=== PATIENT | female | born 1950 | race Caucasian/White ===

== ENCOUNTER 2024-04-27 11:01 | Outpatient (REF) | payer MEDICARE, SELFPAY | END 2024-04-27 11:02 | disposition home or self-care (01) | LOC: HO.HMGCLNP 11:01 | PROVIDERS: Visit Provider Registered Nurse | DX: Z13.89 Encounter for screening for other disorder (principal) ==

== ENCOUNTER 2024-04-27 11:01 | Outpatient (AMB) | payer MEDICARE, SELFPAY ==
--- NOTE | 2024-04-27 11:04 | AM.OFFWIN_ITS ---
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 While every effort has been made to ensure accuracy, inker errors may have been included. The patient is a 74 year old female who presents to the clinic today with one- week history of nausea, vomiting, dehydration, generalized body aches and decreased ability to walk. She has been absent from healthcare for the past 20 years, and notes that over time her legs have had some increased pain in the joints bilaterally. She denies fall, however her family is concerned that she may have a fall due to her above complaints. She denies fever, but reports chills. She denies shortness of breath. She has been advised by her family to drink additional fluids, however she has been declining fluids, as well as declining food. Review of Systems Const All systems reviewed & are unremarkable except as noted in HPI and below Physical Exam Vital Signs: Last Vital Signs Temp 97.6 F 04/27/24 11:12 Pulse 79 04/27/24 11:12 BP 90/54 L 04/27/24 11:12 Pulse Ox 96 04/27/24 11:12 Oxygen Delivery Method Room Air 04/27/24 11:12 Const General: cooperative, comfortable, no acute distress and alert Orientation/consciousness: patient oriented x3 HEENT Head: Yes normal to inspection and Yes normocephalic Ears: hearing grossly normal bilaterally General nose exam: Normal external nose present Face and sinus: Yes normal facial exam and Yes sinuses nontender Mouth: tongue normal and Abnormal oral and palatal mucosa present (Dry) Teeth and gingiva: dentition normal Eyes General: appearance normal, both eyes and all related structures Neck Neck: Yes normal visual inspection, Yes full ROM and Yes no lymphadenopathy Resp Effort & Inspection: normal respiratory effort and able to speak in complete sentences Auscultation: clear to auscultation bilaterally Cardio Jugular venous distension: no JVD Palpation: normal PMI Rate: regular rate Heart sounds: S1 normal heart sound present, S2 normal heart sound present, no click, no gallops, no murmurs and no rubs GI Inspection: Yes normal to inspection Palpation (GI): Soft to palpation and nontender Percussion: Yes normal to percussion Auscultation: normal bowel sounds Skin Other: Pale, warm, dry. Tenting present General skin exam: no rashes or lesions noted Neuro General: patient oriented x3 Extrem Other: Technically difficult exam due to patient being currently in a wheelchair. Strength 4/5, equal bilaterally, no obvious deformity, intact distal neurovascular exam. General: Yes capillary refill normal and Yes normal exam except as noted Psych Appearance: grossly normal Mental Status: mental status grossly normal Speech and movement: Normal speech and movement present Affect: normal affect Assessment & Plan Assessment & Plan (1) URI (upper respiratory infection): Code(s): J06.9 - Acute upper respiratory infection, unspecified Qualifiers: URI type: unspecified URI Qualified Code(s): J06.9 - Acute upper respiratory infection, unspecified Plan: Viral swab obtained to rule out Covid based on symptoms. Advised mask wearing while symptomatic and quarantine per current CDC guidelines. Reviewed at home support methods including hydration, humidification, vix vapor rub, sinus rinse. Discussed treatment with antiviral therapy for covid with paxlovid including appropriate use and side effects, and need to start medication within 5 day of symptom onset, preferably within 48 hours of symptom onset. Patient is outside of window for treatment with paxlovid. Advised follow up with worsening symptoms such as dyspnea at rest, which would require emergent evaluation. (2) Dehydration: Code(s): E86.0 - Dehydration Plan: Advised to increase fluids, and electrolytes, which patient has been declining. Given this and the physical examination, consider emergency room for rehydration efforts. Patient and family agree with plan. Family to drive patient to the emergency room. Plan See above for full details and plan. Advised connection with a primary care provider for investigation of chronic complaints, as well as primary preventative medicine. Orders: Orders SARS-CoV2/FLU/RSV Today J06.9 - Acute upper respiratory infection, unspecified Medications: New ondansetron 4 mg PO Q8H 3 days PRN 9 tabs 0RF nausea and vomiting Coding Level of Care Code Est Pt Level 4 (03875) Diagnoses Upper respiratory tract infection, unspecified type J06.9 URI type: unspecified URI Dehydration E86.0
[2024-04-27 11:12] VITALS: BP 90/54; PULSE 79; TEMP 36.4; O2SAT 96
== END 2024-04-27 12:45 | disposition home or self-care (01) ==
PROVIDERS: Visit Provider Registered Nurse
DX: J06.9 Acute upper respiratory infection, unspecified (principal); E86.0 Dehydration

== ENCOUNTER 2024-04-27 12:05 | Inpatient (IN) | payer MEDICARE, SELFPAY ==
--- NOTE | ~2024-04-27 | US_ITS ---
EXAMINATION: US TRIPLEX LOWER EXTREMITY, BILATERAL CLINICAL INFORMATION: Pain, swelling COMPARISON: None available. TECHNIQUE: Color-flow triplex imaging with spectral analysis and compression Doppler were performed on the bilateral lower extremities. FINDINGS: Respiratory variation, normal compression and augmented flow are noted throughout the bilateral lower extremities. The visualized common femoral vein, superficial femoral vein, profunda femoral vein, popliteal vein and midcalf peroneal and posterior tibial venous segments show no evidence of deep venous thrombosis bilaterally. There is no Simms's cyst. Bilateral calf edema. US/US venous duplex LE BI IMPRESSION: No evidence of deep venous thrombosis involving the bilateral lower extremities. Electronically signed by: Sherri Rossi MD 04/27/2024 01:41 PM EDT
--- NOTE | ~2024-04-27 | XR_ITS ---
EXAMINATION: XR CHEST CLINICAL INFORMATION: Cough. COMPARISON: None available. TECHNIQUE: Frontal view of the chest was obtained. FINDINGS: Mild increased central and bibasilar interstitial markings. No consolidation. Possible trace amount of bilateral pleural fluid. No pneumothorax. Mildly prominent cardiomediastinal silhouette. No acute osseous findings. XR/XR chest 1V IMPRESSION: Findings could indicate mild interstitial edema or small airways disease. Suspect mild cardiomegaly. Recommend clinical correlation. Electronically signed by: Francesca Corrales MD 04/27/2024 02:56 PM EDT RP
--- NOTE | ~2024-04-27 | CT_ITS ---
EXAMINATION: CT ABDOMEN AND PELVIS WITH CONTRAST CLINICAL INFORMATION: Jaundice. COMPARISON: None available. TECHNIQUE: Multidetector volumetric images were obtained from the superior aspect of the liver through the pubic symphysis following administration 85 mL of Omnipaque 350 intravenous contrast. Sagittal and coronal reformatted images were obtained on the technologist's workstation. Oral contrast: No. This CT examination was performed using dose optimization techniques as appropriate, variously including the following: *Automated exposure control *Adjustment of mA and/or kV according to patient size (this includes techniques or standardized protocols for targeted exams where dose is matched to indication/reason for exam; i.e. extremities or head) *Use of iterative reconstruction technique DLP: 978 mGy-cm FINDINGS: LUNG BASES: The visualized lung bases are unremarkable. LIVER, GALLBLADDER, AND BILIARY TREE: The liver is normal in size, shape, and attenuation. No focal hepatic lesion or biliary ductal dilatation is present. Distended gallbladder without significant wall thickening or inflammatory change. There are calcified gallstones dependently. No evidence of acute cholecystitis. PANCREAS: Small pancreatic body calcifications which could represent sequela of chronic pancreatitis or be vascular in nature. No inflammatory change or pancreatic ductal dilatation. No discrete parenchymal lesion. SPLEEN: Unremarkable. ADRENAL GLANDS: Bilateral adrenal thickening and heterogeneity without a discrete nodule. KIDNEYS AND URETERS: Proximal right ureteral stone measuring up to 2.0 x 0.8 x 1.4 cm and approximately 810 Hounsfield units. This is located at the level of the L3-L4 intervertebral disc. There is [id number] proximal hydroureter nephrosis with adjacent perinephric stranding and hypoenhancement of the right kidney, consistent with obstructive uropathy. There are multiple additional right renal pelvic stones. Findings have the appearance of a fragmented staghorn calculus. There is an additional right ureterovesicular junction stone measuring up to 0.9 cm with mild diffuse hydroureter and minimal adjacent stranding. No left-sided renal or ureteral stone. No discrete parenchymal lesion or enhancing parenchymal lesion. BLADDER: Nondistended. Mild wall thickening with peripheral enhancement which may be related to underdistention or represent a mild infectious or inflammatory process. GASTROINTESTINAL TRACT: Moderate sliding hiatal hernia with circumferential wall thickening of the distal esophagus. An underlying distal esophageal lesion cannot be excluded and direct visualization could help further evaluate if clinically indicated. No small or large bowel obstruction. Colonic diverticulosis without evidence of acute diverticulitis. Unremarkable appendix. PERITONEAL CAVITY: Trace pelvic free fluid. No organized fluid collection. No soft tissue mass. ABDOMINAL WALL: No significant hernia is appreciated. LYMPH NODES: No significant lymphadenopathy. VASCULAR: No abdominal aortic dilatation or dissection. Prominent atherosclerotic calcifications. PELVIC VISCERA: Probable calcified fibroid. OSSEOUS STRUCTURES: Unremarkable. CT/CT abdomen pelvis w IV con IMPRESSION: 1. Proximal right ureteral stone measuring up to 2.0 cm at the level of the L3-L4 intervertebral disc. [id number] proximal hydroureteronephrosis with adjacent perinephric stranding and hypoenhancement of the right kidney, consistent with obstructive uropathy. Multiple additional right renal pelvic stones. Findings have the appearance of a fragmented staghorn calculus. Additional right ureterovesicular junction stone measuring up to 0.9 cm with mild diffuse hydroureter and minimal adjacent stranding. 2. No left-sided renal or ureteral stone. No left-sided hydronephrosis or hydroureter. 3. Moderate sliding hiatal hernia with circumferential wall thickening of the distal esophagus. An underlying distal esophageal lesion cannot be excluded and direct visualization could help further evaluate 4. Colonic diverticulosis without evidence of acute diverticulitis. Unremarkable appendix. 5. Trace pelvic free fluid. No organized fluid collection or soft tissue mass. 6. Dilatation of the gallbladder with cholelithiasis. No evidence of acute cholecystitis. No intra or extrahepatic biliary ductal dilatation. Fleischner guidelines were followed. Electronically signed by: Moses Gutierrez MD 04/27/2024 04:01 PM EDT
--- NOTE | 2024-04-27 12:21 | ED.GENADULT ---
HPI - General Adult General Chief complaint: General Medical Stated complaint: dehydration sent in by walk in Time Seen by Provider: 04/27/24 12:30 Source: patient and family Mode of arrival: ambulatory Limitations: no limitations History of Present Illness ED Provider: Dr. Rosado HPI narrative: 74 y/o F patient; without known PMH as patient has not been seen by a physician in over 20 years; presents as referral from Urgent Care for one week of NBNB nausea/vomiting, generalized body aches and weakness. Associated with decreased PO intake. Urgent Care performed COVID swab which was negative. The patient denies alcohol use. Related Data Previous Rx's ?Medication ?Instructions ?Recorded ondansetron 4 mg disintegrating 4 mg PO Q8H PRN nausea and 04/27/24 tablet vomiting 3 days #9 tabs Allergies Allergy/AdvReac Type Severity Reaction Status Date / Time No Known Allergies Allergy Verified 04/27/24 12:23 Review of Systems Review of Systems: Yes all other systems are reviewed and are negative PMFSH Past Medical History Attestation statement: The following information was validated with the patient. Source: unable to obtain Social History Social History Advance Directives: No Advance Directives Information Provided: Yes Physical Exam ED Vital Signs: Vital Signs - 24 hr 04/27/24 12:22 04/27/24 16:35 Temperature 96.3 F L 98.0 F Pulse Rate 66 66 Respiratory Rate 16 22 H Blood Pressure 94/41 L 141/54 H Pulse Oximetry 95 94 Oxygen Delivery Method Room Air Room Air BMI result Body Mass Index 35.8 Patient is afebrile with soft normal blood pressure Const General: cooperative HENMT Head: Yes normal to inspection and Yes atraumatic Eyes Other: Scleral icterus General: appearance normal, both eyes and all related structures Pupils: Equal, round and reactive pupils present EOM: EOMs intact bilaterally Neck Neck: Yes normal visual inspection, Yes full ROM, Yes supple and No tender Chest Chest palpation & inspection: normal inspection of the chest and normal palpation of entire chest wall Resp Effort & Inspection: normal respiratory effort, able to speak in complete sentences, no cough and no respiratory distress Auscultation: clear to auscultation bilaterally Cardio Other: Bilateral lower extremity non-pitting edema Rate: regular rate Rhythm: regular rhythm Peripheral pulses: Peripheral pulses 2+ throughout GI Inspection: No Abdominal wall edema and No distended Palpation (GI): Soft to palpation, not firm, Tenderness to palpation present (GI) (Epigastric abd tenderness), no guarding and not rigid Auscultation: normal bowel sounds Back/Spine/Pelvis Back: No back tenderness Skin General skin exam: jaundice Neuro Cranial nerves: Yes Equal, round and reactive pupils present Course Course Course Narrative: 74 yo female with no known PMH as she has not been to the doctor in several years this is the 8th day of weakness, fatigue, chills, nausea and vomiting x 1. Poor PO intake. BP at home reported as 90/50. She has bilateral leg pain as well. She is newly jaundiced. She cannot remember the last time she saw a doctor. She has no abdominal pain. She has leg swelling as well. No prior ETOH abuse. this is a RAPID medical screening exam the rest of the history and physical exam is to be done by the main provider. Performed by Dr. Morris Reevaluation(s) Reevaluation #1: Patient is afebrile with soft normal BP. Reviewed orders for CT Abdomen/Pelvis w Contrast, CXR, US bilateral lower extremities. Reviewed EKG: NSR 69BPM with normal intervals without ischemic changes. Labs reviewed. WBC 24.6k, 8% bands. Anemia 10.6 unclear baseline. Platelets 138. Potassium 3.2. Providing oral repletion. Bicarb 20. Cr 3.08. Suspect this represents an DEB given patient's recent nausea/vomiting/diarrhea, but unclear baseline Cr. LA 2.2. Total bili 1.4. Alk Phos 243. Albumin 3.1. CRP 29.47. ESR 90. TSH 15.73. Providing 1L IVF and Zosyn for prophylactic antibiotic coverage. Time: 13:44 Reevaluation #2: Lower extremity b/l US unremarkable. CXR notable for mild interstitial edema. CT Abdomen/Pelvis with: 1. Proximal right ureteral stone measuring up to 2.0 cm at the level of the L3-L4 intervertebral disc. [id number] proximal hydroureteronephrosis with adjacent perinephric stranding and hypoenhancement of the right kidney, consistent with obstructive uropathy. Multiple additional right renal pelvic stones. Findings have the appearance of a fragmented staghorn calculus. Discussed with urology and hospitalist. Urology recommends NPO at midnight. Plan: Admit to hospitalist service Condition: Stable Medications Administered Discontinued Medications Generic Name Dose Route Start Last Admin Trade Name Nyla PRN Reason Stop Dose Admin Sodium Chloride 1,000 mls @ 999 mls/hr 04/27/24 13:45 04/27/24 14:14 Ns IV 04/27/24 14:45 999 mls/hr .Q1H1M KRYSTYNA Administration Piperacillin Sod/Tazobactam 50 mls @ 100 mls/hr 04/27/24 13:43 04/27/24 14:57 Sod 3.375 gm/ Sodium Chloride IV 04/27/24 14:12 Infused ONCE ONE Infusion Iohexol 100 ml 04/27/24 14:28 04/27/24 14:28 Iohexol 350 Mg/Ml 100 Ml Infus..Btl IV 04/27/24 14:29 85 ml ONCE ONE Administration Potassium Chloride 40 meq 04/27/24 13:44 04/27/24 14:13 Potassium Chloride Er 20 Meq Tab.Er.Prt PO 04/27/24 13:45 40 meq ONCE ONE Administration Medical Decision Making Lab Data 04/27/24 12:53 04/27/24 12:53 Labs: Lab Results 04/27/24 04/27/24 04/27/24 Range/Units 12:52 12:53 12:57 WBC 24.6 H (4.8-10.8) X10*3/uL RBC 3.53 L (4.20-5.50) X10*6/uL Hgb 10.6 L (12.0-16.0) g/dl Hct 31.3 L (37.0-47.0) % MCV 88.7 (80.0-98.0) fL MCH 30.0 (27.0-33.0) pg MCHC 33.9 (31.0-35.0) g/dl RDW 15.6 (11.0-16.0) % Plt Count 138 L (160-400) X10*3/uL MPV 12.5 H (9.4-12.3) fL Immature Gran % (Auto) Cancelled Neut % (Auto) Cancelled Lymph % (Auto) Cancelled Stephens % (Auto) Cancelled Eos % (Auto) Cancelled Baso % (Auto) Cancelled Lymph # (Auto) Cancelled Stephens # (Auto) Cancelled Eos # (Auto) Cancelled Baso # (Auto) Cancelled Abs Immat Gran (auto) Cancelled Absolute Neuts (auto) Cancelled Absolute Nucleated RBC 0.000 (0.0-0.012) X10*3/uL Nucleated RBC % (auto) 0.0 (0.0-0.2) /100WBC Neutrophils % (Manual) 79 H (45-73) % Band Neutrophils % 8 H (3-5) % Lymphocytes % (Manual) 3 L (20-40) % Atypical Lymphs % (Man) 1 (0-6) % Monocytes % (Manual) 6 (2-11) % Metamyelocytes % 3 % Abs Neuts (Manual) 21.4 H (2.0-8.3) X10*3/uL Lymphocytes # (Manual) 0.7 L (1.2-4.9) X10*3/uL Atyp Lymphs # (Manual) 0.2 x10*3/uL Monocytes # (Manual) 1.5 H (0.1-1.2) X10*3/uL Metamyelocytes # 0.7 X10*3/uL Platelet Estimate DECREASED (NORMAL) Plt Morphology Comment NORMAL RBC Morphology NOTED Hypochromasia 1+ (5-14) /OIF [place] Cells 2+ (3-5) /OIF ESR 90 H (0-20) MM/HR PT 12.4 (10.9-12.4) SEC INR 1.1 (0.9-1.1) VBG pH 7.46 H (7.32-7.43) VBG pCO2 27 mmHg VBG pO2 45 mmHg VBG HCO3 19 L (22-26) mmol/L VBG O2 Saturation 69.0 % VBG Base Excess -3.0 mmol/L Sodium 137 (135-145) mmol/L Potassium 3.2 L (3.3-5.1) mmol/L Chloride 108 (96-108) mmol/L Carbon Dioxide 20 L (22-29) mmol/L Anion Gap 12 (12-20) BUN 73 H (9-16) mg/dL Creatinine 3.08 H (0.5-1.4) mg/dL Estim Creat Clear Calc 18.8 Estimated GFR 15 Random Glucose 149 H (60-115) mg/dL Lactic Acid 2.2 H* (0.5-2.0) mmol/L Lactic Acid F/U @ 2Hr (0.5-2.0) mmol/L Calcium 8.8 (8.4-10.2) mg/dL Magnesium 2.1 (1.6-2.6) mg/dL Total Bilirubin 1.4 H (0.0-1.0) mg/dL Direct Bilirubin 0.8 H (0.0-0.5) mg/dL AST 36 H (5-31) U/L ALT 25 (0-31) U/L Alkaline Phosphatase 243 H (39-117) U/L Ammonia 28 (13-55) umol/L Troponin I High Sens 15.5 (<3.5-17.0) ng/L C-Reactive Protein 29.47 H (< or = 0.50) mg/dL B-Natriuretic Peptide 384 H (<100) pg/mL Total Protein 6.6 (6.5-8.0) g/dL Albumin 3.1 L (3.5-5.0) g/dL Lipase 13 (8-78) U/L Procalcitonin 21.05 ng/mL TSH 15.73 H (0.32-4.0) uIU/mL Free T4 < 0.42 L (0.71-1.85) ng/dL Acetaminophen 6 (<30) mcg/mL Influenza Type A (PCR) NEGATIVE (Negative) Influenza Type B (PCR) NEGATIVE (Negative) RSV RNA Qual (PCR) NEGATIVE (Negative) SARS-CoV-2 RNA (RT-PCR) NEGATIVE (Negative) Blood Type O Positive Antibody Screen NEGATIVE 04/27/24 Range/Units 15:44 WBC (4.8-10.8) X10*3/uL RBC (4.20-5.50) X10*6/uL Hgb (12.0-16.0) g/dl Hct (37.0-47.0) % MCV (80.0-98.0) fL MCH (27.0-33.0) pg MCHC (31.0-35.0) g/dl RDW (11.0-16.0) % Plt Count (160-400) X10*3/uL MPV (9.4-12.3) fL Immature Gran % (Auto) Neut % (Auto) Lymph % (Auto) Stephens % (Auto) Eos % (Auto) Baso % (Auto) Lymph # (Auto) Stephens # (Auto) Eos # (Auto) Baso # (Auto) Abs Immat Gran (auto) Absolute Neuts (auto) Absolute Nucleated RBC (0.0-0.012) X10*3/uL Nucleated RBC % (auto) (0.0-0.2) /100WBC Neutrophils % (Manual) (45-73) % Band Neutrophils % (3-5) % Lymphocytes % (Manual) (20-40) % Atypical Lymphs % (Man) (0-6) % Monocytes % (Manual) (2-11) % Metamyelocytes % % Abs Neuts (Manual) (2.0-8.3) X10*3/uL Lymphocytes # (Manual) (1.2-4.9) X10*3/uL Atyp Lymphs # (Manual) x10*3/uL Monocytes # (Manual) (0.1-1.2) X10*3/uL Metamyelocytes # X10*3/uL Platelet Estimate (NORMAL) Plt Morphology Comment RBC Morphology Hypochromasia /OIF [place] Cells /OIF ESR (0-20) MM/HR PT (10.9-12.4) SEC INR (0.9-1.1) VBG pH (7.32-7.43) VBG pCO2 mmHg VBG pO2 mmHg VBG HCO3 (22-26) mmol/L VBG O2 Saturation % VBG Base Excess mmol/L Sodium (135-145) mmol/L Potassium (3.3-5.1) mmol/L Chloride (96-108) mmol/L Carbon Dioxide (22-29) mmol/L Anion Gap (12-20) BUN (9-16) mg/dL Creatinine (0.5-1.4) mg/dL Estim Creat Clear Calc Estimated GFR Random Glucose (60-115) mg/dL Lactic Acid (0.5-2.0) mmol/L Lactic Acid F/U @ 2Hr 1.7 (0.5-2.0) mmol/L Calcium (8.4-10.2) mg/dL Magnesium (1.6-2.6) mg/dL Total Bilirubin (0.0-1.0) mg/dL Direct Bilirubin (0.0-0.5) mg/dL AST (5-31) U/L ALT (0-31) U/L Alkaline Phosphatase (39-117) U/L Ammonia (13-55) umol/L Troponin I High Sens (<3.5-17.0) ng/L C-Reactive Protein (< or = 0.50) mg/dL B-Natriuretic Peptide (<100) pg/mL Total Protein (6.5-8.0) g/dL Albumin (3.5-5.0) g/dL Lipase (8-78) U/L Procalcitonin ng/mL TSH (0.32-4.0) uIU/mL Free T4 (0.71-1.85) ng/dL Acetaminophen (<30) mcg/mL Influenza Type A (PCR) (Negative) Influenza Type B (PCR) (Negative) RSV RNA Qual (PCR) (Negative) SARS-CoV-2 RNA (RT-PCR) (Negative) Blood Type Antibody Screen Independent Interpretation I performed an independent interpretation of an: Plain X-Ray and Ultrasound Interpretation: EXAMINATION: US TRIPLEX LOWER EXTREMITY, BILATERAL CLINICAL INFORMATION: Pain, swelling COMPARISON: None available. TECHNIQUE: Color-flow triplex imaging with spectral analysis and compression Doppler were performed on the bilateral lower extremities. FINDINGS: Respiratory variation, normal compression and augmented flow are noted throughout the bilateral lower extremities. The visualized common femoral vein, superficial femoral vein, profunda femoral vein, popliteal vein and midcalf peroneal and posterior tibial venous segments show no evidence of deep venous thrombosis bilaterally. There is no Simms's cyst. Bilateral calf edema. US/US venous duplex LE BI IMPRESSION: No evidence of deep venous thrombosis involving the bilateral lower extremities. Electronically signed by: Sherri Rossi MD 04/27/2024 01:41 PM EDT EXAMINATION: XR CHEST CLINICAL INFORMATION: Cough. COMPARISON: None available. TECHNIQUE: Frontal view of the chest was obtained. FINDINGS: Mild increased central and bibasilar interstitial markings. No consolidation. Possible trace amount of bilateral pleural fluid. No pneumothorax. Mildly prominent cardiomediastinal silhouette. No acute osseous findings. XR/XR chest 1V IMPRESSION: Findings could indicate mild interstitial edema or small airways disease. Suspect mild cardiomegaly. Recommend clinical correlation. Electronically signed by: Francesca Corrales MD 04/27/2024 02:56 PM EDT RP EXAMINATION: CT ABDOMEN AND PELVIS WITH CONTRAST CLINICAL INFORMATION: Jaundice. COMPARISON: None available. TECHNIQUE: Multidetector volumetric images were obtained from the superior aspect of the liver through the pubic symphysis following administration 85 mL of Omnipaque 350 intravenous contrast. Sagittal and coronal reformatted images were obtained on the technologist's workstation. Oral contrast: No. This CT examination was performed using dose optimization techniques as appropriate, variously including the following: *Automated exposure control *Adjustment of mA and/or kV according to patient size (this includes techniques or standardized protocols for targeted exams where dose is matched to indication/reason for exam; i.e. extremities or head) *Use of iterative reconstruction technique DLP: 978 mGy-cm FINDINGS: LUNG BASES: The visualized lung bases are unremarkable. LIVER, GALLBLADDER, AND BILIARY TREE: The liver is normal in size, shape, and attenuation. No focal hepatic lesion or biliary ductal dilatation is present. Distended gallbladder without significant wall thickening or inflammatory change. There are calcified gallstones dependently. No evidence of acute cholecystitis. PANCREAS: Small pancreatic body calcifications which could represent sequela of chronic pancreatitis or be vascular in nature. No inflammatory change or pancreatic ductal dilatation. No discrete parenchymal lesion. SPLEEN: Unremarkable. ADRENAL GLANDS: Bilateral adrenal thickening and heterogeneity without a discrete nodule. KIDNEYS AND URETERS: Proximal right ureteral stone measuring up to 2.0 x 0.8 x 1.4 cm and approximately 810 Hounsfield units. This is located at the level of the L3-L4 intervertebral disc. There is [id number] proximal hydroureter nephrosis with adjacent perinephric stranding and hypoenhancement of the right kidney, consistent with obstructive uropathy. There are multiple additional right renal pelvic stones. Findings have the appearance of a fragmented staghorn calculus. There is an additional right ureterovesicular junction stone measuring up to 0.9 cm with mild diffuse hydroureter and minimal adjacent stranding. No left-sided renal or ureteral stone. No discrete parenchymal lesion or enhancing parenchymal lesion. BLADDER: Nondistended. Mild wall thickening with peripheral enhancement which may be related to underdistention or represent a mild infectious or inflammatory process. GASTROINTESTINAL TRACT: Moderate sliding hiatal hernia with circumferential wall thickening of the distal esophagus. An underlying distal esophageal lesion cannot be excluded and direct visualization could help further evaluate if clinically indicated. No small or large bowel obstruction. Colonic diverticulosis without evidence of acute diverticulitis. Unremarkable appendix. PERITONEAL CAVITY: Trace pelvic free fluid. No organized fluid collection. No soft tissue mass. ABDOMINAL WALL: No significant hernia is appreciated. LYMPH NODES: No significant lymphadenopathy. VASCULAR: No abdominal aortic dilatation or dissection. Prominent atherosclerotic calcifications. PELVIC VISCERA: Probable calcified fibroid. OSSEOUS STRUCTURES: Unremarkable. CT/CT abdomen pelvis w IV con IMPRESSION: 1. Proximal right ureteral stone measuring up to 2.0 cm at the level of the L3-L4 intervertebral disc. [id number] proximal hydroureteronephrosis with adjacent perinephric stranding and hypoenhancement of the right kidney, consistent with obstructive uropathy. Multiple additional right renal pelvic stones. Findings have the appearance of a fragmented staghorn calculus. Additional right ureterovesicular junction stone measuring up to 0.9 cm with mild diffuse hydroureter and minimal adjacent stranding. 2. No left-sided renal or ureteral stone. No left-sided hydronephrosis or hydroureter. 3. Moderate sliding hiatal hernia with circumferential wall thickening of the distal esophagus. An underlying distal esophageal lesion cannot be excluded and direct visualization could help further evaluate 4. Colonic diverticulosis without evidence of acute diverticulitis. Unremarkable appendix. 5. Trace pelvic free fluid. No organized fluid collection or soft tissue mass. 6. Dilatation of the gallbladder with cholelithiasis. No evidence of acute cholecystitis. No intra or extrahepatic biliary ductal dilatation. Fleischner guidelines were followed. Electronically signed by: Moses Gutierrez MD 04/27/2024 04:01 PM EDT Discharge Plan Discharge Clinical Impression: Urinary tract obstruction due to kidney stone, Anemia, Thrombocytopenia, DEB (acute kidney injury), Hypothyroidism Patient Disposition: Admitted As Inpatient Print Language: Serbian
[2024-04-27 12:22] VITALS: BP 94/41; PULSE 66; RESP 16; TEMP 35.7; O2SAT 95; BMI 35.8
--- NOTE | 2024-04-27 12:25 | ECG_ITS ---
Test Reason : WEAKNESS Blood Pressure : / mmHG Vent. Rate : 069 BPM Atrial Rate : 069 BPM P-R Int : 134 ms QRS Dur : 080 ms QT Int : 418 ms P-R-T Axes : 018 020 100 degrees QTc Int : 447 ms Normal sinus rhythm Nonspecific ST and T wave abnormality Abnormal ECG No previous ECGs available Referred By: Roxi Morris Electronically Signed By:SHANELLE MOHR
[2024-04-27 13:12] LABS: Hematocrit 31.3 % (37.0-47.0); Hemoglobin 10.6 g/dl (12.0-16.0); Mean Corpuscular HGB Conc 33.9 g/dl (31.0-35.0); Mean Corpuscular Volume 88.7 fL (80.0-98.0); Mean Platelet Volume 12.5 fL (9.4-12.3); Platelet Count 138 X10*3/uL (160-400); Red Blood Count 3.53 X10*6/uL (4.20-5.50); Red Cell Distribution Width 15.6 % (11.0-16.0)
[2024-04-27 13:14] LABS: VBG HCO3 19 mmol/L (22-26); VBG pCO2 27 mmHg; VBG pH 7.46 (7.32-7.43); VBG pO2 45 mmHg; Venous Blood Gas Refer to POC result
[2024-04-27 13:16] LABS: WBC ABN SCTR FOR CBC 1; White Blood Count 24.6 X10*3/uL (4.8-10.8)
[2024-04-27 13:22] LABS: INTERNATIONAL NORM RATIO 1.1 (0.9-1.1); Prothrombin Time 12.4 SEC (10.9-12.4)
[2024-04-27 13:25] LABS: Ammonia 28 umol/L (13-55)
[2024-04-27 13:32] LABS: B Type Natriuretic Peptide 384 pg/mL (<100)
[2024-04-27 13:32] LABS: Acetaminophen LAB 6 mcg/mL (<30)
[2024-04-27 13:35] LABS: Atypical Lymph Absolute Manual 0.2 x10*3/uL; Atypical Lymphs Percent Manual 1 % (0-6); Band Neutrophils Percent 8 % (3-5); Lymphocytes Absolute Manual 0.7 X10*3/uL (1.2-4.9); Lymphocytes Percent Manual 3 % (20-40); Metamyelocytes Absolute 0.7 X10*3/uL; Metamyelocytes Percent 3 %; Monocytes Absolute Manual 1.5 X10*3/uL (0.1-1.2); Monocytes Percent Manual 6 % (2-11); Neutrophils Absolute Manual 21.4 X10*3/uL (2.0-8.3); Neutrophils Percent Manual 79 % (45-73)
[2024-04-27 13:36] LABS: Burr Cells 2+ (3-5) /OIF; Hypochromasia 1+ (5-14) /OIF; Platelet Estimate DECREASED (NORMAL); Platelet Morphology Comment NORMAL; RBC Morphology NOTED
[2024-04-27 13:38] LABS: Alanine Aminotransferase 25 U/L (0-31); Albumin Level 3.1 g/dL (3.5-5.0); Alkaline Phosphatase 243 U/L (39-117); Anion Gap 12 (12-20); Aspartate Amino Transferase 36 U/L (5-31); Bilirubin Direct 0.8 mg/dL (0.0-0.5); Bilirubin Total 1.4 mg/dL (0.0-1.0); Blood Urea Nitrogen 73 mg/dL (9-16); C Reactive Protein 29.47 mg/dL (< or = 0.50); Calcium 8.8 mg/dL (8.4-10.2); Carbon Dioxide 20 mmol/L (22-29); Chloride 108 mmol/L (96-108); Creatinine Clr Calc Pharmacy 18.8; Estimated Glomerular Filt Rate 15; Glucose Random 149 mg/dL (60-115); Lactic Acid 2.2 mmol/L (0.5-2.0); Lipase 13 U/L (8-78); Magnesium 2.1 mg/dL (1.6-2.6); Potassium 3.2 mmol/L (3.3-5.1); Sodium 137 mmol/L (135-145); Total Protein 6.6 g/dL (6.5-8.0); Troponin-I High Sensitivity 15.5 ng/L (<3.5-17.0)
[2024-04-27 13:52] LABS: Erythrocyte Sedimentation Rate 90 MM/HR (0-20)
[2024-04-27 13:53] LABS: TSH reflex Free T4 15.73 uIU/mL (0.32-4.0)
[2024-04-27 13:56] LABS: Procalcitonin 21.05 ng/mL
[2024-04-27] MEDS: Potassium Chloride ER 20 MEQ TAB.ER.PRT 40 MEQ PO (14:13)
[2024-04-27] MEDS: 0.9 % Sodium Chloride 1,000 ML 999 ML IV (14:14)
[2024-04-27] MEDS: Piperacillin Sodium/Tazobactam 3.375 GM in 0.9 % Sodium Chloride 50 ML IV (14:14)
[2024-04-27 14:23] LABS: Influenza A PCR NEGATIVE (Negative); Influenza B PCR NEGATIVE (Negative); Resp Syncy Virus RNA Qual PCR NEGATIVE (Negative); SARS COV2 PCR INHOUSE NEGATIVE (Negative)
[2024-04-27] MEDS: iohexoL 350 MG/ML 100 ML INFUS..BTL IV (14:28)
[2024-04-27 14:50] LABS: Free T4 (Free Thyroxine) < 0.42 ng/dL (0.71-1.85)
[2024-04-27 15:06] LABS: Reflex Lactate? Lactic Acid Added
[2024-04-27 16:01] LABS: ~Lactic Acid-LAB USE ONLY 1.7 mmol/L (0.5-2.0)
[2024-04-27 16:35] VITALS: BP 141/54; PULSE 66; RESP 22; TEMP 36.7; O2SAT 94
--- NOTE | 2024-04-27 16:46 | PM.UROCN ---
History of Present Illness Consult details Consult date: 04/27/24 Narrative: CC: Obstructing stone with infection 74-year-old female. Minimal past medical history. Has not seen doctor in 20 years. Was referred from urgent Care after one-week of nausea with vomiting and generalized body aches and weakness Decreased p.o. intake Negative COVID Initial laboratories show creatinine 3.1, WBC 24.[address] imaging - Proximal right ureteral stone measuring up to 2.0 vx 0.8 x 1.4 cm and approximately 810 Hounsfield units. This is located at the level of the L3-L4 intervertebral disc. There is [id number] proximal hydroureter nephrosis with adjacent perinephric stranding and decreased perfusion of the right kidney, consistent with obstructive uropathy. Recommendation admission, rehydration, IV antibiotics Would plan for cystoscopy, right retrograde, right stent tomorrow Review of Systems Constitutional: Constitutional: Reports as per HPI and Reports no additional constitutional complaints Cardiovascular: Cardiovascular: Reports as per HPI and Reports no additional cardiovascular complaints Respiratory: Respiratory: Reports as per HPI and Reports no additional respiratory complaints Gastrointestinal: Gastrointestinal: Reports as per HPI and Reports no additional gastrointestinal complaints Genitourinary: Genitourinary: Reports as per HPI Musculoskeletal: Musculoskeletal: Reports no additional musculoskeletal complaints and Reports as per HPI Neurologic: Reports system reviewed and no additional complaints, except as documented and Reports as per HPI [facility] Social History Social History Advance Directives: No Advance Directives Information Provided: Yes Meds Allergies Allergy/AdvReac Type Severity Reaction Status Date / Time No Known Allergies Allergy Verified 04/27/24 12:23 Active Medications: Current Medications Sodium Chloride (Ns) 1,000 mls @ 125 mls/hr IVCONT .Q8H [facility] Piperacillin Sod/Tazobactam (Sod 2.25 gm/ Sodium Chloride) 50 mls @ 100 mls/hr IV ONCE ONE Stop: 04/27/24 20:29 Levothyroxine Sodium (Levothyroxine Sodium 75 Mcg Tablet) 75 mcg PO DAILY@0600 [facility] Physical Exam Vital Signs: Vital Signs: Last Vital Signs Temp 98.0 F 04/27/24 16:35 Pulse 66 04/27/24 16:35 Resp 22 H 04/27/24 16:35 BP 141/54 H 04/27/24 16:35 Pulse Ox 94 04/27/24 16:35 O2 Del Method Room Air 04/27/24 16:35 BMI result Body Mass Index 35.8 Const: General: cooperative, healthy appearing, comfortable and no acute distress Orientation/consciousness: patient oriented x3 HEENT: Face and sinus: Yes normal facial exam Mouth: moist mucous membranes Neck: Neck: Yes normal visual inspection, Yes full ROM and Yes trachea midline Chest: Chest palpation & inspection: normal inspection of the chest Resp: Effort & Inspection: normal respiratory effort, able to speak in complete sentences and no respiratory distress GI: Inspection: Yes normal to inspection Back/Spine/Pelvis: Cervical Spine: normal cervical lordosis Thoracic/Lumbar Spine: thoracic and lumbar spine normal to inspection Skin: General skin exam: no rashes or lesions noted Neuro: General: patient oriented x3, tone normal and moves all extremities Extrem: General: Yes normal to inspection and Yes capillary refill normal Results Labs 04/27/24 12:53 04/27/24 12:53 Labs: Abnormal lab results 04/27/24 Range/Units 12:53 WBC 24.6 H (4.8-10.8) X10*3/uL RBC 3.53 L (4.20-5.50) X10*6/uL Hgb 10.6 L (12.0-16.0) g/dl Hct 31.3 L (37.0-47.0) % Plt Count 138 L (160-400) X10*3/uL MPV 12.5 H (9.4-12.3) fL Neutrophils % (Manual) 79 H (45-73) % Band Neutrophils % 8 H (3-5) % Lymphocytes % (Manual) 3 L (20-40) % Abs Neuts (Manual) 21.4 H (2.0-8.3) X10*3/uL Lymphocytes # (Manual) 0.7 L (1.2-4.9) X10*3/uL Monocytes # (Manual) 1.5 H (0.1-1.2) X10*3/uL ESR 90 H (0-20) MM/HR VBG pH 7.46 H (7.32-7.43) VBG HCO3 19 L (22-26) mmol/L Potassium 3.2 L (3.3-5.1) mmol/L Carbon Dioxide 20 L (22-29) mmol/L BUN 73 H (9-16) mg/dL Creatinine 3.08 H (0.5-1.4) mg/dL Random Glucose 149 H (60-115) mg/dL Lactic Acid 2.2 H* (0.5-2.0) mmol/L Total Bilirubin 1.4 H (0.0-1.0) mg/dL Direct Bilirubin 0.8 H (0.0-0.5) mg/dL AST 36 H (5-31) U/L Alkaline Phosphatase 243 H (39-117) U/L C-Reactive Protein 29.47 H (< or = 0.50) mg/dL B-Natriuretic Peptide 384 H (<100) pg/mL Albumin 3.1 L (3.5-5.0) g/dL TSH 15.73 H (0.32-4.0) uIU/mL Free T4 < 0.42 L (0.71-1.85) ng/dL Short CBC 04/27/24 Range/Units 12:53 WBC 24.6 H (4.8-10.8) X10*3/uL Hgb 10.6 L (12.0-16.0) g/dl Hct 31.3 L (37.0-47.0) % Plt Count 138 L (160-400) X10*3/uL BMP 04/27/24 12:53 Sodium 137 Potassium 3.2 L Chloride 108 Carbon Dioxide 20 L BUN 73 H Creatinine 3.08 H Calcium 8.8 Liver Function 04/27/24 Range/Units 12:53 Total Bilirubin 1.4 H (0.0-1.0) mg/dL Direct Bilirubin 0.8 H (0.0-0.5) mg/dL AST 36 H (5-31) U/L ALT 25 (0-31) U/L Alkaline Phosphatase 243 H (39-117) U/L Albumin 3.1 L (3.5-5.0) g/dL All other labs normal. Assessment and Plan (1) Urinary tract obstruction due to kidney stone: Status: Acute (2) DEB (acute kidney injury): Status: Acute Plan Plan for cystoscopy, right retrograde, right stent placement. Procedures Date of Service Date of Service: 04/27/24
[2024-04-27] MEDS: Levothyroxine Sodium 75 MCG TABLET PO (17:05)
--- NOTE | 2024-04-27 17:05 | P.HPHOSP_ITS ---
History of Present Illness Date of Service: 04/27/24 Chief Complaint: nausea/vomiting/back pain 74yo F with iatrogenic hypothyroidism s/p ESQUIVEL for Grave's disease who has not seen a doctor in over 20 years and also has not been on thyroid hormone replacement for as long who went to urgent care with 1 wk of nausea and vomiting, back pain, and weakness. She endorses swelling of her legs, muscle aches, and dry skin, which have been going on for several months. No fever, chills, dysuria, or hematuria. In the ED, she was found to have leukocytosis [24.6k] with bandemia [8%] and renal insufficiency [DEB 3.08]. TSH was 15.73 and free T4 undetectable. CT A/P showed a 2 cm proximal R ureteral stone with severe hydroureteronephrosis and perinephric stranding, with multiple right renal pelvic stones, with appearance of a fragmented staghorn calculus. There was also a 9 mm R UVJ stone with hydroureter. There was also a hiatal hernia with circumferential wall thickening of the distal esophagus. K was 3.2 and she was given PO KCl. She was given IV piperacillin-tazobactam and a liter of IV NS. Review of Systems 2 Review of Systems: Yes all other systems are reviewed and are negative [facility] Medical History H/O radioactive iodine thyroid ablation Social History Advance Directives: No Advance Directives Information Provided: Yes Narrative: she quit smoking 1 wk ago she lives with her Meds Allergies Allergy/AdvReac Type Severity Reaction Status Date / Time No Known Allergies Allergy Verified 04/27/24 12:23 Active Medications: Current Medications Acetaminophen (Acetaminophen 325 Mg Tablet) 650 mg PO Q6H PRN PRN Reason: Pain, Mild (Pain Scale 1-3), fever or headache Heparin Sodium (Porcine) (Heparin Sodium,Porcine 5,000 Unit/Ml Vial) 5,000 unit SUBCUT Q12H [facility] Sodium Chloride (Ns) 1,000 mls @ 125 mls/hr IVCONT .Q8H [facility] Piperacillin Sod/Tazobactam (Sod 2.25 gm/ Sodium Chloride) 50 mls @ 100 mls/hr IV ONCE ONE Stop: 04/27/24 20:29 Levothyroxine Sodium (Levothyroxine Sodium 75 Mcg Tablet) 75 mcg PO DAILY@0600 [facility] Last Admin: 04/27/24 17:05 Dose: 75 mcg Melatonin (Melatonin 3 Mg Tablet) 6 mg PO BEDTIME PRN PRN Reason: Insomnia Ondansetron HCl (Ondansetron Hcl 4 Mg/2 Ml Vial) 4 mg IVPUSH Q4H PRN PRN Reason: Nausea and Vomiting Sodium Chloride (0.9 % Sodium Chloride Flush 3 Ml Syringe) 3 ml IVFLUSH QSHIFT [facility] Home Medications ?Medication ?Instructions ?Recorded ?Confirmed ?Last Taken ?Type No Known Home Meds 04/27/24 04/27/24 Unknown History Physical Exam 2 Vital Signs and Narrative: Vital Signs: Last Vital Signs Temp 98.0 F 04/27/24 16:35 Pulse 66 04/27/24 16:35 Resp 22 H 04/27/24 16:35 BP 141/54 H 04/27/24 16:35 Pulse Ox 94 04/27/24 16:35 O2 Del Method Room Air 04/27/24 16:35 BMI result Body Mass Index 35.8 Gen: in no acute distress HEENT: sclera anicteric, moist mucus membranes Neck: supple Lungs: clear to auscultation bilaterally Heart: regular rate and rhythm, no murmurs Abd: soft, non-tender, non-distended : R CVA tenderness Ext: bilateral lower extremity edema Skin: warm/well-perfused Neuro: alert and oriented x3, no focal weakness, delayed tendon reflexes Psych: appropriate affect Results Labs 04/27/24 12:53 04/27/24 12:53 Labs: Laboratory Results - last 24 hr 04/27/24 04/27/24 04/27/24 12:52 12:53 12:57 MCV 88.7 MCH 30.0 MCHC 33.9 RDW 15.6 Plt Count 138 L MPV 12.5 H Immature Gran % (Auto) Cancelled Neut % (Auto) Cancelled Lymph % (Auto) Cancelled [place] % (Auto) Cancelled Eos % (Auto) Cancelled Baso % (Auto) Cancelled Lymph # (Auto) Cancelled [place] # (Auto) Cancelled Eos # (Auto) Cancelled Baso # (Auto) Cancelled Abs Immat Gran (auto) Cancelled Absolute Neuts (auto) Cancelled Absolute Nucleated RBC 0.000 Nucleated RBC % (auto) 0.0 Neutrophils % (Manual) 79 H Band Neutrophils % 8 H Lymphocytes % (Manual) 3 L Atypical Lymphs % (Man) 1 Monocytes % (Manual) 6 Metamyelocytes % 3 Abs Neuts (Manual) 21.4 H Lymphocytes # (Manual) 0.7 L Atyp Lymphs # (Manual) 0.2 Monocytes # (Manual) 1.5 H Metamyelocytes # 0.7 Platelet Estimate DECREASED Plt Morphology Comment NORMAL RBC Morphology NOTED Hypochromasia 1+ (5-14) [place] Cells 2+ (3-5) ESR 90 H PT 12.4 INR 1.1 VBG pH 7.46 H VBG pCO2 27 VBG pO2 45 VBG HCO3 19 L VBG O2 Saturation 69.0 VBG Base Excess -3.0 Anion Gap 12 Estim Creat Clear Calc 18.8 Estimated GFR 15 Random Glucose 149 H Lactic Acid 2.2 H* Lactic Acid F/U @ 2Hr Calcium 8.8 Magnesium 2.1 Total Bilirubin 1.4 H Direct Bilirubin 0.8 H AST 36 H ALT 25 Alkaline Phosphatase 243 H Ammonia 28 Troponin I High Sens 15.5 C-Reactive Protein 29.47 H B-Natriuretic Peptide 384 H Total Protein 6.6 Albumin 3.1 L Lipase 13 Procalcitonin 21.05 TSH 15.73 H Free T4 < 0.42 L Acetaminophen 6 Influenza Type A (PCR) NEGATIVE Influenza Type B (PCR) NEGATIVE RSV RNA Qual (PCR) NEGATIVE SARS-CoV-2 RNA (RT-PCR) NEGATIVE Blood Type O Positive Antibody Screen NEGATIVE 04/27/24 15:44 MCV MCH MCHC RDW Plt Count MPV Immature Gran % (Auto) Neut % (Auto) Lymph % (Auto) [place] % (Auto) Eos % (Auto) Baso % (Auto) Lymph # (Auto) [place] # (Auto) Eos # (Auto) Baso # (Auto) Abs Immat Gran (auto) Absolute Neuts (auto) Absolute Nucleated RBC Nucleated RBC % (auto) Neutrophils % (Manual) Band Neutrophils % Lymphocytes % (Manual) Atypical Lymphs % (Man) Monocytes % (Manual) Metamyelocytes % Abs Neuts (Manual) Lymphocytes # (Manual) Atyp Lymphs # (Manual) Monocytes # (Manual) Metamyelocytes # Platelet Estimate Plt Morphology Comment RBC Morphology Hypochromasia [place] Cells ESR PT INR VBG pH VBG pCO2 VBG pO2 VBG HCO3 VBG O2 Saturation VBG Base Excess Anion Gap Estim Creat Clear Calc Estimated GFR Random Glucose Lactic Acid Lactic Acid F/U @ 2Hr 1.7 Calcium Magnesium Total Bilirubin Direct Bilirubin AST ALT Alkaline Phosphatase Ammonia Troponin I High Sens C-Reactive Protein B-Natriuretic Peptide Total Protein Albumin Lipase Procalcitonin TSH Free T4 Acetaminophen Influenza Type A (PCR) Influenza Type B (PCR) RSV RNA Qual (PCR) SARS-CoV-2 RNA (RT-PCR) Blood Type Antibody Screen Imaging Radiologist's Impressions: Impressions Chest X-Ray 04/27/24 12:25 IMPRESSION: Findings could indicate mild interstitial edema or small airways disease. Suspect mild cardiomegaly. Recommend clinical correlation. Electronically signed by: Francesca Corrales MD 04/27/2024 02:56 PM EDT RP Venous Duplex 04/27/24 12:42 IMPRESSION: No evidence of deep venous thrombosis involving the bilateral lower extremities. Electronically signed by: Sherri Rossi MD 04/27/2024 01:41 PM EDT RP Abdomen/Pelvis CT 04/27/24 14:14 IMPRESSION: 1. Proximal right ureteral stone measuring up to 2.0 cm at the level of the L3-L4 intervertebral disc. [id number] proximal hydroureteronephrosis with adjacent perinephric stranding and hypoenhancement of the right kidney, consistent with obstructive uropathy. Multiple additional right renal pelvic stones. Findings have the appearance of a fragmented staghorn calculus. Additional right ureterovesicular junction stone measuring up to 0.9 cm with mild diffuse hydroureter and minimal adjacent stranding. 2. No left-sided renal or ureteral stone. No left-sided hydronephrosis or hydroureter. 3. Moderate sliding hiatal hernia with circumferential wall thickening of the distal esophagus. An underlying distal esophageal lesion cannot be excluded and direct visualization could help further evaluate 4. Colonic diverticulosis without evidence of acute diverticulitis. Unremarkable appendix. 5. Trace pelvic free fluid. No organized fluid collection or soft tissue mass. 6. Dilatation of the gallbladder with cholelithiasis. No evidence of acute cholecystitis. No intra or extrahepatic biliary ductal dilatation. Fleischner guidelines were followed. Electronically signed by: Moses Gutierrez MD 04/27/2024 04:01 PM EDT RP Workstation: [id number] Assessment and Plan (1) DEB (acute kidney injury): Status: Acute Plan 74yo F with remote history of ESQUIVEL for Grave's disease who has been off thyroid replacement for over 20 years and also not had routine medical care for as long; presenting with 1 wk of nausea, vomiting, and back pain and found to have obstructive DEB from a fragmented staghorn calculus; also severe hypothyroidism staghorn calculus with hydroureteronephrosis pyelonephritis - admit to telemetry, follow BCx/UCx, continue piperacillin-tazobactam IV, Urology consult, NPO after midnight for operative intervention in AM, pain control with APAP + IV morphine, nausea control with ondansetron. has leukocytosis and bandemia but no other SIRS critera so not septic, strictly speaking obstructive DEB - IV hydration, urologic intervention, repeat BMP in AM, avoid nephrotoxins lactic acidosis - due to dehydration; resolved with IV hydration severe hypothyroidism - not in myxedema coma; will start PO levothyroxine 75 mcg/d and will need repeat TSH in 4-6 wk hypoK - repleted; recheck level in AM thrombocytopenia - mild; recheck CBC in AM; likely due to infection distal esophageal thickening - incidental; will recommend outpt EGD with GI consult VTE ppx - UFH dispo - eventual home code - full I anticipate that the patient will stay at least 2 midnights as an inpatient in the hospital due to the above reasons. It is neither reasonable nor safe to care for them in a less acute setting. Quality Stroke Does the patient have a stroke diagnosis?: No VTE Prior VTE?: No VTE Risk Level:: Medical - moderate - high VTE Device Contraindication: N/A - Device Ordered VTE Drug Contraindication: N/A - Med Ordered
--- NOTE | 2024-04-27 17:16 | PHA.MEDREC ---
Addendum entered by Gretchen Thompson RPh 04/27/24 17:16: reviewed by [facility]. Original Note: Pharmacy Consult ? Medication Reconciliation Pharmacy has completed the medication reconciliation.
[2024-04-27] MEDS: 0.9 % Sodium Chloride 1,000 ML 125 ML IVCONT (17:25)
[2024-04-27] MEDS: Heparin Sodium,Porcine 5,000 UNIT/ML VIAL 5000 UNIT SUBCUT (17:25)
[2024-04-27 17:53] LABS: Estimated Average Glucose 103 mg/dL; Hemoglobin A1C 93.7901 umol/L; Hemoglobin A1c % 5.2 % (<6.0); Total Hemoglobin (HGBA1C) 2786.2335 umol/L
--- NOTE | 2024-04-27 18:09 | PC.NURSE ---
Patient attempting to void in bedside commode for 2nd time. First time without success. Plan to do straight catheterization if urination is unsuccessful.
[2024-04-27 18:25] LABS: Appearance Urine Turbid; Color Urine Dark Yellow; Glucose Urine UA Negative (Negative); Leukocyte Esterase Urine Large (3+) (Negative); Nitrite Urine Negative (Negative); Specific Gravity - Urine >= 1.030 (1.005-1.025); UMIC TRIGGER UACC YES; Urine Blood Large (3+) (Negative); Urine Ketones Negative (Negative); Urine Protein 300 (3+) mg/dL (Neg-Trace)
[2024-04-27 18:48] LABS: Bacteria Urine 4+ (None Seen); RBC Urine >20 /HPF (0-2); UACC Culture Trigger YES; WBC Urine >50 /HPF (0-5)
[2024-04-27 19:15] VITALS: BP 143/52; PULSE 70; RESP 18; TEMP 36.6; O2SAT 94
[2024-04-27] MEDS: Piperacillin Sodium/Tazobactam 2.25 GM in 0.9 % Sodium Chloride 50 ML IV (20:59)
[2024-04-27] MEDS: ondansetron HCL 4 MG/2 ML VIAL IVPUSH (21:33)
[2024-04-27 23:51] VITALS: BP 137/65; PULSE 65; RESP 18; TEMP 36.8; O2SAT 94
[2024-04-28] VITALS (13 sets, daily range): BP systolic 108–166; BP diastolic 45–94; PULSE 60–88; RESP 16–24; TEMP 35.8–37.9; O2SAT 88–99; BMI 33.9
--- NOTE | 2024-04-28 00:42 | PC.NURSE ---
This RN assumed pt care @ 2330. Pt resting in comfortably, no signs of distress Pts IV still running. Plan of care ongoing.
[2024-04-28] MEDS: 0.9 % Sodium Chloride 1,000 ML 125 ML IVCONT ×3 (01:34→18:16)
--- NOTE | 2024-04-28 01:40 | PC.NURSE ---
Pt denies nausea at this time. Believes zofran she was given by previous RN was effective. Plan of care ongoing.
[2024-04-28 05:00] LABS: HBS Num1 0.18 mIU/mL (0-7.99); HBc Num1 0.12 S/CO (0.00-0.79); HBsAGNum1 0.37 S/CO (0.00-0.99); Hepatitis A Antibody IgM 0.16 Index (0-0.79); Hepatitis B Core Antibody Nonreactive (Nonreactive); Hepatitis B Surface Antigen Negative (Negative); ~HepC Num1 0.17 S/CO (0.00-0.79); ~Hepatitis A Antibody IgM Nonreactive (Nonreactive); ~Hepatitis B Surface Antibody NONREACTIVE (Nonreactive); ~Hepatitis C Antibody Nonreactive (Nonreactive)
[2024-04-28] MEDS: Levothyroxine Sodium 75 MCG TABLET PO (05:52)
[2024-04-28 06:35] LABS: Hematocrit 26.8 % (37.0-47.0); Hemoglobin 9.2 g/dl (12.0-16.0); Mean Corpuscular HGB Conc 34.3 g/dl (31.0-35.0); Mean Corpuscular Hemoglobin 30.4 pg (27.0-33.0); Mean Corpuscular Volume 88.4 fL (80.0-98.0); Mean Platelet Volume 12.4 fL (9.4-12.3); Platelet Count 157 X10*3/uL (160-400); Red Blood Count 3.03 X10*6/uL (4.20-5.50); Red Cell Distribution Width 15.8 % (11.0-16.0)
[2024-04-28 06:52] LABS: Anion Gap 13 (12-20); Blood Urea Nitrogen 71 mg/dL (9-16); Calcium 7.8 mg/dL (8.4-10.2); Carbon Dioxide 18 mmol/L (22-29); Chloride 112 mmol/L (96-108); Creatinine Clr Calc Pharmacy 18.4; Estimated Glomerular Filt Rate 15; Glucose Random 108 mg/dL (60-115); Potassium 3.6 mmol/L (3.3-5.1); Sodium 139 mmol/L (135-145)
[2024-04-28 07:53] LABS: Immature Retic Fraction 39.1 % (3.0-15.9); Retic HGB Equivalent 30.4 pg (30.0-35.0); Reticulocyte Percent 0.7 % (0.5-1.8); Reticulocytes Absolute 0.022 X10*6/uL (0.026-0.095)
[2024-04-28 08:13] LABS: Iron 10 mcg/dL (30-160); Lactate Dehydrogenase 210 U/L (122-220); Percent Iron Saturation 7 % (15-50); Total Iron Binding Capacity 149 mcg/dL (228-428); Unsaturated Iron Binding 139 ug/dL
[2024-04-28 08:21] LABS: Ferritin 1331 ng/mL (10-250)
--- NOTE | 2024-04-28 09:08 | MHC.CM.PN ---
IMM 04/28/24, Pt lives with her , she does not have a PCP, brochure has been given to her with PCP's and phone #'s. HCP discussed, pt. declined to complete at this time. Pt. does not have any home health services or DME. Pt. is able to arrange transport home at [place]. DCP: home, self care. CM to follow for DC needs.
[2024-04-28] MEDS: 0.9 % Sodium Chloride Flush 3 ML SYRINGE IVFLUSH (09:39)
[2024-04-28] MEDS: cefTRIAXone sodium 2 GM in 0.9 % Sodium Chloride 50 ML IV (09:40)
--- NOTE | 2024-04-28 10:56 | HO.PM.IMPN ---
Subjective Subjective Date of Service: 04/28/24 Interval History: feels weak NPO for OR BCx growing GNRs no fever Review of Systems Review of Systems: Yes all other systems are reviewed and are negative Physical Exam Vital Signs: Vital Signs: Last Vital Signs Temp 96.5 F L 04/28/24 08:00 Pulse 64 04/28/24 08:00 Resp 18 04/28/24 08:00 BP 166/75 H 04/28/24 08:00 Pulse Ox 92 04/28/24 08:00 O2 Del Method Room Air 04/28/24 08:00 BMI result Body Mass Index 33.9 Gen: in no acute distress HEENT: sclera anicteric, moist mucus membranes Neck: supple Lungs: clear to auscultation bilaterally Heart: regular rate and rhythm, no murmurs Abd: soft, non-tender, non-distended : R CVA tenderness Ext: bilateral lower extremity edema Skin: warm/well-perfused Neuro: alert and oriented x3, no focal weakness, delayed tendon reflexes Psych: appropriate affect Objective Data Active Medications Acetaminophen (Acetaminophen 325 Mg Tablet) 650 mg PO Q6H PRN PRN Reason: Pain, Mild (Pain Scale 1-3), fever or headache Heparin Sodium (Porcine) (Heparin Sodium,Porcine 5,000 Unit/Ml Vial) 5,000 unit SUBCUT Q12H [facility] Last Admin: 04/28/24 05:55 Dose: Not Given Documented By: LINDEN Non-Admin Reason: pt to go to [place] Sodium Chloride (Ns) 1,000 mls @ 125 mls/hr IVCONT .Q8H [facility] Last Admin: 04/28/24 01:34 Dose: 125 mls/hr Documented By: ANGELES Ceftriaxone Sodium 2 gm/ (Sodium Chloride) 50 mls @ 100 mls/hr IV Q24H [facility] Last Admin: 04/28/24 09:40 Dose: 100 mls/hr Documented By: ALEXA Levothyroxine Sodium (Levothyroxine Sodium 75 Mcg Tablet) 75 mcg PO DAILY@0600 [facility] Last Admin: 04/28/24 05:52 Dose: 75 mcg Documented By: LINDEN Melatonin (Melatonin 3 Mg Tablet) 6 mg PO BEDTIME PRN PRN Reason: Insomnia Morphine Sulfate (Morphine Sulfate 2 Mg/Ml Cartridge) 2 mg IVPUSH Q4H PRN; Protocol PRN Reason: pain, moderate-severe (4-10) Ondansetron HCl (Ondansetron Hcl 4 Mg/2 Ml Vial) 4 mg IVPUSH Q4H PRN PRN Reason: Nausea and Vomiting Last Admin: 04/27/24 21:33 Dose: 4 mg Documented By: NERI Sodium Chloride (0.9 % Sodium Chloride Flush 3 Ml Syringe) 3 ml IVFLUSH QSHIFT [facility] Last Admin: 04/28/24 09:39 Dose: 3 ml Documented By: ALEXA Labs 04/28/24 06:19 04/28/24 06:19 Labs: Laboratory Results - last 24 hr 04/27/24 04/27/24 04/27/24 12:52 12:53 12:57 MCV 88.7 MCH 30.0 MCHC 33.9 RDW 15.6 Plt Count 138 L MPV 12.5 H Immature Gran % (Auto) Cancelled Neut % (Auto) Cancelled Lymph % (Auto) Cancelled [place] % (Auto) Cancelled Eos % (Auto) Cancelled Baso % (Auto) Cancelled Lymph # (Auto) Cancelled [place] # (Auto) Cancelled Eos # (Auto) Cancelled Baso # (Auto) Cancelled Abs Immat Gran (auto) Cancelled Absolute Neuts (auto) Cancelled Absolute Nucleated RBC 0.000 Nucleated RBC % (auto) 0.0 Neutrophils % (Manual) 79 H Band Neutrophils % 8 H Lymphocytes % (Manual) 3 L Atypical Lymphs % (Man) 1 Monocytes % (Manual) 6 Metamyelocytes % 3 Abs Neuts (Manual) 21.4 H Lymphocytes # (Manual) 0.7 L Atyp Lymphs # (Manual) 0.2 Monocytes # (Manual) 1.5 H Metamyelocytes # 0.7 Platelet Estimate DECREASED Plt Morphology Comment NORMAL RBC Morphology NOTED Hypochromasia 1+ (5-14) [place] Cells 2+ (3-5) ESR 90 H Absolute Retic Percent Retic Immature Retic Fraction Retic Hgb Equivalent PT 12.4 INR 1.1 VBG pH 7.46 H VBG pCO2 27 VBG pO2 45 VBG HCO3 19 L VBG O2 Saturation 69.0 VBG Base Excess -3.0 Anion Gap 12 Estim Creat Clear Calc 18.8 Estimated GFR 15 Random Glucose 149 H Estimat Average Glucose 103 Hemoglobin A1c % 5.2 Lactic Acid 2.2 H* Lactic Acid F/U @ 2Hr Calcium 8.8 Magnesium 2.1 Iron TIBC % Saturation Unsat Iron Binding Ferritin Total Bilirubin 1.4 H Direct Bilirubin 0.8 H AST 36 H ALT 25 Alkaline Phosphatase 243 H Ammonia 28 Lactate Dehydrogenase Total Creatine Kinase 166 H Troponin I High Sens 15.5 C-Reactive Protein 29.47 H B-Natriuretic Peptide 384 H Total Protein 6.6 Albumin 3.1 L Lipase 13 Procalcitonin 21.05 TSH 15.73 H Free T4 < 0.42 L Urine Color Urine Appearance Urine pH Ur Specific [place] Urine Protein Urine Glucose (UA) Urine Ketones Urine Blood Urine Nitrite Ur Leukocyte Esterase Urine RBC Urine WBC Ur Squamous Epith Cells Urine Bacteria Hyaline Casts Acetaminophen 6 Hepatitis A IgM Ab Hep Bs Antigen Hep Bs Antibody Hep B Core Total Ab Hepatitis C Ab (EIA) Influenza Type A (PCR) NEGATIVE Influenza Type B (PCR) NEGATIVE RSV RNA Qual (PCR) NEGATIVE SARS-CoV-2 RNA (RT-PCR) NEGATIVE Blood Type O Positive Antibody Screen NEGATIVE 04/27/24 04/27/24 04/27/24 13:23 15:44 18:16 MCV MCH MCHC RDW Plt Count MPV Immature Gran % (Auto) Neut % (Auto) Lymph % (Auto) [place] % (Auto) Eos % (Auto) Baso % (Auto) Lymph # (Auto) [place] # (Auto) Eos # (Auto) Baso # (Auto) Abs Immat Gran (auto) Absolute Neuts (auto) Absolute Nucleated RBC Nucleated RBC % (auto) Neutrophils % (Manual) Band Neutrophils % Lymphocytes % (Manual) Atypical Lymphs % (Man) Monocytes % (Manual) Metamyelocytes % Abs Neuts (Manual) Lymphocytes # (Manual) Atyp Lymphs # (Manual) Monocytes # (Manual) Metamyelocytes # Platelet Estimate Plt Morphology Comment RBC Morphology Hypochromasia [place] Cells ESR Absolute Retic Percent Retic Immature Retic Fraction Retic Hgb Equivalent PT INR VBG pH VBG pCO2 VBG pO2 VBG HCO3 VBG O2 Saturation VBG Base Excess Anion Gap Estim Creat Clear Calc Estimated GFR Random Glucose Estimat Average Glucose Hemoglobin A1c % Lactic Acid Lactic Acid F/U @ 2Hr 1.7 Calcium Magnesium Iron TIBC % Saturation Unsat Iron Binding Ferritin Total Bilirubin Direct Bilirubin AST ALT Alkaline Phosphatase Ammonia Lactate Dehydrogenase Total Creatine Kinase Troponin I High Sens C-Reactive Protein B-Natriuretic Peptide Total Protein Albumin Lipase Procalcitonin TSH Free T4 Urine Color Dark Yellow Urine Appearance Turbid Urine pH 8.0 Ur Specific [place] >= 1.030 H Urine Protein 300 (3+) H Urine Glucose (UA) Negative Urine Ketones Negative Urine Blood Large (3+) H Urine Nitrite Negative Ur Leukocyte Esterase Large (3+) H Urine RBC >20 H Urine WBC >50 H Ur Squamous Epith Cells 3-5 Urine Bacteria 4+ Hyaline Casts 3-5 Acetaminophen Hepatitis A IgM Ab Nonreactive Hep Bs Antigen Negative Hep Bs Antibody NONREACTIVE Hep B Core Total Ab Nonreactive Hepatitis C Ab (EIA) Nonreactive Influenza Type A (PCR) Influenza Type B (PCR) RSV RNA Qual (PCR) SARS-CoV-2 RNA (RT-PCR) Blood Type Antibody Screen 04/28/24 06:19 MCV 88.4 MCH 30.4 MCHC 34.3 RDW 15.8 Plt Count 157 L MPV 12.4 H Immature Gran % (Auto) Neut % (Auto) Lymph % (Auto) [place] % (Auto) Eos % (Auto) Baso % (Auto) Lymph # (Auto) [place] # (Auto) Eos # (Auto) Baso # (Auto) Abs Immat Gran (auto) Absolute Neuts (auto) Absolute Nucleated RBC 0.000 Nucleated RBC % (auto) 0.0 Neutrophils % (Manual) Band Neutrophils % Lymphocytes % (Manual) Atypical Lymphs % (Man) Monocytes % (Manual) Metamyelocytes % Abs Neuts (Manual) Lymphocytes # (Manual) Atyp Lymphs # (Manual) Monocytes # (Manual) Metamyelocytes # Platelet Estimate Plt Morphology Comment RBC Morphology Hypochromasia [place] Cells ESR Absolute Retic 0.022 L Percent Retic 0.7 Immature Retic Fraction 39.1 H Retic Hgb Equivalent 30.4 PT INR VBG pH VBG pCO2 VBG pO2 VBG HCO3 VBG O2 Saturation VBG Base Excess Anion Gap 13 Estim Creat Clear Calc 18.4 Estimated GFR 15 Random Glucose 108 Estimat Average Glucose Hemoglobin A1c % Lactic Acid Lactic Acid F/U @ 2Hr Calcium 7.8 L D Magnesium Iron 10 L TIBC 149 L % Saturation 7 L Unsat Iron Binding 139 Ferritin 1331 H Total Bilirubin Direct Bilirubin AST ALT Alkaline Phosphatase Ammonia Lactate Dehydrogenase 210 Total Creatine Kinase Troponin I High Sens C-Reactive Protein B-Natriuretic Peptide Total Protein Albumin Lipase Procalcitonin TSH Free T4 Urine Color Urine Appearance Urine pH Ur Specific [place] Urine Protein Urine Glucose (UA) Urine Ketones Urine Blood Urine Nitrite Ur Leukocyte Esterase Urine RBC Urine WBC Ur Squamous Epith Cells Urine Bacteria Hyaline Casts Acetaminophen Hepatitis A IgM Ab Hep Bs Antigen Hep Bs Antibody Hep B Core Total Ab Hepatitis C Ab (EIA) Influenza Type A (PCR) Influenza Type B (PCR) RSV RNA Qual (PCR) SARS-CoV-2 RNA (RT-PCR) Blood Type Antibody Screen Microbiology Microbiology Results: Microbiology 04/27/24 13:23 Blood Culture - Preliminary Blood - Venous Prelim: GNR Gram Stain only 04/27/24 12:57 Blood Culture - Preliminary Blood - Venous Prelim: GNR Gram Stain only Assessment and Plan (1) DEB (acute kidney injury): Status: Acute (2) Urinary tract obstruction due to kidney stone: Status: Acute Plan 74yo F with remote history of ESQUIVEL for Grave's disease who has been off thyroid replacement for over 20 years and also not had routine medical care for as long; presenting with 1 wk of nausea, vomiting, and back pain and found to have obstructive DEB from a fragmented staghorn calculus; also severe hypothyroidism staghorn calculus with hydroureteronephrosis pyelonephritis GNR bacteremia - given piperacillin-tazobactam yesterday, change to ceftriaxone today, NPO for urologic intervention obstructive DEB - IV hydration, urologic intervention, repeat BMP in AM, avoid nephrotoxins lactic acidosis - due to dehydration; resolved with IV hydration severe hypothyroidism - not in myxedema coma; started PO levothyroxine 75 mcg/d and will need repeat TSH in 4-6 wk hypoK - repleted MICHAEL - replete Fe when bacterial infection under control thrombocytopenia - mild; improving ikely due to infection distal esophageal thickening - incidental; will recommend outpt EGD with GI consult VTE ppx - UFH dispo - eventual home In my clinical judgment, the patient requires continued inpatient hospitalization for the following reasons: IV ABX, operative intervention Total time managing care of this patient today: 45 minutes. Quality Stroke Does the patient have a stroke diagnosis?: No VTE Prior VTE?: No VTE Risk Level:: Medical - moderate - high VTE Device Contraindication: N/A - Device Ordered VTE Drug Contraindication: N/A - Med Ordered
--- NOTE | 2024-04-28 20:07 | HO.ANESPROP2 ---
HPI - Anesthesia Eval Consult details Narrative: Right ureter stone PMFSH Active Problems Active Problems: All Active Problems (Updated 04/27/24 @ 17:14 by Benjamín Barbosa MD) Hypothyroidism (Acute) DEB (acute kidney injury) (Acute) Thrombocytopenia (Acute) Anemia (Acute) Urinary tract obstruction due to kidney stone (Acute) Past Medical History Medical History H/O radioactive iodine thyroid ablation Family History Family history of problems with anesthesia: No Surgical History History of Problems with Anesthesia: No Social History Social History Household Members: Spouse Housing: House Do you presently have visiting nurse or other home services: No Patient Tobacco Use Status: Former Tobacco user Years Smoked: 20 years service: No Meds Allergies Allergy/AdvReac Type Severity Reaction Status Date / Time No Known Allergies Allergy Verified 04/27/24 12:23 Active Medications: Current Medications Acetaminophen (Acetaminophen 325 Mg Tablet) 650 mg PO Q6H PRN PRN Reason: Pain, Mild (Pain Scale 1-3), fever or headache Heparin Sodium (Porcine) (Heparin Sodium,Porcine 5,000 Unit/Ml Vial) 5,000 unit SUBCUT Q12H [facility] Last Admin: 04/28/24 17:05 Dose: Not Given Sodium Chloride (Ns) 1,000 mls @ 125 mls/hr IVCONT .Q8H [facility] Last Admin: 04/28/24 18:16 Dose: 125 mls/hr Ceftriaxone Sodium 2 gm/ (Sodium Chloride) 50 mls @ 100 mls/hr IV Q24H [facility] Last Infusion: 04/28/24 11:39 Dose: Infused Levothyroxine Sodium (Levothyroxine Sodium 75 Mcg Tablet) 75 mcg PO DAILY@0600 [facility] Last Admin: 04/28/24 05:52 Dose: 75 mcg Melatonin (Melatonin 3 Mg Tablet) 6 mg PO BEDTIME PRN PRN Reason: Insomnia Morphine Sulfate (Morphine Sulfate 2 Mg/Ml Cartridge) 2 mg IVPUSH Q4H PRN; Protocol PRN Reason: pain, moderate-severe (4-10) Ondansetron HCl (Ondansetron Hcl 4 Mg/2 Ml Vial) 4 mg IVPUSH Q4H PRN PRN Reason: Nausea and Vomiting Last Admin: 04/27/24 21:33 Dose: 4 mg Sodium Chloride (0.9 % Sodium Chloride Flush 3 Ml Syringe) 3 ml IVFLUSH QSHIFT [facility] Last Admin: 04/28/24 17:06 Dose: Not Given Home Medications ?Medication ?Instructions ?Recorded ?Confirmed ?Last Taken ?Type No Known Home Meds 04/27/24 04/27/24 Unknown History Exam Height,Weight and Vital Signs: Height 5 ft 5 in Weight 92.3 kg Last Vital Signs Temp 100.3 F 04/28/24 19:03 Pulse 75 04/28/24 19:03 Resp 18 04/28/24 19:03 BP 108/45 L 04/28/24 19:03 Pulse Ox 91 L 04/28/24 19:03 O2 Del Method Room Air 04/28/24 19:03 Pertinent Lab Results Pertinent Lab Results: Laboratory Tests 04/27/24 04/27/24 04/27/24 12:52 12:53 12:57 WBC 24.6 H RBC 3.53 L Hgb 10.6 L Hct 31.3 L MCV 88.7 MCH 30.0 MCHC 33.9 RDW 15.6 Plt Count 138 L MPV 12.5 H Immature Gran % (Auto) Cancelled Neut % (Auto) Cancelled Lymph % (Auto) Cancelled [place] % (Auto) Cancelled Eos % (Auto) Cancelled Baso % (Auto) Cancelled Lymph # (Auto) Cancelled [place] # (Auto) Cancelled Eos # (Auto) Cancelled Baso # (Auto) Cancelled Abs Immat Gran (auto) Cancelled Absolute Neuts (auto) Cancelled Absolute Nucleated RBC 0.000 Nucleated RBC % (auto) 0.0 Neutrophils % (Manual) 79 H Band Neutrophils % 8 H Lymphocytes % (Manual) 3 L Atypical Lymphs % (Man) 1 Monocytes % (Manual) 6 Metamyelocytes % 3 Abs Neuts (Manual) 21.4 H Lymphocytes # (Manual) 0.7 L Atyp Lymphs # (Manual) 0.2 Monocytes # (Manual) 1.5 H Metamyelocytes # 0.7 Platelet Estimate DECREASED Plt Morphology Comment NORMAL RBC Morphology NOTED Hypochromasia 1+ (5-14) [place] Cells 2+ (3-5) ESR 90 H Absolute Retic Percent Retic Immature Retic Fraction Retic Hgb Equivalent PT 12.4 INR 1.1 VBG pH 7.46 H VBG pCO2 27 VBG pO2 45 VBG HCO3 19 L VBG O2 Saturation 69.0 VBG Base Excess -3.0 Sodium 137 Potassium 3.2 L Chloride 108 Carbon Dioxide 20 L Anion Gap 12 BUN 73 H Creatinine 3.08 H Estim Creat Clear Calc 18.8 Estimated GFR 15 Random Glucose 149 H Estimat Average Glucose 103 Hemoglobin A1c % 5.2 Lactic Acid 2.2 H* Lactic Acid F/U @ 2Hr Calcium 8.8 Magnesium 2.1 Iron TIBC % Saturation Unsat Iron Binding Ferritin Total Bilirubin 1.4 H Direct Bilirubin 0.8 H AST 36 H ALT 25 Alkaline Phosphatase 243 H Ammonia 28 Lactate Dehydrogenase Total Creatine Kinase 166 H Troponin I High Sens 15.5 C-Reactive Protein 29.47 H B-Natriuretic Peptide 384 H Total Protein 6.6 Albumin 3.1 L Lipase 13 Procalcitonin 21.05 TSH 15.73 H Free T4 < 0.42 L Urine Color Urine Appearance Urine pH Ur Specific [place] Urine Protein Urine Glucose (UA) Urine Ketones Urine Blood Urine Nitrite Ur Leukocyte Esterase Urine RBC Urine WBC Ur Squamous Epith Cells Urine Bacteria Hyaline Casts Acetaminophen 6 Hepatitis A IgM Ab Hep Bs Antigen Hep Bs Antibody Hep B Core Total Ab Hepatitis C Ab (EIA) Influenza Type A (PCR) NEGATIVE Influenza Type B (PCR) NEGATIVE RSV RNA Qual (PCR) NEGATIVE SARS-CoV-2 RNA (RT-PCR) NEGATIVE Blood Type O Positive Antibody Screen NEGATIVE 04/27/24 04/27/24 04/27/24 13:23 15:44 18:16 WBC RBC Hgb Hct MCV MCH MCHC RDW Plt Count MPV Immature Gran % (Auto) Neut % (Auto) Lymph % (Auto) [place] % (Auto) Eos % (Auto) Baso % (Auto) Lymph # (Auto) [place] # (Auto) Eos # (Auto) Baso # (Auto) Abs Immat Gran (auto) Absolute Neuts (auto) Absolute Nucleated RBC Nucleated RBC % (auto) Neutrophils % (Manual) Band Neutrophils % Lymphocytes % (Manual) Atypical Lymphs % (Man) Monocytes % (Manual) Metamyelocytes % Abs Neuts (Manual) Lymphocytes # (Manual) Atyp Lymphs # (Manual) Monocytes # (Manual) Metamyelocytes # Platelet Estimate Plt Morphology Comment RBC Morphology Hypochromasia [place] Cells ESR Absolute Retic Percent Retic Immature Retic Fraction Retic Hgb Equivalent PT INR VBG pH VBG pCO2 VBG pO2 VBG HCO3 VBG O2 Saturation VBG Base Excess Sodium Potassium Chloride Carbon Dioxide Anion Gap BUN Creatinine Estim Creat Clear Calc Estimated GFR Random Glucose Estimat Average Glucose Hemoglobin A1c % Lactic Acid Lactic Acid F/U @ 2Hr 1.7 Calcium Magnesium Iron TIBC % Saturation Unsat Iron Binding Ferritin Total Bilirubin Direct Bilirubin AST ALT Alkaline Phosphatase Ammonia Lactate Dehydrogenase Total Creatine Kinase Troponin I High Sens C-Reactive Protein B-Natriuretic Peptide Total Protein Albumin Lipase Procalcitonin TSH Free T4 Urine Color Dark Yellow Urine Appearance Turbid Urine pH 8.0 Ur Specific [place] >= 1.030 H Urine Protein 300 (3+) H Urine Glucose (UA) Negative Urine Ketones Negative Urine Blood Large (3+) H Urine Nitrite Negative Ur Leukocyte Esterase Large (3+) H Urine RBC >20 H Urine WBC >50 H Ur Squamous Epith Cells 3-5 Urine Bacteria 4+ Hyaline Casts 3-5 Acetaminophen Hepatitis A IgM Ab Nonreactive Hep Bs Antigen Negative Hep Bs Antibody NONREACTIVE Hep B Core Total Ab Nonreactive Hepatitis C Ab (EIA) Nonreactive Influenza Type A (PCR) Influenza Type B (PCR) RSV RNA Qual (PCR) SARS-CoV-2 RNA (RT-PCR) Blood Type Antibody Screen 04/28/24 06:19 WBC 23.0 H RBC 3.03 L Hgb 9.2 L Hct 26.8 L MCV 88.4 MCH 30.4 MCHC 34.3 RDW 15.8 Plt Count 157 L MPV 12.4 H Immature Gran % (Auto) Neut % (Auto) Lymph % (Auto) [place] % (Auto) Eos % (Auto) Baso % (Auto) Lymph # (Auto) [place] # (Auto) Eos # (Auto) Baso # (Auto) Abs Immat Gran (auto) Absolute Neuts (auto) Absolute Nucleated RBC 0.000 Nucleated RBC % (auto) 0.0 Neutrophils % (Manual) Band Neutrophils % Lymphocytes % (Manual) Atypical Lymphs % (Man) Monocytes % (Manual) Metamyelocytes % Abs Neuts (Manual) Lymphocytes # (Manual) Atyp Lymphs # (Manual) Monocytes # (Manual) Metamyelocytes # Platelet Estimate Plt Morphology Comment RBC Morphology Hypochromasia [place] Cells ESR Absolute Retic 0.022 L Percent Retic 0.7 Immature Retic Fraction 39.1 H Retic Hgb Equivalent 30.4 PT INR VBG pH VBG pCO2 VBG pO2 VBG HCO3 VBG O2 Saturation VBG Base Excess Sodium 139 Potassium 3.6 Chloride 112 H Carbon Dioxide 18 L Anion Gap 13 BUN 71 H Creatinine 3.04 H Estim Creat Clear Calc 18.4 Estimated GFR 15 Random Glucose 108 Estimat Average Glucose Hemoglobin A1c % Lactic Acid Lactic Acid F/U @ 2Hr Calcium 7.8 L D Magnesium Iron 10 L TIBC 149 L % Saturation 7 L Unsat Iron Binding 139 Ferritin 1331 H Total Bilirubin Direct Bilirubin AST ALT Alkaline Phosphatase Ammonia Lactate Dehydrogenase 210 Total Creatine Kinase Troponin I High Sens C-Reactive Protein B-Natriuretic Peptide Total Protein Albumin Lipase Procalcitonin TSH Free T4 Urine Color Urine Appearance Urine pH Ur Specific [place] Urine Protein Urine Glucose (UA) Urine Ketones Urine Blood Urine Nitrite Ur Leukocyte Esterase Urine RBC Urine WBC Ur Squamous Epith Cells Urine Bacteria Hyaline Casts Acetaminophen Hepatitis A IgM Ab Hep Bs Antigen Hep Bs Antibody Hep B Core Total Ab Hepatitis C Ab (EIA) Influenza Type A (PCR) Influenza Type B (PCR) RSV RNA Qual (PCR) SARS-CoV-2 RNA (RT-PCR) Blood Type Antibody Screen Airway Mallampati Class: II TM Dist: >3cm Neck ROM: Full Loose/Missing/Broken Teeth: No Heart: RRR Lungs: Cta Assessment and Plan Assessment Anesthesia Assessment: Anesthesia Plan Discussed and Chart Reviewed Final Anesthetic Review Family History of Problems with Anesthesia: No History of Problems with Anesthesia: No NPO: Yes ASA Class: III and Emergency Final Preanesthetic Review: No Changes in Pt Med Stat, Consent Obtained/Reviewed and Anes Risks/Benef Reviewed Patient Risk: Intermediate Procedure Risk: Low Anesthetic Plan Anesthetic Plan: GA
--- NOTE | 2024-04-28 21:00 | MHC.SHP ---
Pre-Procedural Eval Section A - 24 Hr Update-Section A only Date of Service: 04/28/24 The patient is an INPATIENT: Yes The patient has been examined within 24 hours of the surgical procedure. The History & Physical has been completed within 30 days and I have reviewed it.: Yes Section B - Complete if H&P > 30 days Chief Complaint: DEB, kidney stone, hypothyroidism Allergies: Allergies Allergy/AdvReac Type Severity Reaction Status Date / Time No Known Allergies Allergy Verified 04/27/24 12:23 Plan Diagnosis/Plan: Unchanged I have reviewed the history and physical and performed a pertinent physical examination on my patient. No changes have occurred unless specified. Cystoscopy, retrograde right ureteral stent. Pt advised if stent cannot be placed will require nephrostomy tube. Discussed risks to include but not limited to, blood in the urine, burning with urination, urgency. Time Spent With Patient Time: Total time managing care of this patient today ____ minutes.
--- NOTE | 2024-04-28 22:10 | W.PM.OPN ---
Operative Note Operative Note Date of Service: 04/28/24 Narrative: PreOperative Diagnosis:?? right obstructive uropathy, proximal ureteral stone, DEB Post Operative Diagnosis:?? right obstructive uropathy, proximal ureteral stone, DEB, pyonephrosis Procedure: Cystoscopy, ureteroscopy, right retrograde right stent insertion, size 6 fr by 24 cm Surgeon:?Dr Titi Caban Anesthesia:? General Procedure: After informed consent was verified the patient was brought to the operating placed on the OR table in supine position.? General Anesthesia was administered per protocol.? The patient was placed in lithotomy position, prepped and draped in the usual sterile fashion.? Safety pause time-out and side of surgery confirmed.? Antibiotics confirmed. A 22 [place] cystoscope was inserted transurethrally, the bladder was visualized, inflammatory changes noted.? The? right ureteric orifice was cannulated? and a retrograde examination was performed, noting obstruction at the proximal ureteral stone with minimal contrast going past the stone. A hydrophilic guidewire was placed up to under fluoroscopy and was meeting resistance at the level of the stone. The intramural ureter was balloon dilated, and a rigid ureteroscope was passed to the level of the stone, and the guide wire was passed beyond the stone into the renal pelvis, the ureteral catheter was passed over the guide wire and purulent urine was noted draining out of the kidney and was sent for culture. Contrast was injected to denote the renal pelvis. The guide wire was replaced. A 7 fr by 24 cm ureteral stent was initially passed over the guide wire under fluoroscopic guidance, and met with resistance at the level of the stone, and was removed. A 6 fr by 24 cm guide wire was then placed into the renal pelvis. The guide wire was removed. The bladder was emptied.? The rigid cystoscope was removed. ? A 16 fr barber was placed. The patient tolerated the procedure well and was brought to the recovery room in stable condition. Complications: None Drains: 16 fr barber, Ureteral stent as dictated above
[2024-04-29] VITALS (7 sets, daily range): BP systolic 101–130; BP diastolic 51–66; PULSE 55–77; RESP 18–20; TEMP 36.1–36.4; O2SAT 96–98
[2024-04-29] MEDS: 0.9 % Sodium Chloride Flush 3 ML SYRINGE IVFLUSH ×3 (00:18→16:46)
[2024-04-29] MEDS: 0.9 % Sodium Chloride 1,000 ML 125 ML IVCONT (00:20)
[2024-04-29] MEDS: Melatonin 3 MG TABLET 6 MG PO (00:24)
[2024-04-29] MEDS: Levothyroxine Sodium 75 MCG TABLET PO (05:45)
[2024-04-29] MEDS: Heparin Sodium,Porcine 5,000 UNIT/ML VIAL 5000 UNIT SUBCUT (05:45)
[2024-04-29 06:43] LABS: Hematocrit 21.3 % (37.0-47.0); Hemoglobin 7.4 g/dl (12.0-16.0); Mean Corpuscular HGB Conc 34.7 g/dl (31.0-35.0); Mean Corpuscular Hemoglobin 30.8 pg (27.0-33.0); Mean Corpuscular Volume 88.8 fL (80.0-98.0); Mean Platelet Volume 12.1 fL (9.4-12.3); Platelet Count 168 X10*3/uL (160-400); Red Cell Distribution Width 15.9 % (11.0-16.0)
[2024-04-29 07:03] LABS: Alanine Aminotransferase 30 U/L (0-31); Albumin Level 2.3 g/dL (3.5-5.0); Alkaline Phosphatase 447 U/L (39-117); Anion Gap 14 (12-20); Aspartate Amino Transferase 71 U/L (5-31); Bilirubin Total 0.8 mg/dL (0.0-1.0); Blood Urea Nitrogen 67 mg/dL (9-16); Calcium 7.2 mg/dL (8.4-10.2); Carbon Dioxide 16 mmol/L (22-29); Chloride 113 mmol/L (96-108); Creatinine Clr Calc Pharmacy 17.3; Estimated Glomerular Filt Rate 14; Glucose Random 148 mg/dL (60-115); Potassium 3.4 mmol/L (3.3-5.1); Sodium 140 mmol/L (135-145)
[2024-04-29 07:17] LABS: White Blood Count 37.9 X10*3/uL (4.8-10.8)
[2024-04-29 07:34] LABS: Folate 12.1 ng/mL (> or = 4.0); Vitamin B12 1918 pg/mL (200-900)
[2024-04-29] MEDS: cefTRIAXone sodium 2 GM in 0.9 % Sodium Chloride 50 ML IV (07:50)
[2024-04-29] MEDS: Lactated Ringers 1,000 ML 125 ML IVCONT ×2 (07:53→16:46)
--- NOTE | 2024-04-29 11:15 | P.PNIM_ITS ---
Subjective Subjective Date of Service: 04/29/24 Interval History: POD1 no renal recovery yet growing GNRs in blood no fever very weak Review of Systems Review of Systems: Yes all other systems are reviewed and are negative Physical Exam 2 Vital Signs: Vital Signs: Last Vital Signs Temp 97 F 04/29/24 08:00 Pulse 67 04/29/24 08:00 Resp 20 04/29/24 08:00 BP 109/61 04/29/24 08:00 Pulse Ox 96 04/29/24 08:00 O2 Del Method Nasal Cannula 04/29/24 08:00 O2 Flow Rate 2 04/29/24 08:00 BMI result Body Mass Index 33.9 Gen: in no acute distress HEENT: sclera anicteric, moist mucus membranes Neck: supple Lungs: clear to auscultation bilaterally Heart: regular rate and rhythm, no murmurs Abd: soft, non-tender, non-distended : Pena draining dark urine Ext: bilateral lower extremity edema Skin: warm/well-perfused Neuro: alert and oriented x3, no focal weakness, delayed tendon reflexes Psych: appropriate affect Objective Data Active Medications Acetaminophen (Acetaminophen 325 Mg Tablet) 650 mg PO Q6H PRN PRN Reason: Pain, Mild (Pain Scale 1-3), fever or headache Heparin Sodium (Porcine) (Heparin Sodium,Porcine 5,000 Unit/Ml Vial) 5,000 unit SUBCUT Q12H [facility] Last Admin: 04/29/24 05:45 Dose: 5,000 unit Documented By: MILLICENT Ceftriaxone Sodium 2 gm/ (Sodium Chloride) 50 mls @ 100 mls/hr IV Q24H [facility] Last Infusion: 04/29/24 08:53 Dose: Infused Documented By: ROBERT Lactated Ringer's (Lr) 1,000 mls @ 125 mls/hr IVCONT .Q8H [facility] Last Admin: 04/29/24 07:53 Dose: 125 mls/hr Documented By: ALEXA Levothyroxine Sodium (Levothyroxine Sodium 75 Mcg Tablet) 75 mcg PO DAILY@0600 [facility] Last Admin: 04/29/24 05:45 Dose: 75 mcg Documented By: MILLICENT Melatonin (Melatonin 3 Mg Tablet) 6 mg PO BEDTIME PRN PRN Reason: Insomnia Last Admin: 04/29/24 00:24 Dose: 6 mg Documented By: MILLICENT Morphine Sulfate (Morphine Sulfate 2 Mg/Ml Cartridge) 2 mg IVPUSH Q4H PRN; Protocol PRN Reason: pain, moderate-severe (4-10) Naloxone HCl (Naloxone Hcl 0.4 Mg/Ml Vial) 0.04 mg IVPUSH Q5M PRN PRN Reason: Excessive sedation or RR < 8 Ondansetron HCl (Ondansetron Hcl 4 Mg/2 Ml Vial) 4 mg IVPUSH Q4H PRN PRN Reason: Nausea and Vomiting Last Admin: 04/27/24 21:33 Dose: 4 mg Documented By: NERI Sodium Chloride (0.9 % Sodium Chloride Flush 3 Ml Syringe) 3 ml IVFLUSH QSHIFT [facility] Last Admin: 04/29/24 08:05 Dose: 3 ml Documented By: ALEXA Labs 04/29/24 06:27 04/29/24 06:27 Labs: Laboratory Results - last 24 hr 04/29/24 06:27 MCV 88.8 MCH 30.8 MCHC 34.7 RDW 15.9 Plt Count 168 MPV 12.1 Absolute Nucleated RBC 0.000 Nucleated RBC % (auto) 0.0 Smear Path Review SEE NOTE Anion Gap 14 Estim Creat Clear Calc 17.3 Estimated GFR 14 Random Glucose 148 H Calcium 7.2 L D Total Bilirubin 0.8 AST 71 H ALT 30 Alkaline Phosphatase 447 H Total Protein 5.0 L Albumin 2.3 L Vitamin B12 1918 H Folate 12.1 Microbiology Microbiology Results: Microbiology 04/27/24 13:23 Blood Culture - Preliminary Blood - Venous Gram negative elena 04/27/24 12:57 Blood Culture - Preliminary Blood - Venous Gram negative elena Assessment and Plan (1) DEB (acute kidney injury): Status: Acute (2) Urinary tract obstruction due to kidney stone: Status: Acute Plan d3 74yo F with remote history of ESQUIVEL for Grave's disease who has been off thyroid replacement for over 20 years and also not had routine medical care for as long; presenting with 1 wk of nausea, vomiting, and back pain and found to have obstructive DEB from a fragmented staghorn calculus; also severe hypothyroidism found to have GNR bacteremia staghorn calculus with hydroureteronephrosis pyelonephritis/pyonephrosis GNR bacteremia - piperacillin-tazobactam 04/27-04/28, ceftriaxone 04/28-, follow speciation/susceptibilties - POD 1 cystoscopy, ureteroscopy, right retrograde, right stent insertion obstructive DEB - IV hydration, repeat BMP in AM, avoid nephrotoxins lactic acidosis - due to dehydration; resolved with IV hydration severe hypothyroidism - not in myxedema coma; started PO levothyroxine 75 mcg/d and will repeat TSH in 4 wk hypoK - repleted MICHAEL - replete Fe when bacterial infection under control; transfuse if Hb <7 thrombocytopenia - mild; resolved; was due to infection distal esophageal thickening - incidental; will recommend outpt EGD with GI consult VTE ppx - UFH dispo - eventual home In my clinical judgment, the patient requires continued inpatient hospitalization for the following reasons: IV ABX, operative intervention Total time managing care of this patient today: 45 minutes. Quality Stroke Does the patient have a stroke diagnosis?: No VTE Prior VTE?: No VTE Risk Level:: Medical - moderate - high VTE Device Contraindication: N/A - Device Ordered VTE Drug Contraindication: N/A - Med Ordered
--- NOTE | 2024-04-29 15:06 | MHC.CM.PN ---
Patient s/p procedure for Renal stones. Per MD rounds a PT evaluation is planned for today. PT was ordered. The eval is on hold for a low H/H 02/08. CM will follow for PT recommendations. DP Home with family transport.
[2024-04-30] VITALS (7 sets, daily range): BP systolic 121–147; BP diastolic 60–83; PULSE 52–62; RESP 18–20; TEMP 36.2–36.9; O2SAT 92–98
[2024-04-30] MEDS: Lactated Ringers 1,000 ML 125 ML IVCONT ×2 (00:51→09:17)
[2024-04-30] MEDS: Levothyroxine Sodium 75 MCG TABLET PO (06:27)
[2024-04-30 07:12] LABS: Basophils Absolute Auto 0.1 X10*3/uL (0.0-0.2); Basophils Percent Auto 0.5 % (0-2); Eosinophils Absolute Auto 0.2 X10*3/uL (0.0-0.4); Eosinophils Percent Auto 0.7 % (0-4); Hematocrit 22.8 % (37.0-47.0); Hemoglobin 7.7 g/dl (12.0-16.0); Imm Gran Abs Auto 0.99 X10*3/uL (0.00-0.03); Imm Gran Pct Auto 3.8 % (0.0-0.4); Lymphocytes Absolute Auto 1.5 X10*3/uL (1.2-4.9); Lymphocytes Percent Auto 5.7 % (20-40); MANUAL DIFF FLAG SCAN; Mean Corpuscular HGB Conc 33.8 g/dl (31.0-35.0); Mean Corpuscular Hemoglobin 30.4 pg (27.0-33.0); Mean Corpuscular Volume 90.1 fL (80.0-98.0); Mean Platelet Volume 12.9 fL (9.4-12.3); Monocytes Absolute Auto 1.1 X10*3/uL (0.1-1.2); Monocytes Percent Auto 4.3 % (2-11); Neutrophils Absolute Auto 22.1 x10*3/uL (2.0-8.3); Platelet Count 191 X10*3/uL (160-400); Red Blood Count 2.53 X10*6/uL (4.20-5.50); Red Cell Distribution Width 16.6 % (11.0-16.0); SCAN SMEAR FLAG 1; White Blood Count 25.9 X10*3/uL (4.8-10.8)
[2024-04-30 07:31] LABS: Alanine Aminotransferase 17 U/L (0-31); Albumin Level 2.3 g/dL (3.5-5.0); Alkaline Phosphatase 341 U/L (39-117); Anion Gap 15 (12-20); Aspartate Amino Transferase 33 U/L (5-31); Bilirubin Total 0.2 mg/dL (0.0-1.0); Blood Urea Nitrogen 67 mg/dL (9-16); C Reactive Protein 17.47 mg/dL (< or = 0.50); Calcium 7.4 mg/dL (8.4-10.2); Carbon Dioxide 14 mmol/L (22-29); Chloride 113 mmol/L (96-108); Creatinine Clr Calc Pharmacy 21.6; Estimated Glomerular Filt Rate 18; Glucose Random 111 mg/dL (60-115); Potassium 3.6 mmol/L (3.3-5.1); Sodium 138 mmol/L (135-145); Total Protein 5.3 g/dL (6.5-8.0)
[2024-04-30 07:33] LABS: SLIDE REVIEW VERIFIED
--- NOTE | 2024-04-30 08:22 | MHC.CM.PN ---
Addendum entered by Shikha Graff 04/30/24 10:39: Per MD rounds cultures are pending. Discharge is anticipated Saturday05/02/24. Original Note: PT abad recommends Acute Rehab. Referrals have been sent to the 3 Acute Rehabs. DP Acute Rehab via BLS
--- NOTE | 2024-04-30 09:11 | HO.POSTANES ---
Post Anesthesia Evaluation Post Anesthesia Evaluation Date of Service: 04/28/24 Vital Signs: Vital Signs Temp Pulse Resp BP Pulse Ox O2 Del Method O2 Flow Rate 04/30/24 08:00 98.4 F 55 20 122/64 92 Nasal Cannula 2 04/30/24 04:00 97.6 F 52 20 124/60 95 Nasal Cannula 2 04/30/24 00:00 97.2 F 59 20 121/64 97 Nasal Cannula 2 Anesthesia: General Mental Status: Awake Pain Control: Satisfactory Nausea/Vomiting: None Hydration: Adequate Anesthesia-Related Issues: No Anes. Related Issues
[2024-04-30] MEDS: cefTRIAXone sodium 2 GM in 0.9 % Sodium Chloride 50 ML IV (09:16)
--- NOTE | 2024-04-30 11:35 | HO.PM.IMPN ---
Subjective Subjective Date of Service: 04/30/24 Interval History: less back pain but still quite weak SCr improving PT recommends AIR Review of Systems Review of Systems: Yes all other systems are reviewed and are negative Physical Exam Vital Signs: Vital Signs: Last Vital Signs Temp 98.4 F 04/30/24 08:00 Pulse 55 04/30/24 08:00 Resp 20 04/30/24 08:00 BP 122/64 04/30/24 08:00 Pulse Ox 92 04/30/24 08:00 O2 Del Method Nasal Cannula 04/30/24 08:00 O2 Flow Rate 2 04/30/24 08:00 Oxygen Flow Rate 2 04/29/24 20:10 BMI result Body Mass Index 33.9 Gen: in no acute distress HEENT: sclera anicteric, moist mucus membranes Neck: supple Lungs: clear to auscultation bilaterally Heart: regular rate and rhythm, no murmurs Abd: soft, non-tender, non-distended : Pena draining dark urine Ext: bilateral lower extremity edema Skin: warm/well-perfused Neuro: alert and oriented x3, generalized weakness Psych: appropriate affect Objective Data Active Medications Acetaminophen (Acetaminophen 325 Mg Tablet) 650 mg PO Q6H PRN PRN Reason: Pain, Mild (Pain Scale 1-3), fever or headache Heparin Sodium (Porcine) (Heparin Sodium,Porcine 5,000 Unit/Ml Vial) 5,000 unit SUBCUT Q12H [facility] Last Admin: 04/29/24 05:45 Dose: 5,000 unit Documented By: MILLICENT Ceftriaxone Sodium 2 gm/ (Sodium Chloride) 50 mls @ 100 mls/hr IV Q24H [facility] Last Infusion: 04/30/24 09:56 Dose: Infused Documented By: DAVID Levothyroxine Sodium (Levothyroxine Sodium 75 Mcg Tablet) 75 mcg PO DAILY@0600 [facility] Last Admin: 04/30/24 06:27 Dose: 75 mcg Documented By: CED Melatonin (Melatonin 3 Mg Tablet) 6 mg PO BEDTIME PRN PRN Reason: Insomnia Last Admin: 04/29/24 00:24 Dose: 6 mg Documented By: MILLICENT Morphine Sulfate (Morphine Sulfate 2 Mg/Ml Cartridge) 2 mg IVPUSH Q4H PRN; Protocol PRN Reason: pain, moderate-severe (4-10) Naloxone HCl (Naloxone Hcl 0.4 Mg/Ml Vial) 0.04 mg IVPUSH Q5M PRN PRN Reason: Excessive sedation or RR < 8 Ondansetron HCl (Ondansetron Hcl 4 Mg/2 Ml Vial) 4 mg IVPUSH Q4H PRN PRN Reason: Nausea and Vomiting Last Admin: 04/27/24 21:33 Dose: 4 mg Documented By: NERI Sodium Chloride (0.9 % Sodium Chloride Flush 3 Ml Syringe) 3 ml IVFLUSH QSHIFT [facility] Last Admin: 04/30/24 09:17 Dose: Not Given Documented By: DAVID Non-Admin Reason: IV Running Labs 04/30/24 06:39 04/30/24 06:39 Labs: Laboratory Results - last 24 hr 04/30/24 06:39 MCV 90.1 MCH 30.4 MCHC 33.8 RDW 16.6 H Plt Count 191 MPV 12.9 H Immature Gran % (Auto) 3.8 H Neut % (Auto) 85.0 H Lymph % (Auto) 5.7 L [place] % (Auto) 4.3 Eos % (Auto) 0.7 Baso % (Auto) 0.5 Lymph # (Auto) 1.5 [place] # (Auto) 1.1 Eos # (Auto) 0.2 Baso # (Auto) 0.1 Abs Immat Gran (auto) 0.99 H Absolute Neuts (auto) 22.1 H Absolute Nucleated RBC 0.000 Nucleated RBC % (auto) 0.0 Smear Tech's Comments VERIFIED Anion Gap 15 Estim Creat Clear Calc 21.6 Estimated GFR 18 Random Glucose 111 Calcium 7.4 L Total Bilirubin 0.2 AST 33 H ALT 17 Alkaline Phosphatase 341 H C-Reactive Protein 17.47 H Total Protein 5.3 L Albumin 2.3 L Microbiology Microbiology Results: Microbiology 04/28/24 22:22 Urine Culture - Preliminary Urine Other - Nephrostomy Proteus species 04/27/24 13:23 Blood Culture - Preliminary Blood - Venous Proteus mirabilis 04/27/24 12:57 Blood Culture - Preliminary Blood - Venous Proteus mirabilis 04/27/24 Unknown Urine Culture - Final Urine clean catch - Clean Catch Midstream Assessment and Plan (1) DEB (acute kidney injury): Status: Acute (2) Urinary tract obstruction due to kidney stone: Status: Acute Plan d4 74yo F with remote history of ESQUIVEL for Grave's disease who has been off thyroid replacement for over 20 years and also not had routine medical care for as long; presenting with 1 wk of nausea, vomiting, and back pain and found to have obstructive DEB from a fragmented staghorn calculus; also severe hypothyroidism found to have Proteus bacteremia staghorn calculus with hydroureteronephrosis pyelonephritis/pyonephrosis Proteus bacteremia - piperacillin-tazobactam 04/27-04/28, ceftriaxone 04/28-, repeat BCx 04/30 pending; ID consultation re duration of therapy and role of suppressive antibiotics given struvite stone - POD 2 cystoscopy, ureteroscopy, right retrograde, right stent insertion obstructive DEB - improving after surgery; monitor daily; avoid nephrotoxins lactic acidosis - due to dehydration; resolved with IV hydration severe hypothyroidism - not in myxedema coma; started PO levothyroxine 75 mcg/d and will repeat TSH in 4 wk hypoK - repleted MICHAEL - replete Fe when bacterial infection under control; transfuse if Hb <7 thrombocytopenia - mild; resolved; was due to infection distal esophageal thickening - incidental; will recommend outpt EGD with GI consult VTE ppx - UFH dispo - eventual home In my clinical judgment, the patient requires continued inpatient hospitalization for the following reasons: IV ABX, operative intervention Total time managing care of this patient today: 45 minutes. Quality Stroke Does the patient have a stroke diagnosis?: No VTE Prior VTE?: No VTE Risk Level:: Medical - moderate - high VTE Device Contraindication: N/A - Device Ordered VTE Drug Contraindication: N/A - Med Ordered
[2024-04-30] MEDS: Acetaminophen 325 MG TABLET 650 MG PO (13:38)
[2024-04-30] MEDS: 0.9 % Sodium Chloride Flush 3 ML SYRINGE IVFLUSH ×2 (18:22→22:21)
[2024-04-30] MEDS: ondansetron HCL 4 MG/2 ML VIAL IVPUSH (22:16)
[2024-05-01] VITALS (10 sets, daily range): BP systolic 134–159; BP diastolic 61–69; PULSE 60–67; RESP 16–18; TEMP 36.1–36.9; O2SAT 95–98
[2024-05-01] MEDS: ondansetron HCL 4 MG/2 ML VIAL IVPUSH (04:12)
--- NOTE | 2024-05-01 04:32 | PM.EVENT ---
Event Note Date of Service: 05/01/24 Event Note: Nurse reported coffee-ground emesis. Will initiate IV Protonix and keep patient NPO. Consulting Gastroenterology, appreciate assistance Time Spent With Patient Time: Total time managing care of this patient today ____ minutes.
[2024-05-01] MEDS: Pantoprazole Sodium 40 MG/10 ML VIAL IVPUSH ×2 (05:49→16:44)
[2024-05-01 06:41] LABS: Hematocrit 22.7 % (37.0-47.0); Hemoglobin 7.6 g/dl (12.0-16.0); Mean Corpuscular HGB Conc 33.5 g/dl (31.0-35.0); Mean Corpuscular Hemoglobin 29.8 pg (27.0-33.0); Mean Platelet Volume 12.9 fL (9.4-12.3); Platelet Count 250 X10*3/uL (160-400); Red Blood Count 2.55 X10*6/uL (4.20-5.50); Red Cell Distribution Width 16.4 % (11.0-16.0); White Blood Count 23.6 X10*3/uL (4.8-10.8)
[2024-05-01 06:50] LABS: Anion Gap 14 (12-20); Blood Urea Nitrogen 74 mg/dL (9-16); Calcium 8.2 mg/dL (8.4-10.2); Carbon Dioxide 16 mmol/L (22-29); Chloride 114 mmol/L (96-108); Creatinine Clr Calc Pharmacy 25.7; Estimated Glomerular Filt Rate 22; Glucose Random 128 mg/dL (60-115); Potassium 3.5 mmol/L (3.3-5.1); Sodium 140 mmol/L (135-145)
[2024-05-01] MEDS: cefTRIAXone sodium 2 GM in 0.9 % Sodium Chloride 50 ML IV (09:18)
[2024-05-01] MEDS: Lactated Ringers 1,000 ML 50 ML IVCONT (09:18)
[2024-05-01] MEDS: Levothyroxine Sodium 100 MCG/5 ML VIAL 37.5 MCG IVPUSH (09:18)
[2024-05-01] MEDS: 0.9 % Sodium Chloride Flush 3 ML SYRINGE IVFLUSH ×2 (09:19→13:56)
--- NOTE | 2024-05-01 10:18 | MHC.CM.PN ---
Per MD rounds discharge is anticipated Saturday or Saturday. Coffee ground emesis this am. Patient is NPO with a GI consult ordered. DP Acute rehab via BLS.
--- NOTE | 2024-05-01 12:49 | P.CNGI_ITS ---
History of Present Illness Data of Consult Service Date: 05/01/24 Requesting physician: Olivia Gibbons Primary Care Provider: None Physician HPI Reason for consult: Hematemesis This is a 74-year-old female past medical history of Graves disease status post ESQUIVEL now with hypothyroidism, who presented to the hospital for nausea and vomiting and was found to have sepsis and DEB secondary to kidney stone and pyelonephritis. She underwent cystoscopy and ureteroscopy with right-sided stent insertion on 04/28/2024. Overnight, patient was noted to have coffee-ground emesis. She presented with a hemoglobin of 10.6, and that has progressively trended down to 7.6. Platelets are normal. Chem 7 with slowly improving renal function. Of note, CT abdomen pelvis with IV contrast performed at the time of admission did show possible distal esophagitis versus distal esophageal lesion. At the time of assessment, she is currently receiving 1 unit of PRBC. Her vitals are stable, she is requiring some supplemental O2. Does not report any abdominal pain, nausea. Does not report history of NSAID use. Is not on any blood thinners. Review of Systems 2 Review of Systems: Yes all other systems are reviewed and are negative [facility] Past Medical History Medical History H/O radioactive iodine thyroid ablation Social History Social History Household Members: Spouse Housing: House Do you presently have visiting nurse or other home services: No Patient Tobacco Use Status: Former Tobacco user Years Smoked: 20 years service: No Meds Allergies Allergy/AdvReac Type Severity Reaction Status Date / Time No Known Allergies Allergy Verified 04/27/24 12:23 Active Medications: Current Medications Acetaminophen (Acetaminophen 325 Mg Tablet) 650 mg PO Q6H PRN PRN Reason: Pain, Mild (Pain Scale 1-3), fever or headache Last Admin: 04/30/24 13:38 Dose: 650 mg Ceftriaxone Sodium 2 gm/ (Sodium Chloride) 50 mls @ 100 mls/hr IV Q24H [facility] Last Infusion: 05/01/24 09:48 Dose: Infused Lactated Ringer's (Lr) 1,000 mls @ 50 mls/hr IVCONT .Q20H [facility] Last Admin: 05/01/24 09:18 Dose: 50 mls/hr Levothyroxine Sodium (Levothyroxine Sodium 75 Mcg Tablet) 75 mcg PO DAILY@0600 [facility] Last Admin: 05/01/24 05:50 Dose: Not Given Levothyroxine Sodium (Levothyroxine Sodium 100 Mcg/5 Ml Vial) 37.5 mcg IVPUSH DAILY@0600 [facility] Last Admin: 05/01/24 09:18 Dose: 37.5 mcg Melatonin (Melatonin 3 Mg Tablet) 6 mg PO BEDTIME PRN PRN Reason: Insomnia Last Admin: 04/29/24 00:24 Dose: 6 mg Morphine Sulfate (Morphine Sulfate 2 Mg/Ml Cartridge) 2 mg IVPUSH Q4H PRN; Protocol PRN Reason: pain, moderate-severe (4-10) Naloxone HCl (Naloxone Hcl 0.4 Mg/Ml Vial) 0.04 mg IVPUSH Q5M PRN PRN Reason: Excessive sedation or RR < 8 Ondansetron HCl (Ondansetron Hcl 4 Mg/2 Ml Vial) 4 mg IVPUSH Q4H PRN PRN Reason: Nausea and Vomiting Last Admin: 05/01/24 04:12 Dose: 4 mg Pantoprazole Sodium (Pantoprazole Sodium 40 Mg/10 Ml Vial) 40 mg IVPUSH BID@0630,1630 [facility] Last Admin: 05/01/24 05:49 Dose: 40 mg Sodium Chloride (0.9 % Sodium Chloride Flush 3 Ml Syringe) [facility] Last Admin: 05/01/24 09:19 Dose: 3 ml Home Medications ?Medication ?Instructions ?Recorded ?Confirmed ?Last Taken ?Type No Known Home Meds 04/27/24 04/27/24 Unknown History Physical Exam 2 Vital Signs: Vital Signs: Last Vital Signs Temp 97.6 F 05/01/24 11:47 Pulse 67 05/01/24 11:47 Resp 16 05/01/24 11:47 BP 134/64 05/01/24 11:47 Pulse Ox 97 05/01/24 11:47 O2 Del Method Nasal Cannula 05/01/24 11:47 O2 Flow Rate 2 05/01/24 11:47 Oxygen Flow Rate 2 04/29/24 20:10 BMI result Body Mass Index 33.9 Elderly female Pale appearing Nonicteric Abdomen soft, nontender, mildly distended Mild ower extremity edema Results Labs 05/01/24 06:03 05/01/24 06:03 Labs: Short CBC 05/01/24 Range/Units 06:03 WBC 23.6 H (4.8-10.8) X10*3/uL Hgb 7.6 L (12.0-16.0) g/dl Hct 22.7 L (37.0-47.0) % Plt Count 250 D (160-400) X10*3/uL BMP 05/01/24 06:03 Sodium 140 Potassium 3.5 Chloride 114 H Carbon Dioxide 16 L BUN 74 H Creatinine 2.19 H Calcium 8.2 L D Microbiology Microbiology Results: Microbiology 04/30/24 06:40 Blood - Venous Blood Culture - Preliminary No growth after 24 hours. 04/30/24 06:40 Blood - Venous Blood Culture - Preliminary No growth after 24 hours. 04/27/24 12:57 Blood - Venous Blood Culture - Final Proteus mirabilis 04/27/24 13:23 Blood - Venous Blood Culture - Final Proteus mirabilis Escherichia coli 04/28/24 22:22 Urine Other - Nephrostomy Urine Culture - Final Proteus mirabilis 04/27/24 Unknown Urine clean catch - Clean Catch Midstream Urine Culture - Final Assessment and Plan (1) Anemia: Status: Acute (2) Esophageal thickening: Status: Acute (3) Hematemesis: Status: Acute Plan Presented with renal stone leading to obstructive uropathy and pyelonephritis. Course complicated by hematemesis. Hemoglobin of 9 on admission which has further down trended to 7.[address] scan with lower esophageal wall thickening suspicious for esophagitis versus mass lesion. Plan: -maintain 2 large bore IV access at all time -agree with IV Protonix b.i.d. -can have clears today -we will plan for upper endoscopy for tomorrow. Please keep her NPO after midnight. -please obtain CBC and BMP tmrw morning. Procedures Date of Service Date of Service: 05/01/24
--- NOTE | 2024-05-01 13:07 | P.PNIM_ITS ---
Subjective Subjective Date of Service: 05/01/24 Interval History: had coffee-ground emesis overnight none since weak back pain improved no fever Review of Systems Review of Systems: Yes all other systems are reviewed and are negative Physical Exam 2 Vital Signs: Vital Signs: Last Vital Signs Temp 97.6 F 05/01/24 11:47 Pulse 67 05/01/24 11:47 Resp 16 05/01/24 11:47 BP 134/64 05/01/24 11:47 Pulse Ox 97 05/01/24 11:47 O2 Del Method Nasal Cannula 05/01/24 11:47 O2 Flow Rate 2 05/01/24 11:47 Oxygen Flow Rate 2 04/29/24 20:10 BMI result Body Mass Index 33.9 Gen: in no acute distress HEENT: sclera anicteric, moist mucus membranes Neck: supple Lungs: clear to auscultation bilaterally Heart: regular rate and rhythm, no murmurs Abd: soft, non-tender, non-distended : Pena draining clear urine Ext: bilateral lower extremity edema Skin: warm/well-perfused Neuro: alert and oriented x3, generalized weakness Psych: appropriate affect Objective Data Active Medications Acetaminophen (Acetaminophen 325 Mg Tablet) 650 mg PO Q6H PRN PRN Reason: Pain, Mild (Pain Scale 1-3), fever or headache Last Admin: 04/30/24 13:38 Dose: 650 mg Documented By: DAVID Ceftriaxone Sodium 2 gm/ (Sodium Chloride) 50 mls @ 100 mls/hr IV Q24H [facility] Last Infusion: 05/01/24 09:48 Dose: Infused Documented By: YASSINE Lactated Ringer's (Lr) 1,000 mls @ 50 mls/hr IVCONT .Q20H [facility] Last Admin: 05/01/24 09:18 Dose: 50 mls/hr Documented By: YASSINE Levothyroxine Sodium (Levothyroxine Sodium 75 Mcg Tablet) 75 mcg PO DAILY@0600 [facility] Last Admin: 05/01/24 05:50 Dose: Not Given Documented By: CED Non-Admin Reason: NPO Levothyroxine Sodium (Levothyroxine Sodium 100 Mcg/5 Ml Vial) 37.5 mcg IVPUSH DAILY@0600 [facility] Last Admin: 05/01/24 09:18 Dose: 37.5 mcg Documented By: YASSINE Melatonin (Melatonin 3 Mg Tablet) 6 mg PO BEDTIME PRN PRN Reason: Insomnia Last Admin: 04/29/24 00:24 Dose: 6 mg Documented By: MILLICENT Morphine Sulfate (Morphine Sulfate 2 Mg/Ml Cartridge) 2 mg IVPUSH Q4H PRN; Protocol PRN Reason: pain, moderate-severe (4-10) Naloxone HCl (Naloxone Hcl 0.4 Mg/Ml Vial) 0.04 mg IVPUSH Q5M PRN PRN Reason: Excessive sedation or RR < 8 Ondansetron HCl (Ondansetron Hcl 4 Mg/2 Ml Vial) 4 mg IVPUSH Q4H PRN PRN Reason: Nausea and Vomiting Last Admin: 05/01/24 04:12 Dose: 4 mg Documented By: CED Pantoprazole Sodium (Pantoprazole Sodium 40 Mg/10 Ml Vial) 40 mg IVPUSH BID@0630,1630 [facility] Last Admin: 05/01/24 05:49 Dose: 40 mg Documented By: CED Sodium Chloride (0.9 % Sodium Chloride Flush 3 Ml Syringe) 3 ml IVFLUSH [facility] Last Admin: 05/01/24 09:19 Dose: 3 ml Documented By: YASSINE Labs 05/01/24 06:03 05/01/24 06:03 Labs: Laboratory Results - last 24 hr 05/01/24 05/01/24 06:03 08:32 MCV 89.0 MCH 29.8 MCHC 33.5 RDW 16.4 H Plt Count 250 D MPV 12.9 H Absolute Nucleated RBC 0.000 Nucleated RBC % (auto) 0.0 Anion Gap 14 Estim Creat Clear Calc 25.7 Estimated GFR 22 Random Glucose 128 H Calcium 8.2 L D Blood Type O Positive Antibody Screen NEGATIVE Crossmatch See Detail Microbiology Microbiology Results: Microbiology 04/30/24 06:40 Blood Culture - Preliminary Blood - Venous No growth after 24 hours. 04/30/24 06:40 Blood Culture - Preliminary Blood - Venous No growth after 24 hours. 04/27/24 12:57 Blood Culture - Final Blood - Venous Proteus mirabilis 04/27/24 13:23 Blood Culture - Final Blood - Venous Proteus mirabilis Escherichia coli 04/28/24 22:22 Urine Culture - Final Urine Other - Nephrostomy Proteus mirabilis Assessment and Plan (1) DEB (acute kidney injury): Status: Acute (2) Urinary tract obstruction due to kidney stone: Status: Acute Plan d5 74yo F with remote history of ESQUIVEL for Grave's disease who has been off thyroid replacement for over 20 years and also not had routine medical care for as long; presenting with 1 wk of nausea, vomiting, and back pain and found to have obstructive DEB from a fragmented staghorn calculus; also severe hypothyroidism found to have Proteus bacteremia UGIB - clear liquids, NPO after midnight for EGD tomorrow, IV PPI anemia due to iron deficiency + GI blood loss - transfuse 1u pRBCs, replete Fe when bacterial infection controlled, recheck H+H in AM staghorn calculus with hydroureteronephrosis pyelonephritis/pyonephrosis Proteus mirabilis and E. coli bacteremia - piperacillin-tazobactam 04/27-04/28, ceftriaxone 04/28-, repeat BCx 04/30 pending; ID consultation re duration of therapy and role of suppressive antibiotics given struvite stone - POD 3 cystoscopy, ureteroscopy, right retrograde, right stent insertion; Urology follow-up obstructive DEB - improving after surgery; monitor daily; avoid nephrotoxins lactic acidosis - due to dehydration; resolved with IV hydration severe hypothyroidism - not in myxedema coma; started PO levothyroxine 75 mcg/d and will repeat TSH in 4 wk [give IV while NPO] hypoK - repleted thrombocytopenia - mild; resolved; was due to infection distal esophageal thickening - incidental; will recommend outpt EGD with GI consult VTE ppx - hold UFH due to GIB; place SCDs dispo - eventual AIR In my clinical judgment, the patient requires continued inpatient hospitalization for the following reasons: IV ABX, EGD Total time managing care of this patient today: 55 minutes. Quality Stroke Does the patient have a stroke diagnosis?: No VTE Prior VTE?: No VTE Risk Level:: Medical - moderate - high VTE Device Contraindication: N/A - Device Ordered VTE Drug Contraindication: N/A - Med Ordered
--- NOTE | 2024-05-01 14:36 | P.CDIM_ITS ---
PROVIDER RESPONSE TEXT: To clarify, the appropriate diagnosis supported by the clinical indicators: Acute QUERY TEXT: PHYSICIAN'S DOCUMENTATION REQUEST Date of Query: 04/28/2024 11:47 AM EDT Patient Name: Micaela Leigh Admit Date: 04/27/2024 Dear Benjamín Barbosa MD, A review of the medical record indicates additional documentation may be needed. Please review below and update the documentation accordingly. Clinical Indicators: H&P and Progress note: Lactic acidosis due to dehydration; resolved with IV hydration. Clarify which of the following accurately represents the acuity of the lactic acidosis: Possible options might include: Acute Chronic Other (explain) Clinically unable to determine (explain) Thank you, Noa De Leon, CCS, CDIS Use of terms such as suspected, likely, concern for, or probable (associated with a specific diagnosi s that is being evaluated, monitored, or treated as if it exists) are acceptable and can be coded in the inpatient se tting, when documented at the time of discharge. Please use your independent medical judgment in providing your response. THIS QUERY IS PART OF THE PERMANENT MEDICAL RECORD
--- NOTE | 2024-05-01 22:07 | P.CNID_ITS ---
History of Present Illness Data of Consult Service Date: 05/01/24 Requesting physician: Benjamín Barbosa Primary Care Provider: None Physician HPI Reason for consult: bacteremia She presents with weakness and dehydration. She has leukocytosis and has bacteremia with proteus mirabilis. She has right staghorn calculi and had right stent placed today. Review of Systems 2 Review of Systems: Yes all other systems are reviewed and are negative [facility] Past Medical History Medical History (Updated 05/01/24 @ 22:11 by Mary Wilde MD) Bacteremia H/O radioactive iodine thyroid ablation Family History Family history: reviewed and not pertinent Social History Social History Household Members: Spouse Housing: House Do you presently have visiting nurse or other home services: No Patient Tobacco Use Status: Former Tobacco user Years Smoked: 20 years service: No Meds Allergies Allergy/AdvReac Type Severity Reaction Status Date / Time No Known Allergies Allergy Verified 04/27/24 12:23 Active Medications: Current Medications Acetaminophen (Acetaminophen 325 Mg Tablet) 650 mg PO Q6H PRN PRN Reason: Pain, Mild (Pain Scale 1-3), fever or headache Last Admin: 04/30/24 13:38 Dose: 650 mg Ceftriaxone Sodium (Ceftriaxone Sodium 2 Gm Vial) 2 gm IVPUSH Q24H [facility] Lactated Ringer's (Lr) 1,000 mls @ 50 mls/hr IVCONT .Q20H [facility] Last Infusion: 05/01/24 15:00 Dose: 50 mls/hr Levothyroxine Sodium (Levothyroxine Sodium 75 Mcg Tablet) 75 mcg PO DAILY@0600 [facility] Last Admin: 05/01/24 05:50 Dose: Not Given Levothyroxine Sodium (Levothyroxine Sodium 100 Mcg/5 Ml Vial) 37.5 mcg IVPUSH DAILY@0600 [facility] Last Admin: 05/01/24 09:18 Dose: 37.5 mcg Melatonin (Melatonin 3 Mg Tablet) 6 mg PO BEDTIME PRN PRN Reason: Insomnia Last Admin: 04/29/24 00:24 Dose: 6 mg Morphine Sulfate (Morphine Sulfate 2 Mg/Ml Cartridge) 2 mg IVPUSH Q4H PRN; Protocol PRN Reason: pain, moderate-severe (4-10) Naloxone HCl (Naloxone Hcl 0.4 Mg/Ml Vial) 0.04 mg IVPUSH Q5M PRN PRN Reason: Excessive sedation or RR < 8 Ondansetron HCl (Ondansetron Hcl 4 Mg/2 Ml Vial) 4 mg IVPUSH Q4H PRN PRN Reason: Nausea and Vomiting Last Admin: 05/01/24 04:12 Dose: 4 mg Pantoprazole Sodium (Pantoprazole Sodium 40 Mg/10 Ml Vial) 40 mg IVPUSH BID@0630,1630 [facility] Last Admin: 05/01/24 16:44 Dose: 40 mg Sodium Chloride (0.9 % Sodium Chloride Flush 3 Ml Syringe) 3 ml IVFLUSH QSHIFT [facility] Last Admin: 05/01/24 13:56 Dose: 3 ml Home Medications ?Medication ?Instructions ?Recorded ?Confirmed ?Last Taken ?Type No Known Home Meds 04/27/24 04/27/24 Unknown History Physical Exam 2 Vital Signs: Vital Signs: Last Vital Signs Temp 97.0 F 05/01/24 20:00 Pulse 63 05/01/24 20:00 Resp 18 05/01/24 20:00 BP 143/62 H 05/01/24 20:00 Pulse Ox 96 05/01/24 20:00 O2 Del Method Nasal Cannula 05/01/24 20:00 O2 Flow Rate 2 05/01/24 20:00 Oxygen Flow Rate 2 04/29/24 20:10 BMI result Body Mass Index 33.9 Const: General: cooperative HEENT: Head: Yes normal to inspection Face and sinus: Yes normal facial exam Mouth: Normal oral and palatal mucosa present Teeth and gingiva: d entition normal Eyes: General: appearance normal, both eyes and all related structures P upils: Equal, round and reactive pupils present Resp: Effort & Inspection: normal respiratory effort Cardio: Rate: regular rate Rhythm: regular rhythm GI: Palpation (GI): Soft to palpation and nontender : General: Yes no CVA tenderness Back/Spine/Pelvis: Back: no CVA tenderness Skin: General skin exam: no rashes or lesions noted Neuro: General: moves all extremities Cranial nerves: Yes Equal, round and reactive pupils present Extrem: General: Yes normal to inspection Psych: Appearance: grossly normal Results Labs 05/01/24 06:03 05/01/24 06:03 Labs: Short CBC 05/01/24 Range/Units 06:03 WBC 23.6 H (4.8-10.8) X10*3/uL Hgb 7.6 L (12.0-16.0) g/dl Hct 22.7 L (37.0-47.0) % Plt Count 250 D (160-400) X10*3/uL BMP 05/01/24 06:03 Sodium 140 Potassium 3.5 Chloride 114 H Carbon Dioxide 16 L BUN 74 H Creatinine 2.19 H Calcium 8.2 L D Microbiology Microbiology Results: Microbiology 04/30/24 06:40 Blood - Venous Blood Culture - Preliminary No growth after 24 hours. 04/30/24 06:40 Blood - Venous Blood Culture - Preliminary No growth after 24 hours. 04/27/24 12:57 Blood - Venous Blood Culture - Final Proteus mirabilis 04/27/24 13:23 Blood - Venous Blood Culture - Final Proteus mirabilis Escherichia coli 04/28/24 22:22 Urine Other - Nephrostomy Urine Culture - Final Proteus mirabilis 04/27/24 Unknown Urine clean catch - Clean Catch Midstream Urine Culture - Final Assessment and Plan (1) Urinary tract obstruction due to kidney stone: Status: Acute (2) Bacteremia: Status: Acute Plan She has bacteremia from proteus mirabilis,from stones It is sensitive to Ceftriaxone. 14 days antibiotics from first negative blood cultures, may switch to po Ceftin 500 bid on discharge,
[2024-05-02] VITALS (13 sets, daily range): BP systolic 100–132; BP diastolic 44–68; PULSE 58–70; RESP 16–20; TEMP 36.1–36.4; O2SAT 92–97
[2024-05-02] MEDS: Levothyroxine Sodium 100 MCG/5 ML VIAL 37.5 MCG IVPUSH (06:21)
[2024-05-02] MEDS: Pantoprazole Sodium 40 MG/10 ML VIAL IVPUSH (06:21)
[2024-05-02] MEDS: 0.9 % Sodium Chloride Flush 3 ML SYRINGE IVFLUSH ×3 (07:58→23:32)
[2024-05-02] MEDS: cefTRIAXone sodium 2 GM VIAL IVPUSH (07:58)
[2024-05-02 08:54] LABS: Anion Gap 12 (12-20); Blood Urea Nitrogen 54 mg/dL (9-16); Carbon Dioxide 19 mmol/L (22-29); Chloride 116 mmol/L (96-108); Creatinine Clr Calc Pharmacy 34.1; Estimated Glomerular Filt Rate 30; Glucose Random 89 mg/dL (60-115); Potassium 3.9 mmol/L (3.3-5.1); Sodium 143 mmol/L (135-145)
[2024-05-02 08:59] LABS: B Type Natriuretic Peptide 336 pg/mL (<100)
[2024-05-02 09:00] LABS: Hematocrit 24.3 % (37.0-47.0); Hemoglobin 8.1 g/dl (12.0-16.0); Mean Corpuscular HGB Conc 33.3 g/dl (31.0-35.0); Mean Corpuscular Hemoglobin 29.2 pg (27.0-33.0); Mean Corpuscular Volume 87.7 fL (80.0-98.0); Mean Platelet Volume 12.3 fL (9.4-12.3); NRBC Pct Auto 0.1 /100WBC (0.0-0.2); Platelet Count 291 X10*3/uL (160-400); Red Blood Count 2.77 X10*6/uL (4.20-5.50); Red Cell Distribution Width 16.7 % (11.0-16.0); White Blood Count 17.6 X10*3/uL (4.8-10.8)
--- NOTE | 2024-05-02 10:10 | HO.ANESPROP2 ---
HPI - Anesthesia Eval Consult details Narrative: GI bleed PMFSH Active Problems Active Problems: All Active Problems Bacteremia (Acute) Hematemesis (Acute) Esophageal thickening (Acute) Hypothyroidism (Acute) DEB (acute kidney injury) (Acute) Thrombocytopenia (Acute) Anemia (Acute) Urinary tract obstruction due to kidney stone (Acute) Past Medical History Medical History (Updated 05/01/24 @ 22:11 by Mary Wilde MD) Bacteremia H/O radioactive iodine thyroid ablation Family History Family history of problems with anesthesia: No Surgical History History of Problems with Anesthesia: No Social History Social History Household Members: Spouse Housing: House Do you presently have visiting nurse or other home services: No Patient Tobacco Use Status: Former Tobacco user Years Smoked: 20 years service: No Meds Allergies Allergy/AdvReac Type Severity Reaction Status Date / Time No Known Allergies Allergy Verified 04/27/24 12:23 Active Medications: Current Medications Acetaminophen (Acetaminophen 325 Mg Tablet) 650 mg PO Q6H PRN PRN Reason: Pain, Mild (Pain Scale 1-3), fever or headache Last Admin: 04/30/24 13:38 Dose: 650 mg Ceftriaxone Sodium (Ceftriaxone Sodium 2 Gm Vial) 2 gm IVPUSH Q24H [facility] Last Admin: 05/02/24 07:58 Dose: 2 gm Lactated Ringer's (Lr) 1,000 mls @ 50 mls/hr IVCONT .Q20H [facility] Last Admin: 05/02/24 03:53 Dose: Not Given Levothyroxine Sodium (Levothyroxine Sodium 75 Mcg Tablet) 75 mcg PO DAILY@0600 [facility] Last Admin: 05/01/24 05:50 Dose: Not Given Levothyroxine Sodium (Levothyroxine Sodium 100 Mcg/5 Ml Vial) 37.5 mcg IVPUSH DAILY@0600 [facility] Last Admin: 05/02/24 06:21 Dose: 37.5 mcg Melatonin (Melatonin 3 Mg Tablet) 6 mg PO BEDTIME PRN PRN Reason: Insomnia Last Admin: 04/29/24 00:24 Dose: 6 mg Morphine Sulfate (Morphine Sulfate 2 Mg/Ml Cartridge) 2 mg IVPUSH Q4H PRN; Protocol PRN Reason: pain, moderate-severe (4-10) Naloxone HCl (Naloxone Hcl 0.4 Mg/Ml Vial) 0.04 mg IVPUSH Q5M PRN PRN Reason: Excessive sedation or RR < 8 Ondansetron HCl (Ondansetron Hcl 4 Mg/2 Ml Vial) 4 mg IVPUSH Q4H PRN PRN Reason: Nausea and Vomiting Last Admin: 05/01/24 04:12 Dose: 4 mg Pantoprazole Sodium (Pantoprazole Sodium 40 Mg/10 Ml Vial) 40 mg IVPUSH BID@0630,1630 [facility] Last Admin: 05/02/24 06:21 Dose: 40 mg Sodium Chloride (0.9 % Sodium Chloride Flush 3 Ml Syringe) 3 ml IVFLUSH QSHIFT [facility] Last Admin: 05/02/24 07:58 Dose: 3 ml Home Medications ?Medication ?Instructions ?Recorded ?Confirmed ?Last Taken ?Type No Known Home Meds 04/27/24 04/27/24 Unknown History Exam Height,Weight and Vital Signs: Height 5 ft 5 in Weight 92.3 kg Last Vital Signs Temp 97.6 F 05/02/24 08:00 Pulse 60 05/02/24 08:00 Resp 18 05/02/24 08:00 BP 130/62 05/02/24 08:00 Pulse Ox 97 05/02/24 08:00 O2 Del Method Nasal Cannula 05/02/24 08:00 O2 Flow Rate 2 05/02/24 08:00 Oxygen Flow Rate 2 05/01/24 20:00 Pertinent Lab Results Pertinent Lab Results: Laboratory Tests 04/27/24 04/27/24 04/27/24 12:52 12:53 12:57 WBC 24.6 H RBC 3.53 L Hgb 10.6 L Hct 31.3 L MCV 88.7 MCH 30.0 MCHC 33.9 RDW 15.6 Plt Count 138 L MPV 12.5 H Immature Gran % (Auto) Cancelled Neut % (Auto) Cancelled Lymph % (Auto) Cancelled [place] % (Auto) Cancelled Eos % (Auto) Cancelled Baso % (Auto) Cancelled Lymph # (Auto) Cancelled [place] # (Auto) Cancelled Eos # (Auto) Cancelled Baso # (Auto) Cancelled Abs Immat Gran (auto) Cancelled Absolute Neuts (auto) Cancelled Absolute Nucleated RBC 0.000 Nucleated RBC % (auto) 0.0 Neutrophils % (Manual) 79 H Band Neutrophils % 8 H Lymphocytes % (Manual) 3 L Atypical Lymphs % (Man) 1 Monocytes % (Manual) 6 Metamyelocytes % 3 Abs Neuts (Manual) 21.4 H Lymphocytes # (Manual) 0.7 L Atyp Lymphs # (Manual) 0.2 Monocytes # (Manual) 1.5 H Metamyelocytes # 0.7 Platelet Estimate DECREASED Plt Morphology Comment NORMAL RBC Morphology NOTED Hypochromasia 1+ (5-14) [place] Cells 2+ (3-5) Smear Tech's Comments Smear Path Review ESR 90 H Absolute Retic Percent Retic Immature Retic Fraction Retic Hgb Equivalent PT 12.4 INR 1.1 VBG pH 7.46 H VBG pCO2 27 VBG pO2 45 VBG HCO3 19 L VBG O2 Saturation 69.0 VBG Base Excess -3.0 Sodium 137 Potassium 3.2 L Chloride 108 Carbon Dioxide 20 L Anion Gap 12 BUN 73 H Creatinine 3.08 H Estim Creat Clear Calc 18.8 Estimated GFR 15 Random Glucose 149 H Estimat Average Glucose 103 Hemoglobin A1c % 5.2 Lactic Acid 2.2 H* Lactic Acid F/U @ 2Hr Calcium 8.8 Magnesium 2.1 Iron TIBC % Saturation Unsat Iron Binding Ferritin Total Bilirubin 1.4 H Direct Bilirubin 0.8 H AST 36 H ALT 25 Alkaline Phosphatase 243 H Ammonia 28 Lactate Dehydrogenase Total Creatine Kinase 166 H Troponin I High Sens 15.5 C-Reactive Protein 29.47 H B-Natriuretic Peptide 384 H Total Protein 6.6 Albumin 3.1 L Lipase 13 Vitamin B12 Folate Procalcitonin 21.05 TSH 15.73 H Free T4 < 0.42 L Urine Color Urine Appearance Urine pH Ur Specific [place] Urine Protein Urine Glucose (UA) Urine Ketones Urine Blood Urine Nitrite Ur Leukocyte Esterase Urine RBC Urine WBC Ur Squamous Epith Cells Urine Bacteria Hyaline Casts Acetaminophen 6 Hepatitis A IgM Ab Hep Bs Antigen Hep Bs Antibody Hep B Core Total Ab Hepatitis C Ab (EIA) Influenza Type A (PCR) NEGATIVE Influenza Type B (PCR) NEGATIVE RSV RNA Qual (PCR) NEGATIVE SARS-CoV-2 RNA (RT-PCR) NEGATIVE Blood Type O Positive Antibody Screen NEGATIVE Crossmatch 04/27/24 04/27/24 04/27/24 13:23 15:44 18:16 WBC RBC Hgb Hct MCV MCH MCHC RDW Plt Count MPV Immature Gran % (Auto) Neut % (Auto) Lymph % (Auto) [place] % (Auto) Eos % (Auto) Baso % (Auto) Lymph # (Auto) [place] # (Auto) Eos # (Auto) Baso # (Auto) Abs Immat Gran (auto) Absolute Neuts (auto) Absolute Nucleated RBC Nucleated RBC % (auto) Neutrophils % (Manual) Band Neutrophils % Lymphocytes % (Manual) Atypical Lymphs % (Man) Monocytes % (Manual) Metamyelocytes % Abs Neuts (Manual) Lymphocytes # (Manual) Atyp Lymphs # (Manual) Monocytes # (Manual) Metamyelocytes # Platelet Estimate Plt Morphology Comment RBC Morphology Hypochromasia [place] Cells Smear Tech's Comments Smear Path Review ESR Absolute Retic Percent Retic Immature Retic Fraction Retic Hgb Equivalent PT INR VBG pH VBG pCO2 VBG pO2 VBG HCO3 VBG O2 Saturation VBG Base Excess Sodium Potassium Chloride Carbon Dioxide Anion Gap BUN Creatinine Estim Creat Clear Calc Estimated GFR Random Glucose Estimat Average Glucose Hemoglobin A1c % Lactic Acid Lactic Acid F/U @ 2Hr 1.7 Calcium Magnesium Iron TIBC % Saturation Unsat Iron Binding Ferritin Total Bilirubin Direct Bilirubin AST ALT Alkaline Phosphatase Ammonia Lactate Dehydrogenase Total Creatine Kinase Troponin I High Sens C-Reactive Protein B-Natriuretic Peptide Total Protein Albumin Lipase Vitamin B12 Folate Procalcitonin TSH Free T4 Urine Color Dark Yellow Urine Appearance Turbid Urine pH 8.0 Ur Specific [place] >= 1.030 H Urine Protein 300 (3+) H Urine Glucose (UA) Negative Urine Ketones Negative Urine Blood Large (3+) H Urine Nitrite Negative Ur Leukocyte Esterase Large (3+) H Urine RBC >20 H Urine WBC >50 H Ur Squamous Epith Cells 3-5 Urine Bacteria 4+ Hyaline Casts 3-5 Acetaminophen Hepatitis A IgM Ab Nonreactive Hep Bs Antigen Negative Hep Bs Antibody NONREACTIVE Hep B Core Total Ab Nonreactive Hepatitis C Ab (EIA) Nonreactive Influenza Type A (PCR) Influenza Type B (PCR) RSV RNA Qual (PCR) SARS-CoV-2 RNA (RT-PCR) Blood Type Antibody Screen Crossmatch 04/28/24 04/29/24 04/30/24 06:19 06:27 06:39 WBC 23.0 H 37.9 H* 25.9 H RBC 3.03 L 2.40 L D 2.53 L Hgb 9.2 L 7.4 L 7.7 L Hct 26.8 L 21.3 L D 22.8 L MCV 88.4 88.8 90.1 MCH 30.4 30.8 30.4 MCHC 34.3 34.7 33.8 RDW 15.8 15.9 16.6 H Plt Count 157 L 168 191 MPV 12.4 H 12.1 12.9 H Immature Gran % (Auto) 3.8 H Neut % (Auto) 85.0 H Lymph % (Auto) 5.7 L [place] % (Auto) 4.3 Eos % (Auto) 0.7 Baso % (Auto) 0.5 Lymph # (Auto) 1.5 [place] # (Auto) 1.1 Eos # (Auto) 0.2 Baso # (Auto) 0.1 Abs Immat Gran (auto) 0.99 H Absolute Neuts (auto) 22.1 H Absolute Nucleated RBC 0.000 0.000 0.000 Nucleated RBC % (auto) 0.0 0.0 0.0 Neutrophils % (Manual) Band Neutrophils % Lymphocytes % (Manual) Atypical Lymphs % (Man) Monocytes % (Manual) Metamyelocytes % Abs Neuts (Manual) Lymphocytes # (Manual) Atyp Lymphs # (Manual) Monocytes # (Manual) Metamyelocytes # Platelet Estimate Plt Morphology Comment RBC Morphology Hypochromasia [place] Cells Smear Tech's Comments VERIFIED Smear Path Review SEE NOTE ESR Absolute Retic 0.022 L Percent Retic 0.7 Immature Retic Fraction 39.1 H Retic Hgb Equivalent 30.4 PT INR VBG pH VBG pCO2 VBG pO2 VBG HCO3 VBG O2 Saturation VBG Base Excess Sodium 139 140 138 Potassium 3.6 3.4 3.6 Chloride 112 H 113 H 113 H Carbon Dioxide 18 L 16 L 14 L Anion Gap 13 14 15 BUN 71 H 67 H 67 H Creatinine 3.04 H 3.25 H 2.60 H Estim Creat Clear Calc 18.4 17.3 21.6 Estimated GFR 15 14 18 Random Glucose 108 148 H 111 Estimat Average Glucose Hemoglobin A1c % Lactic Acid Lactic Acid F/U @ 2Hr Calcium 7.8 L D 7.2 L D 7.4 L Magnesium Iron 10 L TIBC 149 L % Saturation 7 L Unsat Iron Binding 139 Ferritin 1331 H Total Bilirubin 0.8 0.2 Direct Bilirubin AST 71 H 33 H ALT 30 17 Alkaline Phosphatase 447 H 341 H Ammonia Lactate Dehydrogenase 210 Total Creatine Kinase Troponin I High Sens C-Reactive Protein 17.47 H B-Natriuretic Peptide Total Protein 5.0 L 5.3 L Albumin 2.3 L 2.3 L Lipase Vitamin B12 1918 H Folate 12.1 Procalcitonin TSH Free T4 Urine Color Urine Appearance Urine pH Ur Specific [place] Urine Protein Urine Glucose (UA) Urine Ketones Urine Blood Urine Nitrite Ur Leukocyte Esterase Urine RBC Urine WBC Ur Squamous Epith Cells Urine Bacteria Hyaline Casts Acetaminophen Hepatitis A IgM Ab Hep Bs Antigen Hep Bs Antibody Hep B Core Total Ab Hepatitis C Ab (EIA) Influenza Type A (PCR) Influenza Type B (PCR) RSV RNA Qual (PCR) SARS-CoV-2 RNA (RT-PCR) Blood Type Antibody Screen Crossmatch 05/01/24 05/01/24 05/02/24 06:03 08:32 08:06 WBC 23.6 H 17.6 H RBC 2.55 L 2.77 L Hgb 7.6 L 8.1 L Hct 22.7 L 24.3 L MCV 89.0 87.7 MCH 29.8 29.2 MCHC 33.5 33.3 RDW 16.4 H 16.7 H Plt Count 250 D 291 MPV 12.9 H 12.3 Immature Gran % (Auto) Neut % (Auto) Lymph % (Auto) [place] % (Auto) Eos % (Auto) Baso % (Auto) Lymph # (Auto) [place] # (Auto) Eos # (Auto) Baso # (Auto) Abs Immat Gran (auto) Absolute Neuts (auto) Absolute Nucleated RBC 0.000 0.020 H Nucleated RBC % (auto) 0.0 0.1 Neutrophils % (Manual) Band Neutrophils % Lymphocytes % (Manual) Atypical Lymphs % (Man) Monocytes % (Manual) Metamyelocytes % Abs Neuts (Manual) Lymphocytes # (Manual) Atyp Lymphs # (Manual) Monocytes # (Manual) Metamyelocytes # Platelet Estimate Plt Morphology Comment RBC Morphology Hypochromasia [place] Cells Smear Tech's Comments Smear Path Review ESR Absolute Retic Percent Retic Immature Retic Fraction Retic Hgb Equivalent PT INR VBG pH VBG pCO2 VBG pO2 VBG HCO3 VBG O2 Saturation VBG Base Excess Sodium 140 Potassium 3.5 Chloride 114 H Carbon Dioxide 16 L Anion Gap 14 BUN 74 H Creatinine 2.19 H Estim Creat Clear Calc 25.7 Estimated GFR 22 Random Glucose 128 H Estimat Average Glucose Hemoglobin A1c % Lactic Acid Lactic Acid F/U @ 2Hr Calcium 8.2 L D Magnesium Iron TIBC % Saturation Unsat Iron Binding Ferritin Total Bilirubin Direct Bilirubin AST ALT Alkaline Phosphatase Ammonia Lactate Dehydrogenase Total Creatine Kinase Troponin I High Sens C-Reactive Protein B-Natriuretic Peptide 336 H Total Protein Albumin Lipase Vitamin B12 Folate Procalcitonin TSH Free T4 Urine Color Urine Appearance Urine pH Ur Specific [place] Urine Protein Urine Glucose (UA) Urine Ketones Urine Blood Urine Nitrite Ur Leukocyte Esterase Urine RBC Urine WBC Ur Squamous Epith Cells Urine Bacteria Hyaline Casts Acetaminophen Hepatitis A IgM Ab Hep Bs Antigen Hep Bs Antibody Hep B Core Total Ab Hepatitis C Ab (EIA) Influenza Type A (PCR) Influenza Type B (PCR) RSV RNA Qual (PCR) SARS-CoV-2 RNA (RT-PCR) Blood Type O Positive Antibody Screen NEGATIVE Crossmatch See Detail 05/02/24 08:07 WBC RBC Hgb Hct MCV MCH MCHC RDW Plt Count MPV Immature Gran % (Auto) Neut % (Auto) Lymph % (Auto) [place] % (Auto) Eos % (Auto) Baso % (Auto) Lymph # (Auto) [place] # (Auto) Eos # (Auto) Baso # (Auto) Abs Immat Gran (auto) Absolute Neuts (auto) Absolute Nucleated RBC Nucleated RBC % (auto) Neutrophils % (Manual) Band Neutrophils % Lymphocytes % (Manual) Atypical Lymphs % (Man) Monocytes % (Manual) Metamyelocytes % Abs Neuts (Manual) Lymphocytes # (Manual) Atyp Lymphs # (Manual) Monocytes # (Manual) Metamyelocytes # Platelet Estimate Plt Morphology Comment RBC Morphology Hypochromasia [place] Cells Smear Tech's Comments Smear Path Review ESR Absolute Retic Percent Retic Immature Retic Fraction Retic Hgb Equivalent PT INR VBG pH VBG pCO2 VBG pO2 VBG HCO3 VBG O2 Saturation VBG Base Excess Sodium 143 Potassium 3.9 Chloride 116 H Carbon Dioxide 19 L Anion Gap 12 BUN 54 H Creatinine 1.65 H Estim Creat Clear Calc 34.1 Estimated GFR 30 Random Glucose 89 Estimat Average Glucose Hemoglobin A1c % Lactic Acid Lactic Acid F/U @ 2Hr Calcium 8.0 L Magnesium Iron TIBC % Saturation Unsat Iron Binding Ferritin Total Bilirubin Direct Bilirubin AST ALT Alkaline Phosphatase Ammonia Lactate Dehydrogenase Total Creatine Kinase Troponin I High Sens C-Reactive Protein B-Natriuretic Peptide Total Protein Albumin Lipase Vitamin B12 Folate Procalcitonin TSH Free T4 Urine Color Urine Appearance Urine pH Ur Specific [place] Urine Protein Urine Glucose (UA) Urine Ketones Urine Blood Urine Nitrite Ur Leukocyte Esterase Urine RBC Urine WBC Ur Squamous Epith Cells Urine Bacteria Hyaline Casts Acetaminophen Hepatitis A IgM Ab Hep Bs Antigen Hep Bs Antibody Hep B Core Total Ab Hepatitis C Ab (EIA) Influenza Type A (PCR) Influenza Type B (PCR) RSV RNA Qual (PCR) SARS-CoV-2 RNA (RT-PCR) Blood Type Antibody Screen Crossmatch Airway Mallampati Class: II TM Dist: >3cm Neck ROM: Full Loose/Missing/Broken Teeth: No Heart: RRR Lungs: CTA Assessment and Plan Assessment Anesthesia Assessment: Anesthesia Plan Discussed and Chart Reviewed Final Anesthetic Review Family History of Problems with Anesthesia: No History of Problems with Anesthesia: No NPO: Yes ASA Class: II Final Preanesthetic Review: No Changes in Pt Med Stat, Meds/Allgs Chart Reviewed, Consent Obtained/Reviewed and Anes Risks/Benef Reviewed Patient Risk: Intermediate Procedure Risk: Low Anesthetic Plan Anesthetic Plan: MAC: Disposition: Standard PACU
--- NOTE | 2024-05-02 10:22 | MHC.SHP ---
Pre-Procedural Eval Section A - 24 Hr Update-Section A only Date of Service: 05/02/24 The patient is an INPATIENT: Yes The patient has been examined within 24 hours of the surgical procedure. The History & Physical has been completed within 30 days and I have reviewed it.: Yes Section B - Complete if H&P > 30 days Chief Complaint: UGIB Allergies: Allergies Allergy/AdvReac Type Severity Reaction Status Date / Time No Known Allergies Allergy Verified 04/27/24 12:23 Plan Diagnosis/Plan: Unchanged I have reviewed the history and physical and performed a pertinent physical examination on my patient. No changes have occurred unless specified. Time Spent With Patient Time: Total time managing care of this patient today ____ minutes.
--- NOTE | 2024-05-02 10:34 | P.OP_ITS ---
Operative Note Operative Note Date of Service: 05/02/24 Narrative: Procedure: Esophagogastroduodenoscopy Endoscopist: Chantal Barrios MD Indication: UGIB Anesthesia Provider: Dr Keyur Perkins Anesthesia Type: MAC ?? EGD Procedure:?? The procedure, indications, preparation and potential complications were reviewed with the patient, who indicated understanding and gave written informed consent to proceed. A physical exam was performed. The endoscope was introduced through the mouth, and advanced to the second part of duodenum. The mucosa was carefully examined on slow withdrawal of the endoscope. The patient tolerated the procedure well. There were no immediate complications.? ? EGD Findings:? * Esophagus:? Severe edema and ulceration of the mid and lower esophagus from 20 cm to 35 cm. There was stigmata of recent bleeding but no active oozing or bleeding was noted at the time of endoscopy. The Z line is at 35 cm. There was a large hiatal hernia with the diaphragmatic hiatus at 40 cm. * Stomach:? Normal mucosa was noted in the stomach. Few polyps were noted in the fundus consistent with fundic gland polyps. Retroflexion was performed in the cardia showing Hill grade 3 hiatal hernia. Random cold forceps gastric biopsies were taken to rule out H Pylori infection. * Duodenum:? Edema and erythema of the duodenal bulb was noted. Remaining mucosa was normal to the extent examined. Cold forceps biopsies were taken from duodenal bulb and second portion of the duodenum to rule out celiac sprue. ? EGD Impressions:? * Grade D esophagitis without active bleeding * Hiatal hernia * Gastric polyps * Normal stomach (biopsy) * Bulbar duodenitis (biopsy) ?? Recommendations:?? * Follow biopsy results. Our office will call or send a letter with results within 7-10 days. * Continue pantoprazole or omeprazole 20mg BID x 8 weeks and then once daily. * Repeat EGD will be set up in 8-12 weeks to assess for healing and r/o underlying campos's. * If H pylori +, patient will be prescribed eradication therapy followed by test of cure. * Avoid NSAIDs. * Consider barium esophagogram as outpatient for further eval of hiatal hernia. Above has been reviewed with the patient.
--- NOTE | 2024-05-02 13:23 | P.PNIM_ITS ---
Subjective Subjective Date of Service: 05/02/24 Interval History: no further vomiting/hematemesis still weak no fever Review of Systems Review of Systems: Yes all other systems are reviewed and are negative Physical Exam 2 Vital Signs: Vital Signs: Last Vital Signs Temp 97.4 F 05/02/24 12:00 Pulse 58 05/02/24 12:00 Resp 18 05/02/24 12:00 BP 129/59 L 05/02/24 12:00 Pulse Ox 93 05/02/24 12:00 O2 Del Method Nasal Cannula 05/02/24 12:00 O2 Flow Rate 3 05/02/24 11:10 Oxygen Flow Rate 2 05/01/24 20:00 BMI result Body Mass Index 33.9 Gen: in no acute distress HEENT: sclera anicteric, moist mucus membranes Neck: supple Lungs: clear to auscultation bilaterally Heart: regular rate and rhythm, no murmurs Abd: soft, non-tender, non-distended : Pena draining clear urine Ext: bilateral lower extremity edema Skin: warm/well-perfused Neuro: alert and oriented x3, generalized weakness Psych: appropriate affect Objective Data Active Medications Acetaminophen (Acetaminophen 325 Mg Tablet) 650 mg PO Q6H PRN PRN Reason: Pain, Mild (Pain Scale 1-3), fever or headache Last Admin: 04/30/24 13:38 Dose: 650 mg Documented By: DAVID Ceftriaxone Sodium (Ceftriaxone Sodium 2 Gm Vial) 2 gm IVPUSH Q24H [facility] Last Admin: 05/02/24 07:58 Dose: 2 gm Documented By: YASSINE Fentanyl (Fentanyl Citrate/Pf 100 Mcg/2 Ml Vial) 25 mcg IVPUSH Q5M PRN PRN Reason: Pain, Moderate to Severe (Pain Scale 4-10) Stop: 05/02/24 16:11 Levothyroxine Sodium (Levothyroxine Sodium 75 Mcg Tablet) 75 mcg PO DAILY@0600 [facility] Last Admin: 05/01/24 05:50 Dose: Not Given Documented By: CED Non-Admin Reason: NPO Levothyroxine Sodium (Levothyroxine Sodium 100 Mcg/5 Ml Vial) 37.5 mcg IVPUSH DAILY@0600 [facility] Last Admin: 05/02/24 06:21 Dose: 37.5 mcg Documented By: RAEGAN Melatonin (Melatonin 3 Mg Tablet) 6 mg PO BEDTIME PRN PRN Reason: Insomnia Last Admin: 04/29/24 00:24 Dose: 6 mg Documented By: MILLICENT Naloxone HCl (Naloxone Hcl 0.4 Mg/Ml Vial) 0.04 mg IVPUSH Q5M PRN PRN Reason: Excessive sedation or RR < 8 Naloxone HCl (Naloxone Hcl 0.4 Mg/Ml Vial) 0.04 mg IVPUSH Q5M PRN PRN Reason: Excessive sedation or RR < 8 Ondansetron HCl (Ondansetron Hcl 4 Mg/2 Ml Vial) 4 mg IVPUSH Q4H PRN PRN Reason: Nausea and Vomiting Last Admin: 05/01/24 04:12 Dose: 4 mg Documented By: CED Ondansetron HCl (Ondansetron Hcl 4 Mg/2 Ml Vial) 4 mg IVPUSH ONCE PRN PRN Reason: Nausea and Vomiting Stop: 05/02/24 16:11 Pantoprazole Sodium (Pantoprazole Sodium 40 Mg/10 Ml Vial) 40 mg IVPUSH BID@0630,1630 [facility] Last Admin: 05/02/24 06:21 Dose: 40 mg Documented By: RAEGAN Sodium Chloride (0.9 % Sodium Chloride Flush 3 Ml Syringe) 3 ml IVFLUSH QSHIFT [facility] Last Admin: 05/02/24 07:58 Dose: 3 ml Documented By: YASSINE Labs 05/02/24 08:06 05/02/24 08:07 Labs: Laboratory Results - last 24 hr 05/01/24 05/02/24 05/02/24 08:32 08:06 08:07 MCV 87.7 MCH 29.2 MCHC 33.3 RDW 16.7 H Plt Count 291 MPV 12.3 Absolute Nucleated RBC 0.020 H Nucleated RBC % (auto) 0.1 Anion Gap 12 Estim Creat Clear Calc 34.1 Estimated GFR 30 Random Glucose 89 Calcium 8.0 L B-Natriuretic Peptide 336 H Crossmatch See Detail Microbiology Microbiology Results: Microbiology 04/30/24 06:40 Blood Culture - Preliminary Blood - Venous No growth after 48 hours. 04/30/24 06:40 Blood Culture - Preliminary Blood - Venous No growth after 48 hours. Assessment and Plan (1) DEB (acute kidney injury): Status: Acute (2) Urinary tract obstruction due to kidney stone: Status: Acute Plan d6 74yo F with remote history of ESQUIVEL for Grave's disease who has been off thyroid replacement for over 20 years and also not had routine medical care for as long; presenting with 1 wk of nausea, vomiting, and back pain and found to have obstructive DEB from a fragmented staghorn calculus; also severe hypothyroidism found to have Gram-negative bacteremia UGIB due to esophagitis - EGD by Dr Barrios 05/02: Grade D esophagitis without active bleeding Hiatal hernia Gastric polyps Normal stomach (biopsy) Bulbar duodenitis (biopsy) - f/u GI in 10d re biopsy results and repeat EGD in 8-12wk to assess for healing and r/o underlying Jimenez's; continue PPI PO bid anemia due to iron deficiency + GI blood loss - transfused 1u pRBCs, replete Fe when bacterial infection controlled, repeat H+H improved staghorn calculus with hydroureteronephrosis pyelonephritis/pyonephrosis Proteus mirabilis and E. coli bacteremia - piperacillin-tazobactam 04/27-04/28, ceftriaxone 04/28-, repeat BCx 04/30 cleared ID consulted and recommends 2 wk of therapy which can be completed with cefuroxime upon discharge - POD 4 cystoscopy, ureteroscopy, right retrograde, right stent insertion; Urology follow-up obstructive DEB - improving after surgery; monitor daily; avoid nephrotoxins lactic acidosis - due to dehydration; resolved with IV hydration severe hypothyroidism - not in myxedema coma; started PO levothyroxine 75 mcg/d and will repeat TSH in 4 wk [gave IV while NPO] hypoK - repleted thrombocytopenia - mild; resolved; was due to infection VTE ppx - hold UFH due to GIB; place SCDs dispo - eventual AIR In my clinical judgment, the patient requires continued inpatient hospitalization for the following reasons: IV ABX, DEB, placement Total time managing care of this patient today: 50 minutes. Quality Stroke Does the patient have a stroke diagnosis?: No VTE Prior VTE?: No VTE Risk Level:: Medical - moderate - high VTE Device Contraindication: N/A - Device Ordered VTE Drug Contraindication: N/A - Med Ordered
[2024-05-02] MEDS: Omeprazole 20 MG CAPSULE.DR PO (17:20)
[2024-05-02] MEDS: Acetaminophen 325 MG TABLET 650 MG PO (23:39)
[2024-05-02] MEDS: Melatonin 3 MG TABLET 6 MG PO (23:44)
[2024-05-03] VITALS (13 sets, daily range): BP systolic 111–157; BP diastolic 56–67; PULSE 58–65; RESP 16–20; TEMP 36.1–37.1; O2SAT 93–98
[2024-05-03] MEDS: Omeprazole 20 MG CAPSULE.DR PO ×2 (05:10→16:10)
[2024-05-03] MEDS: Levothyroxine Sodium 75 MCG TABLET PO (05:10)
[2024-05-03 07:40] LABS: Hematocrit 21.8 % (37.0-47.0); Hemoglobin 7.5 g/dl (12.0-16.0); Mean Corpuscular HGB Conc 34.4 g/dl (31.0-35.0); Mean Corpuscular Hemoglobin 30.2 pg (27.0-33.0); Mean Corpuscular Volume 87.9 fL (80.0-98.0); Mean Platelet Volume 11.7 fL (9.4-12.3); NRBC Pct Auto 0.1 /100WBC (0.0-0.2); Platelet Count 301 X10*3/uL (160-400); Red Blood Count 2.48 X10*6/uL (4.20-5.50); Red Cell Distribution Width 16.8 % (11.0-16.0); White Blood Count 16.5 X10*3/uL (4.8-10.8)
[2024-05-03 07:43] LABS: Anion Gap 13 (12-20); Blood Urea Nitrogen 42 mg/dL (9-16); Calcium 7.7 mg/dL (8.4-10.2); Carbon Dioxide 19 mmol/L (22-29); Chloride 113 mmol/L (96-108); Estimated Glomerular Filt Rate 36; Glucose Random 99 mg/dL (60-115); Potassium 3.6 mmol/L (3.3-5.1); Sodium 141 mmol/L (135-145)
[2024-05-03] MEDS: cefTRIAXone sodium 2 GM VIAL IVPUSH (08:39)
[2024-05-03] MEDS: 0.9 % Sodium Chloride Flush 3 ML SYRINGE IVFLUSH ×2 (08:39→16:10)
--- NOTE | 2024-05-03 12:01 | P.PNIM_ITS ---
Subjective Subjective Date of Service: 05/03/24 Interval History: tolerating diet, no N/V, back pain improved, weak Review of Systems Review of Systems: Yes all other systems are reviewed and are negative Physical Exam 2 Vital Signs: Vital Signs: Last Vital Signs Temp 97.1 F 05/03/24 09:38 Pulse 63 05/03/24 09:38 Resp 17 05/03/24 09:38 BP 112/56 L 05/03/24 09:38 Pulse Ox 95 05/03/24 09:46 O2 Del Method Room Air 05/03/24 09:46 O2 Flow Rate 2 05/03/24 08:00 Oxygen Flow Rate 2 05/01/24 20:00 BMI result Body Mass Index 33.9 Gen: in no acute distress HEENT: sclera anicteric, pale, moist mucus membranes Neck: supple Lungs: clear to auscultation bilaterally Heart: regular rate and rhythm, no murmurs Abd: soft, non-tender, non-distended : Pena draining clear urine Ext: bilateral lower extremity edema Skin: warm/well-perfused Neuro: alert and oriented x3, generalized weakness Psych: appropriate affect Objective Data Active Medications Acetaminophen (Acetaminophen 325 Mg Tablet) 650 mg PO Q6H PRN PRN Reason: Pain, Mild (Pain Scale 1-3), fever or headache Last Admin: 05/02/24 23:39 Dose: 650 mg Documented By: RAEGAN Ceftriaxone Sodium (Ceftriaxone Sodium 2 Gm Vial) 2 gm IVPUSH Q24H [facility] Last Admin: 05/03/24 08:39 Dose: 2 gm Documented By: YASSINE Fluconazole (Fluconazole 150 Mg Tablet) 150 mg PO ONCE ONE Stop: 05/03/24 12:00 Fluconazole (Fluconazole 150 Mg Tablet) 150 mg PO ONCE ONE Stop: 05/06/24 12:01 Levothyroxine Sodium (Levothyroxine Sodium 75 Mcg Tablet) 75 mcg PO DAILY@0600 [facility] Last Admin: 05/03/24 05:10 Dose: 75 mcg Documented By: RAEGAN Melatonin (Melatonin 3 Mg Tablet) 6 mg PO BEDTIME PRN PRN Reason: Insomnia Last Admin: 05/02/24 23:44 Dose: 6 mg Documented By: RAEGAN Naloxone HCl (Naloxone Hcl 0.4 Mg/Ml Vial) 0.04 mg IVPUSH Q5M PRN PRN Reason: Excessive sedation or RR < 8 Naloxone HCl (Naloxone Hcl 0.4 Mg/Ml Vial) 0.04 mg IVPUSH Q5M PRN PRN Reason: Excessive sedation or RR < 8 Omeprazole (Omeprazole 20 Mg Capsule.) 20 mg PO BID@0630,1630 [facility] Last Admin: 05/03/24 05:10 Dose: 20 mg Documented By: RAEGAN Ondansetron HCl (Ondansetron Hcl 4 Mg/2 Ml Vial) 4 mg IVPUSH Q4H PRN PRN Reason: Nausea and Vomiting Last Admin: 05/01/24 04:12 Dose: 4 mg Documented By: CED Sodium Chloride (0.9 % Sodium Chloride Flush 3 Ml Syringe) 3 ml IVFLUSH QSHIFT [facility] Last Admin: 05/03/24 08:39 Dose: 3 ml Documented By: YASSINE Labs 05/03/24 06:50 05/03/24 06:50 Labs: Laboratory Results - last 24 hr 05/01/24 05/03/24 08:32 06:50 MCV 87.9 MCH 30.2 MCHC 34.4 RDW 16.8 H Plt Count 301 MPV 11.7 Absolute Nucleated RBC 0.020 H Nucleated RBC % (auto) 0.1 Anion Gap 13 Estim Creat Clear Calc 39.0 Estimated GFR 36 Random Glucose 99 Calcium 7.7 L Blood Type O Positive Antibody Screen NEGATIVE Crossmatch See Detail Microbiology Microbiology Results: Microbiology 04/30/24 06:40 Blood Culture - Preliminary Blood - Venous No growth after 48 hours. 04/30/24 06:40 Blood Culture - Preliminary Blood - Venous No growth after 48 hours. Assessment and Plan (1) DEB (acute kidney injury): Status: Acute (2) Urinary tract obstruction due to kidney stone: Status: Acute Plan d7 74yo F with remote history of ESQUIVEL for Grave's disease who has been off thyroid replacement for over 20 years and also not had routine medical care for as long; presenting with 1 wk of nausea, vomiting, and back pain and found to have obstructive DEB from a fragmented staghorn calculus; also severe hypothyroidism found to have Gram-negative bacteremia UGIB due to esophagitis - EGD by Dr Barrios 05/02: Grade D esophagitis without active bleeding Hiatal hernia Gastric polyps Normal stomach (biopsy) Bulbar duodenitis (biopsy) - f/u GI in 10d re biopsy results and repeat EGD in 8-12wk to assess for healing and r/o underlying Jimenez's; continue PPI PO bid anemia due to iron deficiency + GI blood loss - transfused 1u pRBCs 05/01 and will give another 1u pRBCs today, replete Fe when bacterial infection controlled, monitor H+H staghorn calculus with hydroureteronephrosis pyelonephritis/pyonephrosis Proteus mirabilis and E. coli bacteremia - piperacillin-tazobactam 04/27-04/28, ceftriaxone 04/28-, repeat BCx 04/30 cleared; ID consulted and recommends 2 wk of therapy which can be completed with cefuroxime upon discharge - POD 5 cystoscopy, ureteroscopy, right retrograde, right stent insertion; Urology follow-up obstructive DEB - improving after surgery; monitor daily; avoid nephrotoxins lactic acidosis - due to dehydration; resolved with IV hydration severe hypothyroidism - not in myxedema coma; started PO levothyroxine 75 mcg/d and will repeat TSH in 4 wk [gave IV while NPO] hypoK - repleted thrombocytopenia - mild; resolved; was due to infection VTE ppx - hold UFH due to GIB; place SCDs dispo - eventual AIR In my clinical judgment, the patient requires continued inpatient hospitalization for the following reasons: IV ABX, DEB, placement Total time managing care of this patient today: 40 minutes. Quality Stroke Does the patient have a stroke diagnosis?: No VTE Prior VTE?: No VTE Risk Level:: Medical - moderate - high VTE Device Contraindication: N/A - Device Ordered VTE Drug Contraindication: N/A - Med Ordered
[2024-05-03] MEDS: Fluconazole 150 MG TABLET PO (13:05)
--- NOTE | 2024-05-03 20:14 | HO.POSTANES ---
Post Anesthesia Evaluation Post Anesthesia Evaluation Date of Service: 05/03/24 Vital Signs: Vital Signs Temp Pulse Resp BP Pulse Ox O2 Del Method 05/03/24 20:00 98 05/03/24 19:18 97.3 F 64 16 129/63 93 Room Air 05/03/24 16:00 97.1 F 65 18 157/67 H 95 Room Air 05/03/24 12:30 97.0 F 61 17 117/58 L 05/03/24 12:00 98.7 F 62 18 139/65 95 Room Air 05/03/24 09:46 95 Room Air 05/03/24 09:38 97.1 F 63 17 112/56 L 05/03/24 09:22 97.8 F 60 18 128/60 Anesthesia: Monitored Mental Status: Awake Pain Control: Satisfactory Nausea/Vomiting: None Hydration: Adequate Anesthesia-Related Issues: No Anes. Related Issues
[2024-05-03] MEDS: Melatonin 3 MG TABLET 6 MG PO (22:20)
[2024-05-03] MEDS: Acetaminophen 325 MG TABLET 650 MG PO (22:20)
[2024-05-04] VITALS (7 sets, daily range): BP systolic 128–144; BP diastolic 59–66; PULSE 55–65; RESP 12–16; TEMP 36.1–37.2; O2SAT 93–98
[2024-05-04] MEDS: 0.9 % Sodium Chloride Flush 3 ML SYRINGE IVFLUSH ×4 (01:19→19:28)
[2024-05-04] MEDS: Omeprazole 20 MG CAPSULE.DR PO ×2 (05:54→17:11)
[2024-05-04] MEDS: Levothyroxine Sodium 75 MCG TABLET PO (05:54)
[2024-05-04 07:05] LABS: Anion Gap 12 (12-20); Blood Urea Nitrogen 32 mg/dL (9-16); Carbon Dioxide 18 mmol/L (22-29); Chloride 114 mmol/L (96-108); Creatinine Clr Calc Pharmacy 38.8; Estimated Glomerular Filt Rate 35; Glucose Random 96 mg/dL (60-115); Potassium 3.5 mmol/L (3.3-5.1); Sodium 140 mmol/L (135-145)
[2024-05-04 07:36] LABS: Hematocrit 24.9 % (37.0-47.0); Hemoglobin 8.3 g/dl (12.0-16.0); Mean Corpuscular HGB Conc 33.3 g/dl (31.0-35.0); Mean Corpuscular Volume 87.1 fL (80.0-98.0); Mean Platelet Volume 11.6 fL (9.4-12.3); Platelet Count 320 X10*3/uL (160-400); Red Blood Count 2.86 X10*6/uL (4.20-5.50); Red Cell Distribution Width 17.3 % (11.0-16.0); White Blood Count 12.7 X10*3/uL (4.8-10.8)
[2024-05-04] MEDS: Acetaminophen 325 MG TABLET 650 MG PO (10:15)
[2024-05-04] MEDS: cefTRIAXone sodium 2 GM VIAL IVPUSH (10:16)
--- NOTE | 2024-05-04 10:52 | HO.PM.IMPN ---
Subjective Subjective Date of Service: 05/04/24 Interval History: tolerating diet, no N/V, back pain improved, weak Review of Systems Review of Systems: Yes all other systems are reviewed and are negative Physical Exam Vital Signs: Vital Signs: Last Vital Signs Temp 97.5 F 05/04/24 07:22 Pulse 56 05/04/24 07:22 Resp 12 05/04/24 07:22 BP 129/59 L 05/04/24 07:22 Pulse Ox 93 05/04/24 07:22 O2 Del Method Room Air 05/04/24 07:22 O2 Flow Rate 2 05/04/24 03:41 Oxygen Flow Rate 2 05/01/24 20:00 BMI result Body Mass Index 33.9 Appearing in no acute distress lung sounds are clear to auscultation heart regular rate rhythm, clear S1, S2 positive bowel sounds, abdomen is soft, nontender neuro patient is alert x3, no focal deficits Objective Data Active Medications Acetaminophen (Acetaminophen 325 Mg Tablet) 650 mg PO Q6H PRN PRN Reason: Pain, Mild (Pain Scale 1-3), fever or headache Last Admin: 05/04/24 10:15 Dose: 650 mg Documented By: DESTINEE Ceftriaxone Sodium (Ceftriaxone Sodium 2 Gm Vial) 2 gm IVPUSH Q24H [facility] Last Admin: 05/04/24 10:16 Dose: 2 gm Documented By: DESTINEE Fluconazole (Fluconazole 150 Mg Tablet) 150 mg PO ONCE ONE Stop: 05/06/24 12:01 Levothyroxine Sodium (Levothyroxine Sodium 75 Mcg Tablet) 75 mcg PO DAILY@0600 [facility] Last Admin: 05/04/24 05:54 Dose: 75 mcg Documented By: RAEGAN Melatonin (Melatonin 3 Mg Tablet) 6 mg PO BEDTIME PRN PRN Reason: Insomnia Last Admin: 05/03/24 22:20 Dose: 6 mg Documented By: RAEGAN Naloxone HCl (Naloxone Hcl 0.4 Mg/Ml Vial) 0.04 mg IVPUSH Q5M PRN PRN Reason: Excessive sedation or RR < 8 Naloxone HCl (Naloxone Hcl 0.4 Mg/Ml Vial) 0.04 mg IVPUSH Q5M PRN PRN Reason: Excessive sedation or RR < 8 Omeprazole (Omeprazole 20 Mg [place].) 20 mg PO BID@0630,1630 [facility] Last Admin: 05/04/24 05:54 Dose: 20 mg Documented By: RAEGAN Ondansetron HCl (Ondansetron Hcl 4 Mg/2 Ml Vial) 4 mg IVPUSH Q4H PRN PRN Reason: Nausea and Vomiting Last Admin: 05/01/24 04:12 Dose: 4 mg Documented By: CED Sodium Biphosphate/Sodium Phosphate (Sodium Phosphate,[place]-Dibasic 133 Ml Enema) 133 ml DC ONCE PRN PRN Reason: Constipation Sodium Chloride (0.9 % Sodium Chloride Flush 3 Ml Syringe) 3 ml IVFLUSH QSHIFT [facility] Last Admin: 05/04/24 10:18 Dose: 3 ml Documented By: DESTINEE Labs 05/04/24 06:10 05/04/24 06:10 Labs: Laboratory Results - last 24 hr 05/01/24 05/04/24 08:32 06:10 MCV 87.1 MCH 29.0 MCHC 33.3 RDW 17.3 H Plt Count 320 MPV 11.6 Absolute Nucleated RBC 0.000 Nucleated RBC % (auto) 0.0 Anion Gap 12 Estim Creat Clear Calc 38.8 Estimated GFR 35 Random Glucose 96 Calcium 8.0 L Crossmatch See Detail Assessment and Plan (1) DEB (acute kidney injury): Status: Acute (2) Urinary tract obstruction due to kidney stone: Status: Acute Plan 74yo F with remote history of ESQUIVEL for Grave's disease who has been off thyroid replacement for over 20 years and also not had routine medical care for as long; presenting with 1 wk of nausea, vomiting, and back pain and found to have obstructive DEB from a fragmented staghorn calculus; also severe hypothyroidism found to have Gram-negative bacteremia Constipation Fleets enema UGIB due to esophagitis s/p EGD 05/02>Grade D esophagitis without active bleeding, gastric polyps, bulbar duodenitis, hiatal hernia f/u GI in 10d re biopsy results and repeat EGD in 8-12wk to assess for healing and r/o underlying Jimenez's continue PPI PO bid anemia due to iron deficiency + GI blood loss Total 2 units packed red blood cells transfused replete Fe when bacterial infection controlled, monitor H+H staghorn calculus with hydroureteronephrosis pyelonephritis/pyonephrosis POD 5 cystoscopy, ureteroscopy, right retrograde, right stent insertion; Urology follow-up Proteus mirabilis and E. coli bacteremia piperacillin-tazobactam 04/27-04/28, ceftriaxone 04/28 repeat BCx 04/30 cleared ID consulted and recommends 2 wk of therapy which can be completed with cefuroxime upon discharge obstructive DEB improving after surgery monitor daily avoid nephrotoxins lactic acidosis due to dehydration resolved with IV hydration severe hypothyroidism not in myxedema coma started PO levothyroxine 75 mcg, repeat TSH in 4 wk hypoK repleted and resolved thrombocytopenia mild; resolved; was due to infection Obesity class 1 Discussed importance of weight management as this may be contributing to worsening of other comorbidities VTE ppx hold UFH due to GIB; place SCDs Attending Dr. Goss dispo eventual acute rehab vs str In my clinical judgment, the patient requires continued inpatient hospitalization for the following reasons: IV ABX, DEB, placement Total time managing care of this patient today: 40 minutes. Quality Stroke Does the patient have a stroke diagnosis?: No VTE Prior VTE?: No VTE Risk Level:: Medical - moderate - high VTE Device Contraindication: N/A - Device Ordered VTE Drug Contraindication: N/A - Med Ordered
[2024-05-04] MEDS: Sodium Phosphate,Mono-Dibasic 133 ML ENEMA PR (12:58)
[2024-05-04 14:46] LABS: Appearance Urine Turbid; Color Urine Yellow; Glucose Urine UA Negative (Negative); Leukocyte Esterase Urine Large (3+) (Negative); Nitrite Urine Negative (Negative); Specific Gravity - Urine 1.015 (1.005-1.025); UMIC TRIGGER UA YES; Urine Blood Moderate (2+) (Negative); Urine Ketones Negative (Negative); Urine Protein 100 (2+) mg/dL (Neg-Trace)
[2024-05-04 14:47] LABS: OBS Int Ctl Valid YES; OBS1 POSITIVE (NEGATIVE)
[2024-05-04 15:01] LABS: Bacteria Urine Trace (None Seen); RBC Urine >20 /HPF (0-2); WBC Urine >50 /HPF (0-5)
[2024-05-05] VITALS (8 sets, daily range): BP systolic 128–168; BP diastolic 54–70; PULSE 58–66; RESP 14–20; TEMP 36–37.1; O2SAT 93–98
[2024-05-05] MEDS: Levothyroxine Sodium 75 MCG TABLET PO (05:59)
[2024-05-05] MEDS: Omeprazole 20 MG CAPSULE.DR PO ×2 (05:59→15:07)
[2024-05-05] MEDS: 0.9 % Sodium Chloride Flush 3 ML SYRINGE IVFLUSH ×3 (08:04→22:05)
[2024-05-05] MEDS: cefTRIAXone sodium 2 GM VIAL IVPUSH (08:06)
--- NOTE | 2024-05-05 08:24 | P.PNIM_ITS ---
Subjective Subjective Date of Service: 05/05/24 Interval History: tolerating diet, no N/V, back pain improved, weak Review of Systems Review of Systems: Yes all other systems are reviewed and are negative Physical Exam 2 Vital Signs: Vital Signs: Last Vital Signs Temp 96.9 F 05/05/24 03:20 Pulse 62 05/05/24 03:20 Resp 16 05/05/24 03:20 BP 152/63 H 05/05/24 03:20 Pulse Ox 95 05/05/24 03:20 O2 Del Method Room Air 05/05/24 03:20 O2 Flow Rate 2 05/04/24 03:41 Oxygen Flow Rate 2 05/01/24 20:00 BMI result Body Mass Index 33.9 Appearing in no acute distress lung sounds are clear to auscultation heart regular rate rhythm, clear S1, S2 positive bowel sounds, abdomen is soft, nontender neuro patient is alert x3, no focal deficits Objective Data Active Medications Acetaminophen (Acetaminophen 325 Mg Tablet) 650 mg PO Q6H PRN PRN Reason: Pain, Mild (Pain Scale 1-3), fever or headache Last Admin: 05/04/24 10:15 Dose: 650 mg Documented By: DESTINEE Ceftriaxone Sodium (Ceftriaxone Sodium 2 Gm Vial) 2 gm IVPUSH Q24H [facility] Last Admin: 05/05/24 08:06 Dose: 2 gm Documented By: ALEIDA Fluconazole (Fluconazole 150 Mg Tablet) 150 mg PO ONCE ONE Stop: 05/06/24 12:01 Levothyroxine Sodium (Levothyroxine Sodium 75 Mcg Tablet) 75 mcg PO DAILY@0600 [facility] Last Admin: 05/05/24 05:59 Dose: 75 mcg Documented By: KRISHAN Melatonin (Melatonin 3 Mg Tablet) 6 mg PO BEDTIME PRN PRN Reason: Insomnia Last Admin: 05/03/24 22:20 Dose: 6 mg Documented By: RAEGAN Naloxone HCl (Naloxone Hcl 0.4 Mg/Ml Vial) 0.04 mg IVPUSH Q5M PRN PRN Reason: Excessive sedation or RR < 8 Naloxone HCl (Naloxone Hcl 0.4 Mg/Ml Vial) 0.04 mg IVPUSH Q5M PRN PRN Reason: Excessive sedation or RR < 8 Omeprazole (Omeprazole 20 Mg Hailey.) 20 mg PO BID@0630,1630 [facility] Last Admin: 05/05/24 05:59 Dose: 20 mg Documented By: KRISHAN Ondansetron HCl (Ondansetron Hcl 4 Mg/2 Ml Vial) 4 mg IVPUSH Q4H PRN PRN Reason: Nausea and Vomiting Last Admin: 05/01/24 04:12 Dose: 4 mg Documented By: CED Sodium Biphosphate/Sodium Phosphate (Sodium Phosphate,[place]-Dibasic 133 Ml Enema) 133 ml DE ONCE PRN PRN Reason: Constipation Last Admin: 05/04/24 12:58 Dose: 133 ml Documented By: DESTINEE Sodium Chloride (0.9 % Sodium Chloride Flush 3 Ml Syringe) 3 ml IVFLUSH QSHIFT [facility] Last Admin: 05/05/24 08:04 Dose: 3 ml Documented By: ARTING Labs 05/04/24 06:10 05/04/24 06:10 Labs: Laboratory Results - last 24 hr 05/04/24 14:12 Urine Color Yellow Urine Appearance Turbid Urine pH 7.0 Ur Specific [place] 1.015 Urine Protein 100 (2+) H Urine Glucose (UA) Negative Urine Ketones Negative Urine Blood Moderate (2+) H Urine Nitrite Negative Ur Leukocyte Esterase Large (3+) H Urine RBC >20 H Urine WBC >50 H Ur Squamous Epith Cells 6-10 Urine Bacteria Trace Hyaline Casts 11-20 Stool Occult Blood POSITIVE Assessment and Plan (1) DEB (acute kidney injury): Status: Acute (2) Urinary tract obstruction due to kidney stone: Status: Acute Plan 74yo F with remote history of ESQUIVEL for Grave's disease who has been off thyroid replacement for over 20 years and also not had routine medical care for as long; presenting with 1 wk of nausea, vomiting, and back pain and found to have obstructive DEB from a fragmented staghorn calculus; also severe hypothyroidism found to have Gram-negative bacteremia Constipation. Resolved s/p Fleets enema moved her bowels last night UGIB due to esophagitis s/p EGD 05/02>Grade D esophagitis without active bleeding, gastric polyps, bulbar duodenitis, hiatal hernia f/u GI in 10d re biopsy results and repeat EGD in 8-12wk to assess for healing and r/o underlying Jimenez's continue PPI PO bid anemia due to iron deficiency + GI blood loss Total 2 units packed red blood cells transfused replete Fe when bacterial infection controlled, monitor H+H staghorn calculus with hydroureteronephrosis pyelonephritis/pyonephrosis POD 5 cystoscopy, ureteroscopy, right retrograde, right stent insertion; Urology follow-up Proteus mirabilis and E. coli bacteremia piperacillin-tazobactam 04/27-04/28, ceftriaxone 04/28 repeat BCx 04/30 cleared ID consulted and recommends 2 wk of therapy which can be completed with cefuroxime upon discharge obstructive DEB improving after surgery monitor daily avoid nephrotoxins lactic acidosis due to dehydration resolved with IV hydration severe hypothyroidism not in myxedema coma started PO levothyroxine 75 mcg, repeat TSH in 4 wk hypoK repleted and resolved thrombocytopenia mild; resolved; was due to infection Obesity class 1 Discussed importance of weight management as this may be contributing to worsening of other comorbidities VTE ppx hold UFH due to GIB; place SCDs Attending Dr. Wolfgang knapp eventual acute rehab vs str In my clinical judgment, the patient requires continued inpatient hospitalization for the following reasons: IV ABX, DEB, placement Total time managing care of this patient today: 40 minutes. Quality Stroke Does the patient have a stroke diagnosis?: No VTE Prior VTE?: No VTE Risk Level:: Medical - moderate - high VTE Device Contraindication: N/A - Device Ordered VTE Drug Contraindication: N/A - Med Ordered
--- NOTE | 2024-05-05 13:59 | MHC.CM.PN ---
PT DECLINED BY [facility], ACCEPTING BED AT [facility] FOR TOMORROW 05/06, PT PREBOOKED FOR 2:30PM VIA [employer] D/T [facility] INSURANCE, PER DISCUSSION W/DTR [facility] AND SNF CM WILL MAKE NEW PT APPT W/A PCP AT [facility] [place] PRIOR TO DC.
--- NOTE | 2024-05-05 16:52 | PC.NURSE ---
Per MD, barber to be removed and voiding trial started at 151. Pt tolerated well; purewick in place; patient due to void at 2116. all the needs re meet at this time; call shi within reach
[2024-05-06 03:07] VITALS: BP 146/63; PULSE 59; RESP 16; TEMP 36.3; O2SAT 94
[2024-05-06] MEDS: Omeprazole 20 MG CAPSULE.DR PO (06:02)
[2024-05-06] MEDS: Levothyroxine Sodium 75 MCG TABLET PO (06:02)
[2024-05-06 07:05] VITALS: BP 138/68; PULSE 53; RESP 17; TEMP 36.3; O2SAT 94
--- NOTE | 2024-05-06 08:47 | MHC.CM.PN ---
PT MEDICALLY CLEARED FOR DC TO STR AT [facility], BLS TRANSPORT VIA [facility] D/T [facility] INSURANCE.
[2024-05-06] MEDS: cefTRIAXone sodium 2 GM VIAL IVPUSH (09:28)
[2024-05-06] MEDS: 0.9 % Sodium Chloride Flush 3 ML SYRINGE IVFLUSH (09:28)
[2024-05-06] MEDS: Acetaminophen 325 MG TABLET 650 MG PO (09:31)
[2024-05-06 10:30] VITALS: O2SAT 96
--- NOTE | 2024-05-06 10:40 | PM.DS ---
DS: Providers Provider Date of Service: 05/06/24 Date of admission: 04/27/24 16:58 Primary care physician: None Physician Consults: 04/27/24 16:29 Consult to Urology Routine Consulting Provider: [facility] [place] Urology Services Reason for consultation: obstructing staghorn calculus 04/30/24 11:37 Consult to Infectious Diseases Routine Consulting Provider: [facility] [place] Infectious Disease Center Reason for consultation: staghorn calculus 05/01/24 05:17 Consult to Gastroenterology Routine Consulting Provider: Chantal Barrios Reason for consultation: Coffee-ground emesis DS: Diagnosis Discharge Diagnosis (1) DEB (acute kidney injury): Status: Acute (2) Urinary tract obstruction due to kidney stone: Status: Acute DS: Summary Hospital Course Hospital Course: History and physical as per admitting provider. 74yo F with iatrogenic hypothyroidism s/p ESQUIVEL for Grave's disease who has not seen a doctor in over 20 years and also has not been on thyroid hormone replacement for as long who went to urgent care with 1 wk of nausea and vomiting, back pain, and weakness. She endorses swelling of her legs, muscle aches, and dry skin, which have been going on for several months. No fever, chills, dysuria, or hematuria. In the ED, she was found to have leukocytosis [24.6k] with bandemia [8%] and renal insufficiency [DEB 3.08]. TSH was 15.73 and free T4 undetectable. CT A/P showed a 2 cm proximal R ureteral stone with severe hydroureteronephrosis and perinephric stranding, with multiple right renal pelvic stones, with appearance of a fragmented staghorn calculus. There was also a 9 mm R UVJ stone with hydroureter. There was also a hiatal hernia with circumferential wall thickening of the distal esophagus. K was 3.2 and she was given PO KCl. She was given IV piperacillin-tazobactam and a liter of IV NS. 76-year-old woman treated for staghorn calculus with hydroureter nephrosis, pyelonephritis. Status post cystoscopy, ureteroscopy, right retrograde, right stent insertion found to have Proteus mirabilis and E coli bacteremia. Initially treated with IV Zosyn started on 04/27, then transitioned to IV Rocephin, blood cultures cleared on 04/30/2024, seen and evaluated by ID with recommendation to complete 2 weeks total of therapy with cefuroxime. Obstructive DEB improved after surgery, lactic acidosis was due to dehydration and resolved with IV fluids. She was found to have severe hypothyroidism but not in myxedema coma. TSH 15.73. Started on p.o. levothyroxine 75 mcg daily repeat TSH in 4 weeks. She was also noted to have upper GI bleed secondary to esophagitis, status post EGD 05/02/2024 showing grade D esophagitis without active bleeding, gastric polyps, bulbar duodenitis and hiatal hernia. She will need follow up with GI in 10 days regarding biopsy results and repeat EGD in 8-12 weeks to assess for healing and rule out underlying Jimenez's esophagus. She was to continue PPI p.o. b.i.d.. Due to the GI bleeding she did have anemia with GI losses and received a total of 2 units of packed red blood cells with stabilization in her hemoglobin and hematocrit. She had some episodes of constipation treated with fleets enema with positive bowel movement. Hypokalemia was repleted and resolved. Thrombocytopenia was noted to be mild and likely related to infection. Obesity class 1, discussion of importance of weight management as it may be contributing to worsening of other comorbidities. Plan to transfer patient to short-term rehab and she is in agreement with this. Time Attestation Discharge Coordination Time (in mins): 40 Quality: Safe Use of Opioids Does Pt have an Active Cancer Diagnosis on the Problem List?: No Quality: Stroke Does the patient have a stroke diagnosis?: No Physical Exam Vital Signs: Vital Signs: Last Vital Signs Temp 97.4 F 05/06/24 07:05 Pulse 53 05/06/24 07:05 Resp 17 05/06/24 07:05 BP 138/68 05/06/24 07:05 Pulse Ox 94 05/06/24 07:05 O2 Del Method Room Air 05/06/24 07:05 O2 Flow Rate 2 05/04/24 03:41 Oxygen Flow Rate 2 05/01/24 20:00 BMI result Body Mass Index 33.9 Appearing in no acute distress head is normocephalic atraumatic eyes pupils are PERRLA sclera is anicteric mouth throat mucous membranes are intact and moist neck is supple no lymphadenopathy, no JVD noted lung sounds are clear to auscultation heart regular rate rhythm, clear S1, S2 positive bowel sounds, abdomen is soft, nontender neuro patient is alert x3, no focal deficits DS: Data Data Completed and Pending Pending studies at discharge: Pending at discharge 05/02/24 10:41 Surgical [PTH] Routine Discharge Plan Discharge Anticipated Discharge Date/Time: 05/06/24 10:35 Patient Disposition: Xfer [facility] Discharge Diagnosis: Upper GI bleed secondary to esophagitis Anemia secondary to iron-deficiency Staghorn calculus with hydroureter nephrosis Obstructive DEB Lactic acidosis Hypokalemia Referrals: Luke Puentes [facility] [Outside] - 1 Day (SHORT TERM REHAB) Lizet Abrams PA-C [Physician Tour Guide] - 06/03/24 8:00 am (NEW PATIENT APPOINTMENT ) Discharge Medications: New levothyroxine 75 mcg Tablet 75 mcg PO DAILY@0600 Qty: 30 0RF omeprazole 20 mg Capsule,Delayed Release(Dr/Ec) 20 mg PO BID@0630,1630 Qty: 30 0RF cefuroxime axetil 500 mg tablet 500 mg PO BID Qty: 10 0RF Discharge Orders: Discharge Order (Routine); Ordered 05/06/24 Ordered By: Shelby Bond Diet: Advance to usual diet Activity on Discharge: As tolerated Stand Alone Forms: Patient Portal Discharge page Print Language: Croatian Other Ambulatory Orders: TSH reflex Free T4 (Routine) Timeframe: 4 Weeks Facility: [facility] - Location: Laboratory Ordered By: Shelby Bond Care Plan Goals: Transfer to short-term rehab for physical therapy Check TSH in 4 weeks Health Concerns: Upper GI bleed secondary to esophagitis Anemia secondary to iron-deficiency Staghorn calculus with hydroureter nephrosis Obstructive DEB Lactic acidosis Hypokalemia Plan of Treatment: Follow-up with primary care provider as needed Take all medications as prescribed Assessment: See discharge summary
[2024-05-06 11:10] VITALS: BP 120/60; PULSE 68; RESP 18; TEMP 36.4; O2SAT 95
== END 2024-05-06 13:23 | disposition skilled nursing facility (03) | DRG 659 ==
LOC: HO.ED 16:17 → HO.EDOVER 17:05 → HO.IMC 04-28 00:57
PROVIDERS: Emergency Medicine; Internal Medicine; Student in an Organized Health Care Education/Training Program; Urology; Admitting Provider Family Medicine; Emergency Provider Emergency Medicine; Visit Provider Nurse Practitioner Acute Care
PROC: 0T768DZ Dilation of Right Ureter with Intraluminal Device, Via Natural or Artificial Opening Endoscopic (ICD-10-PCS; principal; 2024-04-28 18:30)
PROC: 0DJ08ZZ Inspection of Upper Intestinal Tract, Via Natural or Artificial Opening Endoscopic (ICD-10-PCS; CPT 43235; principal; 2024-05-02 09:50)
DX: N13.6 Pyonephrosis (principal); K22.11 Ulcer of esophagus with bleeding; K29.81 Duodenitis with bleeding; E87.21 Acute metabolic acidosis; R78.81 Bacteremia; K44.9 Diaphragmatic hernia without obstruction or gangrene; K31.7 Polyp of stomach and duodenum; D50.0 Iron deficiency anemia secondary to blood loss (chronic); E89.0 Postprocedural hypothyroidism; E87.6 Hypokalemia; E66.811 Obesity, class 1; Z68.33 Body mass index [BMI] 33.0-33.9, adult; Z71.3 Dietary counseling and surveillance; D69.59 Other secondary thrombocytopenia; B96.4 Proteus (mirabilis) (morganii) as the cause of diseases classified elsewhere; E86.0 Dehydration; K59.00 Constipation, unspecified; N17.9 Acute kidney failure, unspecified; T38.1X6A Underdosing of thyroid hormones and substitutes, initial encounter; Z20.822 Contact with and (suspected) exposure to COVID-19; Z87.891 Personal history of nicotine dependence
CPT/HCPCS: 0241U; 36415; 71045; 74177; 80048; 80053; 80076; 80143; 81001; 82140; 82272; 82550; 82607; 82728; 82746; 82803; 83036; 83540; 83605; 83615; 83690; 83735; 83880; 84145; 84439; 84443; 84484; 85007; 85025; 85027; 85045; 85610; 85652; 86140; 86704; 86706; 86709; 86803; 86850; 86900; 86901; 86923; 87040; 87077; 87086; 87088; 87186; 87205; 87340; 88305; 88313; 88342; 93005; 93970; 97116; 97162; 97166; 97530; 97535; 99212; 99285; C1726; C1758; C1769; C2617; J0651; J0690; J0696; J1644; J2003; J2371; J2405; J2470; J2543; J2704; J3010; J7120; P9016; Q9967

== ENCOUNTER → 2024-04-27 14:36 | Outpatient (BNV) | payer MEDICARE, SELFPAY | PROVIDERS: Emergency Provider Emergency Medicine; Visit Provider Urology | DX: N13.2 Hydronephrosis with renal and ureteral calculous obstruction (principal) | CPT/HCPCS: 52332; 74420; 99222 ==

== ENCOUNTER → 2024-04-27 16:58 | Outpatient (BNV) | payer MEDICARE, SELFPAY | PROVIDERS: Admitting Provider Family Medicine; Emergency Provider Emergency Medicine; Visit Provider Family Medicine | DX: N17.9 Acute kidney failure, unspecified (principal); N20.0 Calculus of kidney; N13.8 Other obstructive and reflux uropathy | CPT/HCPCS: 99223; 99232; 99233; 99239; 99499 ==

== ENCOUNTER → 2024-04-27 16:58 | Outpatient (BNV) | payer MEDICARE, SELFPAY | PROVIDERS: Admitting Provider Family Medicine; Emergency Provider Emergency Medicine; Visit Provider Internal Medicine | DX: K92.2 Gastrointestinal hemorrhage, unspecified (principal); K31.7 Polyp of stomach and duodenum; K20.90 Esophagitis, unspecified without bleeding | CPT/HCPCS: 43239; 99222 ==

== ENCOUNTER → 2024-04-27 16:58 | Outpatient (BNV) | payer MEDICARE, SELFPAY | PROVIDERS: Admitting Provider Family Medicine; Emergency Provider Emergency Medicine; Visit Provider Internal Medicine | DX: N20.0 Calculus of kidney (principal); N13.8 Other obstructive and reflux uropathy; R78.81 Bacteremia | CPT/HCPCS: 99222 ==

== ENCOUNTER 2024-06-01 13:59 | Outpatient (AMB) | payer MEDICARE, SELFPAY ==
--- NOTE | 2024-06-01 13:11 | MHC.OFFVIS ---
Intake Visit Reasons: Follow up- Stone/ Stent discussion Intake Note: Patient is present for F/U STONE/STENT DISCUSSION Urology Medication:NONE Antibiotic Allergy:NONE Blood Thinner:NONE TODAY'S PVR:0ML'S Medical Certification Specialist Required: No Allergies No Known Allergies Allergy (Verified 06/03/24 08:23) HPI Comments Details: 06/01/2024--Micaela is a 74-year-old female who evaluated as an inpatient due to right obstructive uropathy and DEB due to a 2 cm proximal ureteral stone. Micaela was initially evaluated as a urology consult while inpatient. 04/27/2024. The patient is status post right ureteral stent on 04/28/2024. Micaela is here with her daughter Claritza. I have reviewed the CT imaging. CTAP-04/27/2024-multiple right nephrolithiasis and a 2 cm obstructing proximal ureteral stone. No left renal calculi visualized. Discussed importance increasing fluid intake and low-sodium diet and low oxalate diet. Plan KUB and follow-up to discuss treatment plan ESWL versus ureteroscopy CTAP-04/27/2024-Proximal right ureteral stone measuring up to 2.0 cm at the level of the L3-L4 intervertebral disc. [id number] proximal hydroureteronephrosis with adjacent perinephric stranding and hypoenhancement of the right kidney, consistent with obstructive uropathy. Multiple additional right renal pelvic stones. Findings have the appearance of a fragmented staghorn calculus. Additional right ureterovesicular junction stone measuring up to 0.9 cm with mild diffuse hydroureter and minimal adjacent stranding. No left-sided renal or ureteral stone. No left-sided hydronephrosis or hydroureter. [facility] Medical History Bacteremia H/O radioactive iodine thyroid ablation Social History Household Members: Spouse Housing: House Do you presently have visiting nurse or other home services: No Alcohol intake: never Patient Tobacco Use Status: Former Tobacco user Years Smoked: 20 years e-Cigarette/Vaping Use: Never Used Second Hand Smoke Exposure: Yes service: No Current occupational status: retired Cognitive needs: Yes (walker) Hearing needs: No Vision needs: Yes Review of Systems Const All systems reviewed & are unremarkable except as noted in HPI and below Reports no additional complaints Eyes Reports no additional complaints ENT Reports no additional complaints Card Reports no additional complaints Resp Reports no additional complaints GI Reports no additional complaints Reports as per HPI Musc Reports no additional complaints Skin/Breast Reports system reviewed and no additional complaints, except as documented Neuro Reports no additional complaints Psych Reports no additional complaints Endo Reports no additional complaints Tenzin/Lymph Reports no additional complaints Aller/Immun Reports no additional complaints Office Procedures Post Void Residual Post Residual Void Post Void Residual (PVR): 0 [id number]-Ohor Void Residual by ultrasound Results Reviewed Results Reviewed: Date of Service: 04/27/24 CT ABDOMEN AND PELVIS WITH CONTRAST CLINICAL INFORMATION: Jaundice. COMPARISON: None available. TECHNIQUE: Multidetector volumetric images were obtained from the superior aspect of the liver through the pubic symphysis following administration 85 mL of Omnipaque 350 intravenous contrast. Sagittal and coronal reformatted images were obtained on the technologist's workstation. Oral contrast: No. This CT examination was performed using dose optimization techniques as appropriate, variously including the following: *Automated exposure control *Adjustment of mA and/or kV according to patient size (this includes techniques or standardized protocols for targeted exams where dose is matched to indication/reason for exam; i.e. extremities or head) *Use of iterative reconstruction technique DLP: 978 mGy-cm FINDINGS: LUNG BASES: The visualized lung bases are unremarkable. LIVER, GALLBLADDER, AND BILIARY TREE: The liver is normal in size, shape, and attenuation. No focal hepatic lesion or biliary ductal dilatation is present. Distended gallbladder without significant wall thickening or inflammatory change. There are calcified gallstones dependently. No evidence of acute cholecystitis. PANCREAS: Small pancreatic body calcifications which could represent sequela of chronic pancreatitis or be vascular in nature. No inflammatory change or pancreatic ductal dilatation. No discrete parenchymal lesion. SPLEEN: Unremarkable. ADRENAL GLANDS: Bilateral adrenal thickening and heterogeneity without a discrete nodule. KIDNEYS AND URETERS: Proximal right ureteral stone measuring up to 2.0 x 0.8 x 1.4 cm and approximately 810 Hounsfield units. This is located at the level of the L3-L4 intervertebral disc. There is guvvoxji-qs-skrgxa proximal hydroureter nephrosis with adjacent perinephric stranding and hypoenhancement of the right kidney, consistent with obstructive uropathy. There are multiple additional right renal pelvic stones. Findings have the appearance of a fragmented staghorn calculus. There is an additional right ureterovesicular junction stone measuring up to 0.9 cm with mild diffuse hydroureter and minimal adjacent stranding. No left-sided renal or ureteral stone. No discrete parenchymal lesion or enhancing parenchymal lesion. BLADDER: Nondistended. Mild wall thickening with peripheral enhancement which may be related to underdistention or represent a mild infectious or inflammatory process. GASTROINTESTINAL TRACT: Moderate sliding hiatal hernia with circumferential wall thickening of the distal esophagus. An underlying distal esophageal lesion cannot be excluded and direct visualization could help further evaluate if clinically indicated. No small or large bowel obstruction. Colonic diverticulosis without evidence of acute diverticulitis. Unremarkable appendix. PERITONEAL CAVITY: Trace pelvic free fluid. No organized fluid collection. No soft tissue mass. ABDOMINAL WALL: No significant hernia is appreciated. LYMPH NODES: No significant lymphadenopathy. VASCULAR: No abdominal aortic dilatation or dissection. Prominent atherosclerotic calcifications. PELVIC VISCERA: Probable calcified fibroid. OSSEOUS STRUCTURES: Unremarkable. IMPRESSION: 1. Proximal right ureteral stone measuring up to 2.0 cm at the level of the L3-L4 intervertebral disc. Bgjbimgl-ss-njburx proximal hydroureteronephrosis with adjacent perinephric stranding and hypoenhancement of the right kidney, consistent with obstructive uropathy. Multiple additional right renal pelvic stones. Findings have the appearance of a fragmented staghorn calculus. Additional right ureterovesicular junction stone measuring up to 0.9 cm with mild diffuse hydroureter and minimal adjacent stranding. 2. No left-sided renal or ureteral stone. No left-sided hydronephrosis or hydroureter. 3. Moderate sliding hiatal hernia with circumferential wall thickening of the distal esophagus. An underlying distal esophageal lesion cannot be excluded and direct visualization could help further evaluate 4. Colonic diverticulosis without evidence of acute diverticulitis. Unremarkable appendix. 5. Trace pelvic free fluid. No organized fluid collection or soft tissue mass. 6. Dilatation of the gallbladder with cholelithiasis. No evidence of acute cholecystitis. No intra or extrahepatic biliary ductal dilatation. Assessment & Plan Assessment & Plan (1) Nephrolithiasis: Code(s): N20.0 - Calculus of kidney Category: Medical (2) Ureteral stent present: Code(s): Z96.0 - Presence of urogenital implants Category: Medical (3) Ureteral stone with hydronephrosis: Code(s): N13.2 - Hydronephrosis with renal and ureteral calculous obstruction Category: Medical Plan KUB, will need further stone management ESWL vs Ureteroscopy Patient Instructions: The patient had an opportunity to ask questions regarding treatment plan. The patient expressed understanding and agreement with the above treatment plan. The patient is aware they should contact our office by phone for worsening of their current condition or the appearance of new symptoms. Compliance is encouraged with any medications and followup testing that is ordered. It is a privilege to be allowed the opportunity to participate in the urologic care of your patient. If you have any questions or concerns regarding treatment for the above conditions please do not hesitate to contact me. The office telephone contact is [phone]. This note is constructed in part using voice recognition software. While every effort has been made to ensure accuracy dandy tender errors may have been included. Yours sincerely, Titi Caban MD Coding Level of Care Code Est Pt Level 4 (86564) Diagnoses Nephrolithiasis N20.0 Ureteral stent present Z96.0 Ureteral stone with hydronephrosis N13.2 CPT Codes Post Residual Void - PVR CPT Code: 73546-Gxgt Void Residual by ultrasound ([id number])
== END 2024-06-01 15:46 | disposition home or self-care (01) ==
PROVIDERS: Visit Provider Urology
DX: N20.0 Calculus of kidney (principal); Z96.0 Presence of urogenital implants; N13.2 Hydronephrosis with renal and ureteral calculous obstruction
CPT/HCPCS: 99214

== ENCOUNTER → 2024-06-01 13:59 | Outpatient (BNVA) | payer MEDICARE, SELFPAY | PROVIDERS: Visit Provider Urology | DX: N13.2 Hydronephrosis with renal and ureteral calculous obstruction (principal); Z96.0 Presence of urogenital implants | CPT/HCPCS: 51798; 99212 ==

== ENCOUNTER 2024-06-03 07:47 | Outpatient (AMB) | payer MEDICARE, SELFPAY ==
--- NOTE | 2024-06-03 08:02 | A.OFFPC_ITS ---
Vital Signs 06/03/24 08:04 Height 5 ft 5 in Weight 191 lb BMI 31.8 BP 126/72 Blood Pressure Location Lt brachial Position Sitting Pulse 66 Pulse Source Pulse Oximeter Pulse Oximetry (%) 94 Oxygen Delivery Method Room Air Intake Visit Reasons: establish care Intake Note: Patient is a new patient here to establish care for Thyroid issues, History of Kidney stone, Swelling of both feet. Transferring care from unknown. Medical records have not been requested and have not received. Pt decline flu shot today. 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 Care Professional: Present Accompanied by: Daughter Allergies No Known Allergies Allergy (Verified 06/03/24 08:23) Medication List - Last Reconciled 06/03/24 by RAMIREZ Bishop-Haritha ascorbic acid (vitamin C) 250 mg PO DAILY docusate sodium (Colace) 100 mg PO BID ferrous sulfate 325 mg PO DAILY hydrochlorothiazide 12.5 mg PO QAM levothyroxine 75 mcg PO DAILY@0600 omeprazole 20 mg PO BID@0630,1630 pantoprazole 40 mg PO BID Tobacco use date assessed: 06/03/24 Fall risk assessment: No Falls in past year Last assessed Fall Risk: 06/03/24 Dental Screening Dental Screen Date: 06/03/24 Did you have a dental visit in the last 12 months?: No Did you have a dental problem in the last 6 months where you did not have access to dental care?: No Was dental information given to patient?: No HPI establish care HPI Details 74-year-old female past medical history of hypothyroidism, thrombocytopenia coming to the office for the 1st time. In review of the notes, patient was seen in [facility] ED 04/27/2024 for nausea and vomiting. While in the ER TSH is elevated and free T4 undetectable and CT abdomen and pelvis showed 2 cm proximal right ureteral stone with severe hydroureteronephrosis. Patient un derwent cystoscopy/ureteroscopy with right stent insertion found to have P. Mirabalis and E Coli bacteremia. Initially treated with IV Zosyn and transition to IV Rocephin. Id recommended 2 weeks of cefuroxime. Patient was started on 75 mcg daily of levothyroxine to repeat TSH in 4 weeks. Also found to have upper GI bleed secondary to esophagitis and advised to follow up in 10 days with GI and repeat EGD in 8-12 weeks and continued on PPIs. Patient was discharged short term rehab. While at [facility] patient was started on hydrochlorothiazide. Patient has not been seen in primary care in over 20 years and is not up-to-date on several screenings. She was discharged from [facility] we have been coming to the house multiple times per week for services. She was advised by Urology to have KUB with scheduled follow up afterwards and has a appointment with GI in June. She is no longer taking the antibiotic and denies any fevers, chest pain or shortness of breath. She does mentioned she continues to have bilateral lower extremity edema which has been present since the hospital. [facility] Medical History Bacteremia H/O radioactive iodine thyroid ablation Social History Household Members: Spouse Housing: House Do you presently have visiting nurse or other home services: No Alcohol intake: never Patient Tobacco Use Status: Former Tobacco user Years Smoked: 20 years e-Cigarette/Vaping Use: Never Used Second Hand Smoke Exposure: Yes service: No Current occupational status: retired Cognitive needs: Yes (walker) Hearing needs: No Vision needs: Yes Questionnaire PHQ-9 Over the last 2 weeks, how often have you been bothered by any of the following problems? 1. Little interest or pleasure in doing things: not at all 2. Feeling down, depressed, or hopeless: not at all 3. Trouble falling or staying asleep, or sleeping too much: not at all 4. Feeling tired or having little energy: several days 5. Poor appetite or overeating: several days 6. Feeling bad about yourself - or that you are a failure or have let yourself or your family down: not at all 7. Trouble concentrating on things, such as reading the newspaper or watching television: not at all 8. Moving or speaking so slowly that other people could have noticed. Or the opposite - being so fidgety or restless that you have been moving around a lot more than usual: not at all 9. Thoughts that you would be better off or of hurting yourself in some way: not at all Total score: 2 Depression Screening Interpretation: Positive Depression Screening Done: Yes Source: Developed by Drs. Michael Manriquez, Austin Justice and colleagues, with an educational andrés from [employer]. Thrive Questionnaire Date Thrive assessed: 06/03/24 I am a: Patient What is your living situation today?: I have a steady place to live Within the past 12 months, did the food you bought not last and you didn't have the money to get more?: Never true Within the past 12 months, did you worry whether your food would run out before you got money to buy more?: Never true Do you have trouble paying for medicines?: I choose not to answer this question Do you have trouble getting transportation to medical appointments?: I choose not to answer this question Do you have trouble paying your heating and electricity bill?: No Do you have trouble taking care of your child, family member or friend?: No Do you have trouble with day-to-day activities such as bathing, preparing meals, shopping, managing finances, etc.?: I choose not to answer this question Are you currently unemployed and looking for a job?: No Are you interested in more education?: No Please select the resources that you would like help with: None Currently or been in a relationship where the following occur: I choose not to answer THRIVE Score: 0 AUDIT C Alcohol Use Questionnaire (AUDIT-C) 1. How often do you have a drink containing alcohol?: Never Total Score: 0 TIMOTHY-7 AMB Questionnaire TIMOTHY-7 Date TIMOTHY - 7 assessed: 06/03/24 Feeling nervous, anxious, or on edge: 0 = Not at all Not being able to stop or control worryin = Not at all Worrying too much about different things: 0 = Not at all Trouble relaxin = Not at all Being so restless that it is hard to sit still: 0 = Not at all Becoming easily annoyed or irritable: 0 = Not at all Feeling afraid as if something awful might happen: 0 = Not at all Total TIMOTHY-7 score (0-4 normal; 5-9 mild; 10-14 moderate; 15-21 severe): 0 Source: Developed by Drs. Michael Manriquez, Austin Justice and colleagues, with an educational andrés from [employer]. Review of Systems Const Denies body aches, Denies chills, Denies fever(s), Denies headache(s) and Denies poor appetite Eyes Reports no additional complaints ENT Denies dysphagia, Denies dizziness, Denies headache(s) and Denies odynophagia Card Denies chest pain, Denies syncope, Denies edema, Denies irregular heart rhythm, Reports leg edema, Denies lightheadedness and Denies dyspnea Resp Denies cough and Denies dyspnea GI Denies abdominal pain, Denies constipation, Denies dysphagia, Denies diarrhea, Denies nausea, Denies odynophagia and Denies vomiting Reports no additional complaints Musc Reports no additional complaints and Denies abnormal gait Skin/Breast Reports system reviewed and no additional complaints, except as documented Neuro Denies abnormal gait, Denies dizziness, Denies syncope and Denies headache(s) Psych Reports no additional complaints Physical exam (Primary Care) Vital Signs: Last Vital Signs Pulse 66 06/03/24 08:04 BP 126/72 06/03/24 08:04 Pulse Ox 94 06/03/24 08:04 Oxygen Delivery Method Room Air 06/03/24 08:04 BMI result Body Mass Index 31.8 Tobacco/Smoking Status: Tobacco use Status Tobacco use date assessed 06/03/24 06/03/24 08:14 Patient Tobacco Use Status Former Tobacco user 06/03/24 08:03 e-Cigarette/Vaping Use Never Used 06/03/24 08:14 PHQ-9: PHQ-9 Score PHQ-9: Total score 2 06/03/24 08:36 Depression Screening Interpretation: Positive Thrive Assessment: Date of Thrive Assessment Date Thrive assessed 06/03/24 06/03/24 08:17 Currently or been in a relationship where the following occur: I choose not to answer Const General: cooperative, healthy appearing, comfortable and no acute distress Orientation/consciousness: patient oriented x3 HENMT Head: Yes normocephalic Ears: hearing grossly normal bilaterally General nose exam: Normal external nose present Eyes General: appearance normal, both eyes and all related structures Conjunctivae: conjunctivae normal Neck Neck: Yes full ROM and Yes no lymphadenopathy Resp Effort & Inspection: normal respiratory effort Auscultation: clear to auscultation bilaterally, no crackles, no rales, no rhonchi and no wheezes Cardio Rate: regular rate Rhythm: regular rhythm Skin General skin exam: no rashes or lesions noted Neuro General: patient oriented x3 Gait exam (Neuro): Normal gait present Extrem Other: Bilateral 1+ lower extremity and pedal edema without tenderness, redness or warmth. No calf swelling or pain. Intact pulses and sensation General: Yes normal to inspection, Yes full ROM and No edema Psych Affect: normal affect Attitude: cooperative Insight: Good insight present (Psych) Judgement: Good judgement present (Psych) Coding Level of Care Code New Pt Level 4 (61603) Diagnoses Hypothyroidism E03.9 Anemia D64.9 Lower extremity edema R60.0 Nephrolithiasis N20.0 Esophagitis K20.90 Assessment & Plan Assessment & Plan (1) Hypothyroidism: Code(s): E03.9 - Hypothyroidism, unspecified Category: Medical Plan: Advised patient to have repeat lab work to monitor for efficacy. We will adjust the dose accordingly. (2) Anemia: Code(s): D64.9 - Anemia, unspecified Category: Medical Plan: Continue to monitor blood work. Patient has appointment with GI scheduled for June for further evaluation. Reviewed red flag symptoms of anemia and when to present for re-evaluation. (3) Lower extremity edema: Code(s): R60.0 - Localized edema Category: Medical Plan: Likely due to venous insufficiency. Advised patient to exercise as tolerated, use compression stockings and elevate the legs. No signs of infection or concern for DVT at this time. (4) Nephrolithiasis: Code(s): N20.0 - Calculus of kidney Category: Medical Plan: Urology has scheduled KUB and follow up afterwards. Continue to follow with Urology and stay well hydrated. (5) Esophagitis: Code(s): K20.90 - Esophagitis, unspecified without bleeding Category: Medical Plan: Continue to follow up with GI. Continue on PPI management. Avoid trigger foods such as citrus, tomato products, soda, caffeine, spicy foods and other foods david t may be irritating to your stomach. Avoid laying flat 3-4 hours after eating and elevate the head of the bed 30 degrees to prevent acid from moving into the esophagus. Plan Follow up in 1 month for annual exam. Patient declined lung cancer screening and mammogram at this time. This note was constructed using voice recognition software. While every effort has been made to ensure accuracy and investment banker, still areas may have been included sometimes these areas may affect the content or meeting of the given symptoms. Total time spent caring for the patient today was 30 minutes. This includes time spent before the visit reviewing the chart, time spent during the visit, and time spent after the visit and documentation. Orders: Orders IRON PROFILE Today D64.9 - Anemia, unspecified Medications: New ferrous sulfate 325 mg PO DAILY 30 tabs 0RF comp.stocking,knee,long,medium As directed. 20-30 mmHG 12 ea 0RF pantoprazole 40 mg PO BID 90 tabs 0RF hydrochlorothiazide 12.5 mg (1/2 x 25 mg) PO QAM 60 tabs 0RF Refilled levothyroxine 75 mcg PO DAILY@0600 30 tabs 0RF
[2024-06-03 08:04] VITALS: BP 126/72; PULSE 66; O2SAT 94; BMI 31.8
== END 2024-06-03 08:56 | disposition home or self-care (01) ==
DX: E03.9 Hypothyroidism, unspecified (principal); D64.9 Anemia, unspecified; R60.0 Localized edema; N20.0 Calculus of kidney; K20.90 Esophagitis, unspecified without bleeding

== ENCOUNTER 2024-06-03 07:47 | Outpatient (REF) | payer MEDICARE, SELFPAY ==
--- NOTE | ~2024-06-03 | XR_ITS ---
EXAMINATION: XR ABDOMEN KUB CLINICAL INDICATION: Renal calculus COMPARISON: CT abdomen from April 27, 2024 TECHNIQUE: AP view of the abdomen. FINDINGS: There is nonspecific bowel gas pattern with calcification projecting in the right kidney, measured 1.6 cm and 0.9 cm. There is right-sided stent projecting from the right kidney to the urinary bladder. Left kidney is unremarkable without obvious stones. XR/XR KUB IMPRESSION: Right-sided nephrolithiasis and ureteral stent in place Electronically signed by: Gill Mobley MD 06/03/2024 03:58 PM [place]
== END 2024-06-03 07:48 | disposition home or self-care (01) ==
LOC: HO.XRAY 07:47
DX: E03.9 Hypothyroidism, unspecified (principal); D64.9 Anemia, unspecified; R60.0 Localized edema; N13.2 Hydronephrosis with renal and ureteral calculous obstruction; K20.90 Esophagitis, unspecified without bleeding
CPT/HCPCS: 74018; 96127; 99202

== ENCOUNTER 2024-07-07 15:36 | Outpatient (AMB) | payer MEDICARE, SELFPAY ==
--- NOTE | 2024-07-07 15:42 | MHC.PC.OV ---
Vital Signs 07/07/24 15:43 Height 5 ft 5 in Weight 173 lb 15.115 oz BMI 28.9 BP 130/72 Blood Pressure Location Lt brachial Position Sitting Pulse 91 Pulse Source Pulse Oximeter Pulse Oximetry (%) 95 Oxygen Delivery Method Room Air Intake Visit Reasons: Annual Exam Intake Note: Patient is here today for a physical. 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 20-30 mmHG docusate sodium (Colace) 100 mg PO BID ferrous sulfate 325 mg PO DAILY hydrochlorothiazide 12.5 mg (1/2 x 25 mg) PO QAM levothyroxine 75 mcg PO DAILY@0600 pantoprazole 40 mg PO BID Tobacco use date assessed: 06/03/24 Fall risk assessment: No Falls in past year Last assessed Fall Risk: 07/07/24 Dental Screening Dental Screen Date: 06/03/24 HPI Annual Exam HPI Details 74-year-old female with past medical history of hypothyroidism, thrombocytopenia, anemia last seen May 2024 coming in for annual exam. Patient tells us today her GI appointment was moved to July. She continues to have a poor appetite and has a noted 18 lb weight loss in the last month. Denies any night sweats, chest pains or shortness of breath or any other symptoms. ON LICENSE OF [facility] Medical History Bacteremia H/O radioactive iodine thyroid ablation Social History Household Members: Spouse Housing: House Do you presently have visiting nurse or other home services: No Alcohol intake: never Patient Tobacco Use Status: Former Tobacco user Years Smoked: 20 years e-Cigarette/Vaping Use: Never Used Second Hand Smoke Exposure: Yes service: No Current occupational status: retired Cognitive needs: Yes (walker) Hearing needs: No Vision needs: Yes Questionnaire Thrive Questionnaire Date Thrive assessed: 06/03/24 I am a: Patient What is your living situation today?: I have a steady place to live Within the past 12 months, did the food you bought not last and you didn't have the money to get more?: Never true Within the past 12 months, did you worry whether your food would run out before you got money to buy more?: Never true Do you have trouble paying for medicines?: I choose not to answer this question Do you have trouble getting transportation to medical appointments?: I choose not to answer this question Do you have trouble paying your heating and electricity bill?: No Do you have trouble taking care of your child, family member or friend?: No Do you have trouble with day-to-day activities such as bathing, preparing meals, shopping, managing finances, etc.?: I choose not to answer this question Are you currently unemployed and looking for a job?: No Are you interested in more education?: No Please select the resources that you would like help with: None Currently or been in a relationship where the following occur: I choose not to answer THRIVE Score: 0 TIMOTHY-7 AMB Questionnaire TIMOTHY-7 Date TIMOTHY - 7 assessed: 06/03/24 Source: Developed by Drs. Michael Manriquez, Yumiko Burroughs, Austin Motley and colleagues, with an educational andrés from [employer]. Review of Systems Const Denies body aches, Denies fatigue, Denies fever(s), Denies frequent falls, Denies headache(s) and Denies weakness Eyes Reports no additional complaints and Denies change in vision ENT Denies dysphagia, Denies dizziness, Denies facial pain, Denies headache(s), Denies nasal congestion and Denies odynophagia Card Denies chest pain, Denies syncope, Denies irregular heart rhythm, Denies leg edema, Denies lightheadedness and Denies dyspnea Resp Denies cough and Denies dyspnea GI Denies constipation, Denies dysphagia, Denies dyspepsia, Denies diarrhea, Denies nausea, Denies odynophagia and Denies vomiting Denies urinary frequency, Denies dysuria, Denies urinary hesitancy and Denies urinary urgency Musc Denies back pain and Denies myalgias Skin/Breast Reports system reviewed and no additional complaints, except as documented Neuro Denies dizziness, Denies syncope, Denies frequent falls, Denies headache(s) and Denies weakness Psych Reports no additional complaints Endo Denies fatigue Physical exam (Primary Care) Vital Signs: Last Vital Signs Pulse 91 07/07/24 15:43 BP 130/72 07/07/24 15:43 Pulse Ox 95 07/07/24 15:43 Oxygen Delivery Method Room Air 07/07/24 15:43 BMI result Body Mass Index 28.9 Tobacco/Smoking Status: Tobacco use Status Tobacco use date assessed 06/03/24 07/07/24 15:48 Patient Tobacco Use Status Former Tobacco user 07/07/24 15:48 e-Cigarette/Vaping Use Never Used 07/07/24 15:48 Thrive Assessment: Date of Thrive Assessment Date Thrive assessed 06/03/24 07/07/24 15:48 Currently or been in a relationship where the following occur: I choose not to answer Const General: cooperative, healthy appearing, comfortable and no acute distress Orientation/consciousness: patient oriented x3 HENMT Head: Yes normocephalic Ears: hearing grossly normal bilaterally, external ears normal, TM's normal bilaterally and EAC's normal General nose exam: Normal external nose present Face and sinus: Yes normal facial exam and Yes sinuses nontender Mouth: Normal oral and palatal mucosa present and tongue normal Throat: Yes posterior oropharynx normal Eyes General: appearance normal, both eyes and all related structures Conjunctivae: conjunctivae normal Pupils: Equal, round and reactive pupils present EOM: EOMs intact bilaterally and No Nystagmus present Neck Neck: Yes normal visual inspection, Yes full ROM and Yes no lymphadenopathy Chest Chest palpation & inspection: normal inspection of the chest Resp Effort & Inspection: normal respiratory effort Auscultation: clear to auscultation bilaterally, no crackles, no rales, no rhonchi, no wheezes and breath sounds present Cardio Rate: regular rate Rhythm: regular rhythm Peripheral pulses: radial pulses present and dorsalis pedis present GI Inspection: Yes normal to inspection and No Abdominal wall edema Palpation (GI): Soft to palpation, not firm and nontender Auscultation: normal bowel sounds Rectal Exam - Female: deferred General: Yes no CVA tenderness Back/Spine/Pelvis Back: no CVA tenderness Skin General skin exam: no rashes or lesions noted Neuro General: patient oriented x3 Cranial nerves: Yes Equal, round and reactive pupils present, Yes Midline tongue present, Yes Ability to bilaterally elevate shoulders present and No Nystagmus present Gait exam (Neuro): Normal gait present Extrem General: Yes normal to inspection, Yes full ROM, No no pedal edema and No edema Psych Speech and movement: Normal speech and movement present Affect: normal affect Insight: Good insight present (Psych) Judgement: Good judgement present (Psych) Coding Level of Care Code Est Pt Prev Care >65y(90036) Diagnoses Anemia D64.9 Hypothyroidism E03.9 Thrombocytopenia D69.6 Nephrolithiasis N20.0 Annual physical exam Z00.00 Weight loss R63.4 Assessment & Plan Assessment & Plan (1) Anemia: Code(s): D64.9 - Anemia, unspecified Category: Medical Plan: Continue to monitor with serial CBCs. (2) Hypothyroidism: Code(s): E03.9 - Hypothyroidism, unspecified Category: Medical Plan: Blood work was initially taken by ben however we never received these results and patient agreed to have the labs redrawn. Currently on levothyroxine (3) Thrombocytopenia: Code(s): D69.6 - Thrombocytopenia, unspecified Category: Medical Plan: We will continue to monitor with CBC (4) Nephrolithiasis: Code(s): N20.0 - Calculus of kidney Category: Medical Plan: Continue to follow with Urology. KUB completed showed presence of nephrolithiasis in the right kidney and patent stent. Asymptomatic at this time (5) Annual physical exam: Code(s): Z00.00 - Encounter for general adult medical examination without abnormal findings Category: Medical Plan: Patient is not up-to-date on recommended screenings and vaccinations for her age. She is declining tetanus and pneumonia vaccine at this time and states she will schedule at a later date. Referred to mammogram and bone density screening. Patient has a appointment with GI in July and we will discuss colonoscopy at that time. Referral placed to lung cancer screening program. (6) Weight loss: Code(s): R63.4 - Abnormal weight loss Category: Medical Plan: Patient has noted 18 lb weight loss since last visit states she has no appetite. We will begin workup with blood work and thyroid function testing. Referred to mammogram and lung cancer screening program at this time. Plan This note was constructed using voice recognition software. While every effort has been made to ensure accuracy and cage fighter, still areas may have been included sometimes these areas may affect the content or meeting of the given symptoms. Total time spent caring for the patient today was 30 minutes. This includes time spent before the visit reviewing the chart, time spent during the visit, and time spent after the visit and documentation. Orders: Orders MM tomosynthesis screening BI 07/07/24 Z12.31 - Encounter for screening mammogram for malignant neoplasm of breast XR DEXA axial skeleton 07/07/24 Z78.0 - Asymptomatic menopausal state TSH reflex Free T4 07/07/24 Z00.00 - Encounter for general adult medical examination without abnormal findings Free T4 (Free Thyroxine) 07/07/24 Z00.00 - Encounter for general adult medical examination without abnormal findings IRON PROFILE 07/07/24 D64.9 - Anemia, unspecified Complete Blood Count Auto Diff 07/07/24 Z00.00 - Encounter for general adult medical examination without abnormal findings Referrals Lung Cancer Screening Referral Z72.0 - Tobacco use
[2024-07-07 15:43] VITALS: BP 130/72; PULSE 91; O2SAT 95; BMI 28.9
== END 2024-07-07 16:45 | disposition home or self-care (01) ==
DX: D64.9 Anemia, unspecified (principal); E03.9 Hypothyroidism, unspecified; D69.6 Thrombocytopenia, unspecified; N20.0 Calculus of kidney; Z00.00 Encounter for general adult medical examination without abnormal findings; R63.4 Abnormal weight loss

== ENCOUNTER → 2024-07-07 15:36 | Outpatient (BNVA) | payer MEDICARE, SELFPAY | DX: Z00.00 Encounter for general adult medical examination without abnormal findings (principal); E03.9 Hypothyroidism, unspecified; D64.9 Anemia, unspecified; D69.6 Thrombocytopenia, unspecified; N20.0 Calculus of kidney; R63.4 Abnormal weight loss; Z78.0 Asymptomatic menopausal state | CPT/HCPCS: 99397 ==

== ENCOUNTER 2024-07-08 13:03 | Outpatient (REF) | payer MEDICARE, SELFPAY ==
[2024-07-08 16:11] LABS: MANUAL DIFF FLAG NO
[2024-07-08 16:13] LABS: Basophils Absolute Auto 0.1 X10*3/uL (0.0-0.2); Basophils Percent Auto 0.9 % (0-2); Eosinophils Absolute Auto 0.2 X10*3/uL (0.0-0.4); Eosinophils Percent Auto 1.7 % (0-4); Hematocrit 32.6 % (37.0-47.0); Hemoglobin 9.9 g/dl (12.0-16.0); Imm Gran Abs Auto 0.05 X10*3/uL (0.00-0.03); Imm Gran Pct Auto 0.5 % (0.0-0.4); Lymphocytes Percent Auto 19.2 % (20-40); Mean Corpuscular HGB Conc 30.4 g/dl (31.0-35.0); Mean Corpuscular Hemoglobin 26.6 pg (27.0-33.0); Mean Corpuscular Volume 87.6 fL (80.0-98.0); Mean Platelet Volume 9.3 fL (9.4-12.3); Monocytes Absolute Auto 0.7 X10*3/uL (0.1-1.2); Monocytes Percent Auto 7.2 % (2-11); Neutrophils Absolute Auto 7.3 x10*3/uL (2.0-8.3); Neutrophils Percent Auto 70.5 % (45-73); Platelet Count 538 X10*3/uL (160-400); Red Blood Count 3.72 X10*6/uL (4.20-5.50); Red Cell Distribution Width 15.6 % (11.0-16.0); White Blood Count 10.3 X10*3/uL (4.8-10.8)
[2024-07-08 17:09] LABS: Iron 36 mcg/dL (30-160); Percent Iron Saturation 19 % (15-50); Total Iron Binding Capacity 189 mcg/dL (228-428); Unsaturated Iron Binding 153 ug/dL
[2024-07-08 17:27] LABS: Free T4 (Free Thyroxine) 1.34 ng/dL (0.71-1.85); TSH reflex Free T4 1.94 uIU/mL (0.32-4.0)
== END 2024-07-08 13:04 | disposition home or self-care (01) ==
LOC: HO.HMGCLDS 13:03
DX: Z00.00 Encounter for general adult medical examination without abnormal findings (principal); D64.9 Anemia, unspecified
CPT/HCPCS: 36415; 83540; 84439; 84443; 85025

== ENCOUNTER 2024-08-10 08:09 | Outpatient (REF) | payer MEDICARE, SELFPAY | END 2024-08-10 08:10 | disposition home or self-care (01) | LOC: HO.LAB 08:09 | PROVIDERS: Visit Provider Urology | DX: N39.0 Urinary tract infection, site not specified (principal); N13.2 Hydronephrosis with renal and ureteral calculous obstruction; Z96.0 Presence of urogenital implants; R10.9 Unspecified abdominal pain | CPT/HCPCS: 81003; 87086; 99212 ==

== ENCOUNTER 2024-08-10 08:09 | Outpatient (AMB) | payer MEDICARE, SELFPAY ==
--- NOTE | 2024-08-10 08:14 | A.OFFVIS_ITS ---
Intake Visit Reasons: follow up KUB (set) Intake Note: Patient is present for KUB F/U Urology Medication:NONE Antibiotic Allergy:NONE Blood Thinner:NONE Medical Office Administrator Required: No Allergies No Known Allergies Allergy (Verified 08/10/24 08:34) Medication List - Last Reconciled 08/10/24 by Titi Caban MD ascorbic acid (vitamin C) 250 mg PO DAILY comp.stocking,knee,long,medium As directed. 20-30 mmHG docusate sodium (Colace) 100 mg PO BID ferrous sulfate 325 mg PO BID hydrochlorothiazide 12.5 mg (1/2 x 25 mg) PO QAM levothyroxine 75 mcg PO DAILY@0600 pantoprazole 40 mg PO BID [Quad cane As directed] sulfamethoxazole-trimethoprim 800-160 mg (Bactrim DS) 1 tab PO BID HPI Comments Details: 08/10/24--Micaela is a 74-year-old female who is here with her daughter. She is status post right ureteral stent on 04/28/2024 for obstructing 2.0 cm proximal ureteral stone. I have reviewed KUB which notes right kidney stone 1.6 cm, in review of the film there may still be a calcification along the stent which was not dictated. The patient previously on CT scan had right renal stones in addition to the proximal ureteral stone. Urinalysis is nitrite positive. In plans for follow-up stone management I need to re-evaluate and will get a CT stone protocol. We will empirically place on Bactrim DS b.i.d. for 10 days pending urine culture. 06/01/2024--Micaela is a 74-year-old female who evaluated as an inpatient due to right obstructive uropathy and DEB due to a 2 cm proximal ureteral stone. Micaela was initially evaluated as a urology consult while inpatient. 04/27/2024. The patient is status post right ureteral stent on 04/28/2024. Micaela is here with her daughter Claritza. I have reviewed the CT imaging. CTAP-04/27/2024-multiple right nephrolithiasis and a 2 cm obstructing proximal ureteral stone. No left renal calculi visualized. Discussed importance increasing fluid intake and low-sodium diet and low oxalate diet. Plan KUB and follow-up to discuss treatment plan ESWL versus ureteroscopy CTAP-04/27/2024-Proximal right ureteral stone measuring up to 2.0 cm at the level of the L3-L4 intervertebral disc. Ghbzxbav-mf-nkkuba proximal hydroureteronephrosis with adjacent perinephric stranding and hypoenhancement of the right kidney, consistent with obstructive uropathy. Multiple additional right renal pelvic stones. Findings have the appearance of a fragmented staghorn calculus. Additional right ureterovesicular junction stone measuring up to 0.9 cm with mild diffuse hydroureter and minimal adjacent stranding. No left-sided renal or ureteral stone. No left-sided hydronephrosis or hydroureter. [facility] Medical History Bacteremia H/O radioactive iodine thyroid ablation Social History Household Members: Spouse Housing: House Do you presently have visiting nurse or other home services: No Alcohol intake: never Patient Tobacco Use Status: Former Tobacco user Years Smoked: 20 years e-Cigarette/Vaping Use: Never Used Second Hand Smoke Exposure: Yes service: No Current occupational status: retired Cognitive needs: Yes (walker) Hearing needs: No Vision needs: Yes Review of Systems Const All systems reviewed & are unremarkable except as noted in HPI and below Reports no additional complaints Eyes Reports no additional complaints ENT Reports no additional complaints Card Reports no additional complaints Resp Reports no additional complaints GI Reports no additional complaints Reports as per HPI Musc Reports no additional complaints Skin/Breast Reports system reviewed and no additional complaints, except as documented Neuro Reports no additional complaints Psych Reports no additional complaints Endo Reports no additional complaints Tenzin/Lymph Reports no additional complaints Aller/Immun Reports no additional complaints Results AMB Urinalysis, Automated UA Leukoctes 500 Marlyn/uL Last Edit by JEREMY Lewis on 08/10/24 08:43 UA Nitrite Positive Last Edit by JEREMY Lewis on 08/10/24 08:43 UA Urobilinogen 0.2 mg/dL Last Edit by JEREMY Lewis on 08/10/24 08:4 3 UA Protein 300 mg/dL Last Edit by JEREMY Lewis on 08/10/24 08:43 UA pH 8.5 Last Edit by JEREMY Lewis on 08/10/24 08:43 UA Blood 200 Mario/uL Last Edit by JEREMY Lewis on 08/10/24 08:43 UA Specific [employer] 1.010 Last Edit by JEREMY Lewis on 08/10/24 08: 43 UA Ketone Negative Last Edit by JEREMY Lewis on 08/10/24 08:43 UA Bilirubin 0 mg/dL Last Edit by JEREMY Lewis on 08/10/24 08:43 UA Glucose 0 mg/dL Last Edit by JEREMY Lewis on 08/10/24 08:43 Results Reviewed Results Reviewed: Laboratory Last Values Urine pH (Auto) 8.5 08/10/24 08:25 Specific [employer] (Auto) 1.010 08/10/24 08:25 Urine Protein (Auto) 300 mg/dL 08/10/24 08:25 Glucose (UA)(Auto) 0 mg/dL 08/10/24 08:25 Urine Ketones (Auto) Negative 08/10/24 08:25 Urine Blood (Auto) 200 Mario/uL 08/10/24 08:25 Urine Nitrite (Auto) Positive 08/10/24 08:25 Urine Bilirubin (Auto) 0 mg/dL 08/10/24 08:25 Urine Urobilinogen (Auto) 0.2 mg/dL 08/10/24 08:25 Leukocyte Esterase (Auto) 500 Marlyn/uL 08/10/24 08:25 KUB--05/2024-1.6 cm right renal stone. Right ureteral stent present. Date of Service: 04/27/24 CT ABDOMEN AND PELVIS WITH CONTRAST CLINICAL INFORMATION: Jaundice. COMPARISON: None available. TECHNIQUE: Multidetector volumetric images were obtained from the superior aspect of the liver through the pubic symphysis following administration 85 mL of Omnipaque 350 intravenous contrast. Sagittal and coronal reformatted images were obtained on the technologist's workstation. Oral contrast: No. This CT examination was performed using dose optimization techniques as appropriate, variously including the following: *Automated exposure control *Adjustment of mA and/or kV according to patient size (this includes techniques or standardized protocols for targeted exams where dose is matched to indication/reason for exam; i.e. extremities or head) *Use of iterative reconstruction technique DLP: 978 mGy-cm FINDINGS: LUNG BASES: The visualized lung bases are unremarkable. LIVER, GALLBLADDER, AND BILIARY TREE: The liver is normal in size, shape, and attenuation. No focal hepatic lesion or biliary ductal dilatation is present. Distended gallbladder without significant wall thickening or inflammatory change. There are calcified gallstones dependently. No evidence of acute cholecystitis. PANCREAS: Small pancreatic body calcifications which could represent sequela of chronic pancreatitis or be vascular in nature. No inflammatory change or pancreatic ductal dilatation. No discrete parenchymal lesion. SPLEEN: Unremarkable. ADRENAL GLANDS: Bilateral adrenal thickening and heterogeneity without a discrete nodule. KIDNEYS AND URETERS: Proximal right ureteral stone measuring up to 2.0 x 0.8 x 1.4 cm and approximately 810 Hounsfield units. This is located at the level of the L3-L4 intervertebral disc. There is yfashhqk-lg-tinmkl proximal hydroureter nephrosis with adjacent perinephric stranding and hypoenhancement of the right kidney, consistent with obstructive uropathy. There are multiple additional right renal pelvic stones. Findings have the appearance of a fragmented staghorn calculus. There is an additional right ureterovesicular junction stone measuring up to 0.9 cm with mild diffuse hydroureter and minimal adjacent stranding. No left-sided renal or ureteral stone. No discrete parenchymal lesion or enhancing parenchymal lesion. BLADDER: Nondistended. Mild wall thickening with peripheral enhancement which may be related to underdistention or represent a mild infectious or inflammatory process. GASTROINTESTINAL TRACT: Moderate sliding hiatal hernia with circumferential wall thickening of the distal esophagus. An underlying distal esophageal lesion cannot be excluded and direct visualization could help further evaluate if clinically indicated. No small or large bowel obstruction. Colonic diverticulosis without evidence of acute diverticulitis. Unremarkable appendix. PERITONEAL CAVITY: Trace pelvic free fluid. No organized fluid collection. No soft tissue mass. ABDOMINAL WALL: No significant hernia is appreciated. LYMPH NODES: No significant lymphadenopathy. VASCULAR: No abdominal aortic dilatation or dissection. Prominent atherosclerotic calcifications. PELVIC VISCERA: Probable calcified fibroid. OSSEOUS STRUCTURES: Unremarkable. IMPRESSION: 1. Proximal right ureteral stone measuring up to 2.0 cm at the level of the L3-L4 intervertebral disc. Xmfkegrn-ex-uikzvm proximal hydroureteronephrosis with adjacent perinephric stranding and hypoenhancement of the right kidney, consistent with obstructive uropathy. Multiple additional right renal pelvic stones. Findings have the appearance of a fragmented staghorn calculus. Additional right ureterovesicular junction stone measuring up to 0.9 cm with mild diffuse hydroureter and minimal adjacent stranding. 2. No left-sided renal or ureteral stone. No left-sided hydronephrosis or hydroureter. 3. Moderate sliding hiatal hernia with circumferential wall thickening of the distal esophagus. An underlying distal esophageal lesion cannot be excluded and direct visualization could help further evaluate 4. Colonic diverticulosis without evidence of acute diverticulitis. Unremarkable appendix. 5. Trace pelvic free fluid. No organized fluid collection or soft tissue mass. 6. Dilatation of the gallbladder with cholelithiasis. No evidence of acute cholecystitis. No intra or extrahepatic biliary ductal dilatation. Assessment & Plan Assessment & Plan (1) Ureteral stone with hydronephrosis: Code(s): N13.2 - Hydronephrosis with renal and ureteral calculous obstruction Category: Medical (2) Ureteral stent present: Code(s): Z96.0 - Presence of urogenital implants Category: Medical (3) Acute UTI: Code(s): N39.0 - Urinary tract infection, site not specified Category: Medical (4) Right flank pain: Code(s): R10.9 - Unspecified abdominal pain Category: Medical Plan Bactrim ds, CT KUB Orders: Orders AMB Urinalysis Automated Today Z13.9 - Encounter for screening, unspecified Urine Culture Today N39.0 - Urinary tract infection, site not specified CT kidney stone Today N13.2 - Hydronephrosis with renal and ureteral calculous obstruction, N39.0 - Urinary tract infection, site not specified, R10.9 - Unspe cified abdominal pain, Z96.0 - Presence of urogenital implants Medications: New sulfamethoxazole-trimethoprim 800-160 mg (Bactrim DS) 1 tab PO BID 20 tabs 0RF Patient Instructions: The patient had an opportunity to ask questions regarding treatment plan. The patient expressed understanding and agreement with the above treatment plan. The patient is aware they should contact our office by phone for worsening of their current condition or the appearance of new symptoms. Compliance is encouraged with any medications and followup testing that is ordered. It is a privilege to be allowed the opportunity to participate in the urologic care of your patient. If you have any questions or concerns regarding treatment for the above conditions please do not hesitate to contact me. The office telephone contact is [phone]. This note is constructed in part using voice recognition software. While every effort has been made to ensure accuracy digital color press operator errors may have been included. Yours sincerely, Titi Caban MD Coding Level of Care Code Est Pt Level 4 (81376) Diagnoses Ureteral stone with hydronephrosis N13.2 Ureteral stent present Z96.0 Acute UTI N39.0 Right flank pain R10.9
== END 2024-08-10 09:27 | disposition home or self-care (01) ==
PROVIDERS: Visit Provider Urology
DX: N13.2 Hydronephrosis with renal and ureteral calculous obstruction (principal); Z96.0 Presence of urogenital implants; N39.0 Urinary tract infection, site not specified; R10.9 Unspecified abdominal pain; Z13.9 Encounter for screening, unspecified
CPT/HCPCS: 99214

== ENCOUNTER 2024-08-19 13:42 | Outpatient (AMB) | payer MEDICARE, SELFPAY ==
--- NOTE | 2024-08-19 14:00 | A.OFFVIS_ITS ---
Vital Signs 08/19/24 14:03 Height 5 ft 5 in Weight 158 lb 11.725 oz BMI 26.4 BP 137/63 Blood Pressure Location Lt brachial Position Sitting Pulse 89 Intake Visit Reasons: follow up req pt Intake Note: Micaela presents in the office as a follow up that the patient requested. CC: Patient has lost a lot of weight and she states that poor appetite. She states that she is having constipation because of the iron pills twice a day but she has not been doing that regularly. She is dealing with kidney stones at the moment and on antibiotics for the UTI that she has. Dental Office Manager Required: No Allergies No Known Allergies Allergy (Verified 08/19/24 14:03) HPI Comments Details: 74-year-old female with medical history of Graves disease, recent hospital admission for renal stone leading to pyelonephrosis, with course complicated by [place] of esophagitis and anemia, who was seen inpatient in 05/10/2024. She is presenting today for outpatient follow-up. Currently does not report any abdominal pain, nausea, vomiting. Follows with [facility] for renal stone. Continuing on Protonix b.i.d.. Is also on iron supplementation for anemia. Reports significant constipation due to this, taking senna but does not think is helping much. Daughter also reports concern regarding significant weight loss in the last 6 m onths, has lost almost 30 lb -patient attributes this to decreased appetite from having frequent urinary tract infections and antibiotic use. EGD 05/02/2024: Grade D esophagitis, hiatal hernia, gastric polyps. No H pylori on path. To recall, she has never had a screening colonoscopy or or any stool based colorectal cancer screening. [facility] Medical History Bacteremia H/O radioactive iodine thyroid ablation Social History Household Members: Spouse Housing: House Do you presently have visiting nurse or other home services: No Alcohol intake: never Patient Tobacco Use Status: Former Tobacco user Years Smoked: 20 years e-Cigarette/Vaping Use: Never Used Second Hand Smoke Exposure: Yes service: No Current occupational status: retired Cognitive needs: Yes (walker) Hearing needs: No Vision needs: Yes Review of Systems Const All systems reviewed & are unremarkable except as noted in HPI and below Physical Exam Vital Signs: Last Vital Signs Pulse 89 08/19/24 14:03 BP 137/63 08/19/24 14:03 BMI result Body Mass Index 26.4 Assessment & Plan Assessment & Plan (1) Esophagitis: Code(s): K20.90 - Esophagitis, unspecified without bleeding Category: Medical (2) Iron deficiency anemia: Code(s): D50.9 - Iron deficiency anemia, unspecified Category: Medical (3) Unintentional weight loss of more than 10 pounds in 90 days: Code(s): R63.4 - Abnormal weight loss Category: Medical Plan 1. Grade D esophagitis Patient is due for repeat upper endoscopy, but remains quite overwhelmed with frequent visits to lab, radiology, doctor's office for UTI/kidney stone assessment and treatment. Requests this to be done in another 2-3 months. Strongly reviewed that would not push this more than 6 months out to evaluate underlying mucosa and rule out any Jimenez's/lesion. Plan: - okay to reduce pantoprazole to once daily - EGD to be scheduled, after Aug as per patient's request 2. Anemia/unintentional weight loss Will anemia could likely be secondary to erosive esophagitis, ongoing unintentional weight loss is pretty significant and worrisome. Patient has never had screening colonoscopy, and recommend proceeding with diagnostic colonoscopy alongside the EGD for further evaluation. Plan: -colon to be booked with EGD as above -PEG prep given and instructions reviewed -okay to continue p.o. iron for now. Recheck ferritin and iron studies in 1-2 weeks and switch to IV iron if still needed, for better tolerance -patient also reports constipation, for which she was advised to add MiraLax Follow-up after EGD/colonoscopy Orders: Orders IRON PROFILE Today K20.90 - Esophagitis, unspecified without bleeding Ferritin Today K20.90 - Esophagitis, unspecified without bleeding Medications: New peg 3350-electrolytes 236-22.74-6.74 -5.86 gram (Golytely) as per split prep instructions, until fecal effluent is clear 240 mL PO Q10M 4,000 mL 0RF colonoscopy Changed From pantoprazole 40 mg PO BID 90 tabs 0RF To pantoprazole 40 mg PO DAILY 90 tabs 0RF Coding Level of Care Code Est Pt Level 4 (71870) Complex EM visit Add On G2211 Diagnoses Esophagitis K20.90 Iron deficiency anemia D50.9 Unintentional weight loss of more than 10 pounds in 90 days R63.4
[2024-08-19 14:03] VITALS: BP 137/63; PULSE 89; BMI 26.4
== END 2024-08-19 14:44 | disposition home or self-care (01) ==
PROVIDERS: Visit Provider Internal Medicine
DX: K20.90 Esophagitis, unspecified without bleeding (principal); D50.9 Iron deficiency anemia, unspecified; R63.4 Abnormal weight loss
CPT/HCPCS: 99214; G2211

== ENCOUNTER → 2024-08-19 13:42 | Outpatient (BNVA) | payer MEDICARE, SELFPAY | PROVIDERS: Visit Provider Internal Medicine | DX: K20.90 Esophagitis, unspecified without bleeding (principal); D50.9 Iron deficiency anemia, unspecified; R63.4 Abnormal weight loss | CPT/HCPCS: 99212 ==

== ENCOUNTER 2024-08-21 07:39 | Outpatient (REF) | payer MEDICARE, SELFPAY ==
--- NOTE | ~2024-08-21 | MM_ITS ---
EXAMINATION: DXA BONE DENSITY AXIAL HISTORY: Estrogen deficiency TECHNIQUE: Five Below Dual energy absorptiometry (DEXA) of the lumbar spine, total left hip, and femoral neck was performed. COMPARISON: There are no prior studies for comparison. FINDINGS: The bone mineral density of the lumbar spine is 1.383 with a T-score of 1.7, and a Z-score of 3.3. The bone mineral density of the left total hip is 0.953 with a T-score of -0.4, and a Z-score of 1.1. The bone mineral density of the left femoral neck is 0.854 with a T-score of -1.3, and a Z-score of 0.4. FRACTURE RISK: The FRAX index suggests a risk of major osteoporotic fracture of 10.5%, and of hip fracture 1.7%. MM/XR DEXA axial skeleton IMPRESSION: Based on bone mineral density, and according to World Health Organization (WHO) criteria, the diagnosis is consistent with osteopenia. All bone density values are in grams per centimeter squared (g/cm2). Statistically, 68% of repeat scans fall within 1 SD (+/- 0.010 g/cm2 for AP spine L1-L4) and 1 SD (+/- 0.012 g/cm2 for femur total) FRAX is a trademark of the [employer] [facility] [employer], a World Health Organization (WHO) Collaborating Center. Electronically signed by: Michael Cristina MD 08/24/2024 12:41 PM [place]
== END 2024-08-21 07:40 | disposition home or self-care (01) ==
LOC: HO.MAMMO 07:39
DX: Z12.31 Encounter for screening mammogram for malignant neoplasm of breast (principal); Z13.820 Encounter for screening for osteoporosis; Z78.0 Asymptomatic menopausal state
CPT/HCPCS: 77063; 77067; 77080

== ENCOUNTER → 2024-08-21 08:15 | Outpatient (BNV) | payer MEDICARE, SELFPAY | PROVIDERS: Visit Provider Radiology Diagnostic Radiology | DX: Z12.31 Encounter for screening mammogram for malignant neoplasm of breast (principal) | CPT/HCPCS: 77063; 77067 ==

== ENCOUNTER 2024-08-31 09:56 | Outpatient (REF) | payer MEDICARE, SELFPAY ==
[2024-08-31 13:12] LABS: MANUAL DIFF FLAG NO
[2024-08-31 13:28] LABS: Basophils Absolute Auto 0.2 X10*3/uL (0.0-0.2); Basophils Percent Auto 1.6 % (0-2); Eosinophils Absolute Auto 0.1 X10*3/uL (0.0-0.4); Eosinophils Percent Auto 1.5 % (0-4); Hematocrit 35.2 % (37.0-47.0); Hemoglobin 10.7 g/dl (12.0-16.0); Imm Gran Abs Auto 0.04 X10*3/uL (0.00-0.03); Imm Gran Pct Auto 0.4 % (0.0-0.4); Lymphocytes Absolute Auto 2.5 X10*3/uL (1.2-4.9); Lymphocytes Percent Auto 26.3 % (20-40); Mean Corpuscular HGB Conc 30.4 g/dl (31.0-35.0); Mean Corpuscular Hemoglobin 26.5 pg (27.0-33.0); Mean Corpuscular Volume 87.1 fL (80.0-98.0); Mean Platelet Volume 9.2 fL (9.4-12.3); Monocytes Absolute Auto 0.8 X10*3/uL (0.1-1.2); Monocytes Percent Auto 8.4 % (2-11); Neutrophils Absolute Auto 5.9 x10*3/uL (2.0-8.3); Neutrophils Percent Auto 61.8 % (45-73); Platelet Count 533 X10*3/uL (160-400); Red Blood Count 4.04 X10*6/uL (4.20-5.50); Red Cell Distribution Width 17.8 % (11.0-16.0); White Blood Count 9.5 X10*3/uL (4.8-10.8)
[2024-08-31 13:45] LABS: Iron 48 mcg/dL (30-160); Percent Iron Saturation 23 % (15-50); Total Iron Binding Capacity 208 mcg/dL (228-428); Unsaturated Iron Binding 160 ug/dL
[2024-08-31 14:12] LABS: Ferritin 667 ng/mL (10-250)
== END 2024-08-31 09:57 | disposition home or self-care (01) ==
LOC: HO.HMGCLDS 09:56
PROVIDERS: Referring Provider Internal Medicine
DX: D64.9 Anemia, unspecified (principal); K20.90 Esophagitis, unspecified without bleeding
CPT/HCPCS: 36415; 82728; 83540; 85025

== ENCOUNTER 2024-09-03 07:35 | Outpatient (REF) | payer MEDICARE, SELFPAY ==
--- NOTE | ~2024-09-03 | CT_ITS ---
EXAMINATION: CT ABDOMEN AND PELVIS WITHOUT CONTRAST CLINICAL INFORMATION: Hydronephrosis with renal and ureteral calculus obstruction. COMPARISON: April 27, 2024 TECHNIQUE: Multidetector volumetric imaging was performed from the superior aspect of the liver through the pubic symphysis. Sagittal and coronal reformatted images were obtained on the technologist's workstation. This CT examination was performed using dose optimization techniques as appropriate, variously including the following: *Automated exposure control *Adjustment of mA and/or kV according to patient size (this includes techniques or standardized protocols for targeted exams where dose is matched to indication/reason for exam; i.e. extremities or head) *Use of iterative reconstruction technique. DLP: 477 mGy centimeter. FINDINGS: Limited examination of the intra-abdominal organs and vascular structures due to lack of IV contrast. LUNG BASES: 2 mm noncalcified pulmonary nodule, left lung base. Patchy pulmonary groundglass in the periphery of the right lung base and right middle lobe. 5 mm pulmonary noncalcified pulmonary nodule, right middle lobe. 4 mm noncalcified pulmonary nodule, right middle lung lobe. LIVER, GALLBLADDER, AND BILIARY TREE: Liver measures 13 cm. No intrahepatic biliary ductal dilatation. Intraluminal calcifications layering in a dependent portion of the gallbladder. No pericholecystic fluid collection or gallbladder wall thickening. Common bile duct measures 4 mm.. PANCREAS: No peripancreatic fluid collections. No main pancreatic ductal dilatation. Calcifications in the body of the pancreas related to the splenic artery. SPLEEN: 7 cm. ADRENAL GLANDS: Soft tissue fullness both adrenal glands measuring 10 Hounsfield units. KIDNEYS AND URETERS: Right kidney: There is Staghorn calculus in the mid to lower pelvicalyceal system. There is a 16 x 9 mm calculus at the ureteropelvic junction. There is a ureteral stent placed with pigtail formed seen in the renal pelvis and urinary bladder lumen. There is mild hydronephrosis. Left kidney: No nephrolithiasis. No hydronephrosis. BLADDER: Fluid-filled nearly collapsed. GASTROINTESTINAL TRACT: There is abundant stool throughout the large intestine. There are numerous diverticula throughout the large intestine from the ascending colon to the sigmoid colon. No intestinal obstruction pattern. No pneumatosis intestinalis. No ascites. No pneumoperitoneum. Appendix is normal. Hiatal hernia, moderate volume.. ABDOMINAL WALL: Small fat-containing umbilical hernia. LYMPH NODES: Normal. VASCULAR: Mixed plaques throughout the abdominal aorta wall and iliac arteries with the saccular irregularities measuring less than 1 cm involving the infrarenal and distal abdominal aorta. Calcified plaques descending thoracic aorta. Calcified plaques in the mitral valve. PELVIC VISCERA: Not evaluated with the calcifications in the uterus. OSSEOUS STRUCTURES: Superior endplate compression deformity with sclerosis and cortical irregularities representing 30% volume loss in the anterior aspect of the L1 and L2 vertebral bodies. No retropulsion. Grade 1 anterolisthesis L4-5. Grade 1 retrolisthesis L5-S1 with decreased intervertebral disc height and vacuum phenomenon. Osteopenia versus osteoporosis. Altered level lower thoracic spondylosis. Sclerosis and the sacroiliac joints. No acute fracture in the bony pelvis or the hips. CT/CT kidney stone IMPRESSION: Status post right-sided ureteral stent placement resolving the hydronephrosis with minimal soft tissue fullness of the right renal pelvis. Persistent staghorn calculus, mid and lower segments of the pelvicalyceal system right kidney. Persistent 16 x 9 mm obstructing calculus in the right ureteropelvic junction. Acute to subacute superior endplate compression fracture deformities representing 30% volume loss at L1 and L2 vertebral bodies. Cholelithiasis. Diverticular disease. Hiatal hernia, moderate volume. Atherosclerosis disease. Nonspecific noncalcified pulmonary nodules, right middle lobe. Fleischner guidelines were followed. Electronically signed by: Juwan Velez MD 09/03/2024 09:02 AM [place]
== END 2024-09-03 07:36 | disposition home or self-care (01) ==
LOC: HO.CT 07:35
PROVIDERS: Visit Provider Urology
DX: N13.2 Hydronephrosis with renal and ureteral calculous obstruction (principal); R10.9 Unspecified abdominal pain; N39.0 Urinary tract infection, site not specified; Z96.0 Presence of urogenital implants
CPT/HCPCS: 74176

== ENCOUNTER → 2024-09-03 07:37 | Outpatient (BNV) | payer MEDICARE, SELFPAY | PROVIDERS: Visit Provider Radiology Diagnostic Radiology | DX: K80.20 Calculus of gallbladder without cholecystitis without obstruction (principal); K57.90 Diverticulosis of intestine, part unspecified, without perforation or abscess without bleeding; K44.9 Diaphragmatic hernia without obstruction or gangrene; I70.90 Unspecified atherosclerosis; R91.1 Solitary pulmonary nodule | CPT/HCPCS: 74176 ==

== ENCOUNTER 2024-09-14 10:43 | Outpatient (REF) | payer MEDICARE, SELFPAY ==
[2024-09-14 14:04] LABS: Appearance Urine Turbid; Color Urine Dark Yellow; Glucose Urine UA Negative (Negative); Leukocyte Esterase Urine Large (3+) (Negative); Nitrite Urine Negative (Negative); PH >= 9.0 (5.0-9.0); UMIC TRIGGER UACC YES; Urine Blood Large (3+) (Negative); Urine Ketones Negative (Negative); Urine Protein 300 (3+) mg/dL (Neg-Trace)
[2024-09-14 14:16] LABS: Bacteria Urine 4+ (None Seen); Hyaline Casts Urine 0-2 /LPF (0-2); RBC Urine >20 /HPF (0-2); Squamous Epithelial Cell Urine 0-2 /HPF (0-2); UACC Culture Trigger YES; WBC Urine >50 /HPF (0-5)
== END 2024-09-14 10:44 | disposition home or self-care (01) ==
LOC: HO.HMGCLDS 10:43
DX: R35.0 Frequency of micturition (principal)
CPT/HCPCS: 81001; 81003; 87086

== ENCOUNTER 2024-10-06 08:10 | Outpatient (AMB) | payer MEDICARE, SELFPAY ==
--- NOTE | 2024-10-06 08:17 | A.OFFPC_ITS ---
Vital Signs 10/06/24 08:18 Height 5 ft 5 in Weight 160 lb 2 oz BMI 26.6 BP 122/66 Blood Pressure Location Lt brachial Position Sitting Pulse 81 Pulse Source Pulse Oximeter Temp 97.1 F Temp Source Temporal Artery Scan Pulse Oximetry (%) 99 Oxygen Delivery Method Room Air Intake Visit Reasons: 3 months Intake Note: Patient is here to follow up on Hypothyroidism. Parts Runner Required: No Welder Fitter: Present Accompanied by: Daughter Allergies No Known Allergies Allergy (Verified 10/06/24 08:34) Medication List - Last Reconciled 10/06/24 by RAMIREZ Bishop-Haritha ascorbic acid (vitamin C) 250 mg PO DAILY comp.stocking,knee,long,medium As directed. 20-30 mmHG docusate sodium (Colace) 100 mg PO BID ferrous sulfate 325 mg PO BID hydrochlorothiazide 12.5 mg (1/2 x 25 mg) PO QAM levothyroxine 75 mcg PO DAILY@0600 pantoprazole 40 mg PO DAILY peg 3350-electrolytes 236-22.74-6.74 -5.86 gram (Golytely) 240 mL PO Q10M [Quad cane As directed] Tobacco use date assessed: 10/06/24 Fall risk assessment: No Falls in past year Last assessed Fall Risk: 10/06/24 Dental Screening Dental Screen Date: 10/06/24 Did you have a dental visit in the last 12 months?: No Did you have a dental problem in the last 6 months where you did not have access to dental care?: No Was dental information given to patient?: No HPI 3 months HPI Details 74-year-old female with past medical his tory of hypothyroidism, thrombocytopenia, anemia last seen 06/2024 coming in for follow up.?In review of the notes, patient was seen by [facility] 08/19/2024 advised to continue on pantoprazole, EGD to be scheduled with colonoscopy and plan to follow up afterwards. 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 Presenting with anemia and iron deficiency. Anemia diagnosed, awaiting further first sampler evaluation. Difficulty with prior oral iron due to constipation and poor absorption. Constipation has shown improvement through dietary changes, though concerns persist. History of kidney stones, complicating frequent UTIs. Scheduled for shockwave lithotripsy soon. Recent weight loss significant, though weight stabilized since July. Further evaluation for gastrointestinal issues with upcoming endoscopic procedures pending scheduling. COUNTS INCLUDE 234 BEDS AT THE [facility] Medical History History of bacteremia Iron deficiency anemia Hypothyroidism Personal history of nicotine dependence H/O radioactive iodine thyroid ablation Surgical History History of cystoscopy History of esophagogastroduodenoscopy (EGD) Social History Household Members: Spouse Housing: House Do you presently have visiting nurse or other home services: No Alcohol intake: never Patient Tobacco Use Status: Former Tobacco user Years Smoked: 20 years e-Cigarette/Vaping Use: Never Used Second Hand Smoke Exposure: Yes service: No Current occupational status: retired Cognitive needs: Yes (walker) Hearing needs: No Vision needs: Yes Questionnaire PHQ-9 Over the last 2 weeks, how often have you been bothered by any of the following problems? 1. Little interest or pleasure in doing things: not at all 2. Feeling down, depressed, or hopeless: not at all 3. Trouble falling or staying asleep, or sleeping too much: not at all 4. Feeling tired or having little energy: not at all 5. Poor appetite or overeating: not at all 6. Feeling bad about yourself - or that you are a failure or have let yourself or your family down: not at all 7. Trouble concentrating on things, such as reading the newspaper or watching television: not at all 8. Moving or speaking so slowly that other people could have noticed. Or the opposite - being so fidgety or restless that you have been moving around a lot more than usual: not at all 9. Thoughts that you would be better off or of hurting yourself in some way: not at all Total score: 0 Depression Screening Interpretation: Negative Depression Screening Done: Yes Source: Developed by Drs. Michael Manriquez, Yumiko Burroughs, Austin Motley and colleagues, with an educational andrés from [email or web address] Thrive Questionnaire Date Thrive assessed: 10/06/24 I am a: Patient What is your living situation today?: I have a steady place to live Within the past 12 months, did the food you bought not last and you didn't have the money to get more?: Never true Within the past 12 months, did you worry whether your food would run out before you got money to buy more?: Never true Do you have trouble paying for medicines?: I choose not to answer this question Do you have trouble getting transportation to medical appointments?: I choose not to answer this question Do you have trouble paying your heating and electricity bill?: No Do you have trouble taking care of your child, family member or friend?: No Do you have trouble with day-to-day activities such as bathing, preparing meals, shopping, managing finances, etc.?: I choose not to answer this question Are you currently unemployed and looking for a job?: No Are you interested in more education?: No Please select the resources that you would like help with: None Currently or been in a relationship where the following occur: I choose not to answer THRIVE Score: 0 AUDIT C Alcohol Use Questionnaire (AUDIT-C) 1. How often do you have a drink containing alcohol?: Never 3. How often do you have six or more drinks on one occasion?: Never Total Score: 0 TIMOTHY-7 AMB Questionnaire TIMOTHY-7 Date TIMOTHY - 7 assessed: 10/06/24 Feeling nervous, anxious, or on edge: 0 = Not at all Not being able to stop or control worryin = Not at all Worrying too much about different things: 0 = Not at all Trouble relaxin = Not at all Being so restless that it is hard to sit still: 0 = Not at all Becoming easily annoyed or irritable: 0 = Not at all Feeling afraid as if something awful might happen: 0 = Not at all Total TIMOTHY-7 score (0-4 normal; 5-9 mild; 10-14 moderate; 15-21 severe): 0 Source: Developed by Drs. Michael Manriquez, Austin Justice and colleagues, with an educational andrés from [employer] Review of Systems Const Denies body aches, Denies chills, Denies headache(s) and Denies poor appetite Eyes Reports no additional complaints ENT Reports no additional complaints and Denies headache(s) Card Denies chest pain, Denies lightheadedness and Denies dyspnea Resp Denies dyspnea GI Denies abdominal pain, Reports constipation, Denies diarrhea, Denies nausea and Denies vomiting Reports no additional complaints Musc Reports no additional complaints and Denies abnormal gait Skin/Breast Reports system reviewed and no additional complaints, except as documented Neuro Denies abnormal gait and Denies headache(s) Psych Reports no additional complaints Physical exam (Primary Care) Vital Signs: Last Vital Signs Temp 97.1 F 10/06/24 08:18 Pulse 81 10/06/24 08:18 BP 122/66 10/06/24 08:18 Pulse Ox 99 10/06/24 08:18 Oxygen Delivery Method Room Air 10/06/24 08:18 BMI result Body Mass Index 26.6 Tobacco/Smoking Status: Tobacco use Status Tobacco use date assessed 10/06/24 10/06/24 08:25 Patient Tobacco Use Status Former Tobacco user 10/06/24 08:25 e-Cigarette/Vaping Use Never Used 10/06/24 08:25 PHQ-9: PHQ-9 Score PHQ-9: Total score 0 10/06/24 08:25 Depression Screening Interpretation: Negative Thrive Assessment: Date of Thrive Assessment Date Thrive assessed 10/06/24 10/06/24 08:25 Currently or been in a relationship where the following occur: I choose not to answer Const General: cooperative, healthy appearing, comfortable and no acute distress Orientation/consciousness: patient oriented x3 HENMT Head: Yes normocephalic Ears: hearing grossly normal bilaterally General nose exam: Normal external nose present Eyes General: appearance normal, both eyes and all related structures Conjunctivae: conjunctivae normal Neck Neck: Yes full ROM and Yes no lymphadenopathy Resp Effort & Inspection: normal respiratory effort Auscultation: clear to auscultation bilaterally, no crackles, no rales, no rhonchi and no wheezes Cardio Rate: regular rate Rhythm: regular rhythm Skin General skin exam: no rashes or lesions noted Neuro General: patient oriented x3 Gait exam (Neuro): Normal gait present Extrem General: Yes normal to inspection, Yes full ROM and No edema Psych Affect: normal affect Attitude: cooperative Insight: Good insight present (Psych) Judgement: Good judgement present (Psych) Coding Level of Care Code Est Pt Level 3 (81714) Diagnoses Personal history of nicotine dependence Z87.891 Iron deficiency anemia D50.9 Ureteral stone with hydronephrosis N13.2 Hypothyroidism E03.9 Thrombocytopenia D69.6 Constipation K59.00 Unintentional weight loss of more than 10 pounds in 90 days R63.4 Assessment & Plan Assessment & Plan (1) Personal history of nicotine dependence: Code(s): Z87.891 - Personal history of nicotine dependence Category: Medical Plan: Patient is scheduled to have lung cancer screening completed later this month with pulmonology follow up afterwards. Continue to avoid the use of cigarettes. (2) Iron deficiency anemia: Code(s): D50.9 - Iron deficiency anemia, unspecified Category: Medical Plan: The current management strategy includes continued discussion on the need for IV iron therapy due to poor response and complications from oral iron. She has a appointment tomorrow with Hematology for further discussion. (3) Ureteral stone with hydronephrosis: Code(s): N13.2 - Hydronephrosis with renal and ureteral calculous obstruction Category: Medical Plan: Upcoming lithotripsy is anticipated to address kidney stones and related UTI risk, pending the absence of active infections. Continue to follow with Urology (4) Hypothyroidism: Code(s): E03.9 - Hypothyroidism, unspecified Category: Medical Plan: Continue to monitor blood work last TSH and T4 within normal limits. Continue on levothyroxine (5) Thrombocytopenia: Code(s): D69.6 - Thrombocytopenia, unspecified Category: Medical Plan: Appointment tomorrow with Hematology for further evaluation. (6) Constipation: Code(s): K59.00 - Constipation, unspecified Category: Medical Plan: Focus on increased fiber and hydration to manage constipation effectively. (7) Unintentional weight loss of more than 10 pounds in 90 days: Comment: (15 lb wt loss - 173 on 07/07/24 to 158 on 08/19/24) Code(s): R63.4 - Abnormal weight loss Category: Medical Plan: Stable weight trends are monitored, alongside planning endoscopic evaluations to rule out other gastrointestinal causes, with GERD management in consideration. Continued close monitoring and follow-up visits are anticipated to adapt care plans as required. Plan This note was constructed using voice recognition software. While every effort has been made to ensure accuracy and tank pumper, still areas may have been included sometimes these areas may affect the content or meeting of the given symptoms. Total time spent caring for the patient today was 20 minutes. This includes time spent before the visit reviewing the chart, time spent during the visit, and time spent after the visit and documentation. Patient was informed and verbally consented to the use of an ambient scribe for clinic note documentation during this visit.
[2024-10-06 08:18] VITALS: BP 122/66; PULSE 81; TEMP 36.2; O2SAT 99; BMI 26.6
== END 2024-10-06 09:03 | disposition home or self-care (01) ==
LOC: HO.HMCH 08:11
DX: D69.6 Thrombocytopenia, unspecified (principal); Z87.891 Personal history of nicotine dependence; D50.9 Iron deficiency anemia, unspecified; N13.2 Hydronephrosis with renal and ureteral calculous obstruction; E03.9 Hypothyroidism, unspecified; K59.00 Constipation, unspecified; R63.4 Abnormal weight loss

== ENCOUNTER → 2024-10-06 08:10 | Outpatient (BNVA) | payer MEDICARE, SELFPAY | DX: D50.9 Iron deficiency anemia, unspecified (principal); N13.2 Hydronephrosis with renal and ureteral calculous obstruction; E03.9 Hypothyroidism, unspecified; D69.6 Thrombocytopenia, unspecified; K59.00 Constipation, unspecified; R63.4 Abnormal weight loss; Z87.891 Personal history of nicotine dependence | CPT/HCPCS: 99212 ==

== ENCOUNTER 2024-10-07 11:01 | Outpatient (REF) | payer MEDICARE, SELFPAY ==
--- NOTE | 2024-10-07 12:01 | ECG_ITS ---
Test Reason : freq of micturition Blood Pressure : */* mmHG Vent. Rate : 84 BPM Atrial Rate : 84 BPM P-R Int : 138 ms QRS Dur : 82 ms QT Int : 372 ms P-R-T Axes : 61 29 98 degrees QTcB Int : 439 ms Normal sinus rhythm Nonspecific ST and T wave abnormality Abnormal ECG When compared with ECG of 27-Apr-2024 12:31, No significant change was found Referred By: Titi Caban Electronically Signed By: Jak Marcelo
[2024-10-07 13:29] LABS: Anion Gap 13 (12-20); Blood Urea Nitrogen 13 mg/dL (9-16); Calcium 9.6 mg/dL (8.4-10.2); Carbon Dioxide 25 mmol/L (22-29); Chloride 103 mmol/L (96-108); Estimated Glomerular Filt Rate 56; Glucose Random 103 mg/dL (60-115); Potassium 3.4 mmol/L (3.3-5.1); Sodium 138 mmol/L (135-145)
== END 2024-10-07 11:02 | disposition home or self-care (01) ==
LOC: HO.LAB 11:01
PROVIDERS: Visit Provider Urology
DX: R35.0 Frequency of micturition (principal); R10.9 Unspecified abdominal pain; N13.2 Hydronephrosis with renal and ureteral calculous obstruction; Z96.0 Presence of urogenital implants; R94.31 Abnormal electrocardiogram [ECG] [EKG]
CPT/HCPCS: 36415; 80048; 87086; 93005

== ENCOUNTER → 2024-10-07 11:07 | Outpatient (BNV) | payer MEDICARE, SELFPAY | PROVIDERS: Visit Provider Internal Medicine | DX: N17.9 Acute kidney failure, unspecified (principal); D63.8 Anemia in other chronic diseases classified elsewhere | CPT/HCPCS: 99204; G2211 ==

== ENCOUNTER → 2024-10-07 12:01 | Outpatient (BNV) | payer MEDICARE, SELFPAY | PROVIDERS: Visit Provider Internal Medicine Cardiovascular Disease | DX: R94.31 Abnormal electrocardiogram [ECG] [EKG] (principal); R35.0 Frequency of micturition | CPT/HCPCS: 93010 ==

== ENCOUNTER → 2024-10-21 06:30 | Outpatient (BNV) | payer MEDICARE, SELFPAY | PROVIDERS: Visit Provider Radiology Vascular & Interventional Radiology | DX: N20.2 Calculus of kidney with calculus of ureter (principal) | CPT/HCPCS: 74018 ==

== ENCOUNTER 2024-10-21 06:48 | Day surgery (SDC) | payer MEDICARE, SELFPAY ==
[2024-10-19 12:06] VITALS: BMI 26.6
--- NOTE | 2024-10-20 09:45 | HO.ANESPROP2 ---
Documented by User: Kaylee Pozo NP 10/20/24 09:46 HPI - Anesthesia Eval Consult details Narrative: 74yo F for Right Lithotripsy ESW,possible cysto with stent removal s/p cysto, stent 04/2024 with GA-LMA 4 PMFSH Active Problems Active Problems: All Active Problems Osteopenia (Acute) Constipation (Acute) Personal history of nicotine dependence (Acute) Unintentional weight loss of more than 10 pounds in 90 days (Acute) Iron deficiency anemia (Acute) Right flank pain (Acute) Acute UTI (Acute) Lower extremity weakness (Acute) Weight loss (Acute) Ureteral stone with hydronephrosis (Acute) Ureteral stent present (Acute) Esophagitis (Acute) Nephrolithiasis (Acute) Lower extremity edema (Acute) Anemia (Acute) Hypothyroidism (Acute) Thrombocytopenia (Acute) Past Medical History Medical History (Updated 10/21/24 @ 09:20 by Berkley Haq MD) History of bacteremia Iron deficiency anemia Hypothyroidism Personal history of nicotine dependence H/O radioactive iodine thyroid ablation Family History Family history of problems with anesthesia: No Surgical History Surgical History History of cystoscopy History of esophagogastroduodenoscopy (EGD) History of Problems with Anesthesia: No Social History Social History Household Members: Spouse Housing: House Are you a primary care management associate to a significant other at home: No Do you presently have visiting nurse or other home services: No Alcohol intake: never Patient Tobacco Use Status: Former Tobacco user Tobacco use type: Cigarette Years Smoked: 25 Smoked in Last 30 Days: No e-Cigarette/Vaping Use: Never Used Second Hand Smoke Exposure: Yes Use of substances other than those prescribed or required for medical reasons: No Have you been hit, kicked, punched, or otherwise hurt by someone within the past year? If so, by whom?: No Are you DNR?: No Advance Directives: No Advance Directives Information Provided: No Advance Directives on File: No Patient : No : No Poor oral hygiene: Yes service: No Current occupational status: retired Cognitive needs: Yes (walker) Hearing needs: No Vision needs: Yes Meds Allergies Allergy/AdvReac Type Severity Reaction Status Date / Time No Known Allergies Allergy Verified 10/21/24 08:12 Home Medications ?Medication ?Instructions ?Recorded ?Confirmed ?Last Taken ?Type ascorbic acid (vitamin C) 250 mg 250 mg PO DAILY 06/03/24 10/21/24 Unknown History tablet docusate sodium 100 mg capsule 100 mg PO BID 06/03/24 10/21/24 Unknown History (Colace) Exam Height,Weight and Vital Signs: Height 5 ft 5 in Weight 72.575 kg Pertinent Lab Results Pertinent Lab Results: Laboratory Tests 10/07/24 12:29 WBC 10.8 Hgb 10.5 L Hct 34.1 L Plt Count 468 H Sodium 138 Potassium 3.4 Chloride 103 Carbon Dioxide 25 BUN 13 Creatinine 0.97 Narrative Narrative: EKG 09/2024 Vent. Rate : 84 BPM Atrial Rate : 84 BPM P-R Int : 138 ms QRS Dur : 82 ms QT Int : 372 ms P-R-T Axes : 61 29 98 degrees QTcB Int : 439 ms Normal sinus rhythm Nonspecific ST and T wave abnormality Abnormal ECG When compared with ECG of 27-Apr-2024 12:31, No significant change was found Assessment and Plan Assessment Anesthesia Assessment: Chart Reviewed Final Anesthetic Review Family History of Problems with Anesthesia: No History of Problems with Anesthesia: No Documented by User: Berkley Haq MD 10/21/24 09:51 [facility] Active Problems Active Problems: All Active Problems Osteopenia (Acute) Constipation (Acute) Personal history of nicotine dependence (Acute)- quit last year Unintentional weight loss of more than 10 pounds in 90 days (Acute) Iron deficiency anemia (Acute) Right flank pain (Acute) Acute UTI (Acute) Lower extremity weakness (Acute) Weight loss (Acute) Ureteral stone with hydronephrosis (Acute) Ureteral stent present (Acute) Esophagitis (Acute) Nephrolithiasis (Acute) Lower extremity edema (Acute) Anemia (Acute) Hypothyroidism (Acute) Thrombocytopenia (Acute) Past Medical History Medical History (Updated 10/21/24 @ 09:20 by Berkley Haq MD) History of bacteremia Iron deficiency anemia Hypothyroidism Personal history of nicotine dependence H/O radioactive iodine thyroid ablation Family History Family history of problems with anesthesia: No Surgical History Surgical History History of cystoscopy History of esophagogastroduodenoscopy (EGD) History of Problems with Anesthesia: No Social History Social History Household Members: Spouse Housing: House Are you a primary care management associate to a significant other at home: No Do you presently have visiting nurse or other home services: No Alcohol intake: never Patient Tobacco Use Status: Former Tobacco user Tobacco use type: Cigarette Years Smoked: 25 Smoked in Last 30 Days: No e-Cigarette/Vaping Use: Never Used Second Hand Smoke Exposure: Yes Use of substances other than those prescribed or required for medical reasons: No Have you been hit, kicked, punched, or otherwise hurt by someone within the past year? If so, by whom?: No Are you DNR?: No Advance Directives: No Advance Directives Information Provided: No Advance Directives on File: No Patient : No : No Poor oral hygiene: Yes service: No Current occupational status: retired Cognitive needs: Yes (walker) Hearing needs: No Vision needs: Yes Meds Allergies Allergy/AdvReac Type Severity Reaction Status Date / Time No Known Allergies Allergy Verified 10/21/24 08:12 Home Medications ?Medication ?Instructions ?Recorded ?Confirmed ?Last Taken ?Type ascorbic acid (vitamin C) 250 mg 250 mg PO DAILY 06/03/24 10/21/24 Unknown History tablet docusate sodium 100 mg capsule 100 mg PO BID 06/03/24 10/21/24 Unknown History (Colace) Exam Height,Weight and Vital Signs: Height 5 ft 5 in Weight 72.575 kg Vital Signs Temp Pulse Resp BP Pulse Ox O2 Del Method 10/21/24 07:35 99.4 F 81 16 149/71 H 99 Room Air Pertinent Lab Results Pertinent Lab Results: Laboratory Tests 10/07/24 12:29 WBC 10.8 Hgb 10.5 L Hct 34.1 L Plt Count 468 H Sodium 138 Potassium 3.4 Chloride 103 Carbon Dioxide 25 BUN 13 Creatinine 0.97 Airway Mallampati Class: II TM Dist: >3cm Neck ROM: Full Partial: Upper Loose/Missing/Broken Teeth: Yes (Missing teeth. Broken teeth bottom. Denies loose teeth) Heart: RRR Lungs: CTAB Assessment and Plan Assessment Anesthesia Assessment: Anesthesia Plan Discussed and Chart Reviewed Final Anesthetic Review Family History of Problems with Anesthesia: No History of Problems with Anesthesia: No NPO: Yes ASA Class: II Final Preanesthetic Review: No Changes in Pt Med Stat, Meds/Allgs Chart Reviewed, Consent Obtained/Reviewed and Anes Risks/Benef Reviewed Patient Risk: Intermediate Procedure Risk: Low Assessment/Block/Sedation in SS: Assess/Block/Sedation-SS Anesthetic Plan Anesthetic Plan: GA Disposition: Standard PACU
--- NOTE | ~2024-10-21 | XR_ITS ---
CLINICAL HISTORY: pre ESWL-Right 1 view abdomen Comparison: CR/SR - XR KUB - 06/03/24 09:28 EST Findings: The bowel-gas pattern is normal. Double-J right ureteral stent is present. 1.8 cm and 0.9 cm right mid renal stones are present. 2.4 cm calcification is also seen in the region of the right ureteropelvic junction. No acute osseous abnormality is identified. IMPRESSION: 1. 1.8 cm and 0.9 cm right renal stones. 2. 2.4 cm calcification in the region of the right ureteropelvic junction suspicious for an additional stone. This document has been electronically signed by: Lola Ma on 10/21/2024 08:21:09
[2024-10-21 07:35] VITALS: BP 149/71; PULSE 81; RESP 16; TEMP 37.4; O2SAT 99
[2024-10-21] MEDS: Acetaminophen 1,000 MG/100 ML PIGGYBACK 400 MG IV (07:46)
[2024-10-21] MEDS: Lactated Ringers 1,000 ML 100 ML IVCONT (07:46)
[2024-10-21 07:47] VITALS: BMI 26.1
--- NOTE | 2024-10-21 08:51 | P.OP_ITS ---
Operative Note Operative Note Date of Service: 10/21/24 Narrative: PreOperative Diagnosis:? ? right proximal ureter stone, right ureteral stent present Post Operative Diagnosis:?right proximal ureter stone, right ureteral stent present Procedure:?right ESWL Surgeon:?Dr Titi Caban Anesthesia:? gen Indications for procedure: The patient has muliple right renal calculi and a very large obstructing right proximal ureteral stone, s/p right ureteral stent. The patient understands there is a risk of bruising or hematoma to the kidney, infection, and stone migration following the procedure and subsequent intervention may be required.? - Imaging 25mm x 30mm stone Procedure: After informed consent was verified the patient was brought to the operating room and placed in a supine position.? Anesthesia was performed per protocol. Safety pause time-out was performed. Imaging was displayed in the room and la terality confirmed. ESWL was performed.?The stone was visualized on both fluoroscopy and ultrasound.? Shockwave lithotripsy was performed, with a maximum rate of 120 hertz. After the first 300 shocks a pause for 3 minutes was completed.? A total of 3000 shocks to a maximum of power of 20 with a maximum rate of 120 hertz.? Some fragmentation of the stone was appreciated. The patient tolerated the procedure well and was transferred to the recovery area upon completion. Complications: None
--- NOTE | 2024-10-21 08:51 | P.HPSUR_ITS ---
Pre-Procedural Eval Section A - 24 Hr Update-Section A only Date of Service: 10/21/24 The patient is an INPATIENT: No The patient has been examined within 24 hours of the surgical procedure. The History & Physical has been completed within 30 days and I have reviewed it.: Yes Section B - Complete if H&P > 30 days Chief Complaint: Calculus of kidney, ureteral stent present Allergies: Allergies Allergy/AdvReac Type Severity Reaction Status Date / Time No Known Allergies Allergy Verified 10/21/24 08:12 Plan Diagnosis/Plan: Unchanged I have reviewed the history and physical and performed a pertinent physical examination on my patient. No changes have occurred unless specified. Right ESWL. Discussed risks to include but not limited to, blood in the urine, bruising to the skin, kidney hematoma, possible need for another procedure if a stone fragment obstructs the ureter while passing, possible need to repeat pr ocedure if stone is not completely fragmented. Time Spent With Patient Time: Total time managing care of this patient today ____ minutes.
[2024-10-21] MEDS: Gentamicin Sulfate 160 MG in 0.9 % Sodium Chloride 100 ML 100 MG IV (09:11)
[2024-10-21 10:27] VITALS: BP 119/44; PULSE 65; RESP 14; TEMP 36.1; O2SAT 98
[2024-10-21 10:30] VITALS: BP 119/49; PULSE 67; RESP 14; O2SAT 98
[2024-10-21 10:35] VITALS: BP 134/63; PULSE 70; RESP 18; O2SAT 98
[2024-10-21 10:40] VITALS: BP 129/57; PULSE 67; RESP 16; O2SAT 98
[2024-10-21 10:55] VITALS: BP 143/57; PULSE 64; RESP 20; TEMP 36.1; O2SAT 98
== END 2024-10-21 11:44 | disposition home or self-care (01) ==
PROVIDERS: Visit Provider Urology
PROC: (CPT 50590; principal; 2024-10-21 08:50)
DX: N13.2 Hydronephrosis with renal and ureteral calculous obstruction (principal); Z96.0 Presence of urogenital implants; N39.0 Urinary tract infection, site not specified; E03.9 Hypothyroidism, unspecified; Z92.3 Personal history of irradiation; D50.9 Iron deficiency anemia, unspecified; Z79.899 Other long term (current) drug therapy; Z87.891 Personal history of nicotine dependence
CPT/HCPCS: 50590; 74018; J0131; J0690; J1100; J1580; J2003; J2371; J2405; J2704; J3010

== ENCOUNTER → 2024-10-21 06:48 | Outpatient (BNV) | payer MEDICARE, SELFPAY | PROVIDERS: Visit Provider Urology | DX: N20.1 Calculus of ureter (principal) | CPT/HCPCS: 50590 ==

== ENCOUNTER 2024-10-30 09:09 | Outpatient (AMB) | payer MEDICARE, SELFPAY ==
--- NOTE | 2024-10-30 07:52 | MHC.OFFVIS ---
Intake Visit Reasons: Former Smoker Allergies No Known Allergies Allergy (Verified 10/21/24 08:12) HPI HPI Former Smoker: Details: Initial visit for this 74yo former smoker with a 25PYH. Patient started smoking at age 19 for 55 years at 1/2ppd. She quit 04/2024. . Denies marijuana use. Reports second hand smoke exposure. Denies exposure to chemicals or substances like asbestos. . Denies known family history of lung cancer. Denies personal history of cancers. Denies chest CT in last year. . Denies recent travel outside the [place]. Denies recent respiratory illness or recent hospitalization for respiratory issues. Denies testing positive for COVID. Admits receiving COVID Vaccine. Notes weight loss related to thyroid issues - since stablized. Denies fever, chills, new/worsening cough, hemoptysis, hoarseness or dysphagia. Denies significant chest pain, significant dyspnea. Patient Lung Cancer Screening Questionnaire reviewed with patient by provider. . Shared Decision Making Completed. Patient meets criteria. Discussed in detail with patient, the risk vs benefit of LDCT screening. Patient consents to proceed with scan. Discussed and encouraged continued smoking cessation. [facility] [place] Medical History (Updated 10/30/24 @ 09:28 by Mariza Rousseau PA-C) History of bacteremia Iron deficiency anemia Hypothyroidism Personal history of nicotine dependence H/O radioactive iodine thyroid ablation Surgical History History of cystoscopy History of esophagogastroduodenoscopy (EGD) Social History (Updated 10/30/24 @ 09:29 by Mariza Rousseau PA-C) Household Members: Spouse Housing: House Are you a primary gericare aide to a significant other at home: No Do you presently have visiting nurse or other home services: No Alcohol intake: never Patient Tobacco Use Status: Former Tobacco user Tobacco use type: Cigarette Years Smoked: (onset 19yo, 1/2ppd x 55yrs, 25pyh, quit 04/2024) e-Cigarette/Vaping Use: Never Used Second Hand Smoke Exposure: Yes service: No Current occupational status: retired Cognitive needs: Yes (walker) Hearing needs: No Vision needs: Yes Assessment & Plan Assessment & Plan (1) Personal history of nicotine dependence: Comment: (onset 19yo, 1/2ppd x 55yrs, 25pyh, quit 04/2024) Code(s): Z87.891 - Personal history of nicotine dependence Category: Medical Plan: - SDM visit completed today in office. - Patient meets criteria for LDCT for lung cancer screening purposes and is asymptomatic. - Smoking cessation counseling offered. Patients can always call [phone]. - Will arrange for a LDCT scan of the chest for screening purposes at [facility]. - Risks, benefits, and alternatives were discussed in detail and the patient agrees to proceed. - Risks discussed include but are not limited to: radiation exposure, anxiety during testing and while awaiting results, false negatives, false positives and possibility of additional intervention such as further imaging or surgical procedures for benign disease. - Benefits are obviously detection of lung cancer at an early stage which can lead to improved outcomes. - Discussed the importance of screening program compliance with adherence to yearly LDCT scan as scheduled - or sooner interval scans for personalized screening regimen. - Discussed follow up plan. Our office will send a letter discussing results and if needed set up phone call and office visit based on CT findings. - Patient educated on results categorization and the management decisions for suspicious findings potentially found on the screening LDCT scan. Any patient with a Lung RADS score of 3 or 4 will be reviewed by a multidisciplinary team at [facility] to form a plan of action in regards to scan findings. - If further work up is warranted for a suspicious lung finding this will be followed by the Lung Cancer Screening program in conjunction with the Thoracic Surgery Department at [facility]. - A copy of the office note and LDCT will be sent to the patient's PCP - as well as documentation on any associated further plans of care. - Incidental findings on LDCT are the PCP's responsibility. These findings are indicated with an S finding on the LDCT Assessment. A note discussing the findings will be sent to the PCP who is then responsible for further management. - All questions answered.? Coding Level of Care Code Lung Cancer Screening G0296 Diagnoses Personal history of nicotine dependence Z87.891
== END 2024-10-30 09:55 | disposition home or self-care (01) ==
LOC: HO.HPS 09:09
PROVIDERS: Visit Provider Physician Assistant Medical
DX: Z87.891 Personal history of nicotine dependence (principal)
CPT/HCPCS: G0296

== ENCOUNTER 2024-10-30 09:28 | Outpatient (REF) | payer MEDICARE, SELFPAY ==
--- NOTE | ~2024-10-30 | CT_ITS ---
EXAMINATION: CT LUNG SCREENING HISTORY: Smoking history TECHNIQUE: Low dose axial images were obtained from the sternal notch to upper abdomen without IV contrast per standard departmental protocol. Sagittal and coronal reformatted images were also obtained and reviewed. One or more of the following techniques was used for dose reduction: Automated exposure control, adjustment of the mA and/or kV according to patient size, use of iterative reconstruction technique. DLP: 43 mGy-cm COMPARISON: There are no prior studies for comparison. FINDINGS: Lung nodules: There is a 3 mm nodule in the right upper lobe (series 6, image 81). There is a 5 mm paramediastinal nodule right middle lobe (series 6, image 101). There is a 4 mm nodule in the inferior aspect of the right middle lobe (series 6, image 114), unchanged from an abdominal CT scan dated 09/03/2024. There is a 6 mm nodule at the base of the right middle lobe (series 6, image 116 ) also unchanged. On the left, there is a 4 mm average diameter ovoid nodule in the lingula (series 6, image 115) without change. Additional tiny nodules in the left lower lobe (series 6, images 119 and 121), are also unchanged. Emphysema: mild Coronary Calcification: severe Aortic Arch Calcification: moderate Potentially Significant Incidentals : none Additional Chest Findings: There is no pleural or pericardial effusion. No mediastinal or axillary lymphadenopathy is identified. There is right-sided pleural thickening. Visualized upper abdomen: The visualized portions of the liver, spleen, and adrenals have an unremarkable unenhanced appearance. There is a moderate hiatal hernia. CT/CT lung screening IMPRESSION: No suspicious pulmonary nodules are identified. LUNG-RADS ASSESSMENT: Lung-RADS 2: Benign MANAGEMENT: Continue annual screening with LDCT in 12 months Category S: N/A Electronically signed by: Michael Cristina MD 10/30/2024 11:56 AM EDT
== END 2024-10-30 09:29 | disposition home or self-care (01) ==
LOC: HO.CT 09:28
PROVIDERS: Visit Provider Physician Assistant Medical
DX: Z12.2 Encounter for screening for malignant neoplasm of respiratory organs (principal); Z87.891 Personal history of nicotine dependence
CPT/HCPCS: 71271; G0296

== ENCOUNTER → 2024-10-30 09:34 | Outpatient (BNV) | payer MEDICARE, SELFPAY | PROVIDERS: Visit Provider Radiology Diagnostic Radiology | DX: Z87.891 Personal history of nicotine dependence (principal) | CPT/HCPCS: 71271 ==

== ENCOUNTER 2024-11-25 08:02 | Outpatient (REF) | payer MEDICARE, SELFPAY ==
--- NOTE | ~2024-11-25 | XR_ITS ---
EXAMINATION: XR ABDOMEN KUB CLINICAL INDICATION: N20.0 - Calculus of kidney COMPARISON: October 21, 2024. TECHNIQUE: AP view of the abdomen. FINDINGS: Right-sided ureteral stent with pigtail formed seen in the region of the right kidney shadow and the right side of the lower pelvis. There are 15 mm, 8 mm and 4 mm desiccation's overlapping the lower aspect of the right kidney shadow. Multilevel lumbar spondylosis. Vascular complications. Abundant stool. No air-fluid levels. No intestinal obstruction pattern. XR/XR KUB IMPRESSION: Multiple renal calculi, largest 15 mm, right kidney. Right-sided ureteral stent in unchanged position. Electronically signed by: Juwan Velez MD 11/25/2024 08:24 AM EDT
== END 2024-11-25 08:03 | disposition home or self-care (01) ==
LOC: HO.XRAY 08:02
PROVIDERS: Visit Provider Urology
DX: N20.0 Calculus of kidney (principal)
CPT/HCPCS: 74018

== ENCOUNTER → 2024-11-25 08:04 | Outpatient (BNV) | payer MEDICARE, SELFPAY | PROVIDERS: Visit Provider Radiology Diagnostic Radiology | DX: N20.0 Calculus of kidney (principal) | CPT/HCPCS: 74018 ==

== ENCOUNTER 2024-11-30 12:53 | Outpatient (AMB) | payer MEDICARE, SELFPAY ==
--- NOTE | 2024-11-30 13:11 | MHC.OFFVIS ---
Intake Visit Reasons: ESWL- follow up/KUB Intake Note: Patient is present for KUB F/U Urology Medication:NONE Antibiotic Allergy:NONE Blood Thinner:NONE Bakery Demonstrator Required: No Allergies No Known Allergies Allergy (Verified 11/30/24 13:12) PFSH Medical History History of bacteremia Iron deficiency anemia Hypothyroidism Personal history of nicotine dependence H/O radioactive iodine thyroid ablation Surgical History History of cystoscopy History of esophagogastroduodenoscopy (EGD) Social History Household Members: Spouse Housing: House Are you a primary before and after school daycare worker to a significant other at home: No Do you presently have visiting nurse or other home services: No Alcohol intake: never Patient Tobacco Use Status: Former Tobacco user Tobacco use type: Cigarette Years Smoked: (onset 19yo, 1/2ppd x 55yrs, 25pyh, quit 04/2024) e-Cigarette/Vaping Use: Never Used Second Hand Smoke Exposure: Yes service: No Current occupational status: retired Cognitive needs: Yes (walker) Hearing needs: No Vision needs: Yes Results AMB Urinalysis, Automated UA Leukoctes 500 Marlyn/uL Last Edit by Day Kaufman on 11/30/24 16:31 UA Nitrite Positive Last Edit by Day Kaufman on 11/30/24 16:31 UA Urobilinogen 0.2 mg/dL Last Edit by Day Kaufman on 11/30/24 16:31 UA Protein 15 mg/dL Last Edit by Day Kaufman on 11/30/24 16:31 UA pH 6.0 Last Edit by Day Kaufman on 11/30/24 16:31 UA Blood 0 Mario/uL Last Edit by Day Kaufman on 11/30/24 16:31 UA Specific [place] 1.015 Last Edit by Day Kaufman on 11/30/24 16:31 UA Ketone Negative Last Edit by Day Kaufman on 11/30/24 16:31 UA Bilirubin 0 mg/dL Last Edit by Day Kaufman on 11/30/24 16:31 UA Glucose 0 mg/dL Last Edit by Day Kaufman on 11/30/24 16:31 Assessment & Plan Assessment & Plan Orders: Orders AMB Urinalysis Automated Today Z13.9 - Encounter for screening, unspecified Coding
== END 2024-11-30 14:43 | disposition home or self-care (01) ==
LOC: HO.HUSH 12:54
PROVIDERS: Visit Provider Urology
DX: Z13.9 Encounter for screening, unspecified (principal)

== ENCOUNTER → 2024-11-30 12:53 | Outpatient (BNVA) | payer MEDICARE, SELFPAY | PROVIDERS: Visit Provider Urology | DX: N20.0 Calculus of kidney (principal); Z96.0 Presence of urogenital implants | CPT/HCPCS: 81003; 99212 ==

== ENCOUNTER 2024-12-01 08:09 | Outpatient (REF) | payer MEDICARE, SELFPAY | END 2024-12-01 08:10 | disposition home or self-care (01) | LOC: HO.HMGCLDS 08:09 | DX: N39.0 Urinary tract infection, site not specified (principal) | CPT/HCPCS: 87086; 87088; 87186 ==

== ENCOUNTER 2024-12-29 08:39 | Day surgery (SDC) | payer MEDICARE, SELFPAY ==
--- NOTE | 2024-12-28 08:47 | HO.ANESPROP2 ---
HPI - Anesthesia Eval Consult details Narrative: 74yo F for Right Cystoscopy, Ureteroroscopy, Retro, Laser,with possible stent placement s/p ESWL 10/2024 with GA-LMA 4 PMF Active Problems Active Problems: All Active Problems Right renal stone (Acute) Osteopenia (Acute) Constipation (Acute) Personal history of nicotine dependence (Acute) Unintentional weight loss of more than 10 pounds in 90 days (Acute) Iron deficiency anemia (Acute) Right flank pain (Acute) Acute UTI (Acute) Lower extremity weakness (Acute) Weight loss (Acute) Ureteral stone with hydronephrosis (Acute) Ureteral stent present (Acute) Esophagitis (Acute) Nephrolithiasis (Acute) Lower extremity edema (Acute) Anemia (Acute) Hypothyroidism (Acute) Thrombocytopenia (Acute) Past Medical History Medical History History of bacteremia Iron deficiency anemia Hypothyroidism Personal history of nicotine dependence H/O radioactive iodine thyroid ablation Family History Family history of problems with anesthesia: No Surgical History Surgical History History of cystoscopy History of esophagogastroduodenoscopy (EGD) History of Problems with Anesthesia: No Social History Social History Household Members: Spouse Housing: House Are you a primary animal caretaker to a significant other at home: No Do you presently have visiting nurse or other home services: No Alcohol intake: never Patient Tobacco Use Status: Former Tobacco user Tobacco use type: Cigarette Years Smoked: (onset 19yo, 1/2ppd x 55yrs, 25pyh, quit 04/2024) e-Cigarette/Vaping Use: Never Used Second Hand Smoke Exposure: Yes Use of substances other than those prescribed or required for medical reasons: No Have you been hit, kicked, punched, or otherwise hurt by someone within the past year? If so, by whom?: No Are you DNR?: No Advance Directives: No Advance Directives Information Provided: Yes Patient : No Poor oral hygiene: Yes service: No Current occupational status: retired Cognitive needs: Yes (walker) Hearing needs: No Vision needs: Yes Meds Allergies Allergy/AdvReac Type Severity Reaction Status Date / Time No Known Allergies Allergy Verified 12/29/24 08:56 Home Medications ?Medication ?Instructions ?Recorded ?Confirmed ?Last Taken ?Type ascorbic acid (vitamin C) 250 mg 250 mg PO DAILY 06/03/24 12/29/24 Unknown History tablet docusate sodium 100 mg capsule 100 mg PO BID 06/03/24 12/29/24 Unknown History (Colace) Exam Pertinent Lab Results Pertinent Lab Results: Laboratory Tests 12/23/24 08:22 WBC 9.2 Hgb 10.9 L Hct 34.3 L Plt Count 453 H Sodium 137 Potassium 3.7 Chloride 95 L Carbon Dioxide 32 H BUN 22 H Creatinine 1.22 Assessment and Plan Assessment Anesthesia Assessment: Chart Reviewed Final Anesthetic Review Family History of Problems with Anesthesia: No History of Problems with Anesthesia: No
--- NOTE | ~2024-12-29 | FL_ITS ---
EXAMINATION: FL GUIDANCE ONLY HISTORY: cystoscopy removal right ureteral stent COMPARISON: Correlation is made with plain films of the abdomen dated 11/25/2024. TECHNIQUE: Fluoroscopy time: 31.3 seconds. Cumulative Dose: 6.95 mGy. Images: 4. FINDINGS: Multiple fluoroscopic spot films demonstrate replacement of the previously seen right ureteral stent over a wire. FL/FL guidance in OR IMPRESSION: Fluoroscopy during procedure. Please see procedure report for additional information. Electronically signed by: Michael Cristina MD 12/29/2024 02:02 PM EDT
[2024-12-29 09:16] VITALS: BP 140/68; PULSE 80; RESP 12; TEMP 36.7; O2SAT 98; BMI 25.3
[2024-12-29] MEDS: Lactated Ringers 1,000 ML 100 ML IVCONT (09:25)
--- NOTE | 2024-12-29 10:27 | P.OP_ITS ---
Operative Note Operative Note Date of Service: 12/29/24 Narrative: PreOperative Diagnosis:?? Right renal calculi, right proximal ureteral stone status post right ureteral stent Post Operative Diagnosis:?? Right renal calculi, right proximal ureteral stone status post right ureteral stent Procedure: - Cystoscopy, right ureteroscopy laser lithotripsy stent removal, stent insertion, 7 Haitian by 26 cm Coding: add Modifier- time >50% more time due to size and multiple calculi (see findings) Disposible Flexible Ureteroscope utililized. Findings: proximal ureteral stone estimated 12 mm, renal calculi - multiple as noted in KUB 11/25/24 (15 mm, 8 mm and 4 mm) Surgeon:?Dr Titi Caban Anesthesia:? General Indications for procedure: The patient had prior ureteral stent April 2024 for obstructive uropathy on the right due to proximal ureteral stone. She underwent right ESWL of the proximal ureteral stone with minimal fragmentation of the stone. She is being brought in for further management. Kub: 11/25/24--There are 15 mm, 8 mm and 4 mm desiccation's overlapping the lower aspect of the right kidney shadow. Procedure: After informed consent was verified the patient was brought to the operating placed on the OR table in supine position.? General Anesthesia was administered per protocol.? The patient was placed in lithotomy position, prepped and draped in the usual sterile fashion.? Safety pause time-out and side of surgery confirmed.? Antibiotics confirmed. 2% lidocaine jelly 10 mL was passed transurethrally. A 22 Haitian cystoscope was inserted transurethrally, The bladder was visualized.? Both ureteric orifices were in normal position. A guidewire was placed alongside the right ureteral stent. A grasping forceps was used to remove the right ureteral stent. The cystoscope was removed, leaving the guidewire in place which was used as the safety and was attached to the draping. The semi rigid ureteroscope was passed alongside the guidewire to the level of the proximal ureteral stone. Laser lithotripsy of the stone was done using the 365 fiber with a alternating pulsating and dusting setting. There was good fragmentation of the stone. A 2nd guidewire was passed through the ureteroscope. The semi rigid ureteroscope was removed. The flexible ureteroscope was then passed over the 2nd guidewire up into the kidney there were multiple renal calculi noted in the lower pole; 270 degree laser fiber was placed and the stones were lasered. There was a larger stone fragment that was difficult to get to due to it migrating in one of the calyxes. The majority of stone burden was lasered into smaller fragments. The flexible ureteroscope was removed; the cystoscope was replaced into the bladder. A 7 x 26 cm ureteral stent was passed over the guidewire into the kidney. The safety guidewire was removed. The patient tolerated the procedure well and was brought to the recovery room in stable condition. Complications: None Drains: Ureteral stent as dictated above
--- NOTE | 2024-12-29 10:27 | MHC.SHP ---
Pre-Procedural Eval Section A - 24 Hr Update-Section A only Date of Service: 12/29/24 The patient is an INPATIENT: No The patient has been examined within 24 hours of the surgical procedure. The History & Physical has been completed within 30 days and I have reviewed it.: Yes Section B - Complete if H&P > 30 days Chief Complaint: Calculus of kidney and ureter, right Allergies: Allergies Allergy/AdvReac Type Severity Reaction Status Date / Time No Known Allergies Allergy Verified 12/29/24 08:56 Plan Diagnosis/Plan: Unchanged I have reviewed the history and physical and performed a pertinent physical examination on my patient. No changes have occurred unless specified. Plan for Cystoscopy, right ureteral stent removal, right ureteroscopy, possible laser lithotripsy, and ureteral stent insertion. Risks discussed included but not limited to, possible need to repeat procedure if stone is not completely fragmented, Irritative voiding symptoms, bladder spasms, urgency, blood in urine. Time Spent With Patient Time: Total time managing care of this patient today ____ minutes.
[2024-12-29 13:03] VITALS: BP 158/62; PULSE 54; RESP 16; TEMP 36.2; O2SAT 100
[2024-12-29 13:08] VITALS: BP 156/67; PULSE 61; RESP 16; O2SAT 98
[2024-12-29 13:13] VITALS: BP 154/67; PULSE 57; RESP 14; O2SAT 98
[2024-12-29 13:18] VITALS: BP 164/63; PULSE 60; RESP 16; O2SAT 99
[2024-12-29 13:33] VITALS: BP 157/62; PULSE 52; RESP 16; TEMP 36.2; O2SAT 98
== END 2024-12-29 14:18 | disposition home or self-care (01) ==
PROVIDERS: Visit Provider Urology
PROC: (CPT 52356; principal; 2024-12-29 10:40)
DX: N20.0 Calculus of kidney (principal); Z96.0 Presence of urogenital implants; Z87.442 Personal history of urinary calculi; D50.9 Iron deficiency anemia, unspecified; E03.9 Hypothyroidism, unspecified; Z92.3 Personal history of irradiation; Z86.19 Personal history of other infectious and parasitic diseases; Z98.890 Other specified postprocedural states; Z87.891 Personal history of nicotine dependence
CPT/HCPCS: 52356; 87086; C1758; C1769; J0690; J0696; J1100; J2003; J2405; J2704; J3010; Q9967

== ENCOUNTER → 2024-12-29 08:39 | Outpatient (BNV) | payer MEDICARE, SELFPAY | PROVIDERS: Visit Provider Urology | DX: N20.2 Calculus of kidney with calculus of ureter (principal) | CPT/HCPCS: 52356 ==

== ENCOUNTER 2025-01-12 07:41 | Outpatient (REF) | payer MEDICARE, SELFPAY ==
--- NOTE | ~2025-01-12 | XR_ITS ---
EXAMINATION: XR ABDOMEN KUB CLINICAL INDICATION: R10.9 - Unspecified abdominal pain COMPARISON: November 25, 2024. TECHNIQUE: AP view of the abdomen. FINDINGS: Right-sided ureteral stent with pigtail formed's in the right kidney shadow and urinary bladder region. There is a faint, 10 mm calcification overlapping the midportion/lower pole junction of the right kidney shadow. No intestinal bowel obstruction pattern. Abundant stool. Multilevel spondylosis. Vascular calcifications, aorta and iliac arteries. S-shaped curvature of the thoracolumbar spine. XR/XR KUB IMPRESSION: Probable nephrolithiasis, right kidney. Stable position of right-sided ureteral stent. Electronically signed by: Juwan Velez MD 01/12/2025 08:34 AM EDT
== END 2025-01-12 07:42 | disposition home or self-care (01) ==
LOC: HO.XRAY 07:41
PROVIDERS: Visit Provider Urology
DX: R10.9 Unspecified abdominal pain (principal); Z96.0 Presence of urogenital implants; N13.2 Hydronephrosis with renal and ureteral calculous obstruction
CPT/HCPCS: 74018

== ENCOUNTER → 2025-01-12 08:19 | Outpatient (BNV) | payer MEDICARE, SELFPAY | PROVIDERS: Visit Provider Radiology Diagnostic Radiology | DX: R10.9 Unspecified abdominal pain (principal); Z96.0 Presence of urogenital implants | CPT/HCPCS: 74018 ==

== ENCOUNTER 2025-01-15 14:44 | Outpatient (AMB) | payer MEDICARE, SELFPAY ==
--- NOTE | 2025-01-15 15:25 | A.OFFVIS_ITS ---
Intake Visit Reasons: nephrolithiasis status post ureteral stent removal Intake Note: Patient is present for stent removal Urology Medication:NONE Antibiotic Allergy:NONE Blood Thinner:NONE Lot #: [id number] Exp: 07/26/27 Racing Manager Required: No Allergies No Known Allergies Allergy (Verified 01/15/25 15:59) Medication List - Last Reconciled 01/15/25 by Titi Caban MD ascorbic acid (vitamin C) 250 mg PO DAILY clotrimazole-betamethasone 1-0.05 % 1 appl topical BID 2 weeks comp.stocking,knee,long,medium As directed. 20-30 mmHG cyanocobalamin (vitamin B-12) (Vitamin B-12) 1,000 mcg PO DAILY docusate sodium (Colace) 100 mg PO BID ferrous sulfate 325 mg PO BID fluconazole 150 mg PO Q3D hydrochlorothiazide 12.5 mg (1/2 x 25 mg) PO QAM levothyroxine 75 mcg PO DAILY nitrofurantoin macrocrystal 100 mg PO BID nitrofurantoin monohyd/m-cryst 100 mg (Macrobid) 100 mg PO Q12H 7 days nitrofurantoin monohyd/m-cryst 100 mg (Macrobid) 100 mg PO BID 7 days oxycodone-acetaminophen 5-325 mg (Percocet) 1 tab PO Q6-8H PRN pantoprazole 40 mg PO DAILY peg 3350-electrolytes 236-22.74-6.74 -5.86 gram (Golytely) 240 mL PO Q10M [Quad cane As directed] solifenacin (Vesicare) 5 mg PO DAILY sulfamethoxazole-trimethoprim 800-160 mg (Bactrim DS) 1 tab PO BID 7 days HPI Comments Details: 01/15/25 History of Present Illness - The patient is a 74-year-old female presenting for cystoscopy and stent removal. - She underwent ureteroscopy on the right side on 12/29/24 and reports doing well post-procedure. - A rash was observed in the groin area during the pelvic examination. - Urinary symptoms include an odor in the urine and a positive urine test, will send urine for c/s - Bladder spasms are managed with Vesicare 5 mg. - The patient encouraged to practice timed voiding and change pads every 2-3 hours. Results - KUB film: No stones along the stent observed Discussion Notes I discussed the use of Lotrisone cream for the rash in the groin area and prescribed Macrobid for the urinary tract infection due to the odor and positive urine test, pending urine c/s. Vesicare 5 mg was prescribed for bladder spasms. The patient was advised on timed voiding and changing pads every 2-3 hours. Follow-up was discussed to monitor the resolution of symptoms and effectiveness of the treatment plan. In regards kidney stones I discussed small stone fragments may remain the right kidney that are not seen on KUB x-ray. we will get renal ultrasound in 3 months. 11/30/24--Micaela is followed for kidney stones. She is status post right ureteral stent on 04/28/2024 due to obstructive proximal ureteral stone. She has been treated for UTIs. She is status post ESWL of the right proximal ureteral stone on 10/26 24 ureteral stent was not removed at that time. She is here post follow-up KUB performed on 11/25/2024. Findings note that the proximal ureteral stone is no longer seen. The patient still has stone burden in the right kidney. Plan to remove the right ureteral stent as an outpatient. She will need further management of right nephrolithiasis versus monitoring conservatively. Results: KUB-11/25/24-- multiple right kidney stones- 15 mm, 8 mm and 4 mm overlapping the lower aspect of the right kidney shadow. 08/10/24--Micaela is a 74-year-old female who is here with her daughter. She is status post right ureteral stent on 04/28/2024 for obstructing 2.0 cm proximal ureteral stone. I have reviewed KUB which notes right kidney stone 1.6 cm, in review of the film there may still be a calcification along the stent which was not dictated. The patient previously on CT scan had right renal stones in addition to the proximal ureteral stone. Urinalysis is nitrite positive. In plans for follow-up stone management I need to re-evaluate and will get a CT stone protocol. We will empirically place on Bactrim DS b.i.d. for 10 days pending urine culture. 06/01/2024--Micaela is a 74-year-old female who evaluated as an inpatient due to right obstructive uropathy and DEB due to a 2 cm proximal ureteral stone. Micaela was initially evaluated as a urology consult while inpatient. 04/27/2024. The patient is status post right ureteral stent on 04/28/2024. Micaela is here with her daughter Claritza. I have reviewed the CT imaging. CTAP-04/27/2024-multiple right nephrolithiasis and a 2 cm obstructing proximal ureteral stone. No left renal calculi visualized. Discussed importance increasing fluid intake and low-sodium diet and low oxalate diet. Plan KUB and follow-up to discuss treatment plan ESWL versus ureteroscopy CTAP-04/27/2024-Proximal right ureteral stone measuring up to 2.0 cm at the level of the L3-L4 intervertebral disc. Jrzhjdwp-gq-hcfjkt proximal hydroureteronephrosis with adjacent perinephric stranding and hypoenhancement of the right kidney, consistent with obstructive uropathy. Multiple additional right renal pelvic stones. Findings have the appearance of a fragmented staghorn calculus. Additional right ureterovesicular junction stone measuring up to 0.9 cm with mild diffuse hydroureter and minimal adjacent stranding. No left-sided renal or ureteral stone. No left-sided hydronephrosis or hydroureter. [facility] Medical History History of bacteremia Iron deficiency anemia Hypothyroidism Personal history of nicotine dependence H/O radioactive iodine thyroid ablation Surgical History History of cystoscopy History of esophagogastroduodenoscopy (EGD) Social History Household Members: Spouse Housing: House Are you a primary reproductive healthcare assistant to a significant other at home: No Do you presently have visiting nurse or other home services: No Alcohol intake: never Patient Tobacco Use Status: Former Tobacco user Tobacco use type: Cigarette Years Smoked: (onset 19yo, 1/2ppd x 55yrs, 25pyh, quit 04/2024) e-Cigarette/Vaping Use: Never Used Second Hand Smoke Exposure: Yes service: No Current occupational status: retired Cognitive needs: Yes (walker) Hearing needs: No Vision needs: Yes Review of Systems Const All systems reviewed & are unremarkable except as noted in HPI and below Reports no additional complaints Eyes Reports no additional complaints ENT Reports no additional complaints Card Reports no additional complaints Resp Reports no additional complaints GI Reports no additional complaints Reports as per HPI Musc Reports no additional complaints Skin/Breast Reports system reviewed and no additional complaints, except as documented Neuro Reports no additional complaints Psych Reports no additional complaints Endo Reports no additional complaints Tenzin/Lymph Reports no additional complaints Aller/Immun Reports no additional complaints Office Procedures Cystoscopy Consent Discussed risk and benefit or proposed procedure with the patient. Information consent for procedure given to the patient. Discussed technical aspects, risks, benefits and alternatives in full. Addressed all of the patient's questions and concerns regarding the procedure. The patient demonstrated knowledge and understanding. They wish to proceed with this procedure. Preparation The patient was prepped in the usual manner. A sausage machine operator was present and in the room. Genitalia was prepped with betadine solution in a sterile manner. Lidocaine Jelly 2% was placed into the urethra and 16Fr flexible Olympus cystoscope was inserted into the meatus after adequate lubrication. Procedure Time out per protocol performed. Speculum used as indicated for adequate visualization of urethra, the flexible cystoscope is passed transurethrally: Cystoscopy findings: mild edema ureteral orifice which is expected, distal end of ureteral stent visualized. The grasping forceps were used and the stent was removed without difficulty. [id number] with stent removal DISPOSABLE SCOPE URO-G FLEXIBLE SCOPE Procedure code (CPT) selection complete Office Meds lidocaine HCl 2 % mucosal jelly in applicator Performing Provider: Titi Caban MD [place] [facility] Administered by: Rosario Norwood RN on 01/15/25 15:44 Dose Route Admin Location Dispensed Lot Number Expiration Date ND Aircraft Line Assembler 10 mL intra-urethral 20 mL ciprofloxacin HCl 500 mg tablet Performing Provider: Titi Caban MD [place] [facility] [place] [facility] Administered by: Rosario Norwood RN on 01/15/25 15:44 Dose Route Admin Location Dispensed Lot Number Expiration Date NDC Aircraft Line Assembler 500 mg PO 1 tab naproxen 500 mg tablet Performing Provider: Titi Caban MD [place] [facility] [place] [facility] Administered by: Rosario Norwood RN on 01/15/25 15:44 Dose Route Admin Location Dispensed Lot Number Expiration Date NDC [employer] Line Assembler 500 mg PO 1 tab phenazopyridine 200 mg tablet Performing Provider: Titi Caban MD Performing [place] [facility] [place] [facility] Administered by: Rosario Norwood RN on 01/15/25 15:44 Dose Route Admin Location Dispensed Lot Number Expiration Date NDC [employer] Line Assembler 200 mg PO 1 tab Results Reviewed Results Reviewed: Date of Service: 11/25/24 XR ABDOMEN KUB CLINICAL INDICATION: N20.0 - Calculus of kidney COMPARISON: October 21, 2024. TECHNIQUE: AP view of the abdomen. FINDINGS: Right-sided ureteral stent with pigtail formed seen in the region of the right kidney shadow and the right side of the lower pelvis. There are 15 mm, 8 mm and 4 mm desiccation's overlapping the lower aspect of the right kidney shadow. Multilevel lumbar spondylosis. Vascular complications. Abundant stool. No air-fluid levels. No intestinal obstruction pattern. IMPRESSION: Multiple renal calculi, largest 15 mm, right kidney. Right-sided ureteral stent in unchanged position. KUB--05/2024-1.6 cm right renal stone. Right ureteral stent present. Date of Service: 04/27/24 CT ABDOMEN AND PELVIS WITH CONTRAST CLINICAL INFORMATION: Jaundice. COMPARISON: None available. TECHNIQUE: Multidetector volumetric images were obtained from the superior aspect of the liver through the pubic symphysis following administration 85 mL of Omnipaque 350 intravenous contrast. Sagittal and coronal reformatted images were obtained on the technologist's workstation. Oral contrast: No. This CT examination was performed using dose optimization techniques as appropriate, variously including the following: *Automated exposure control *Adjustment of mA and/or kV according to patient size (this includes techniques or standardized protocols for targeted exams where dose is matched to indication/reason for exam; i.e. extremities or head) *Use of iterative reconstruction technique DLP: 978 mGy-cm FINDINGS: LUNG BASES: The visualized lung bases are unremarkable. LIVER, GALLBLADDER, AND BILIARY TREE: The liver is normal in size, shape, and attenuation. No focal hepatic lesion or biliary ductal dilatation is present. Distended gallbladder without significant wall thickening or inflammatory change. There are calcified gallstones dependently. No evidence of acute cholecystitis. PANCREAS: Small pancreatic body calcifications which could represent sequela of chronic pancreatitis or be vascular in nature. No inflammatory change or pancreatic ductal dilatation. No discrete parenchymal lesion. SPLEEN: Unremarkable. ADRENAL GLANDS: Bilateral adrenal thickening and heterogeneity without a discrete nodule. KIDNEYS AND URETERS: Proximal right ureteral stone measuring up to 2.0 x 0.8 x 1.4 cm and approximately 810 Hounsfield units. This is located at the level of the L3-L4 intervertebral disc. There is indazfqh-ig-pexkrf proximal hydroureter nephrosis with adjacent perinephric stranding and hypoenhancement of the right kidney, consistent with obstructive uropathy. There are multiple additional right renal pelvic stones. Findings have the appearance of a fragmented staghorn calculus. There is an additional right ureterovesicular junction stone measuring up to 0.9 cm with mild diffuse hydroureter and minimal adjacent stranding. No left-sided renal or ureteral stone. No discrete parenchymal lesion or enhancing parenchymal lesion. BLADDER: Nondistended. Mild wall thickening with peripheral enhancement which may be related to underdistention or represent a mild infectious or inflammatory process. GASTROINTESTINAL TRACT: Moderate sliding hiatal hernia with circumferential wall thickening of the distal esophagus. An underlying distal esophageal lesion cannot be excluded and direct visualization could help further evaluate if clinically indicated. No small or large bowel obstruction. Colonic diverticulosis without evidence of acute diverticulitis. Unremarkable appendix. PERITONEAL CAVITY: Trace pelvic free fluid. No organized fluid collection. No soft tissue mass. ABDOMINAL WALL: No significant hernia is appreciated. LYMPH NODES: No significant lymphadenopathy. VASCULAR: No abdominal aortic dilatation or dissection. Prominent atherosclerotic calcifications. PELVIC VISCERA: Probable calcified fibroid. OSSEOUS STRUCTURES: Unremarkable. IMPRESSION: 1. Proximal right ureteral stone measuring up to 2.0 cm at the level of the L3-L4 intervertebral disc. Urynjzeg-oq-iyjwvt proximal hydroureteronephrosis with adjacent perinephric stranding and hypoenhancement of the right kidney, consistent with obstructive uropathy. Multiple additional right renal pelvic stones. Findings have the appearance of a fragmented staghorn calculus. Additional right ureterovesicular junction stone measuring up to 0.9 cm with mild diffuse hydroureter and minimal adjacent stranding. 2. No left-sided renal or ureteral stone. No left-sided hydronephrosis or hydroureter. 3. Moderate sliding hiatal hernia with circumferential wall thickening of the distal esophagus. An underlying distal esophageal lesion cannot be excluded and direct visualization could help further evaluate 4. Colonic diverticulosis without evidence of acute diverticulitis. Unremarkable appendix. 5. Trace pelvic free fluid. No organized fluid collection or soft tissue mass. 6. Dilatation of the gallbladder with cholelithiasis. No evidence of acute cholecystitis. No intra or extrahepatic biliary ductal dilatation. Assessment & Plan Assessment & Plan (1) Ureteral stent present: Code(s): Z96.0 - Presence of urogenital implants Category: Medical (2) Nephrolithiasis: Code(s): N20.0 - Calculus of kidney Category: Medical (3) Right renal stone: Code(s): N20.0 - Calculus of kidney Category: Medical (4) Ureteral stone: Code(s): N20.1 - Calculus of ureter Category: Medical (5) History of kidney stones: Code(s): Z87.442 - Personal history of urinary calculi Category: Medical (6) Calcium nephrolithiasis: Code(s): N20.0 - Calculus of kidney Category: Medical Plan Plan - Prescribe Lotrisone cream for the rash in the groin area. - Prescribe Macrobid for the urinary tract infection due to the odor and positive urine test. - Prescribe Vesicare 5 mg for bladder spasms. - Advise the patient on timed voiding and changing pads every 2-3 hours. - check renal ultrasound Orders: Orders AMB Cystoscopy 01/15/25 N13.2 - Hydronephrosis with renal and ureteral calculous obstruction Urine Culture 01/15/25 N39.0 - Urinary tract infection, site not specified US renal BI 3 Months N20.0 - Calculus of kidney, Z87.442 - Personal history of urinary calculi Medications: New nitrofurantoin macrocrystal 100 mg PO BID 14 caps 0RF solifenacin (Vesicare) 5 mg PO DAILY 30 tabs 3RF bladder spasms fluconazole take first dose now, take repeat dose after completion of nitrofurantion 150 mg PO Q3D 2 tabs 0RF clotrimazole-betamethasone 1-0.05 % apply to groin affected area twice day and prn 1 appl topical BID 45 grams 1RF 2 weeks Patient Instructions: The patient had an opportunity to ask questions regarding treatment plan. The patient expressed understanding and agreement with the above treatment plan. The patient is aware they should contact our office by phone for worsening of their current condition or the appearance of new symptoms. Compliance is encouraged with any medications and followup testing that is ordered. It is a privilege to be allowed the opportunity to participate in the urologic care of your patient. If you have any questions or concerns regarding treatment for the above conditions please do not hesitate to contact me. The office telephone contact is [phone]. This note is constructed in part using voice recognition software. While every effort has been made to ensure accuracy firer helper errors may have been included. Yours sincerely, Titi Caban MD Scribe Plan - Not visible on output: Patient was informed and verbally consented to the use of an ambient scribe for clinic note documentation during this visit. Coding Level of Care Code Est Pt Level 4 (08484) Diagnoses Ureteral stent present Z96.0 Nephrolithiasis N20.0 Right renal stone N20.0 Ureteral stone N20.1 History of kidney stones Z87.442 Calcium nephrolithiasis N20.0 CPT Codes Cystoscopy - CPT: 32173-[id number] with stent removal ([id number])
== END 2025-01-15 16:25 | disposition home or self-care (01) ==
LOC: HO.HUSH 14:45
PROVIDERS: Visit Provider Urology
DX: N13.2 Hydronephrosis with renal and ureteral calculous obstruction (principal)
CPT/HCPCS: 52310; 99024

== ENCOUNTER 2025-01-15 14:44 | Outpatient (REF) | payer MEDICARE, SELFPAY | END 2025-01-15 14:45 | disposition home or self-care (01) | LOC: HO.LAB 14:44 | PROVIDERS: Visit Provider Urology | DX: N39.0 Urinary tract infection, site not specified (principal); N20.0 Calculus of kidney; N20.1 Calculus of ureter; Z87.442 Personal history of urinary calculi; Z96.0 Presence of urogenital implants | CPT/HCPCS: 52310; 87086; 99212 ==

== ENCOUNTER 2025-02-05 08:06 | Outpatient (AMB) | payer MEDICARE, SELFPAY ==
--- NOTE | 2025-02-05 08:23 | A.OFFPC_ITS ---
Vital Signs 02/05/25 08:25 02/05/25 09:12 Height 5 ft 5 in Weight 149 lb 6 oz BMI 24.9 BP 142/60 H 160/82 H Blood Pressure Location Lt brachial Lt brachial Position Sitting Sitting Pulse 66 Pulse Source Pulse Oximeter Temp 96.9 F Temp Source Temporal Artery Scan Pulse Oximetry (%) 97 Oxygen Delivery Method Room Air Intake Visit Reasons: 4 mo follow up Intake Note: Patient is here to follow up on Hypothyroidism. Radiation Oncology Manager Required: No Sheet Hanger: Present Accompanied by: Daughter Allergies No Known Allergies Allergy (Verified 02/05/25 09:20) Medication List - Last Reconciled 02/05/25 by Lizet Abrams PA-C ascorbic acid (vitamin C) 250 mg PO DAILY clotrimazole-betamethasone 1-0.05 % 1 appl topical BID 2 weeks comp.stocking,knee,long,medium As directed. 20-30 mmHG cyanocobalamin (vitamin B-12) (Vitamin B-12) 1,000 mcg PO DAILY docusate sodium (Colace) 100 mg PO BID ferrous sulfate 325 mg PO BID hydrochlorothiazide 12.5 mg (1/2 x 25 mg) PO QAM levothyroxine 75 mcg PO DAILY pantoprazole 40 mg PO DAILY peg 3350-electrolytes 236-22.74-6.74 -5.86 gram (Golytely) 240 mL PO Q10M [Quad cane As directed] solifenacin (Vesicare) 5 mg PO DAILY Tobacco use date assessed: 02/05/25 Fall risk assessment: No Falls in past year Last assessed Fall Risk: 02/05/25 Dental Screening Dental Screen Date: 10/06/24 HPI 4 mo follow up HPI Details 74-year-old female with past medical his tory of hypothyroidism, thrombocytopenia, anemia last seen 09/2024 coming in for follow up.? In review of the notes, patient was seen by Urology 12/2024 given Macrobid for positive urine test, VESIcare for bladder spasms and Lotrisone cream for the rash in the groin area ordered for ultrasound and follow up after completion.? She was seen by Hematology 12/2024 for iron-deficiency anemia.?She also completed lung cancer screening 10/2024 repeat in 12 months. Presenting with follow-up on recurrent urinary tract infections, anemia management, and evaluation of unintentional weight loss. The patient has experienced multiple urinary tract infections due to a stent placement, which was recently removed following laser treatment. The patient has been diagnosed with anemia related to chronic illness, characterized by high ferritin levels and low iron levels, leading to the cessation of iron supplementation and initia tion of B12 therapy. The patient's blood pressure was recorded at 166/82 mmHg during the visit, with a history of fluctuating readings. The patient has lost 11 pounds over the past few months, with a current weight of 149 pounds. She reports variable appetite and dietary intake. [facility] Medical History History of bacteremia Iron deficiency anemia Hypothyroidism Personal history of nicotine dependence H/O radioactive iodine thyroid ablation Surgical History History of cystoscopy History of esophagogastroduodenoscopy (EGD) Social History Household Members: Spouse Housing: House Are you a primary healthcare financial analyst to a significant other at home: No Do you presently have visiting nurse or other home services: No Alcohol intake: never Patient Tobacco Use Status: Former Tobacco user Tobacco use type: Cigarette Years Smoked: (onset 19yo, 1/2ppd x 55yrs, 25pyh, quit 04/2024) e-Cigarette/Vaping Use: Never Used Second Hand Smoke Exposure: Yes service: No Current occupational status: retired Cognitive needs: Yes (walker) Hearing needs: No Vision needs: Yes Questionnaire PHQ-9 Over the last 2 weeks, how often have you been bothered by any of the following problems? 1. Little interest or pleasure in doing things: not at all 2. Feeling down, depressed, or hopeless: several days 3. Trouble falling or staying asleep, or sleeping too much: not at all 4. Feeling tired or having little energy: several days 5. Poor appetite or overeating: not at all 6. Feeling bad about yourself - or that you are a failure or have let yourself or your family down: not at all 7. Trouble concentrating on things, such as reading the newspaper or watching television: not at all 8. Moving or speaking so slowly that other people could have noticed. Or the opposite - being so fidgety or restless that you have been moving around a lot more than usual: not at all 9. Thoughts that you would be better off or of hurting yourself in some way: not at all Total score: 2 Depression Screening Interpretation: Negative Depression Screening Done: Yes Source: Developed by Drs. Michael Manriquez, Yumiko Burroughs, Austin Motley and colleagues, with an educational andrés from [employer]. Thrive Questionnaire Date Thrive assessed: 01/29/25 I am a: Patient What is your living situation today?: I have a steady place to live Within the past 12 months, did the food you bought not last and you didn't have the money to get more?: Never true Within the past 12 months, did you worry whether your food would run out before you got money to buy more?: Never true Do you have trouble paying for medicines?: No Do you have trouble getting transportation to medical appointments?: No Do you have trouble paying your heating and electricity bill?: No Do you have trouble taking care of your child, family member or friend?: No Do you have trouble with day-to-day activities such as bathing, preparing meals, shopping, managing finances, etc.?: No Are you currently unemployed and looking for a job?: No Are you interested in more education?: No Please select the resources that you would like help with: None Currently or been in a relationship where the following occur: I choose not to answer THRIVE Score: 0 AUDIT C Alcohol Use Questionnaire (AUDIT-C) 1. How often do you have a drink containing alcohol?: Never 2. How many drinks containing alcohol do you have on a typical day when you are drinking?: 1 or 2 Total Score: 0 TIMOTHY-7 AMB Questionnaire TIMOTHY-7 Date TIMOTHY - 7 assessed: 10/06/24 Feeling nervous, anxious, or on edge: 1 = Several days Not being able to stop or control worryin = Not at all Worrying too much about different things: 0 = Not at all Trouble relaxin = Not at all Being so restless that it is hard to sit still: 0 = Not at all Becoming easily annoyed or irritable: 0 = Not at all Feeling afraid as if something awful might happen: 0 = Not at all Total TIMOTHY-7 score (0-4 normal; 5-9 mild; 10-14 moderate; 15-21 severe): 1 Source: Developed by Drs. Michael Manriquez, Yumiko Burroughs, Austin Motley and colleagues, with an educational andrés from [employer]. Review of Systems Const Denies body aches, Denies chills, Denies fever(s), Denies headache(s) and Denies poor appetite Eyes Reports no additional complaints ENT Denies dysphagia, Denies dizziness, Denies headache(s) and Denies odynophagia Card Denies chest pain, Denies edema, Denies lightheadedness and Denies dyspnea Resp Denies cough and Denies dyspnea GI Denies abdominal pain, Denies constipation, Denies dysphagia, Denies diarrhea, Denies nausea, Denies odynophagia and Denies vomiting Reports no additional complaints Musc Reports no additional complaints and Denies abnormal gait Skin/Breast Reports system reviewed and no additional complaints, except as documented Neuro Denies abnormal gait, Denies dizziness and Denies headache(s) Psych Reports no additional complaints Physical exam (Primary Care) Vital Signs: Last Vital Signs Temp 96.9 F 02/05/25 08:25 Pulse 66 02/05/25 08:25 BP 142/60 H 02/05/25 08:25 Pulse Ox 97 02/05/25 08:25 Oxygen Delivery Method Room Air 02/05/25 08:25 BMI result Body Mass Index 24.9 Tobacco/Smoking Status: Tobacco use Status Tobacco use date assessed 02/05/25 02/05/25 08:33 Patient Tobacco Use Status Former Tobacco user 02/05/25 08:33 Tobacco use type Cigarette 02/05/25 08:33 e-Cigarette/Vaping Use Never Used 02/05/25 08:33 PHQ-9: PHQ-9 Score PHQ-9: Total score 2 02/05/25 08:33 Depression Screening Interpretation: Negative Thrive Assessment: Date of Thrive Assessment Date Thrive assessed 01/29/25 02/05/25 08:33 Currently or been in a relationship where the following occur: I choose not to answer Const General: cooperative, healthy appearing, comfortable and no acute distress Orientation/consciousness: patient oriented x3 HENMT Head: Yes normocephalic Ears: hearing grossly normal bilaterally General nose exam: Normal external nose present Eyes General: appearance normal, both eyes and all related structures Conjunctivae: conjunctivae normal Neck Neck: Yes full ROM and Yes no lymphadenopathy Resp Effort & Inspection: normal respiratory effort Auscultation: clear to auscultation bilaterally, no crackles, no rales, no rhonchi and no wheezes Cardio Rate: regular rate Rhythm: regular rhythm Skin General skin exam: no rashes or lesions noted Neuro General: patient oriented x3 Gait exam (Neuro): Normal gait present Extrem General: Yes normal to inspection, Yes full ROM and No edema Psych Affect: normal affect Attitude: cooperative Insight: Good insight present (Psych) Judgement: Good judgement present (Psych) Coding Level of Care Code Est Pt Level 3 (85718) Diagnoses Personal history of nicotine dependence Z87.891 Iron deficiency anemia D50.9 Ureteral stone with hydronephrosis N13.2 Constipation K59.00 Unintentional weight loss of more than 10 pounds in 90 days R63.4 Hypertension I10 Depression F32.A Assessment & Plan Assessment & Plan (1) Personal history of nicotine dependence: Comment: (onset 19yo, 1/2ppd x 55yrs, 25pyh, quit 04/2024) Code(s): Z87.891 - Personal history of nicotine dependence Category: Medical Plan: Patient is scheduled to have lung cancer screening completed with pulmonology follow up in 1 year. Continue to avoid the use of cigarettes. (2) Iron deficiency anemia: Code(s): D50.9 - Iron deficiency anemia, unspecified Category: Medical Plan: Recently discontinued off of iron supplement and started on B12 supplement by Hematology. Continue to follow with Hematology. (3) Ureteral stone with hydronephrosis: Code(s): N13.2 - Hydronephrosis with renal and ureteral calculous obstruction Category: Medical Plan: Continue to follow with the Urology recently had stent removal. She was placed on antibiotics at that time for urinary tract infection. She is also given VESIcare for bladder spasms. Repeat ultrasound was ordered and she will follow up with Urology later this year. (4) Constipation: Code(s): K59.00 - Constipation, unspecified Category: Medical Plan: Focus on increased fiber and hydration to manage constipation effectively. (5) Unintentional weight loss of more than 10 pounds in 90 days: Comment: (15 lb wt loss - 173 on 07/07/24 to 158 on 08/19/24) Code(s): R63.4 - Abnormal weight loss Category: Medical Plan: Patient continues to have unintentional weight loss recently from 160 lb to 149 lb today. Patient's BMI is still at a healthy BMI however given the weight loss we need do ensure proper protein intake. Patient states she does not have a good diet and typically skips meals and does have a poor appetite most days. She also endorses depression which could be contributing to her weight loss as declining medication at this time. Recent CAT scan of the chest was negative and has negative endoscopy from 04/2024. Plan to obtain repeat thyroid levels. Given weight loss and poor protein intake recommend boost supplements 3 times a day along with a meal which prescription has been sent. (6) Hypertension: Code(s): I10 - Essential (primary) hypertension Category: Medical Plan: Continue on current blood pressure medication. Avoid salt intake and encourage healthy diet and regular exercise. Blood pressure elevated today 160/82 patient has not yet taken her hydrochlorothiazide as she typically takes them mid morning. I advised patient to obtain a blood pressure cuff and take blood pressure 3 to 4 times per week and follow up at next visit. If blood pressures exceed 140/90 to reach out to the office so medication can be adjusted. She declined a nurse visit at this time for blood pressure check and agrees to follow up with the plan outlined above. (7) Depression: Code(s): F32.A - Depression, unspecified Category: Medical Plan: Declining counseling or medical management at this time. Plan The patient will continue to follow up with urology for management of recurrent urinary tract infections, with a follow-up appointment scheduled in March and an ultrasound planned a week prior to the visit. Management of anemia will involve discontinuation of iron supplementation due to high ferritin levels and initiation of therapy, with continued monitoring by hematology. For anxiety and depression, the patient has declined counseling and medication at this time, but will monitor symptoms and consider these options if symptoms worsen. Blood pressure management will include home monitoring with a blood pressure cuff, and adjustments to medication will be considered based on home readings. Nutritional support will focus on increasing protein intake through dietary changes and possibly using nutritional supplements like Ensure or Boost, with the aim of stabilizing weight. This note was constructed using voice recognition software. While every effort has been made to ensure accuracy and water/wastewater project engineer, still areas may have been included sometimes these areas may affect the content or meeting of the given symptoms. Total time spent caring for the patient today was 30 minutes. This includes time spent before the visit reviewing the chart, time spent during the visit, and time spent after the visit and documentation. Patient was informed and verbally consented to the use of an ambient scribe for clinic note documentation during this visit. Orders: Orders TSH reflex Free T4 Today E03.9 - Hypothyroidism, unspecified, Z00.00 - Encounter for general adult medical examination without abnormal findings Free T4 (Free Thyroxine) Today E03.9 - Hypothyroidism, unspecified, Z00.00 - Encounter for general adult medical examination without abnormal findings Medications: New food supplemt, lactose-reduced (Boost High Protein) 1 ea PO TID 2,844 mL 4RF R63.4 - Abnormal weight loss
[2025-02-05 08:25] VITALS: BP 142/60; PULSE 66; TEMP 36.1; O2SAT 97; BMI 24.9
[2025-02-05 09:12] VITALS: BP 160/82
== END 2025-02-05 09:42 | disposition home or self-care (01) ==
LOC: HO.HMCH 08:07
DX: Z87.891 Personal history of nicotine dependence (principal); D50.9 Iron deficiency anemia, unspecified; N13.2 Hydronephrosis with renal and ureteral calculous obstruction; K59.00 Constipation, unspecified; R63.4 Abnormal weight loss; I10 Essential (primary) hypertension; F32.A Depression, unspecified

== ENCOUNTER → 2025-02-05 08:06 | Outpatient (BNVA) | payer MEDICARE, SELFPAY | DX: D50.9 Iron deficiency anemia, unspecified (principal); N13.2 Hydronephrosis with renal and ureteral calculous obstruction; K59.00 Constipation, unspecified; R63.4 Abnormal weight loss; I10 Essential (primary) hypertension; F32.A Depression, unspecified; Z87.891 Personal history of nicotine dependence; Z13.31 Encounter for screening for depression | CPT/HCPCS: 96127; 99212 ==

== ENCOUNTER 2025-02-16 10:31 | Outpatient (REF) | payer MEDICARE, SELFPAY ==
[2025-02-16 13:55] LABS: Free T4 (Free Thyroxine) 1.32 ng/dL (0.71-1.85)
== END 2025-02-16 10:32 | disposition home or self-care (01) ==
LOC: HO.HMGCLDS 10:31
DX: Z00.00 Encounter for general adult medical examination without abnormal findings (principal); E03.9 Hypothyroidism, unspecified
CPT/HCPCS: 36415; 84439; 84443

== ENCOUNTER 2025-03-29 08:42 | Outpatient (REF) | payer MEDICARE, SELFPAY ==
--- NOTE | ~2025-03-29 | US_ITS ---
EXAMINATION: US KIDNEY BILATERAL HISTORY: Z87.442 - Personal history of urinary calculi TECHNIQUE: Real-time grayscale ultrasound imaging of the kidneys was performed and images were reviewed. COMPARISON: Correlation is made with an unenhanced CT of the abdomen and pelvis dated 09/03/2024. FINDINGS: Right kidney: The right kidney measures 11.3 x 4.8 x 4.6 cm. Renal parenchymal echotexture and thickness are normal. There are no masses. There is a 1.6 x 0.8 x 1.3 cm calculus in the region of the UPJ. There is a 3 x 3 x 5 mm calculus in the interpolar region. There are calculi at the lower pole measuring 8 x 3 x 8 mm and 7 x 4 x 5 mm. There is mild hydronephrosis. Left Kidney: The left kidney measures 10.1 x 4.4 x 5.2 cm. Renal parenchymal echotexture and thickness are normal. There are no masses. There is a nonobstructing calculus at the lower pole measuring 3 mm. US/US renal BI IMPRESSION: Bilateral nephrolithiasis as described. Mild right hydronephrosis. Electronically signed by: Michael Cristina MD 03/29/2025 09:31 AM EDT
== END 2025-03-29 08:43 | disposition home or self-care (01) ==
LOC: HO.HMGCX 08:42
PROVIDERS: Visit Provider Urology
DX: N20.0 Calculus of kidney (principal); Z87.442 Personal history of urinary calculi
CPT/HCPCS: 76775

== ENCOUNTER → 2025-03-29 08:46 | Outpatient (BNV) | payer MEDICARE, SELFPAY | PROVIDERS: Visit Provider Radiology Diagnostic Radiology | DX: N20.0 Calculus of kidney (principal) | CPT/HCPCS: 76775 ==

== ENCOUNTER 2025-04-05 07:41 | Outpatient (AMB) | payer MEDICARE, SELFPAY ==
--- NOTE | 2025-04-05 07:54 | A.OFFVIS_ITS ---
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 20-30 mmHG cyanocobalamin (vitamin B-12) (Vitamin B-12) 1,000 mcg PO DAILY docusate sodium (Colace) 100 mg PO BID ferrous sulfate 325 mg PO BID food supplemt, lactose-reduced (Boost High Protein) 1 ea PO TID hydrochlorothiazide 25 mg PO QAM levothyroxine 75 mcg PO DAILY nitrofurantoin monohyd/m-cryst 100 mg (Macrobid) 100 mg PO BID 7 days pantoprazole 40 mg PO DAILY peg 3350-electrolytes 236-22.74-6.74 -5.86 gram (Golytely) 240 mL PO Q10M peg 3350-electrolytes 236-22.74-6.74 -5.86 gram 240 mL PO Q10M [Quad cane As directed] solifenacin (Vesicare) 5 mg PO DAILY HPI Comments Details: 04/05/25-- History of Present Illness The patient is a 75-year-old female presenting with nephrolithiasis and urinary tract infection. She is prescribed VESIcare for overactive bladder symptoms. The patient has a history of nephrolithiasis, with a recent renal ultrasound showing a 3 mm stone in the left kidney and multiple stones in the right kidney, the largest being 1.6 cm. Previously, a stent was removed, and a rash that was noted on the perineum and groin, has since resolved with the application of Lotrisone cream. The patient has undergone various interventions, including shock wave lithotripsy and lithotripsy, The patient is advised to maintain high fluid intake to manage the condition. Currently, the patient is asymptomatic for pain on the right side. A urinary tract infection is suspected based on urine analysis, and antibiotics have been prescribed. Discussed further evaluation with 24 hour urine and we will need continued stone management due to stone burden and right kidney. Results - Renal ultrasound-03/29/25--: 3 mm stone in left kidney, multiple stones in right kidney, largest 1.6 cm Plan 1. Nephrolithiasis - Continue monitoring -24 hr urine - Encourage high fluid intake to prevent further stone formation. - Consider repeating external lithotripsy if stones remain problematic. 2. Urinary Tract Infection - Initiate antibiotic therapy based on urine culture results. - Send urine for culture to confirm infection and guide treatment. 01/15/25 - The patient is a 74-year-old female presenting for cystoscopy and stent removal. - She underwent ureteroscopy on the right side on 12/29/24 and reports doing well post-procedure. - A rash was observed in the groin area during the pelvic examination. - Urinary symptoms include an odor in the urine and a positive urine test, will send urine for c/s - Bladder spasms are managed with Vesicare 5 mg. - The patient encouraged to practice timed voiding and change pads every 2-3 hours. Results - KUB film: No stones along the stent observed Discussion Notes I discussed the use of Lotrisone cream for the rash in the groin area and prescribed Macrobid for the urinary tract infection due to the odor and positive urine test, pending urine c/s. Vesicare 5 mg was prescribed for bladder spasms. The patient was advised on timed voiding and changing pads every 2-3 hours. Follow-up was discussed to monitor the resolution of symptoms and effectiveness of the treatment plan. In regards kidney stones I discussed small stone fragments may remain the right kidney that are not seen on KUB x-ray. we will get renal ultrasound in 3 months. 11/30/24--Micaela is followed for kidney stones. She is status post right ureteral stent on 04/28/2024 due to obstructive proximal ureteral stone. She has been treated for UTIs. She is status post ESWL of the right proximal ureteral stone on 10/26 24 ureteral stent was not removed at that time. She is here post follow-up KUB performed on 11/25/2024. Findings note that the proximal ureteral stone is no longer seen. The patient still has stone burden in the right kidney. Plan to remove the right ureteral stent as an outpatient. She will need further management of right nephrolithiasis versus monitoring conservatively. Results: KUB-11/25/24-- multiple right kidney stones- 15 mm, 8 mm and 4 mm overlapping the lower aspect of the right kidney shadow. 08/10/24--Micaela is a 74-year-old female who is here with her daughter. She is status post right ureteral stent on 04/28/2024 for obstructing 2.0 cm proximal ureteral stone. I have reviewed KUB which notes right kidney stone 1.6 cm, in review of the film there may still be a calcification along the stent which was not dictated. The patient previously on CT scan had right renal stones in addition to the proximal ureteral stone. Urinalysis is nitrite positive. In plans for follow-up stone management I need to re-evaluate and will get a CT stone protocol. We will empirically place on Bactrim DS b.i.d. for 10 days pending urine culture. 06/01/2024--Micaela is a 74-year-old female who evaluated as an inpatient due to right obstructive uropathy and DEB due to a 2 cm proximal ureteral stone. Micaela was initially evaluated as a urology consult while inpatient. 04/27/2024. The patient is status post right ureteral stent on 04/28/2024. Micaela is here with her daughter Claritza. I have reviewed the CT imaging. CTAP-04/27/2024-multiple right nephrolithiasis and a 2 cm obstructing proximal ureteral stone. No left renal calculi visualized. Discussed importance increas ing fluid intake and low-sodium diet and low oxalate diet. Plan KUB and follow- up to discuss treatment plan ESWL versus ureteroscopy CTAP-04/27/2024-Proximal right ureteral stone measuring up to 2.0 cm at the level of the L3-L4 intervertebral disc. Jzpfhjej-bn-qrfijq proximal hydroureteronephrosis with adjacent perinephric stranding and hypoenhancement of the right kidney, consistent with obstructive uropathy. Multiple additional right renal pelvic stones. Findings have the appearance of a fragmented staghorn calculus. Additional right ureterovesicular junction stone measuring up to 0.9 cm with mild diffuse hydroureter and minimal adjacent stranding. No left-sided renal or ureteral stone. No left-sided hydronephrosis or hydroureter. [facility] Medical History History of bacteremia Iron deficiency anemia Hypothyroidism Personal history of nicotine dependence H/O radioactive iodine thyroid ablation Surgical History History of cystoscopy History of esophagogastroduodenoscopy (EGD) Social History Household Members: Spouse Housing: House Are you a primary animal care service worker to a significant other at home: No Do you presently have visiting nurse or other home services: No Alcohol intake: never Patient Tobacco Use Status: Former Tobacco user Tobacco use type: Cigarette Years Smoked: (onset 19yo, 1/2ppd x 55yrs, 25pyh, quit 04/2024) e-Cigarette/Vaping Use: Never Used Second Hand Smoke Exposure: Yes service: No Current occupational status: retired Cognitive needs: Yes (walker) Hearing needs: No Vision needs: Yes Review of Systems Const All systems reviewed & are unremarkable except as noted in HPI and below Reports no additional complaints Eyes Reports no additional complaints ENT Reports no additional complaints Card Reports no additional complaints Resp Reports no additional complaints GI Reports no additional complaints Reports as per HPI Musc Reports no additional complaints Skin/Breast Reports system reviewed and no additional complaints, except as documented Neuro Reports no additional complaints Psych Reports no additional complaints Endo Reports no additional complaints Tenzin/Lymph Reports no additional complaints Aller/Immun Reports no additional complaints Results Reviewed Results Reviewed: Date of Service: 03/29/25 HISTORY: Z87.442 - Personal history of urinary calculi TECHNIQUE: Real-time grayscale ultrasound imaging of the kidneys was performed and images were reviewed. COMPARISON: Correlation is made with an unenhanced CT of the abdomen and pelvis dated 09/03/2024. FINDINGS: Right kidney: The right kidney measures 11.3 x 4.8 x 4.6 cm. Renal parenchymal echotexture and thickness are normal. There are no masses. There is a 1.6 x 0.8 x 1.3 cm calculus in the region of the UPJ. There is a 3 x 3 x 5 mm calculus in the interpolar region. There are calculi at the lower pole measuring 8 x 3 x 8 mm and 7 x 4 x 5 mm. There is mild hydronephrosis. Left Kidney: The left kidney measures 10.1 x 4.4 x 5.2 cm. Renal parenchymal echotexture and thickness are normal. There are no masses. There is a nonobstructing calculus at the lower pole measuring 3 mm. IMPRESSION: Bilateral nephrolithiasis as described. Mild right hydronephrosis. Date of Service: 11/25/24 XR ABDOMEN KUB CLINICAL INDICATION: N20.0 - Calculus of kidney COMPARISON: October 21, 2024. TECHNIQUE: AP view of the abdomen. FINDINGS: Right-sided ureteral stent with pigtail formed seen in the region of the right kidney shadow and the right side of the lower pelvis. There are 15 mm, 8 mm and 4 mm desiccation's overlapping the lower aspect of the right kidney shadow. Multilevel lumbar spondylosis. Vascular complications. Abundant stool. No air-fluid levels. No intestinal obstruction pattern. IMPRESSION: Multiple renal calculi, largest 15 mm, right kidney. Right-sided ureteral stent in unchanged position. KUB--05/2024-1.6 cm right renal stone. Right ureteral stent present. Date of Service: 04/27/24 CT ABDOMEN AND PELVIS WITH CONTRAST CLINICAL INFORMATION: Jaundice. COMPARISON: None available. TECHNIQUE: Multidetector volumetric images were obtained from the superior aspect of the liver through the pubic symphysis following administration 85 mL of Omnipaque 350 intravenous contrast. Sagittal and coronal reformatted images were obtained on the technologist's workstation. Oral contrast: No. This CT examination was performed using dose optimization techniques as appropriate, variously including the following: *Automated exposure control *Adjustment of mA and/or kV according to patient size (this includes techniques or standardized protocols for targeted exams where dose is matched to indication/reason for exam; i.e. extremities or head) *Use of iterative reconstruction technique DLP: 978 mGy-cm FINDINGS: LUNG BASES: The visualized lung bases are unremarkable. LIVER, GALLBLADDER, AND BILIARY TREE: The liver is normal in size, shape, and attenuation. No focal hepatic lesion or biliary ductal dilatation is present. Distended gallbladder without significant wall thickening or inflammatory change. There are calcified gallstones dependently. No evidence of acute cholecystitis. PANCREAS: Small pancreatic body calcifications which could represent sequela of chronic pancreatitis or be vascular in nature. No inflammatory change or pancreatic ductal dilatation. No discrete parenchymal lesion. SPLEEN: Unremarkable. ADRENAL GLANDS: Bilateral adrenal thickening and heterogeneity without a discrete nodule. KIDNEYS AND URETERS: Proximal right ureteral stone measuring up to 2.0 x 0.8 x 1.4 cm and approximately 810 Hounsfield units. This is located at the level of the L3-L4 intervertebral disc. There is woejphkx-ij-pdrdhu proximal hydroureter nephrosis with adjacent perinephric stranding and hypoenhancement of the right kidney, consistent with obstructive uropathy. There are multiple additional right renal pelvic stones. Findings have the appearance of a fragmented staghorn calculus. There is an additional right ureterovesicular junction stone measuring up to 0.9 cm with mild diffuse hydroureter and minimal adjacent stranding. No left-sided renal or ureteral stone. No discrete parenchymal lesion or enhancing parenchymal lesion. BLADDER: Nondistended. Mild wall thickening with peripheral enhancement which may be related to underdistention or represent a mild infectious or inflammatory process. GASTROINTESTINAL TRACT: Moderate sliding hiatal hernia with circumferential wall thickening of the distal esophagus. An underlying distal esophageal lesion cannot be excluded and direct visualization could help further evaluate if clinically indicated. No small or large bowel obstruction. Colonic diverticulosis without evidence of acute diverticulitis. Unremarkable appendix. PERITONEAL CAVITY: Trace pelvic free fluid. No organized fluid collection. No soft tissue mass. ABDOMINAL WALL: No significant hernia is appreciated. LYMPH NODES: No significant lymphadenopathy. VASCULAR: No abdominal aortic dilatation or dissection. Prominent atherosclerotic calcifications. PELVIC VISCERA: Probable calcified fibroid. OSSEOUS STRUCTURES: Unremarkable. IMPRESSION: 1. Proximal right ureteral stone measuring up to 2.0 cm at the level of the L3-L4 intervertebral disc. Sxtgzhuk-qa-euplgj proximal hydroureteronephrosis with adjacent perinephric stranding and hypoenhancement of the right kidney, consistent with obstructive uropathy. Multiple additional right renal pelvic stones. Findings have the appearance of a fragmented staghorn calculus. Additional right ureterovesicular junction stone measuring up to 0.9 cm with mild diffuse hydroureter and minimal adjacent stranding. 2. No left-sided renal or ureteral stone. No left-sided hydronephrosis or hydroureter. 3. Moderate sliding hiatal hernia with circumferential wall thickening of the distal esophagus. An underlying distal esophageal lesion cannot be excluded and direct visualization could help further evaluate 4. Colonic diverticulosis without evidence of acute diverticulitis. Unremarkable appendix. 5. Trace pelvic free fluid. No organized fluid collection or soft tissue mass. 6. Dilatation of the gallbladder with cholelithiasis. No evidence of acute cholecystitis. No intra or extrahepatic biliary ductal dilatation. Assessment & Plan Assessment & Plan (1) Nephrolithiasis: Code(s): N20.0 - Calculus of kidney Category: Medical (2) Right renal stone: Code(s): N20.0 - Calculus of kidney Category: Medical (3) Calcium nephrolithiasis: Code(s): N20.0 - Calculus of kidney Category: Medical (4) OAB (overactive bladder): Code(s): N32.81 - Overactive bladder Category: Medical Plan Plan Plan 1. Nephrolithiasis - Continue monitoring -24 hr urine - Encourage high fluid intake to prevent further stone formation. - Consider repeating external lithotripsy if stones remain problematic. 2. Urinary Tract Infection - Prescribe Macrobid for the urinary tract infection pending urine c/s 3. OAB - Prescribe Vesicare 5 mg for bladder spasms. - Advise the patient on timed voiding and changing pads every 2-3 hours. Orders: Orders Urine Culture Today N20.0 - Calculus of kidney, N20.1 - Calculus of ureter, N39.0 - Urinary tract infection, site not specified, Z87.442 - Personal history of urinary calculi Medications: New nitrofurantoin monohyd/m-cryst 100 mg (Macrobid) must administer with a meal/food 100 mg PO BID 14 caps 0RF 7 days Scribe Plan - Not visible on output: Patient was informed and verbally consented to the use of an ambient scribe for clinic note documentation during this visit. Coding Level of Care Code Est Pt Level 4 (07138) Complex EM visit Add On G2211 Diagnoses Nephrolithiasis N20.0 Right renal stone N20.0 Calcium nephrolithiasis N20.0 OAB (overactive bladder) N32.81
== END 2025-04-05 08:56 | disposition home or self-care (01) ==
LOC: HO.HUSH 07:42
PROVIDERS: Visit Provider Urology
DX: N20.0 Calculus of kidney (principal); N32.81 Overactive bladder
CPT/HCPCS: 99214; G2211

== ENCOUNTER 2025-04-05 07:41 | Outpatient (REF) | payer MEDICARE, SELFPAY | END 2025-04-05 07:42 | disposition home or self-care (01) | LOC: HO.LNP 07:41 | PROVIDERS: Visit Provider Urology | DX: N20.2 Calculus of kidney with calculus of ureter (principal); N39.0 Urinary tract infection, site not specified; N32.81 Overactive bladder; Z87.442 Personal history of urinary calculi | CPT/HCPCS: 51798; 87086; 99212 ==

== ENCOUNTER → 2025-04-06 16:17 | Outpatient (BNV) | payer MEDICARE, SELFPAY | PROVIDERS: Visit Provider Urology | DX: Z13.9 Encounter for screening, unspecified (principal) | CPT/HCPCS: 81003 ==

== ENCOUNTER 2025-04-27 07:42 | Day surgery (SDC) | payer MEDICARE, SELFPAY ==
[2025-04-23 14:44] VITALS: BMI 26.3
--- NOTE | 2025-04-26 09:19 | HO.ANESPROP2 ---
Documented by User: Shantelle Davidson NP 04/26/25 09:20 HPI - Anesthesia Eval Consult details Narrative: 75 yr old female for Upper Endoscopy and Colonoscopy s/p cystoscopy, stent replacement with GA 12/2024 [facility] Active Problems Active Problems: All Active Problems OAB (overactive bladder) (Acute) Depression (Acute) Hypertension (Acute) Calcium nephrolithiasis (Acute) History of kidney stones (Acute) Ureteral stone (Acute) Right renal stone (Acute) Osteopenia (Acute) Constipation (Acute) Personal history of nicotine dependence (Acute) Unintentional weight loss of more than 10 pounds in 90 days (Acute) Iron deficiency anemia (Acute) Right flank pain (Acute) Acute UTI (Acute) Lower extremity weakness (Acute) Weight loss (Acute) Ureteral stone with hydronephrosis (Acute) Ureteral stent present (Acute) Esophagitis (Acute) Nephrolithiasis (Acute) Lower extremity edema (Acute) Anemia (Chronic) Hypothyroidism (Acute) Thrombocytopenia (Acute) Past Medical History Medical History History of bacteremia Iron deficiency anemia Hypothyroidism Personal history of nicotine dependence H/O radioactive iodine thyroid ablation Family History Family history of problems with anesthesia: No Surgical History Surgical History History of cystoscopy History of esophagogastroduodenoscopy (EGD) History of Problems with Anesthesia: No Social History Social History Household Members: Spouse Housing: House Are you a primary critical care registered nurse to a significant other at home: No Do you presently have visiting nurse or other home services: No Alcohol intake: never Patient Tobacco Use Status: Former Tobacco user Tobacco use type: Cigarette Years Smoked: (onset 19yo, 1/2ppd x 55yrs, 25pyh, quit 04/2024) e-Cigarette/Vaping Use: Never Used Second Hand Smoke Exposure: Yes Use of substances other than those prescribed or required for medical reasons: No Advance Directives: No Advance Directives Information Provided: Yes service: No Current occupational status: retired Cognitive needs: Yes (walker) Hearing needs: No Vision needs: Yes Meds Allergies Allergy/AdvReac Type Severity Reaction Status Date / Time No Known Allergies Allergy Verified 04/05/25 07:54 Home Medications ?Medication ?Instructions ?Recorded ?Confirmed ?Last Taken ?Type ascorbic acid (vitamin C) 250 mg 250 mg PO DAILY 06/03/24 04/15/25 Unknown History tablet docusate sodium 100 mg capsule 100 mg PO BID 06/03/24 04/15/25 Unknown History (Colace) Exam Height,Weight and Vital Signs: Height 5 ft 5 in Weight 71.668 kg Assessment and Plan Final Anesthetic Review Family History of Problems with Anesthesia: No History of Problems with Anesthesia: No Documented by User: Ulysses Weeks MD 04/27/25 09:34 PMFSH Past Medical History Medical History History of bacteremia Iron deficiency anemia Hypothyroidism Personal history of nicotine dependence H/O radioactive iodine thyroid ablation Functional capacity: independent ambulation Surgical History Surgical History History of cystoscopy History of esophagogastroduodenoscopy (EGD) Social History Social History Household Members: Spouse Housing: House Are you a primary critical care registered nurse to a significant other at home: No Do you presently have visiting nurse or other home services: No Alcohol intake: never Patient Tobacco Use Status: Former Tobacco user Tobacco use type: Cigarette Years Smoked: (onset 19yo, 1/2ppd x 55yrs, 25pyh, quit 04/2024) e-Cigarette/Vaping Use: Never Used Second Hand Smoke Exposure: Yes Use of substances other than those prescribed or required for medical reasons: No Advance Directives: No Advance Directives Information Provided: Yes service: No Current occupational status: retired Cognitive needs: Yes (walker) Hearing needs: No Vision needs: Yes Meds Allergies Allergy/AdvReac Type Severity Reaction Status Date / Time No Known Allergies Allergy Verified 04/05/25 07:54 Home Medications ?Medication ?Instructions ?Recorded ?Confirmed ?Last Taken ?Type ascorbic acid (vitamin C) 250 mg 250 mg PO DAILY 06/03/24 04/15/25 Unknown History tablet docusate sodium 100 mg capsule 100 mg PO BID 06/03/24 04/15/25 Unknown History (Colace) Exam Exam Date and Time: 04/27/2025 Airway Mallampati Class: II TM Dist: >3cm Neck ROM: Full Heart: normal Lungs: normal Assessment and Plan Final Anesthetic Review NPO: Yes ASA Class: II Final Preanesthetic Review: No Changes in Pt Med Stat, Meds/Allgs Chart Reviewed, Consent Obtained/Reviewed and Anes Risks/Benef Reviewed Patient Risk: Low Procedure Risk: Low Anesthetic Plan Anesthetic Plan: MAC: Disposition: Standard PACU
[2025-04-27 09:06] VITALS: BP 139/62; PULSE 79; RESP 16; TEMP 36.3; O2SAT 98
[2025-04-27] MEDS: Lactated Ringers 1,000 ML 100 ML IVCONT (09:06)
--- NOTE | 2025-04-27 09:09 | MHC.SHP ---
Pre-Procedural Eval Section A - 24 Hr Update-Section A only Date of Service: 04/27/25 Section B - Complete if H&P > 30 days Chief Complaint: Abnormal weight loss,anemia Details of Present Illness: Graves disease, Nephrolithiasis Present Medications: see Short Stay Collaborative assessment Allergies: Allergies Allergy/AdvReac Type Severity Reaction Status Date / Time No Known Allergies Allergy Verified 04/05/25 07:54 Review of Systems Review of Systems Comment: Ten point ROS negative Exam Exam Comment: Gen appear: No acute distress HEENT: no icterus Chest: No overt resp distress Abd: soft, nontender, nondistended Psych: Stable affect, answering questions appropriately Neuro: A/Ox3 noted to move all extremities spontaneously Ext: no peripheral edema Plan Diagnosis/Plan: Unchanged I have reviewed the history and physical and performed a pertinent physical examination on my patient. No changes have occurred unless specified. Time Spent With Patient Time: Total time managing care of this patient today ____ minutes.
--- NOTE | 2025-04-27 10:41 | P.OPN-COLO_ITS ---
Colonoscopy Operative Note Operative Note Date of Service: 04/27/25 Narrative: Procedure: Upper endoscopy and colonoscopy Indication: Esophagitis, unintentional weight loss Endoscopist: Chantal Barrios MD Anesthesia Provider: Dr Weeks Anesthesia type: MAC Instrument: [id number] and [id number] EGD Procedure:?? The procedure, indications, preparation and potential complications were reviewed with the patient, who indicated understanding and gave written informed consent to proceed. The endoscope was introduced through the mouth, and advanced to the 2nd part of the duodenum. The mucosa was carefully examined on slow withdrawal of the endoscope. The patient tolerated the procedure well. There were no immediate complications.? EGD Findings:? * Esophagus:? Normal esophageal mucosa was noted. The Z-line was at 36 cm displaced by hiatal hernia with the diaphragmatic pinch at 39 cm. The Z line was irregular to 35 cm with slightly nodular appearance of SCM under NBI. Cold forceps biopsies were taken from GE junction. * Stomach:? Focal erythema and edema along greater curvature in gastric body. Cold forceps biopsies were taken for histology. Retroflexion was performed in the cardia that showed Hill grade III hiatal hernia. * Duodenum:? Normal duodenal mucosa. Cold forceps biopsies were taken from the duodenal bulb and 2nd portion of the duodenum to rule out celiac sprue. Colonoscopy Procedure:? The patient was then turned for the colonoscopy. A digital rectal exam was performed which was abnormal for external hemorrhoids. A distal attachment cap was affixed to the tip of the scope and the colonoscope was then inserted th rough the anus and advanced through the colon to distal sigmoid colon. Copious solid stool was noted obscuring complete view of the lumen. The procedure was therefore terminated. Limitations: Poor prep Findings: Mucosa: Solid stool to the extent examined. Protruding lesions: * Large internal hemorrhoids without stigmata of recent bleeding. Excavted lesions: * Severe diverticulosis of sigmoid colon. Impression: 1. Irregular Z line (biopsy) 2. Gastritis (biopsy) 3. Normal duodenum (biopsy) 4. Poor prep 5. Diverticulosis 6. Internal and external hemorrhoids Recommendations:?? * Follow-up path results * Repeat colonoscopy to be scheduled within 3 months.
[2025-04-27 10:45] VITALS: BP 86/42; PULSE 55; RESP 16; TEMP 36.2; O2SAT 100
--- NOTE | 2025-04-27 10:49 | P.OPN-COLO_ITS ---
Colonoscopy Operative Note Operative Note Date of Service: 04/27/25 Narrative: Procedure: Upper endoscopy and colonoscopy Indication: Esophagitis, unintentional weight loss Endoscopist: Chantal Barrios MD Anesthesia Provider: Dr Weeks Anesthesia type: MAC Instrument: [id number] and [id number]-[id number] EGD Procedure:?? The procedure, indications, preparation and potential complications were reviewed with the patient, who indicated understanding and gave written informed consent to proceed. The endoscope was introduced through the mouth, and advanced to the 2nd part of the duodenum. The mucosa was carefully examined on slow withdrawal of the endoscope. The patient tolerated the procedure well. There were no immediate complications.? EGD Findings:? * Esophagus:? Normal esophageal mucosa was noted. The Z-line was at 36 cm displaced by hiatal hernia with the diaphragmatic pinch at 39 cm. The Z line was irregular to 35 cm with slightly nodular appearance of SCM under NBI. Cold forceps biopsies were taken from GE junction. * Stomach:? Focal erythema and edema along greater curvature in gastric body. Cold forceps biopsies were taken for histology. Retroflexion was performed in the cardia that showed Hill grade III hiatal hernia. A few gastric polyps were noted in the body of the stomach. * Duodenum:? Normal duodenal mucosa. Cold forceps biopsies were taken from the duodenal bulb and 2nd portion of the duodenum to rule out celiac sprue. Colonoscopy Procedure:? The patient was then turned for the colonoscopy. A digital rectal exam was performed which was abnormal for external hemorrhoids. A distal attachment cap was affixed to the tip of the scope and the colonoscope was then inserted through the anus and advanced through the colon to distal sigmoid colon. Copious solid stool was noted obscuring complete view of the lumen. The procedure was therefore terminated. Limitations: Poor prep Findings: Mucosa: Solid stool to the extent examined. Protruding lesions: * Large internal hemorrhoids without stigmata of recent bleeding. Excavted lesions: * Severe diverticulosis of sigmoid colon. Impression: 1. Irregular Z line (biopsy) 2. Hiatal hernia 3. Gastritis (biopsy) 4. Gastric polyps 5. Normal duodenum (biopsy) 6. Poor prep 7. Diverticulosis 8. Internal and external hemorrhoids Recommendations:?? * Follow-up path results * Repeat colonoscopy to be scheduled within 3 months.
[2025-04-27 11:00] VITALS: BP 102/43; PULSE 57; RESP 16; O2SAT 100
[2025-04-27 11:15] VITALS: BP 149/65; PULSE 58; RESP 16; TEMP 36.2; O2SAT 100
== END 2025-04-27 11:50 | disposition home or self-care (01) ==
PROVIDERS: Visit Provider Internal Medicine
PROC: (CPT 43239; principal; 2025-04-27 10:00)
DX: R63.4 Abnormal weight loss (principal); D64.9 Anemia, unspecified; K22.89 Other specified disease of esophagus; Z53.8 Procedure and treatment not carried out for other reasons; K52.89 Other specified noninfective gastroenteritis and colitis; K22.70 Barrett's esophagus without dysplasia; K44.9 Diaphragmatic hernia without obstruction or gangrene; K57.30 Diverticulosis of large intestine without perforation or abscess without bleeding; K64.8 Other hemorrhoids; K29.00 Acute gastritis without bleeding; K64.4 Residual hemorrhoidal skin tags; E05.00 Thyrotoxicosis with diffuse goiter without thyrotoxic crisis or storm
CPT/HCPCS: 43239; 45330; 88305; 88313; 88342; J0165; J2003; J2704; J3010

== ENCOUNTER → 2025-04-27 07:42 | Outpatient (BNV) | payer MEDICARE, SELFPAY | PROVIDERS: Visit Provider Internal Medicine | DX: K20.90 Esophagitis, unspecified without bleeding (principal); K29.70 Gastritis, unspecified, without bleeding; K31.7 Polyp of stomach and duodenum; R63.4 Abnormal weight loss; K57.30 Diverticulosis of large intestine without perforation or abscess without bleeding; K64.8 Other hemorrhoids; Z91.199 Patient's noncompliance with other medical treatment and regimen due to unspecified reason | CPT/HCPCS: 43239; 45330 ==

== ENCOUNTER 2025-06-14 07:19 | Outpatient (AMB) | payer MEDICARE, SELFPAY ==
--- NOTE | 2025-06-14 07:19 | MHC.OFFVIS ---
Intake Visit Reasons: 10w/[facility] Intake Note: Patient is present for 10wk Telehealth follow up Labs done 05/13/25 : [facility] Medication:VITB12, Solifenacin Antibiotic Allergy:NONE Blood Thinner:NONE LAST PVR:170 mls Staffing Assistant Required: No Accompanied by: Self / Same As Patient Allergies No Known Allergies Allergy (Verified 07/26/25 16:56) Medication List - Last Reconciled 06/14/25 by Titi Caban MD ascorbic acid (vitamin C) 250 mg PO DAILY clotrimazole-betamethasone 1-0.05 % 1 appl topical BID 2 weeks comp.stocking,knee,long,medium As directed. 20-30 mmHG cyanocobalamin (vitamin B-12) (Vitamin B-12) 1,000 mcg PO DAILY docusate sodium (Colace) 100 mg PO BID ferrous sulfate 325 mg PO BID food supplemt, lactose-reduced (Boost High Protein) 1 ea PO TID hydrochlorothiazide 25 mg PO QAM levothyroxine 75 mcg PO DAILY nitrofurantoin monohyd/m-cryst 100 mg (Macrobid) 100 mg PO BID 7 days pantoprazole 40 mg PO DAILY polyethylene glycol 3350 (Miralax) 238 grams PO ONCE [Quad cane As directed] solifenacin (Vesicare) 5 mg PO DAILY HPI Comments Details: 06/14/25-- History of Present Illness The patient is a 75-year-old individual presenting with kidney stones and urinary tract symptoms. She is on vesicare. The patient has been experiencing urinary tract symptoms, including incomplete bladder emptying and associated pain. A urine test showed a collection volume of 1500 mL, which is slightly below the recommended 2000 mL, indicating a need for increased fluid intake. The patient's urine calcium and oxalate levels were within normal limits, reducing the risk of forming new calcium kidney stones. However, the urine citrate level was low, prompting a recommendation to increase dietary citrate by adding more lemon to the patient's water and juices. A renal ultrasound conducted in March revealed stones in both kidneys, with the largest stone measuring 11 mm in the right kidney and a smaller 3 mm stone in the left kidney. Results - Urine test: 1500 mL volume, calcium and oxalate within normal limits, low citrate level - Renal ultrasound: Stones in both kidneys, largest 16 mm in right kidney, 3 mm in left kidney Plan Kidney Stones - Plan to increase fluid intake to 2000 mL daily to help prevent stone formation. - Recommend increasing dietary citrate by adding lemon to water and juices to reduce stone formation risk. - Schedule Right lithotripsy for stone management 04/05/25-- History of Present Illness The patient is a 75-year-old female presenting with nephrolithiasis and urinary tract infection. She is prescribed VESIcare for overactive bladder symptoms. The patient has a history of nephrolithiasis, with a recent renal ultrasound showing a 3 mm stone in the left kidney and multiple stones in the right kidney, the largest being 1.6 cm. Previously, a stent was removed, and a rash that was noted on the perineum and groin, has since resolved with the application of Lotrisone cream. The patient has undergone various interventions, including shock wave lithotripsy and lithotripsy, The patient is advised to maintain high fluid intake to manage the condition. Currently, the patient is asymptomatic for pain on the right side. A urinary tract infection is suspected based on urine analysis, and antibiotics have been prescribed. Discussed further evaluation with 24 hour urine and we will need continued stone management due to stone burden and right kidney. Results - Renal ultrasound-03/29/25--: 3 mm stone in left kidney, multiple stones in right kidney, largest 1.6 cm Plan 1. Nephrolithiasis - Continue monitoring -24 hr urine - Encourage high fluid intake to prevent further stone formation. - Consider repeating external lithotripsy if stones remain problematic. 2. Urinary Tract Infection - Initiate antibiotic therapy based on urine culture results. - Send urine for culture to confirm infection and guide treatment. 01/15/25 - The patient is a 74-year-old female presenting for cystoscopy and stent removal. - She underwent ureteroscopy on the right side on 12/29/24 and reports doing well post-procedure. - A rash was observed in the groin area during the pelvic examination. - Urinary symptoms include an odor in the urine and a positive urine test, will send urine for c/s - Bladder spasms are managed with Vesicare 5 mg. - The patient encouraged to practice timed voiding and change pads every 2-3 hours. Results - KUB film: No stones along the stent observed Discussion Notes I discussed the use of Lotrisone cream for the rash in the groin area and prescribed Macrobid for the urinary tract infection due to the odor and positive urine test, pending urine c/s. Vesicare 5 mg was prescribed for bladder spasms. The patient was advised on timed voiding and changing pads every 2-3 hours. Follow-up was discussed to monitor the resolution of symptoms and effectiveness of the treatment plan. In regards kidney stones I discussed small stone fragments may remain the right kidney that are not seen on KUB x-ray. we will get renal ultrasound in 3 months. 11/30/24--Micaela is followed for kidney stones. She is status post right ureteral stent on 04/28/2024 due to obstructive proximal ureteral stone. She has been treated for UTIs. She is status post ESWL of the right proximal ureteral stone on 10/26 24 ureteral stent was not removed at that time. She is here post follow-up KUB performed on 11/25/2024. Findings note that the proximal ureteral stone is no longer seen. The patient still has stone burden in the right kidney. Plan to remove the right ureteral stent as an outpatient. She will need further management of right nephrolithiasis versus monitoring conservatively. Results: KUB-11/25/24-- multiple right kidney stones- 15 mm, 8 mm and 4 mm overlapping the lower aspect of the right kidney shadow. 08/10/24--Micaela is a 74-year-old female who is here with her daughter. She is status post right ureteral stent on 04/28/2024 for obstructing 2.0 cm proximal ureteral stone. I have reviewed KUB which notes right kidney stone 1.6 cm, in review of the film there may still be a calcification along the stent which was not dictated. The patient previously on CT scan had right renal stones in addition to the proximal ureteral stone. Urinalysis is nitrite positive. In plans for follow-up stone management I need to re-evaluate and will get a CT stone protocol. We will empirically place on Bactrim DS b.i.d. for 10 days pending urine culture. 06/01/2024--Micaela is a 74-year-old female who evaluated as an inpatient due to right obstructive uropathy and DEB due to a 2 cm proximal ureteral stone. Micaela was initially evaluated as a urology consult while inpatient. 04/27/2024. The patient is status post right ureteral stent on 04/28/2024. Micaela is here with her daughter Claritza. I have reviewed the CT imaging. CTAP-04/27/2024-multiple right nephrolithiasis and a 2 cm obstructing proximal ureteral stone. No left renal calculi visualized. Discussed importance increasing fluid intake and low-sodium diet and low oxalate diet. Plan KUB and follow-up to discuss treatment plan ESWL versus ureteroscopy CTAP-04/27/2024-Proximal right ureteral stone measuring up to 2.0 cm at the level of the L3-L4 intervertebral disc. Zxripsoz-pn-tnybtf proximal hydroureteronephrosis with adjacent perinephric stranding and hypoenhancement of the right kidney, consistent with obstructive uropathy. Multiple additional right renal pelvic stones. Findings have the appearance of a fragmented staghorn calculus. Additional right ureterovesicular junction stone measuring up to 0.9 cm with mild diffuse hydroureter and minimal adjacent stranding. No left-sided renal or ureteral stone. No left-sided hydronephrosis or hydroureter. [facility] Medical History History of bacteremia Iron deficiency anemia Hypothyroidism Personal history of nicotine dependence H/O radioactive iodine thyroid ablation Surgical History History of cystoscopy History of esophagogastroduodenoscopy (EGD) Family History Mother No problems noted. Father Heart attack Social History Household Members: Spouse Housing: House Are you a primary resident care director to a significant other at home: No Do you presently have visiting nurse or other home services: No Alcohol intake: never Patient Tobacco Use Status: Former Tobacco user Tobacco use type: Cigarette Years Smoked: (onset 19yo, 1/2ppd x 55yrs, 25pyh, quit 04/2024) e-Cigarette/Vaping Use: Never Used Second Hand Smoke Exposure: Yes Use of substances other than those prescribed or required for medical reasons: No Have you been hit, kicked, punched, or otherwise hurt by someone within the past year? If so, by whom?: No Do you feel safe in your current relationship?: Yes Do you have thoughts of harming others: None Do you have a plan to hurt others: No Plan service: No Current occupational status: retired Cognitive needs: Yes (walker) Hearing needs: No Vision needs: Yes Review of Systems Const All systems reviewed & are unremarkable except as noted in HPI and below Reports no additional complaints Eyes Reports no additional complaints ENT Reports no additional complaints Card Reports no additional complaints Resp Reports no additional complaints GI Reports no additional complaints Reports as per HPI Musc Reports no additional complaints Skin/Breast Reports system reviewed and no additional complaints, except as documented Neuro Reports no additional complaints Psych Reports no additional complaints Endo Reports no additional complaints Tenzin/Lymph Reports no additional complaints Aller/Immun Reports no additional complaints Telehealth Telehealth Telehealth Platform: Telephone Location of provider rendering services: practice address Location of patient: address on file Patient Identification confirmed using: Name, : Yes Telehealth method: voice only Patient verbally consented to treatment: Yes Patient verbally consented to billing insurance company: Yes Patient informed of any privacy concerns related to visit: Yes Minutes spent on Phone/Video with Pt.: 15 Results Reviewed Results Reviewed: Date of Service: 03/29/25 HISTORY: Z87.442 - Personal history of urinary calculi TECHNIQUE: Real-time grayscale ultrasound imaging of the kidneys was performed and images were reviewed. COMPARISON: Correlation is made with an unenhanced CT of the abdomen and pelvis dated 09/03/2024. FINDINGS: Right kidney: The right kidney measures 11.3 x 4.8 x 4.6 cm. Renal parenchymal echotexture and thickness are normal. There are no masses. There is a 1.6 x 0.8 x 1.3 cm calculus in the region of the UPJ. There is a 3 x 3 x 5 mm calculus in the interpolar region. There are calculi at the lower pole measuring 8 x 3 x 8 mm and 7 x 4 x 5 mm. There is mild hydronephrosis. Left Kidney: The left kidney measures 10.1 x 4.4 x 5.2 cm. Renal parenchymal echotexture and thickness are normal. There are no masses. There is a nonobstructing calculus at the lower pole measuring 3 mm. IMPRESSION: Bilateral nephrolithiasis as described. Mild right hydronephrosis. Date of Service: 11/25/24 XR ABDOMEN KUB CLINICAL INDICATION: N20.0 - Calculus of kidney COMPARISON: October 21, 2024. TECHNIQUE: AP view of the abdomen. FINDINGS: Right-sided ureteral stent with pigtail formed seen in the region of the right kidney shadow and the right side of the lower pelvis. There are 15 mm, 8 mm and 4 mm desiccation's overlapping the lower aspect of the right kidney shadow. Multilevel lumbar spondylosis. Vascular complications. Abundant stool. No air-fluid levels. No intestinal obstruction pattern. IMPRESSION: Multiple renal calculi, largest 15 mm, right kidney. Right-sided ureteral stent in unchanged position. KUB--05/2024-1.6 cm right renal stone. Right ureteral stent present. Date of Service: 04/27/24 CT ABDOMEN AND PELVIS WITH CONTRAST CLINICAL INFORMATION: Jaundice. COMPARISON: None available. TECHNIQUE: Multidetector volumetric images were obtained from the superior aspect of the liver through the pubic symphysis following administration 85 mL of Omnipaque 350 intravenous contrast. Sagittal and coronal reformatted images were obtained on the technologist's workstation. Oral contrast: No. This CT examination was performed using dose optimization techniques as appropriate, variously including the following: *Automated exposure control *Adjustment of mA and/or kV according to patient size (this includes techniques or standardized protocols for targeted exams where dose is matched to indication/reason for exam; i.e. extremities or head) *Use of iterative reconstruction technique DLP: 978 mGy-cm FINDINGS: LUNG BASES: The visualized lung bases are unremarkable. LIVER, GALLBLADDER, AND BILIARY TREE: The liver is normal in size, shape, and attenuation. No focal hepatic lesion or biliary ductal dilatation is present. Distended gallbladder without significant wall thickening or inflammatory change. There are calcified gallstones dependently. No evidence of acute cholecystitis. PANCREAS: Small pancreatic body calcifications which could represent sequela of chronic pancreatitis or be vascular in nature. No inflammatory change or pancreatic ductal dilatation. No discrete parenchymal lesion. SPLEEN: Unremarkable. ADRENAL GLANDS: Bilateral adrenal thickening and heterogeneity without a discrete nodule. KIDNEYS AND URETERS: Proximal right ureteral stone measuring up to 2.0 x 0.8 x 1.4 cm and approximately 810 Hounsfield units. This is located at the level of the L3-L4 intervertebral disc. There is orqohcmc-re-nfetlx proximal hydroureter nephrosis with adjacent perinephric stranding and hypoenhancement of the right kidney, consistent with obstructive uropathy. There are multiple additional right renal pelvic stones. Findings have the appearance of a fragmented staghorn calculus. There is an additional right ureterovesicular junction stone measuring up to 0.9 cm with mild diffuse hydroureter and minimal adjacent stranding. No left-sided renal or ureteral stone. No discrete parenchymal lesion or enhancing parenchymal lesion. BLADDER: Nondistended. Mild wall thickening with peripheral enhancement which may be related to underdistention or represent a mild infectious or inflammatory process. GASTROINTESTINAL TRACT: Moderate sliding hiatal hernia with circumferential wall thickening of the distal esophagus. An underlying distal esophageal lesion cannot be excluded and direct visualization could help further evaluate if clinically indicated. No small or large bowel obstruction. Colonic diverticulosis without evidence of acute diverticulitis. Unremarkable appendix. PERITONEAL CAVITY: Trace pelvic free fluid. No organized fluid collection. No soft tissue mass. ABDOMINAL WALL: No significant hernia is appreciated. LYMPH NODES: No significant lymphadenopathy. VASCULAR: No abdominal aortic dilatation or dissection. Prominent atherosclerotic calcifications. PELVIC VISCERA: Probable calcified fibroid. OSSEOUS STRUCTURES: Unremarkable. IMPRESSION: 1. Proximal right ureteral stone measuring up to 2.0 cm at the level of the L3-L4 intervertebral disc. Wufqjhif-zh-hpepwe proximal hydroureteronephrosis with adjacent perinephric stranding and hypoenhancement of the right kidney, consistent with obstructive uropathy. Multiple additional right renal pelvic stones. Findings have the appearance of a fragmented staghorn calculus. Additional right ureterovesicular junction stone measuring up to 0.9 cm with mild diffuse hydroureter and minimal adjacent stranding. 2. No left-sided renal or ureteral stone. No left-sided hydronephrosis or hydroureter. 3. Moderate sliding hiatal hernia with circumferential wall thickening of the distal esophagus. An underlying distal esophageal lesion cannot be excluded and direct visualization could help further evaluate 4. Colonic diverticulosis without evidence of acute diverticulitis. Unremarkable appendix. 5. Trace pelvic free fluid. No organized fluid collection or soft tissue mass. 6. Dilatation of the gallbladder with cholelithiasis. No evidence of acute cholecystitis. No intra or extrahepatic biliary ductal dilatation. Assessment & Plan Assessment & Plan (1) Nephrolithiasis: Code(s): N20.0 - Calculus of kidney Category: Medical (2) Right renal stone: Code(s): N20.0 - Calculus of kidney Category: Medical (3) Calcium nephrolithiasis: Code(s): N20.0 - Calculus of kidney Category: Medical (4) OAB (overactive bladder): Code(s): N32.81 - Overactive bladder Category: Medical Plan Schedule Right ESWL Patient Instructions: The patient had an opportunity to ask questions regarding treatment plan. The patient expressed understanding and agreement with the above treatment plan. The patient is aware they should contact our office by phone for worsening of their current condition or the appearance of new symptoms. Compliance is encouraged with any medications and followup testing that is ordered. It is a privilege to be allowed the opportunity to participate in the urologic care of your patient. If you have any questions or concerns regarding treatment for the above conditions please do not hesitate to contact me. The office telephone contact is [phone]. This note is constructed in part using voice recognition software. While every effort has been made to ensure accuracy counter manager errors may have been included. Yours sincerely, Titi Caban MD Scribe Plan - Not visible on output: Patient was informed and verbally consented to the use of an ambient scribe for clinic note documentation during this visit. Coding Level of Care Code Tele Est Pt Level 4 (29987) Diagnoses Nephrolithiasis N20.0 Right renal stone N20.0 Calcium nephrolithiasis N20.0 OAB (overactive bladder) N32.81
== END 2025-06-14 08:48 | disposition home or self-care (01) ==
LOC: HO.HUSH 07:19
PROVIDERS: Visit Provider Urology
DX: N20.0 Calculus of kidney (principal); N32.81 Overactive bladder
CPT/HCPCS: 99214

== ENCOUNTER 2025-07-09 14:45 | Outpatient (REF) | payer MEDICARE, SELFPAY ==
--- NOTE | 2025-07-09 15:39 | ECG_ITS ---
Test Reason : PREOP Blood Pressure : */* mmHG Vent. Rate : 82 BPM Atrial Rate : 82 BPM P-R Int : 144 ms QRS Dur : 82 ms QT Int : 306 ms P-R-T Axes : 66 45 174 degrees QTcB Int : 357 ms Sinus rhythm with marked sinus arrhythmia ST & T wave abnormality, consider inferior ischemia ST & T wave abnormality, consider anterolateral ischemia Abnormal ECG When compared with ECG of 07-Oct-2024 11:59, Nonspecific T wave abnormality now evident in Inferior leads T wave inversion now evident in Anterior leads QT has shortened Referred By: Leandro Meadows Electronically Signed By: Jak Mareclo
[2025-07-09 17:11] LABS: Hematocrit 37.7 % (37.0-47.0); Hemoglobin 12.4 g/dl (12.0-16.0); Mean Corpuscular HGB Conc 32.9 g/dl (31.0-35.0); Mean Corpuscular Hemoglobin 28.8 pg (27.0-33.0); Mean Corpuscular Volume 87.5 fL (80.0-98.0); NRBC Abs Auto 0.000 X10*3/uL (0.0-0.012); NRBC Pct Auto 0.0 /100WBC (0.0-0.2); Platelet Count 442 X10*3/uL (160-400); Red Blood Count 4.31 X10*6/uL (4.20-5.50); White Blood Count 10.7 X10*3/uL (4.8-10.8)
[2025-07-09 18:09] LABS: Alanine Aminotransferase 15 U/L (0-31); Albumin Level 4.2 g/dL (3.5-5.0); Anion Gap 13 (12-20); Aspartate Amino Transferase 25 U/L (5-31); Blood Urea Nitrogen 24 mg/dL (9-16); Calcium 9.6 mg/dL (8.4-10.2); Carbon Dioxide 30 mmol/L (22-29); Chloride 93 mmol/L (96-108); Estimated Glomerular Filt Rate 40; Potassium 3.0 mmol/L (3.3-5.1); Sodium 133 mmol/L (135-145); Total Protein 7.2 g/dL (6.5-8.0)
[2025-07-09 18:18] LABS: Alkaline Phosphatase 116 U/L (39-117)
== END 2025-07-09 14:46 | disposition home or self-care (01) ==
LOC: HO.LAB 14:45
PROVIDERS: Visit Provider Internal Medicine
DX: Z01.818 Encounter for other preprocedural examination (principal); I10 Essential (primary) hypertension; K21.9 Gastro-esophageal reflux disease without esophagitis; K59.00 Constipation, unspecified; E03.9 Hypothyroidism, unspecified; Z87.891 Personal history of nicotine dependence; Z79.899 Other long term (current) drug therapy
CPT/HCPCS: 36415; 80053; 85027; 93005; 99212

== ENCOUNTER 2025-07-09 14:45 | Outpatient (AMB) | payer MEDICARE, SELFPAY ==
--- NOTE | 2025-07-09 14:55 | MHC.PC.OV ---
Vital Signs 07/09/25 14:58 Height 5 ft 5 in Weight 150 lb 4 oz BMI 25.0 BP 140/86 H Blood Pressure Location Lt brachial Position Sitting Pulse 81 Pulse Source Pulse Oximeter Temp 97.3 F Temp Source Temporal Artery Scan Pulse Oximetry (%) 96 Oxygen Delivery Method Room Air Intake Visit Reasons: [facility] 07/29/25 & 08/10/25 Intake Note: Patient is here for a Pre-op for Cataract surgery scheduled with Dr Santillan [facility] on 07/29/25, 08/05/25. Fixed Capital Clerk Required: No Environment Artist: Present Accompanied by: Daughter Allergies No Known Allergies Allergy (Verified 07/09/25 14:57) Medication List - Last Reconciled 07/09/25 by Leandro Meadows MD ascorbic acid (vitamin C) 250 mg PO DAILY clotrimazole-betamethasone 1-0.05 % 1 appl topical BID 2 weeks comp.stocking,knee,long,medium As directed. 20-30 mmHG cyanocobalamin (vitamin B-12) (Vitamin B-12) 1,000 mcg PO DAILY docusate sodium (Colace) 100 mg PO BID food supplemt, lactose-reduced (Boost High Protein) 1 ea PO TID hydrochlorothiazide 25 mg PO QAM levothyroxine 75 mcg PO DAILY pantoprazole 40 mg PO DAILY polyethylene glycol 3350 (Miralax) 238 grams PO ONCE [Quad cane As directed] solifenacin (Vesicare) 5 mg PO DAILY Tobacco use date assessed: 07/09/25 Fall risk assessment: No Falls in past year Last assessed Fall Risk: 07/09/25 Dental Screening Dental Screen Date: 10/06/24 HPI HPI Comments History of Present Illness Details The patient is a 75 year old female with PMH of Hypothyroidism, GERD, HTN, and constipation presenting for preoperative medical clearance for scheduled bilateral cataract surgery. Her first surgery is scheduled for July 29, and the second is scheduled for August 05. She reports that she will be awake during the procedures. The patient has a history of hypothyroidism, for which she takes levothyroxine 75 mcg. She also has a history of hypertension managed with hydrochlorothiazide, GERD managed with pantoprazole, and constipation managed with docusate and MiraLax. She formerly took iron sulfate but has discontinued it. Her last lab work was done on April 15. The patient denies any history of heart problems, including heart attacks or heart failure. [facility] Medical History History of bacteremia Iron deficiency anemia Hypothyroidism Personal history of nicotine dependence H/O radioactive iodine thyroid ablation Surgical History History of cystoscopy History of esophagogastroduodenoscopy (EGD) Social History Household Members: Spouse Housing: House Are you a primary direct care staffer to a significant other at home: No Do you presently have visiting nurse or other home services: No Alcohol intake: never Patient Tobacco Use Status: Former Tobacco user Tobacco use type: Cigarette Years Smoked: (onset 19yo, 1/2ppd x 55yrs, 25pyh, quit 04/2024) e-Cigarette/Vaping Use: Never Used Second Hand Smoke Exposure: Yes service: No Current occupational status: retired Cognitive needs: Yes (walker) Hearing needs: No Vision needs: Yes Questionnaire Thrive Questionnaire Date Thrive assessed: 01/29/25 I am a: Patient What is your living situation today?: I have a steady place to live Within the past 12 months, did the food you bought not last and you didn't have the money to get more?: Never true Within the past 12 months, did you worry whether your food would run out before you got money to buy more?: Never true Do you have trouble paying for medicines?: No Do you have trouble getting transportation to medical appointments?: No Do you have trouble paying your heating and electricity bill?: No Do you have trouble taking care of your child, family member or friend?: No Do you have trouble with day-to-day activities such as bathing, preparing meals, shopping, managing finances, etc.?: No Are you currently unemployed and looking for a job?: No Are you interested in more education?: No Currently or been in a relationship where the following occur: I choose not to answer THRIVE Score: 0 TIMOTHY-7 AMB Questionnaire TIMOTHY-7 Date TIMOTHY - 7 assessed: 10/06/24 Source: Developed by Robbi Danet B.W. Manjeet, Austin Motley and colleagues, with an educational andrés from [employer]. Review of Systems Const Details: Positives besides what was mentioned in HPI are in BOLD Constitutional: No Weight Change, No Fever, No Chills, No Night Sweats, No Fatigue, No Malaise ENT/Mouth: No Hearing Changes, No Ear Pain, No Nasal Congestion, No Sinus Pain, No Hoarseness, No sore throat, No Rhinorrhea, No Swallowing Difficulty Eyes: No Eye Pain, No Swelling, No Redness, No Foreign Body, No Discharge, No Vision Changes Cardiovascular: No Chest Pain, No SOB, No PND, No Dyspnea on Exertion, No Orthopnea, No Claudication, No Edema, No Palpitations Respiratory: No Cough, No Sputum, No Wheezing, No Smoke Exposure, No Dyspnea Gastrointestinal: No Nausea, No Vomiting, No Diarrhea, No Constipation, No Pain, No Heartburn, No Anorexia, No Dysphagia, No Hematochezia, No Melena, No Flatulence, No Jaundice Genitourinary: No Dysmenorrhea, No DUB, No Dyspareunia, No Dysuria, No Urinary Frequency, No Hematuria, No Urinary Incontinence, No Urgency, No Flank Pain, No Urinary Flow Changes, No Hesitancy Musculoskeletal: No Arthralgias, No Myalgias, No Joint Swelling, No Joint Stiffness, No Back Pain, No Neck Pain, No Injury History Skin: No Skin Lesions, No Pruritis, No Hair Changes, No Breast/Skin Changes, No Nipple Discharge Neuro: No Weakness, No Numbness, No Paresthesias, No Loss of Consciousness, No Syncope, No Dizziness, No Headache, No Coordination Changes, No Recent Falls Psych: No Anxiety/Panic, No Depression, No Insomnia, No Personality Changes, No Delusions, No Rumination, No SI/HI/AH/VH, No Social Issues, No Memory Changes, No Violence/Abuse Hx., No Eating Concerns Heme/Lymph: No Bruising, No Bleeding, No Transfusions History, No Lymphadenopathy Endocrine: No Polyuria, No Polydipsia, No Temperature Intolerance Physical exam (Primary Care) Vital Signs: Last Vital Signs Temp 97.3 F 07/09/25 14:58 Pulse 81 07/09/25 14:58 BP 140/86 H 07/09/25 14:58 Pulse Ox 96 07/09/25 14:58 Oxygen Delivery Method Room Air 07/09/25 14:58 BMI result Body Mass Index 25.0 Tobacco/Smoking Status: Tobacco use Status Tobacco use date assessed 07/09/25 07/09/25 15:04 Patient Tobacco Use Status Former Tobacco user 07/09/25 15:04 Tobacco use type Cigarette 07/09/25 15:04 e-Cigarette/Vaping Use Never Used 07/09/25 15:04 Thrive Assessment: Date of Thrive Assessment Date Thrive assessed 01/29/25 07/09/25 15:04 Currently or been in a relationship where the following occur: I choose not to answer Coding Level of Care Code Est Pt Level 3 (55809) Diagnoses Pre-op exam Z01.818 Time Spent (min) 20 Assessment & Plan Assessment & Plan (1) Pre-op exam: Code(s): Z01.818 - Encounter for other preprocedural examination Category: Medical Plan: - The patient is medically stable for her upcoming bilateral cataract surgeries. - Preoperative labs, including a CBC and CMP, and an EKG will be ordered, as the patient's last labs were in March. - The patient has been advised to complete her lab work and EKG today at the [facility]. - The patient was informed that fasting is not required for the lab tests. - She was advised to continue all of her current medications without interruption before surgery. - The preoperative clearance form will be faxed back to the surgeon's office upon review of the test results. Plan I discussed with the patient and her daughter the need for preoperative clearance ahead of her bilateral cataract surgeries on July 29 and . I explained that because her last lab work was in March, new labs (CBC, CMP) and a baseline EKG would be required. I recommended she complete both at the [facility] today, as she would not need to fast. I instructed her to continue all her current home medications without stopping any before surgery. Orders: Orders Complete Blood Count no Diff Today Z01.818 - Encounter for other preprocedural examination ECG 12 lead EKG Today Z01.818 - Encounter for other preprocedural examination Comprehensive Met. Panel Today Z01.818 - Encounter for other preprocedural examination Medications: Discontinued ferrous sulfate Discontinued Reason: Patient no longer taking 325 mg PO BID 180 tabs 0RF
[2025-07-09 14:58] VITALS: BP 140/86; PULSE 81; TEMP 36.3; O2SAT 96; BMI 25.0
== END 2025-07-09 15:21 | disposition home or self-care (01) ==
LOC: HO.HMCH 14:46
PROVIDERS: Visit Provider Internal Medicine
DX: Z01.818 Encounter for other preprocedural examination (principal)

== ENCOUNTER → 2025-07-09 15:39 | Outpatient (BNV) | payer MEDICARE, SELFPAY | PROVIDERS: Visit Provider Internal Medicine Cardiovascular Disease | DX: Z01.818 Encounter for other preprocedural examination (principal); I49.9 Cardiac arrhythmia, unspecified | CPT/HCPCS: 93010 ==

== ENCOUNTER → 2025-07-12 15:45 | Outpatient (BNVA) | payer MEDICARE, SELFPAY | PROVIDERS: Visit Provider Internal Medicine | DX: K20.90 Esophagitis, unspecified without bleeding (principal); K29.70 Gastritis, unspecified, without bleeding; K59.04 Chronic idiopathic constipation; R94.31 Abnormal electrocardiogram [ECG] [EKG]; Z79.899 Other long term (current) drug therapy | CPT/HCPCS: 99212 ==

== ENCOUNTER 2025-07-13 14:41 | Outpatient (AMB) | payer MEDICARE, SELFPAY ==
[2025-07-13 15:02] VITALS: BP 180/100; PULSE 79; BMI 24.9
--- NOTE | 2025-07-13 15:02 | MHC.OFFVIS ---
Vital Signs 07/13/25 15:02 Height 5 ft 5 in Weight 149 lb 14.629 oz BMI 24.9 BP 180/100 H Blood Pressure Location Lt brachial Position Sitting Pulse 79 Pulse Source Pulse Oximeter Intake Visit Reasons: RAT EXTERMINATOR/Preop cataracts Allergies No Known Allergies Allergy (Verified 07/12/25 15:51) Medication List - Last Reconciled 07/13/25 by Chris Aleman MD amlodipine (Norvasc) 2.5 mg PO DAILY comp.stocking,knee,long,medium As directed. 20-30 mmHG cyanocobalamin (vitamin B-12) (Vitamin B-12) 1,000 mcg PO DAILY food supplemt, lactose-reduced (Boost High Protein) 1 ea PO TID hydrochlorothiazide 25 mg PO QAM ketorolac 0.5% drps ophthalmic (eye) levothyroxine 75 mcg PO DAILY pantoprazole 0.5 mg (0.0125 x 40 mg) PO DAILY potassium chloride 40 mEq (15 mL) PO DAILY [Quad cane As directed] solifenacin (Vesicare) 5 mg PO DAILY HPI Comments Details: The patient is a 75 year old female presenting for pre-operative cardiac evaluation for an upcoming cataract surgery. She has a history of elevated blood pressure, with her BP being high today and yesterday, with one reading at 183/77 mmHg. The patient states her pressure is usually around 130 and not typically this high, but a review of records reveals intermittently high readings over the past few months and years, with values in the 140s, 150s, 160s, and up to 178. She takes hydrochlorothiazide for her blood pressure. The patient denies any history of heart problems, heart attacks, or stents. She denies chest pain, pressure, or heaviness and reports her breathing is okay. This visit was prompted by an abnormal EKG. The patient reports feeling anxious about the upcoming surgery and the EKG results. She quit smoking one year ago. [facility] Medical History History of bacteremia Iron deficiency anemia Hypothyroidism Personal history of nicotine dependence H/O radioactive iodine thyroid ablation Surgical History History of cystoscopy History of esophagogastroduodenoscopy (EGD) Family History (Updated 07/13/25 @ 15:08 by Ana Cristina King) Mother No problems noted. Father Heart attack Social History Household Members: Spouse Housing: House Are you a primary home care attendant to a significant other at home: No Do you presently have visiting nurse or other home services: No Alcohol intake: never Patient Tobacco Use Status: Former Tobacco user Tobacco use type: Cigarette Years Smoked: (onset 19yo, 1/2ppd x 55yrs, 25pyh, quit 04/2024) e-Cigarette/Vaping Use: Never Used Second Hand Smoke Exposure: Yes service: No Current occupational status: retired Cognitive needs: Yes (walker) Hearing needs: No Vision needs: Yes Review of Systems Const Denies weakness ENT Denies dizziness Card Denies chest pain, Denies chest pain with activity, Denies syncope, Denies rapid heart rate, Denies pedal edema, Denies edema, Denies leg edema, Denies lightheadedness, Denies palpitations, Denies dyspnea, Denies dyspnea on exertion and Denies orthopnea Resp Denies cough, Denies dyspnea and Denies dyspnea on exertion GI Denies hematochezia and Denies change in stool character Musc Denies abnormal gait, Reports joint swelling, Denies muscle cramps, Denies muscle weakness, Denies numbness, Denies radiating pain into limb and Denies tingling Neuro Denies abnormal gait, Denies dizziness, Denies syncope, Denies numbness, Denies tingling and Denies weakness Endo Denies palpitations Physical Exam Vital Signs: Last Vital Signs Pulse 79 07/13/25 15:02 BP 180/100 H 07/13/25 15:02 BMI result Body Mass Index 24.9 Const General: comfortable and no acute distress Orientation/consciousness: patient oriented x3 HEENT Other: Unremarkable Head: Yes normal to inspection Neck Neck: Yes normal visual inspection Chest Chest palpation & inspection: normal inspection of the chest Resp Auscultation: clear to auscultation bilaterally Cardio Palpation: normal PMI Heart sounds: S1 normal heart sound present, S2 normal heart sound present, no gallops, no murmurs and no rubs GI Palpation (GI): Soft to palpation Back/Spine/Pelvis Other: unremarkable Skin General skin exam: no rashes or lesions noted Neuro General: patient oriented x3 Extrem General: Yes normal to inspection Psych Mental Status: mental status grossly normal Assessment & Plan Assessment & Plan (1) Abnormal EKG: Code(s): R94.31 - Abnormal electrocardiogram [ECG] [EKG] Category: Medical Plan: In the recent EKG, underlying rhythm is sinus at 82/Min. Inferior and anterolateral ST depression, which could be related to hypertension induced strain. Also noticed on previous EKGs from September of this year as well as 2023 but to a lesser extent. We will get an echocardiogram for cardiac function assessment. Unless any overt concerns on this, she will be able to proceed with cataract surgery as it is a low risk surgery. May need a future stress test. We discussed about it today but she seems very nervous. Reassured her as much. (2) Hypertension: Code(s): I10 - Essential (primary) hypertension Category: Medical Plan: Currently on hydrochlorothiazide. Add amlodipine. Do home blood pressure checks. (3) Preoperative cardiovascular examination: Code(s): Z01.810 - Encounter for preprocedural cardiovascular examination Category: Medical Plan: Await echocardiogram. We can make an addendum once that is reviewed. Unless any overt cardiomyopathy or other concerns, she will be able to proceed. Hopefully, blood pressure is better with the addition of amlodipine. May need adjustments as needed. Plan Discussion Notes: I discussed with the patient that her blood pressure has been intermittently high for months, suggesting an underlying issue beyond just anxiety related to her upcoming cataract surgery and recent abnormal EKG. I explained that chronically high blood pressure could be the cause of her abnormal EKG. I informed her that if her blood pressure remains too high, the cataract surgery might need to be postponed. We discussed the plan, which includes starting a new low-dose blood pressure medication in addition to her current hydrochlorothiazide. I recommended she purchase a blood pressure machine to monitor her levels at home daily and keep a log. I also ordered an echocardiogram, an ultrasound of the heart, to be performed at the [facility] to assess her heart's function. I mentioned that a stress test may be needed in the future, but we will take it one step at a time considering her anxiety. I reassured the patient, and we scheduled a follow-up visit in three months. Patient was informed and verbally consented to the use of an ambient scribe for clinic note documentation during this visit. Orders: Orders CA echo transthoracic complete Today R94.31 - Abnormal electrocardiogram [ECG] [EKG], Z01.810 - Encounter for preprocedural cardiovascular examination Medications: New amlodipine (Norvasc) 2.5 mg PO DAILY 90 tabs 1RF Patient Instructions: - I am sending a prescription for a new blood pressure medication to your pharmacy. - You should take this new medication in addition to your current hydrochlorothiazide; do not stop taking your current medication. - Please buy a blood pressure machine from a pharmacy and check your blood pressure at home every day. - Keep a written log or diary of your daily blood pressure readings. - My office will order an echocardiogram (an ultrasound of your heart) for you. - You will need to have this test done at the [facility], hopefully by next week, before your eye surgery. - Your eye surgery may be postponed if your blood pressure is too high. - Follow-up appointment to see me again in about three months. Coding Level of Care Code New Pt Level 4 (44778) Add On Problem Visit Only Diagnoses Abnormal EKG R94.31 Hypertension I10 Preoperative cardiovascular examination Z01.810
== END 2025-07-13 15:33 | disposition home or self-care (01) ==
LOC: HO.HCS 14:42
PROVIDERS: Visit Provider Internal Medicine
DX: R94.31 Abnormal electrocardiogram [ECG] [EKG] (principal); I10 Essential (primary) hypertension; Z01.810 Encounter for preprocedural cardiovascular examination
CPT/HCPCS: 99204; G2211

== ENCOUNTER → 2025-07-13 14:41 | Outpatient (BNVA) | payer MEDICARE, SELFPAY | PROVIDERS: Visit Provider Internal Medicine | DX: Z01.810 Encounter for preprocedural cardiovascular examination (principal); R94.31 Abnormal electrocardiogram [ECG] [EKG]; I10 Essential (primary) hypertension; Z87.891 Personal history of nicotine dependence; Z79.899 Other long term (current) drug therapy | CPT/HCPCS: 99202 ==

== ENCOUNTER → 2025-07-14 12:38 | Outpatient (REF) | payer MEDICARE, SELFPAY ==
--- NOTE | 2025-07-14 12:41 | CA_ITS ---
Transthoracic Echocardiogram Patient (Last, First, Middle): Micaela Leigh, Gender: Female Date of : 1950 Age: 75 Procedure Date: 07/14/2025 Procedure Type: Transthoracic Echocardiogram Location: OP Height: 165.1 cm Weight: 66.68 kg BSA: 1.74 m2 Heart Rate: 83 bpm BP: 183 / 87 mmHg Administrator: NIKOLAY Referring MD: Chris Aleman MD Camp Housekeeper: Chris Sutherland MD Symptoms: R94.31 - Abnormal electrocardiogram [ECG] [EKG] Study Quality: Adequate ECG Rhythm: Sinus Conclusions: - 1. Normal LV ejection fraction of 60 65% with impaired relaxation filling pattern with at least moderate asymmetric septal hypertrophy without any clear obstructive physiology 2. Cardiac valvular Dopplers within normal limits 3. No gross pericardial effusion Findings Left Ventricle Normal left ventricular size, thickness, and systolic function. The visually estimated ejection fraction is between 60-65%. Spectral Doppler is indicative of an impaired relaxation filling pattern. E/E prime ratio is between 8 and 15 consistent with indeterminate filling pressures. There is moderate septal asymmetric hypertrophy. Right Ventricle Normal right ventricular cavity size and systolic function. Atria Both atria are normal in size. There is lipomatous hypertrophy of the interatrial septum. There is no evidence of interatrial shunt. Aortic Valve The aortic valve structure and function is likely normal. There is no aortic valve stenosis. There is no aortic valve regurgitation. Mitral Valve There is mild anterior mitral leaflet thickening. There is mild mitral annular calcification. There is trace mitral valve regurgitation. There is no mitral valve stenosis. Pulmonic Valve The pulmonic valve is likely normal. There is trace pulmonic valve regurgitation. Tricuspid Valve Normal tricuspid valve structure. Tricuspid regurgitation envelope is inadequate for calculation of right ventricular systolic pressure. Normal right atrial pressure. Great Vessels All visible segments of the aorta are normal in size. The pulmonary artery was not well visualized. There is no dilatation of the ascending aorta measuring 3.20 cm. Venous The inferior vena cava is normal in size and collapses greater than 50% with inspiration. Pericardium/Pleural There is no evidence of pericardial effusion. Prior Study Comparison No prior study available for comparison. Measurements 2D Linear Measurements IVSd: 1.26 0.6-0.9/0.6-1.0 cm LVIDd: 3.99 3.9-5.3/4.2-5.9 cm LVIDd Index: 2.29 2.4-3.2/2.2-3.1 cm/m2 LVOT Diam: 2.10 3.0+(-)1.3 cm 2D Systolic Function EF 4C: 59.30 >55% EF 2C: 60.40 >55% EF BiP: 59.60 >55% Mitral Valve MV Pk E: 0.61 MV PK A: 0.82 MV Decel Time: 189.00 E/A: 0.70 E'Lateral: 5.77 E'Medial: 4.79 E/E' Med: 12.70 E/E' Lat: 10.50 PHT: 55.00 MVA PHT: 4.00 Decel Coffee: 3.22 Aortic Valve AoV Pk Tomas: 1.07 AoV Pk Grad: 5.00 ANNA: 2.89 LVOT LVOT Pk Tomas: 0.89 LVOT Mn Tomas: 0.53 LVOT VTI: 0.17 LVOT Pk Grad: 3.00 LVOT Mn Grad: 1.00 LVOT Diam: 2.10 LVOT Area: 3.46 Diastolic Function MV Pk E: 0.61 MV Pk A: 0.82 E/A: 0.70 E'Medial: 4.79 E/E' Med: 12.70 E' Laterial: 5.77 E/E' Lat: 10.50 Right Ventricle TAPSE (mm): 20.80 Tricuspid Valve RA Press: 3.00 Great Vessels Aorta Sinus of Valsalva: 3.40 2.0-3.5 cm Ao Asc: 3.20 2.1-3.4 cm Pulmonary Valve PV Pk Tomas: 0.77 Peak PV Grad: 2.00 Updated in Other Vendor System with Status of Final Chris Sutherland MD electronically signed on 07/15/2025 11:11:30 AM with status of Final
== END ==
LOC: HO.CARD 12:38
PROVIDERS: PCP Internal Medicine; Visit Provider Internal Medicine
DX: Z01.810 Encounter for preprocedural cardiovascular examination (principal); R94.31 Abnormal electrocardiogram [ECG] [EKG]
CPT/HCPCS: 93306

== ENCOUNTER → 2025-07-14 12:41 | Outpatient (BNV) | payer MEDICARE, SELFPAY | PROVIDERS: PCP Internal Medicine; Visit Provider Internal Medicine Cardiovascular Disease | DX: I42.2 Other hypertrophic cardiomyopathy (principal) | CPT/HCPCS: 93306 ==

== ENCOUNTER 2025-07-20 10:36 | Outpatient (REF) | payer MEDICARE, SELFPAY ==
[2025-07-20 15:02] LABS: Anion Gap 14 (12-20); Blood Urea Nitrogen 15 mg/dL (9-16); Calcium 10.1 mg/dL (8.4-10.2); Carbon Dioxide 28 mmol/L (22-29); Chloride 99 mmol/L (96-108); Estimated Glomerular Filt Rate 47; Potassium 4.1 mmol/L (3.3-5.1); Sodium 137 mmol/L (135-145)
== END 2025-07-20 10:37 | disposition home or self-care (01) ==
LOC: HO.HMGCLDS 10:36
PROVIDERS: Absent Provider Internal Medicine; Visit Provider Internal Medicine
DX: E87.6 Hypokalemia (principal); D75.839 Thrombocytosis, unspecified
CPT/HCPCS: 36415; 80048